=== PATIENT | female | born 1935 | race Caucasian/White ===

== ENCOUNTER → 2020-05-17 13:27 | Outpatient (REF) | payer MEDICARE, SELFPAY ==
--- NOTE | 2020-05-17 14:00 | CA_ITS ---
Transthoracic Echocardiogram Patient (Last, First, Middle): Lsia Fay C Gender: Female Date of : 1935 Age: 85 Procedure Date: 05/17/2020 Procedure Type: Transthoracic Echocardiogram Location: OP Height: 162.56 cm Weight: 73.94 kg BSA: 1.79 m2 Heart Rate: bpm BP: 132 / 58 mmHg Underground Miner: Referring MD: Alexandre Sebastian MD Symptoms: i35.0 as,i48.0 paf,i63.9 cva Conclusions: - Normal left ventricular cavity size. There is mildly increased left ventricular wall thickness. The left ventricular systolic function is hyperdynamic. The visually estimated ejection fraction is >70%. - Normal right ventricular cavity size and systolic function. - The left atrium is mildly dilated. - There is mild to moderate aortic valve stenosis. The peak aortic velocity is 2.53 m/s. The aortic valve area is 1.54 cm2. - There is severe mitral annular calcification. There is mild mitral valve regurgitation. - Mild pulmonary hypertension is present. Findings Left Ventricle Normal left ventricular cavity size. There is mildly increased left ventricular wall thickness. The left ventricular systolic function is hyperdynamic. The visually estimated ejection fraction is >70%. Abnormal diastolic function is noted. Spectral Doppler is indicative of an impaired relaxation filling pattern. E/E prime ratio is >15, consistent with elevated filling pressures. Right Ventricle Normal right ventricular cavity size and systolic function. Atria The left atrium is mildly dilated. The right atrium is normal in size. Aortic Valve There is a normal trileaflet aortic valve. There is mild calcification of the aortic valve. There is mild to moderate aortic valve stenosis. The peak aortic velocity is 2.53 m/s. The aortic valve area is 1.54 cm2. There is no aortic valve regurgitation. Mitral Valve There is severe mitral annular calcification. There is mild mitral valve regurgitation. There is no mitral valve stenosis. Pulmonic Valve Normal pulmonic valve structure and function. There is trace pulmonic valve regurgitation. Tricuspid Valve Normal tricuspid valve structure and function. There is mild tricuspid valve regurgitation. Normal right atrial pressure. Mild pulmonary hypertension is present. Great Vessels All visible segments of the aorta are normal in size. The visualized portions of the pulmonary artery and branches are normal. Venous The inferior vena cava is normal in size and collapses greater than 50% with inspiration. Pericardium/Pleural There is no evidence of pericardial effusion. Prior Study Comparison No significant change compared to prior study dated: 04/20/2019. Measurements 2D Linear Measurements RVIDd: 2.55 RVIDd Index: 1.42 IVSd: 1.06 0.6-0.9/0.6-1.0 cm LVIDd: 4.08 3.9-5.3/4.2-5.9 cm LVIDd Index: 2.28 2.4-3.2/2.2-3.1 cm/m2 LVIDs: 2.54 2.0-3.6 cm LVPWd: 1.17 0.7-1.1 cm Ao Root: 2.60 2.1-3.5 cm LA Diam: 3.60 2.7-3.8/3.0-4.0 cm LAIDs Index: 2.01 1.5-2.3 cm/m2 LV Mass: 190.66 67-162/88-224 g LV Mass Index: 106.51 43-95/49-115 g/m2 LVOT Diam: 2.00 3.0+(-)1.3 cm 2D Systolic Function EF 4C: 71.50 >55% EF 2C: 77.90 >55% EF BiP: 74.40 >55% Mitral Valve MV Pk E: 1.01 MV PK A: 1.22 MV Decel Time: 285.00 E/A: 0.80 E'Lateral: 6.64 E'Medial: 5.55 E/E' Med: 18.20 E/E' Lat: 15.20 Aortic Valve AoV Pk Hunter: 2.53 AoV Mn Hunter: 1.81 AoV VTI: 0.59 AoV Pk Grad: 26.00 Aov Mn Grad: 15.00 EMMA Cont.VTI: 1.54 LVOT LVOT Pk Hunter: 1.21 LVOT Mn Hunter: 0.94 LVOT VTI: 0.29 LVOT Pk Grad: 6.00 LVOT Mn Grad: 4.00 LVOT Diam: 2.00 LVOT Area: 3.14 Diastolic Function MV Pk E: 1.01 MV Pk A: 1.22 E/A: 0.80 E'Medial: 5.55 E/E' Med: 18.20 E' Laterial: 6.64 E/E' Lat: 15.20 Tricuspid Valve TR Pk Hunter: 3.12 TR Pk Grad: 39.00 RA Press: 3.00 RVSP: 42.00 Great Vessels Aorta Ao Root-2D: 2.60 2.0-3.7 cm Ao Asc: 2.30 2.1-3.4 cm Updated in Other Vendor System with Status of Final Anibal Reyes MD electronically signed on 05/18/2020 1:05:36 PM with status of Final
== END ==
LOC: HO.CARD 13:27
PROVIDERS: PCP Internal Medicine; Visit Provider Internal Medicine Cardiovascular Disease
DX: I48.0 Paroxysmal atrial fibrillation (principal); I63.9 Cerebral infarction, unspecified; I35.0 Nonrheumatic aortic (valve) stenosis
CPT/HCPCS: 93306

== ENCOUNTER 2020-05-22 12:43 | Outpatient (REF) | payer MEDICARE, SELFPAY ==
--- NOTE | 2020-05-22 12:53 | XR_ITS ---
EXAMINATION: XR HAND, LEFT XR WRIST, LEFT CLINICAL INFORMATION: Pain left hand and wrist. COMPARISON: None TECHNIQUE: Left hand is imaged in 3 views. The left wrist is imaged in 3 separate views. There are total of 6 views. FINDINGS: There is no fracture or dislocation or healing fracture left hand or left wrist. There is generalized osteopenia hand and wrist. The ulnar variance is neutral. There is small cyst distal ulnar. There is no calcification triangular fibrocartilage. Mild joint narrowing present at the triscaphe joint. There is some focal benign calcification between the triquetrum and hamate. No erosive change. Mild joint narrowing and spurring present at the first MCP joint. The second through fifth MTP joints are unremarkable. There is mild variable joint narrowing PIP and DIP joints without erosive changes. XR/XR hand LT min 3V IMPRESSION: 1. Mild joint narrowing lateral carpus, first MCP, and interphalangeal joints. No erosive changes. 2. Benign calcification between triquetrum and hamate. No calcification triangular fibrocartilage or articular cartilage. 3. No fracture, dislocation, or destructive process.
--- NOTE | 2020-05-22 12:53 | XR_ITS ---
EXAMINATION: XR HAND, LEFT XR WRIST, LEFT CLINICAL INFORMATION: Pain left hand and wrist. COMPARISON: None TECHNIQUE: Left hand is imaged in 3 views. The left wrist is imaged in 3 separate views. There are total of 6 views. FINDINGS: There is no fracture or dislocation or healing fracture left hand or left wrist. There is generalized osteopenia hand and wrist. The ulnar variance is neutral. There is small cyst distal ulnar. There is no calcification triangular fibrocartilage. Mild joint narrowing present at the triscaphe joint. There is some focal benign calcification between the triquetrum and hamate. No erosive change. Mild joint narrowing and spurring present at the first MCP joint. The second through fifth MTP joints are unremarkable. There is mild variable joint narrowing PIP and DIP joints without erosive changes. XR/XR wrist LT min 3V IMPRESSION: 1. Mild joint narrowing lateral carpus, first MCP, and interphalangeal joints. No erosive changes. 2. Benign calcification between triquetrum and hamate. No calcification triangular fibrocartilage or articular cartilage. 3. No fracture, dislocation, or destructive process.
== END 2020-05-22 12:44 | disposition home or self-care (01) ==
LOC: HO.HMGCX 12:43
PROVIDERS: PCP Internal Medicine; Visit Provider Hospitalist
DX: M25.532 Pain in left wrist (principal); M79.642 Pain in left hand
CPT/HCPCS: 73110; 73130

== ENCOUNTER 2020-09-27 08:50 | Outpatient (REF) | payer MEDICARE, SELFPAY | END 2020-09-27 08:51 | disposition home or self-care (01) | LOC: HO.LAB 08:50 | PROVIDERS: Visit Provider Internal Medicine | DX: Z20.822 Contact with and (suspected) exposure to COVID-19 (principal) | CPT/HCPCS: 36415; C9803; U0003; U0005 ==

== ENCOUNTER → 2020-11-09 09:41 | Outpatient (BNVA) | payer MEDICARE, SELFPAY | PROVIDERS: PCP Internal Medicine; Visit Provider Surgery | DX: D49.2 Neoplasm of unspecified behavior of bone, soft tissue, and skin (principal) | CPT/HCPCS: 99212 ==

== ENCOUNTER 2020-11-10 09:01 | Outpatient (REF) | payer MEDICARE, SELFPAY ==
[2020-11-10 12:07] LABS: TSH reflex Free T4 1.47 uIU/mL (0.32-4.0); Vitamin D 25-OH Total 30.5 ng/mL (>30)
[2020-11-10 12:12] LABS: Alanine Aminotransferase 15 U/L (0-31); Albumin Level 4.3 g/dL (3.5-5.0); Alkaline Phosphatase 107 U/L (39-117); Anion Gap 15 (12-20); Aspartate Amino Transferase 18 U/L (5-31); Blood Urea Nitrogen 19 mg/dL (9-16); Carbon Dioxide 29 mmol/L (22-29); Chloride 109 mmol/L (96-108); Cholesterol 170 mg/dL; Estimated Glomerular Filt Rate 49; Glucose Fasting 102 mg/dL (60-99); HDL Cholesterol 67 mg/dL; LDL Cholesterol Calculated 94 mg/dl; Potassium 5.1 mmol/L (3.3-5.1); Sodium 148 mmol/L (135-145); Triglycerides 46 mg/dL
[2020-11-10 12:20] LABS: Bilirubin Total 0.3 mg/dL (0.0-1.0)
== END 2020-11-10 09:02 | disposition home or self-care (01) ==
LOC: HO.HMGCLDS 09:01
PROVIDERS: PCP Internal Medicine; Visit Provider Internal Medicine
DX: E03.9 Hypothyroidism, unspecified (principal); E55.9 Vitamin D deficiency, unspecified; I48.91 Unspecified atrial fibrillation
CPT/HCPCS: 36415; 80053; 80061; 82306; 84443

== ENCOUNTER 2023-05-13 10:23 | Outpatient (AMB) | payer OTHER, MEDICAID, SELFPAY ==
--- NOTE | 2023-05-13 10:24 | MHC.PC.OV ---
Vital Signs 05/13/23 10:26 Height 5 ft 2 in Weight 159 lb 2 oz BMI 29.1 BP 120/60 Blood Pressure Location Lt brachial Position Sitting Pulse 68 Pulse Source Pulse Oximeter Pulse Oximetry (%) 98 Oxygen Delivery Method Room Air Intake Visit Reasons: NPV/ requesting an awv Intake Note: Patient is a new patient here to establish care for HTN, Hyperlipidemia, Hypothyroid, Afib, Vit D deficiency. Transferring care from Dr Tellez [facility] [place]. Medical records have been requested and have received. 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: Yes Did you have a dental problem in the last 6 months where you did not have access to dental care?: No Was dental information given to patient?: Patient has dentist HPI HPI Comments History of Present Illness Details 88-year-old female new patient presents today to establish care. Past medical history significant for hypertension, atrial fibrillation on Eliquis, CVA, hypothyroidism, hyperlipidemia and constipation. Patient reports previous patient Dr. Tellez over 2 years ago, states she moved to a full order for few years and was followed by [facility] while living there, Records available in chart. Patient reports she was a previous patient of Dr. Sebastian and has upcoming appointment to reestablish care with him in the upcoming weeks. Patient reports she has anxiety and cant shut off her brain to sleep. Considered trailing hydroxizine however patient reported she is on amiodarone 100 mg daily and there is an interaction between these medications. Offered referral to counseling however patient declines this time. Patient also reports was previously on medication for anxiety which she did not like way it made her feel so she discarded the medication, review of the notes patient was previously on sertraline. PFSH Medical History Hyperlipidemia Knee pain Vitamin D insufficiency Hypothyroidism CVA (cerebral vascular accident) Osteoporosis of lumbar spine HTN (hypertension) Afib Surgical History History of removal of cyst Family History Father Emphysema, unspecified Mother History of heart attack Brother Cancer of prostate Sister Ovarian cancer Sister Ovarian cancer Son History of heart attack Malignant melanoma Son No problems noted. Son No problems noted. Daughter No problems noted. Other Substance use disorder Social History Housing: Other (mobile home) Alcohol intake: current Alcohol intake frequency: holidays/special occasions only Patient Tobacco Use Status: Never used Tobacco e-Cigarette/Vaping Use: Never Used Second Hand Smoke Exposure: No service: No Current occupational status: retired Cognitive needs: No Hearing needs: No Vision needs: Yes (glasses) Questionnaire PHQ-9 Over the last 2 weeks, how often have you been bothered by any of the following problems? 1. Little interest or pleasure in doing things: not at all 2. Feeling down, depressed, or hopeless: several days 3. Trouble falling or staying asleep, or sleeping too much: not at all 4. Feeling tired or having little energy: not at all 5. Poor appetite or overeating: not at all 6. Feeling bad about yourself - or that you are a failure or have let yourself or your family down: not at all 7. Trouble concentrating on things, such as reading the newspaper or watching television: not at all 8. Moving or speaking so slowly that other people could have noticed. Or the opposite - being so fidgety or restless that you have been moving around a lot more than usual: not at all 9. Thoughts that you would be better off or of hurting yourself in some way: not at all Total score: 1 Depression Screening Interpretation: Negative Depression Screening Done: Yes Source: Developed by Drs. Joel L. Justyn, Maykel Weber and colleagues, with an educational chato from [employer]. Thrive Questionnaire Date Thrive assessed: 05/13/23 I am a: Patient What is your living situation today?: I have a steady place to live Within the past 12 months, did the food you bought not last and you didn't have the money to get more?: Never true Within the past 12 months, did you worry whether your food would run out before you got money to buy more?: Never true Do you have trouble paying for medicines?: No Do you have trouble getting transportation to medical appointments?: No Do you have trouble paying your heating and electricity bill?: No Do you have trouble taking care of your child, family member or friend?: No Do you have trouble with day-to-day activities such as bathing, preparing meals, shopping, managing finances, etc.?: No Are you currently unemployed and looking for a job?: No Are you interested in more education?: No Currently or been in a relationship where the following occur: no concerns reported AUDIT C Alcohol Use Questionnaire (AUDIT-C) 1. How often do you have a drink containing alcohol?: Never Total Score: 0 SANIYA-7 AMB Questionnaire SANIYA-7 Date SANIYA - 7 assessed: 05/13/23 Feeling nervous, anxious, or on edge: 0 = Not at all Not being able to stop or control worryin = Not at all Worrying too much about different things: 0 = Not at all Trouble relaxin = Not at all Being so restless that it is hard to sit still: 0 = Not at all Becoming easily annoyed or irritable: 0 = Not at all Feeling afraid as if something awful might happen: 0 = Not at all Total SANIYA-7 score (0-4 normal; 5-9 mild; 10-14 moderate; 15-21 severe): 0 Source: Developed by Drs. Joel Alejandra, Maykel Weber and colleagues, with an educational chato from [employer]. Review of Systems Const Denies chills, Denies fatigue, Denies fever(s) and Denies poor appetite Eyes Denies no additional complaints ENT Reports Normal hearing present Card Denies chest pain, Denies syncope, Denies rapid heart rate and Denies dyspnea Resp Denies cough and Denies dyspnea GI Denies change in stool character, Denies constipation, Denies diarrhea, Denies nausea and Denies vomiting Denies urinary frequency, Denies dysuria and Denies urinary urgency Neuro Reports Normal hearing present, Denies confusion and Denies syncope Psych Denies confusion Endo Denies fatigue Physical exam (Primary Care) Vital Signs: Last Vital Signs Pulse 68 05/13/23 10:26 BP 120/60 05/13/23 10:26 Pulse Ox 98 05/13/23 10:26 Oxygen Delivery Method Room Air 05/13/23 10:26 BMI result Body Mass Index 29.1 Tobacco/Smoking Status: Tobacco use Status Tobacco use date assessed 05/13/23 05/13/23 10:29 Patient Tobacco Use Status Never used Tobacco 05/13/23 10:29 e-Cigarette/Vaping Use Never Used 05/13/23 10:29 PHQ-9: PHQ-9 Score PHQ-9: Total score 1 05/13/23 11:42 Depression Screening Interpretation: Negative Thrive Assessment: Date of Thrive Assessment Date Thrive assessed 05/13/23 05/13/23 10:29 Currently or been in a relationship where the following occur: no concerns reported Const General: No confusion Orientation/consciousness: No confusion HENMT Head: Yes normocephalic and Yes atraumatic Eyes Conjunctivae: conjunctivae normal Chest Chest palpation & inspection: normal inspection of the chest Resp Effort & Inspection: normal respiratory effort Auscultation: clear to auscultation bilaterally, no crackles, no rhonchi and no wheezes Cardio Rate: regular rate Rhythm: regular rhythm Heart sounds: S1 normal heart sound present and S2 normal heart sound present Peripheral pulses: dorsalis pedis present GI Inspection: Yes normal to inspection General: Yes no CVA tenderness Back/Spine/Pelvis Back: no CVA tenderness Neuro General: No confusion Cranial nerves: Yes Normal hearing present Extrem General: No edema Assessment and Plan Assessment & Plan (1) Constipation: Code(s): K59.00 - Constipation, unspecified Plan: MiraLax sent to patient's pharmacy. Patient advised to increase water intake and follow high-fiber diet keep active to facilitate regular bowel movements. (2) Hyperlipidemia: Code(s): E78.5 - Hyperlipidemia, unspecified Plan: Continue on lovastatin. Follow low-cholesterol diet. Fasting lipid panel ordered. (3) Hypothyroidism: Code(s): E03.9 - Hypothyroidism, unspecified Plan: Continue on levothyroxine. TSH with reflex T4. (4) Afib: Code(s): I48.91 - Unspecified atrial fibrillation Plan: Continue on amiodarone antiarrhythmic and Eliquis for anticoagulation. Continue to reestablish care with Cardiology. (5) Essential hypertension: Code(s): I10 - Essential (primary) hypertension Plan: Continue on amlodipine 10 mg daily. Follow low-salt diet and exercise. Plan Follow up in 3 months for AWV Orders: Orders Comprehensive [place]. Panel Fast Today I10 - Essential (primary) hypertension Complete Blood Count Auto Diff Today Z13.0 - Encounter for screening for diseases of the blood and blood-forming organs and certain disorders involving the immune mechanism Lipid Panel Today Z13.220 - Encounter for screening for lipoid disorders TSH reflex Free T4 Today Z13.29 - Encounter for screening for other suspected endocrine disorder Medications: New polyethylene glycol 3350 (Miralax) 17 grams PO DAILY 119 grams 0RF K59.00 - Constipation, unspecified Changed From hydralazine 50 mg (2 x 25 mg) PO BID 360 tabs 3RF To hydralazine 50 mg PO BID Coding Level of Care Code New Pt Level 4 (85492) Diagnoses Constipation K59.00 Hyperlipidemia E78.5 Hypothyroidism E03.9 Afib I48.91 Essential hypertension I10
[2023-05-13 10:26] VITALS: BP 120/60; PULSE 68; O2SAT 98; BMI 29.1
== END 2023-05-13 11:10 | disposition home or self-care (01) ==
PROVIDERS: Visit Provider Nurse Practitioner Family
DX: K59.00 Constipation, unspecified (principal); E78.5 Hyperlipidemia, unspecified; E03.9 Hypothyroidism, unspecified; I48.91 Unspecified atrial fibrillation; I10 Essential (primary) hypertension
CPT/HCPCS: 99204; 99214

== ENCOUNTER 2023-05-27 10:37 | Outpatient (AMB) | payer OTHER, MEDICAID, SELFPAY ==
--- NOTE | 2023-05-27 10:39 | MHC.OFFVIS ---
Intake Vital Signs 05/27/23 10:40 Height 5 ft 2 in Weight 160 lb 14.999 oz BMI 29.4 BP 136/84 Blood Pressure Location Lt brachial Position Sitting Pulse 63 Intake Visit Reasons: old ns pt/ back from [facility] Intake Note: Follow-up last seen 2019 back from [place] c/o chest pain yesterday Medical Front Desk Coordinator Required: No Supervisor Assembly And Packing: Supervisor Assembly And Packing Present Accompanied by: Daughter Allergies lisinopril Adverse Reaction (Intermediate, Verified 05/13/23 10:47) Unknown Medication List - Last Reconciled 05/27/23 by Alexandre Sebastian MD amiodarone 100 mg PO DAILY amlodipine 10 mg PO DAILY apixaban 5 mg PO BID hydralazine 50 mg PO BID levothyroxine 75 mcg PO DAILY lovastatin 40 mg PO DAILY polyethylene glycol 3350 (Miralax) 17 grams PO DAILY HPI HPI Comments History of Present Illness Details Thank you for referring Lisa in cardiology consultation today for management of atrial fibrillation aortic stenosis. She is known to me with prior history of aortic stenosis and atrial fibrillation had moved to [place] a few years back but has returned back permanently as she could not tolerate living down in [place]. She says she is doing well. She remains very active and functional. Denies any exertional chest pain or shortness of breath. She denies any prolonged palpitations or irregular heartbeat. Denies any lightheadedness, syncope. No bleeding issues or neurologic events. Takes all her medications regularly. [facility] Medical History Paroxysmal atrial fibrillation Aortic stenosis Hyperlipidemia Knee pain Vitamin D insufficiency Hypothyroidism CVA (cerebral vascular accident) Osteoporosis of lumbar spine HTN (hypertension) Surgical History History of removal of cyst Family History Father Emphysema, unspecified Mother History of heart attack Brother Cancer of prostate Sister Ovarian cancer Sister Ovarian cancer Son History of heart attack Malignant melanoma Son No problems noted. Son No problems noted. Daughter No problems noted. Other Substance use disorder Social History Housing: Other (mobile home) Alcohol intake: current Alcohol intake frequency: holidays/special occasions only Patient Tobacco Use Status: Never used Tobacco e-Cigarette/Vaping Use: Never Used Second Hand Smoke Exposure: No service: No Current occupational status: retired Cognitive needs: No Hearing needs: No Vision needs: Yes (glasses) Review of Systems Const Denies chills, Denies fatigue, Denies fever(s), Denies frequent falls, Denies weakness, Denies weight gain and Denies weight loss ENT Denies dizziness Card Denies chest pain, Denies leg edema, Denies lightheadedness, Denies palpitations, Denies dyspnea, Denies dyspnea on exertion, Denies orthopnea and Denies other (loss of consciousness) Resp Denies cough, Denies dyspnea and Denies dyspnea on exertion GI Denies hematochezia and Denies change in stool character Musc Denies abnormal gait, Denies muscle weakness, Denies numbness, Denies radiating pain into limb and Denies tingling Neuro Denies abnormal gait, Denies dizziness, Denies frequent falls, Denies numbness, Denies tingling and Denies weakness Endo Denies fatigue and Denies palpitations Physical Exam Vital Signs: Last Vital Signs Pulse 63 05/27/23 10:40 BP 136/84 05/27/23 10:40 BMI result Body Mass Index 29.4 Const General: cooperative, comfortable, no acute distress, well developed, alert, awake, Physically active and well groomed Nutritional Appearance: overweight Orientation/consciousness: patient oriented x3 Limitations: no limitations HEENT Head: Yes normocephalic and Yes atraumatic Neck Neck: Yes trachea midline, Yes supple and Yes no JVD Resp Effort & Inspection: normal respiratory effort Auscultation: clear to auscultation bilaterally Cardio Jugular venous distension: no JVD Palpation: normal PMI Rate: regular rate Rhythm: regular rhythm Heart sounds: S1 normal heart sound present, S2 normal heart sound present, no click, no gallops and Murmur heart sound present systolic mid, decrescendo and crescendo GI Auscultation: normal bowel sounds Skin General skin exam: no rashes or lesions noted Neuro General: patient oriented x3 and no focal motor deficits Extrem General: Yes no clubbing, cyanosis or edema Office Procedures EKG Details: EKG shows normal sinus rhythm with poor R-wave progression most likely lead placement with nonspecific T-wave changes [place] [id number], Complete Assessment & Plan Assessment & Plan (1) Paroxysmal atrial fibrillation: Code(s): I48.0 - Paroxysmal atrial fibrillation Plan: Paroxysmal atrial fibrillation is highly symptomatic has remained suppressed for many years on low-dose amiodarone therapy. Has done very well with rhythm control approach. Continue monitor for amiodarone toxicity on annual basis. Currently on full oral anticoagulation with Eliquis with CKD. Advised to follow renal function every 3 months. Tolerating this therapy well. Avoidance of stimulants was discussed. (2) Aortic stenosis: Code(s): I35.0 - Nonrheumatic aortic (valve) stenosis Plan: Aortic stenosis which is at least moderate by clinical exam. Follow-up echocardiogram in near future. Continue aggressive vascular risk factor modification. Blood pressure is currently well optimized advised to monitor blood pressure at home maintain a log. Goal blood pressure less than 130/84. Will switch to lovastatin to rosuvastatin 5 mg. Follow-up lipid panel in 6 weeks to target goal LDL less than 100 mg/dL. Cardinal symptoms of aortic stenosis were discussed with her in details. She understands agrees. Follow up in the clinic in 6 months time, sooner p.r.n.. 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
[2023-05-27 10:40] VITALS: BP 136/84; PULSE 63; BMI 29.4
== END 2023-05-27 11:08 | disposition home or self-care (01) ==
PROVIDERS: Visit Provider Internal Medicine Cardiovascular Disease
DX: I48.0 Paroxysmal atrial fibrillation (principal); I35.0 Nonrheumatic aortic (valve) stenosis
CPT/HCPCS: 93010; 99204

== ENCOUNTER → 2023-05-27 10:37 | Outpatient (BNVA) | payer OTHER, SELFPAY | PROVIDERS: Visit Provider Internal Medicine Cardiovascular Disease | DX: I48.0 Paroxysmal atrial fibrillation (principal); I35.0 Nonrheumatic aortic (valve) stenosis; Z79.01 Long term (current) use of anticoagulants; Z79.899 Other long term (current) drug therapy | CPT/HCPCS: 93005 ==

== ENCOUNTER 2023-06-25 08:24 | Outpatient (REF) | payer OTHER, MEDICAID, SELFPAY ==
[2023-06-25 11:28] LABS: MANUAL DIFF FLAG NO
[2023-06-25 11:43] LABS: Basophils Absolute Auto 0.1 X10*3/uL (0.0-0.2); Basophils Percent Auto 0.7 % (0-2); Eosinophils Absolute Auto 0.1 X10*3/uL (0.0-0.4); Eosinophils Percent Auto 1.8 % (0-4); Hematocrit 44.5 % (37.0-47.0); Hemoglobin 14.6 g/dl (12.0-16.0); Imm Gran Abs Auto 0.02 X10*3/uL (0.00-0.03); Imm Gran Pct Auto 0.3 % (0.0-0.4); Lymphocytes Absolute Auto 2.1 X10*3/uL (1.2-4.9); Lymphocytes Percent Auto 27.1 % (20-40); Mean Corpuscular HGB Conc 32.8 g/dl (31.0-35.0); Mean Corpuscular Hemoglobin 29.5 pg (27.0-33.0); Mean Corpuscular Volume 89.9 fL (80.0-98.0); Mean Platelet Volume 12.5 fL (9.4-12.3); Monocytes Absolute Auto 0.8 X10*3/uL (0.1-1.2); Monocytes Percent Auto 10.6 % (2-11); Neutrophils Absolute Auto 4.5 x10*3/uL (2.0-8.3); Neutrophils Percent Auto 59.5 % (45-73); Platelet Count 215 X10*3/uL (160-400); Red Blood Count 4.95 X10*6/uL (4.20-5.50); White Blood Count 7.6 X10*3/uL (4.8-10.8)
[2023-06-25 12:09] LABS: Alanine Aminotransferase 12 U/L (0-31); Albumin Level 4.2 g/dL (3.5-5.0); Alkaline Phosphatase 81 U/L (39-117); Anion Gap 14 (12-20); Aspartate Amino Transferase 16 U/L (5-31); Bilirubin Direct 0.2 mg/dL (0.0-0.5); Bilirubin Total 0.4 mg/dL (0.0-1.0); Blood Urea Nitrogen 22 mg/dL (9-16); Calcium 9.8 mg/dL (8.4-10.2); Carbon Dioxide 28 mmol/L (22-29); Chloride 106 mmol/L (96-108); Cholesterol 173 mg/dL (<200); Estimated Glomerular Filt Rate 45; Glucose Fasting 105 mg/dL (60-99); Glucose Random 105 mg/dL (60-115); HDL Cholesterol 60 mg/dL (>40); LDL Cholesterol Calculated 101 mg/dL (<100); Potassium 4.5 mmol/L (3.3-5.1); Sodium 143 mmol/L (135-145); TSH reflex Free T4 2.06 uIU/mL (0.32-4.0); Total Protein 7.4 g/dL (6.5-8.0); Triglycerides 61 mg/dL (<150)
== END 2023-06-25 08:25 | disposition home or self-care (01) ==
LOC: HO.HMGCLDS 08:24
PROVIDERS: PCP Nurse Practitioner Family; Visit Provider Internal Medicine Cardiovascular Disease
DX: Z13.0 Encounter for screening for diseases of the blood and blood-forming organs and certain disorders involving the immune mechanism (principal); Z13.220 Encounter for screening for lipoid disorders; Z13.29 Encounter for screening for other suspected endocrine disorder; I48.0 Paroxysmal atrial fibrillation; I10 Essential (primary) hypertension
CPT/HCPCS: 36415; 80048; 80053; 80061; 80076; 84443; 85025; 85027

== ENCOUNTER → 2023-06-26 08:49 | Outpatient (REF) | payer OTHER, SELFPAY ==
--- NOTE | 2023-06-26 08:53 | CA_ITS ---
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 Normal LV ejection fraction of 60 65% with mild LVH with grade 2 diastolic dysfunction 2. Mildly dilated left atrium 3. Huev-sp-xzbdzyxj calcific aortic stenosis 4. Severe mitral annular calcification 5. Normal RV systolic pressure 6. Trivial pericardial effusion Findings Left Ventricle Normal left ventricular size and systolic function. There is mildly increased left ventricular wall thickness. The visually estimated ejection fraction is between 60-65%. Spectral Doppler is indicative of a pseudonormal filling pattern. E/E prime ratio is >15, consistent with elevated filling pressures. Evidence suggests grade II (moderate) diastolic dysfunction. There is mild septal asymmetric hypertrophy. Right Ventricle Normal right ventricular cavity size and systolic function. Atria The left atrium is mildly dilated. Interatrial shunt cannot be excluded. The right atrium is normal in size. Aortic Valve The aortic valve was not well visualized. There is moderate calcification of the aortic valve. There is mild to moderate aortic valve stenosis. The peak aortic gradient is 29 mmHg.The mean gradient is 17 mmHg. The aortic valve area is 1.42 cm2. There is no aortic valve regurgitation. Mitral Valve There is mild anterior and severe posterior mitral leaflet thickening. There is severe mitral annular calcification. There is mild mitral valve regurgitation. There is no mitral valve stenosis. Pulmonic Valve The pulmonic valve is likely normal. Tricuspid Valve Normal tricuspid valve structure. There is mild tricuspid valve regurgitation. The right ventricular systolic pressure is normal. The right ventricular systolic pressure is 33 mmHg. Normal right atrial pressure. Mild pulmonary hypertension is present. Great Vessels All visible segments of the aorta are normal in size. The pulmonary artery was not well visualized. Venous The inferior vena cava is normal in size and collapses greater than 50% with inspiration. Pericardium/Pleural There is a trivial loculated pericardial effusion overlying the left ventricle. Prior Study Comparison Changes noted compared to prior study dated: 05/17/2020. RV systolic pressure is measured to be normal on this study Measurements 2D Linear Measurements IVSd: 1.59 0.6-0.9/0.6-1.0 cm LVIDd: 3.77 3.9-5.3/4.2-5.9 cm LVIDd Index: 2.14 2.4-3.2/2.2-3.1 cm/m2 LVIDs: 2.05 2.0-3.6 cm LVPWd: 1.10 0.7-1.1 cm LA Diam: 3.70 2.7-3.8/3.0-4.0 cm LAIDs Index: 2.10 1.5-2.3 cm/m2 LV Mass: 224.64 67-162/88-224 g LV Mass Index: 127.64 43-95/49-115 g/m2 LVOT Diam: 2.00 3.0+(-)1.3 cm 2D Systolic Function EF 4C: 60.40 >55% EF 2C: 63.60 >55% EF BiP: 60.80 >55% Mitral Valve MV VTI: 0.42 MV Pk Hunter: 1.21 MV Mn Hunter: 0.70 MV Pk Grad: 6.00 MV Mn Grad: 2.00 MV Pk E: 1.07 MV PK A: 0.99 MV Decel Time: 253.00 E/A: 1.10 E'Lateral: 5.77 E'Medial: 4.68 E/E' Med: 22.90 E/E' Lat: 18.50 PHT: 74.00 MVA PHT: 2.97 MVA Continuity: 2.32 Decel [place]y: 4.23 Aortic Valve AoV Pk Hunter: 2.68 AoV Mn Hunter: 1.96 AoV VTI: 0.69 AoV Pk Grad: 29.00 Aov Mn Grad: 17.00 EMMA Cont.VTI: 1.42 LVOT LVOT Pk Hunter: 1.06 LVOT Mn Hunter: 0.83 LVOT VTI: 0.31 LVOT Pk Grad: 4.00 LVOT Mn Grad: 3.00 LVOT Diam: 2.00 LVOT Area: 3.14 Diastolic Function MV Pk E: 1.07 MV Pk A: 0.99 E/A: 1.10 E'Medial: 4.68 E/E' Med: 22.90 E' Laterial: 5.77 E/E' Lat: 18.50 Right Ventricle TAPSE (mm): 20.80 TVS' Hunter: 10.40 Tricuspid Valve TR Pk Hunter: 2.73 TR Pk Grad: 30.00 RA Press: 3.00 RVSP: 33.00 Great Vessels Aorta Sinus of Valsalva: 2.82 2.0-3.5 cm Ao Asc: 2.70 2.1-3.4 cm Updated in Other Vendor System with Status of Final Alexandre Sebastian MD electronically signed on 06/26/2023 6:35:23 PM with status of Final
== END ==
LOC: HO.CARD 08:49
PROVIDERS: PCP Nurse Practitioner Family; Visit Provider Internal Medicine Cardiovascular Disease
DX: I35.0 Nonrheumatic aortic (valve) stenosis (principal)
CPT/HCPCS: 93306

== ENCOUNTER → 2023-06-26 08:53 | Outpatient (BNV) | payer OTHER, MEDICAID, SELFPAY | PROVIDERS: PCP Nurse Practitioner Family; Visit Provider Internal Medicine Cardiovascular Disease | DX: I35.0 Nonrheumatic aortic (valve) stenosis (principal); I34.81 Nonrheumatic mitral (valve) annulus calcification | CPT/HCPCS: 93306 ==

== ENCOUNTER 2023-09-02 11:43 | Outpatient (AMB) | payer OTHER, MEDICAID, SELFPAY ==
--- NOTE | 2023-09-02 12:13 | A.OFFPC_ITS ---
Vital Signs 09/02/23 12:14 Height 5 ft 2 in Weight 161 lb 6 oz BMI 29.5 BP 135/82 Blood Pressure Location Lt brachial Position Sitting Pulse 70 Pulse Source Pulse Oximeter Pulse Oximetry (%) 99 Oxygen Delivery Method Room Air Intake Visit Reasons: Re establishing care per [facility] Intake Note: Pt is here to re-est care Allergies lisinopril Adverse Reaction (Intermediate, Verified 09/02/23 12:16) Unknown Medication List - Last Reconciled 09/02/23 by Eusebia Orantes MD amiodarone 100 mg PO DAILY 90 days amlodipine 5 mg PO DAILY apixaban 5 mg PO BID hydralazine 50 mg PO BID levothyroxine 75 mcg PO DAILY rosuvastatin 5 mg PO DAILY triamterene-hydrochlorothiazid 37.5-25 mg 1 tab PO QAM Tobacco use date assessed: 09/02/23 Fall risk assessment: No Falls in past year Last assessed Fall Risk: 09/02/23 Dental Screening Dental Screen Date: 09/02/23 Did you have a dental visit in the last 12 months?: Yes Did you have a dental problem in the last 6 months where you did not have access to dental care?: No Was dental information given to patient?: Patient has dentist HPI Re establishing care per [facility] HPI Details Pt presents for new patient visit. Past medical history includes HTN, A fib, hyperlipid, hypothyroid stable on meds. Pt's son from melanoma 1 and 1/2 years ago in [place]. Pt moved from [place] in February. [facility] Medical History (Updated 09/02/23 @ 14:22 by Eusebia Orantes MD) HTN (hypertension) Paroxysmal atrial fibrillation Aortic stenosis Hyperlipidemia Knee pain Vitamin D insufficiency Hypothyroidism CVA (cerebral vascular accident) Osteoporosis of lumbar spine Surgical History History of removal of cyst Family History Father Emphysema, unspecified Mother History of heart attack Brother Cancer of prostate Sister Ovarian cancer Sister Ovarian cancer Son History of heart attack Malignant melanoma Son No problems noted. Son No problems noted. Daughter No problems noted. Other Substance use disorder Social History Housing: Other (mobile home) Alcohol intake: current Alcohol intake frequency: holidays/special occasions only Patient Tobacco Use Status: Former Tobacco user e-Cigarette/Vaping Use: Never Used Second Hand Smoke Exposure: No service: No Current occupational status: retired Cognitive needs: No Hearing needs: No Vision needs: Yes (glasses) Questionnaire PHQ-9 Over the last 2 weeks, how often have you been bothered by any of the following problems? 1. Little interest or pleasure in doing things: not at all 2. Feeling down, depressed, or hopeless: several days 3. Trouble falling or staying asleep, or sleeping too much: not at all 4. Feeling tired or having little energy: several days 5. Poor appetite or overeating: not at all 6. Feeling bad about yourself - or that you are a failure or have let yourself or your family down: not at all 7. Trouble concentrating on things, such as reading the newspaper or watching television: not at all 8. Moving or speaking so slowly that other people could have noticed. Or the opposite - being so fidgety or restless that you have been moving around a lot more than usual: not at all 9. Thoughts that you would be better off or of hurting yourself in some way: not at all Total score: 2 Depression Screening Interpretation: Negative Depression Screening Done: Yes Source: Developed by Drs. Joel Alejandra, Genie Wilson, Maykel Nam and colleagues, with an educational chato from [employer]. Thrive Questionnaire Date Thrive assessed: 09/02/23 I am a: Patient What is your living situation today?: I have a steady place to live Within the past 12 months, did the food you bought not last and you didn't have the money to get more?: Never true Within the past 12 months, did you worry whether your food would run out before you got money to buy more?: Never true Do you have trouble paying for medicines?: No Do you have trouble getting transportation to medical appointments?: No Do you have trouble paying your heating and electricity bill?: No Do you have trouble taking care of your child, family member or friend?: No Do you have trouble with day-to-day activities such as bathing, preparing meals, shopping, managing finances, etc.?: No Are you currently unemployed and looking for a job?: No Are you interested in more education?: No THRIVE Score: 0 AUDIT C Alcohol Use Questionnaire (AUDIT-C) 1. How often do you have a drink containing alcohol?: Never Total Score: 0 SANIYA-7 AMB Questionnaire SANIYA-7 Date SANIYA - 7 assessed: 09/02/23 Feeling nervous, anxious, or on edge: 0 = Not at all Not being able to stop or control worryin = Several days Worrying too much about different things: 0 = Not at all Trouble relaxin = Several days Being so restless that it is hard to sit still: 0 = Not at all Becoming easily annoyed or irritable: 0 = Not at all Feeling afraid as if something awful might happen: 0 = Not at all Total SANIYA-7 score (0-4 normal; 5-9 mild; 10-14 moderate; 15-21 severe): 2 Source: Developed by Drs. Joel Alejandra, Genie Wilson, Maykel Nam and colleagues, with an educational chato from [employer]. Review of Systems Const All systems reviewed & are unremarkable except as noted in HPI and below Reports no additional complaints Eyes Reports no additional complaints ENT Reports no additional complaints Card Reports no additional complaints Resp Reports no additional complaints GI Reports no additional complaints Reports no additional complaints Physical exam (Primary Care) Vital Signs: Last Vital Signs Pulse 70 09/02/23 12:14 BP 150/82 H 09/02/23 12:14 Pulse Ox 99 09/02/23 12:14 Oxygen Delivery Method Room Air 09/02/23 12:14 BMI result Body Mass Index 29.5 Tobacco/Smoking Status: Tobacco use Status Tobacco use date assessed 09/02/23 09/02/23 12:21 Patient Tobacco Use Status Former Tobacco user 09/02/23 12:21 e-Cigarette/Vaping Use Never Used 09/02/23 12:21 PHQ-9: PHQ-9 Score PHQ-9: Total score 2 09/02/23 12:21 Depression Screening Interpretation: Negative Thrive Assessment: Date of Thrive Assessment Date Thrive assessed 09/02/23 09/02/23 12:21 Const General: no acute distress HENMT Head: Yes normal to inspection Ears: hearing grossly normal bilaterally General nose exam: Normal external nose present Face and sinus: Yes normal facial exam Mouth: Normal oral and palatal mucosa present Eyes General: appearance normal, both eyes and all related structures Neck Neck: Yes no lymphadenopathy and Yes supple Resp Effort & Inspection: normal respiratory effort Auscultation: clear to auscultation bilaterally Extrem Other: 3+ pitting edema bilaterally Assessment and Plan Assessment & Plan (1) HTN (hypertension): Code(s): I10 - Essential (primary) hypertension Plan: For worsening lower extremity edema amlodipine will be decreased from 10 mg to 5 mg and triamterene with hydrochlorothiazide 37.5/25 will be started. BNP will be checked in 2 weeks and patient will follow-up in 1 month (2) Edema: Code(s): R60.9 - Edema, unspecified Plan: As above (3) Aortic stenosis: Comment: Echo 06/19 mild-moderate calcific Code(s): I35.0 - Nonrheumatic aortic (valve) stenosis (4) Hyperlipidemia: Code(s): E78.5 - Hyperlipidemia, unspecified Plan: Continue statin check lipid profile (5) Hypothyroidism: Code(s): E03.9 - Hypothyroidism, unspecified Plan: Continue levothyroxine (6) Paroxysmal atrial fibrillation: Code(s): I48.0 - Paroxysmal atrial fibrillation Plan: Rhythm controlled on amiodarone and anticoagulated on Eliquis, follow-up with Cardiology Orders: Orders Basic Metabolic Panel 2 Weeks I10 - Essential (primary) hypertension, R60.9 - Edema, unspecified Medications: New amlodipine 5 mg PO DAILY 90 tabs 0RF triamterene-hydrochlorothiazid 37.5-25 mg 1 tab PO QAM 30 tabs 2RF Discontinued amlodipine Discontinued Reason: Doctor's Order 10 mg PO DAILY 90 tabs 3RF I10 - Essential (primary) hypertension Coding Level of Care Code Est Pt Level 4 (05814) Diagnoses HTN (hypertension) I10 Edema R60.9 Aortic stenosis I35.0 Hyperlipidemia E78.5 Hypothyroidism E03.9 Paroxysmal atrial fibrillation I48.0
[2023-09-02 12:14] VITALS: BP 135/82; PULSE 70; O2SAT 99; BMI 29.5
== END 2023-09-02 13:16 | disposition home or self-care (01) ==
PROVIDERS: PCP Nurse Practitioner Family; Visit Provider Internal Medicine
DX: I10 Essential (primary) hypertension (principal); R60.9 Edema, unspecified; I48.0 Paroxysmal atrial fibrillation; I35.0 Nonrheumatic aortic (valve) stenosis; E78.5 Hyperlipidemia, unspecified; E03.9 Hypothyroidism, unspecified
CPT/HCPCS: 99214

== ENCOUNTER 2023-09-16 07:28 | Outpatient (REF) | payer OTHER, SELFPAY ==
[2023-09-16 11:44] LABS: Anion Gap 14 (12-20); Blood Urea Nitrogen 29 mg/dL (9-16); Calcium 9.5 mg/dL (8.4-10.2); Carbon Dioxide 30 mmol/L (22-29); Chloride 104 mmol/L (96-108); Estimated Glomerular Filt Rate 37; Glucose Random 109 mg/dL (60-115); Potassium 5.1 mmol/L (3.3-5.1); Sodium 143 mmol/L (135-145)
== END 2023-09-16 07:29 | disposition home or self-care (01) ==
LOC: HO.HMGCLDS 07:28
PROVIDERS: PCP Internal Medicine; Visit Provider Internal Medicine
DX: I10 Essential (primary) hypertension (principal); R60.9 Edema, unspecified
CPT/HCPCS: 36415; 80048

== ENCOUNTER 2023-10-22 11:44 | Outpatient (REF) | payer OTHER, SELFPAY ==
[2023-10-22 13:34] LABS: MANUAL DIFF FLAG NO
[2023-10-22 13:54] LABS: Basophils Absolute Auto 0.1 X10*3/uL (0.0-0.2); Basophils Percent Auto 0.7 % (0-2); Eosinophils Absolute Auto 0.1 X10*3/uL (0.0-0.4); Eosinophils Percent Auto 1.2 % (0-4); Hematocrit 43.8 % (37.0-47.0); Hemoglobin 14.5 g/dl (12.0-16.0); Imm Gran Abs Auto 0.04 X10*3/uL (0.00-0.03); Imm Gran Pct Auto 0.4 % (0.0-0.4); Lymphocytes Absolute Auto 2.3 X10*3/uL (1.2-4.9); Lymphocytes Percent Auto 25.4 % (20-40); Mean Corpuscular HGB Conc 33.1 g/dl (31.0-35.0); Mean Corpuscular Hemoglobin 29.4 pg (27.0-33.0); Mean Corpuscular Volume 88.8 fL (80.0-98.0); Mean Platelet Volume 11.8 fL (9.4-12.3); Monocytes Percent Auto 10.7 % (2-11); Neutrophils Absolute Auto 5.5 x10*3/uL (2.0-8.3); Neutrophils Percent Auto 61.6 % (45-73); Platelet Count 191 X10*3/uL (160-400); Red Blood Count 4.93 X10*6/uL (4.20-5.50)
[2023-10-22 14:16] LABS: Alanine Aminotransferase 15 U/L (0-31); Albumin Level 4.4 g/dL (3.5-5.0); Alkaline Phosphatase 92 U/L (39-117); Anion Gap 14 (12-20); Aspartate Amino Transferase 20 U/L (5-31); Bilirubin Total 0.4 mg/dL (0.0-1.0); Blood Urea Nitrogen 32 mg/dL (9-16); Calcium 9.7 mg/dL (8.4-10.2); Carbon Dioxide 28 mmol/L (22-29); Chloride 101 mmol/L (96-108); Estimated Glomerular Filt Rate 42; Glucose Fasting 94 mg/dL (60-99); Potassium 4.9 mmol/L (3.3-5.1); Sodium 138 mmol/L (135-145); Total Protein 7.5 g/dL (6.5-8.0)
[2023-10-22 14:19] LABS: TSH reflex Free T4 0.41 uIU/mL (0.32-4.0)
== END 2023-10-22 11:45 | disposition home or self-care (01) ==
LOC: HO.HMGCLDS 11:44
PROVIDERS: PCP Internal Medicine; Visit Provider Internal Medicine
DX: I48.0 Paroxysmal atrial fibrillation (principal); I35.0 Nonrheumatic aortic (valve) stenosis; E03.9 Hypothyroidism, unspecified; I12.9 Hypertensive chronic kidney disease with stage 1 through stage 4 chronic kidney disease, or unspecified chronic kidney disease; N18.30 Chronic kidney disease, stage 3 unspecified
CPT/HCPCS: 36415; 80053; 84443; 85025

== ENCOUNTER 2023-10-31 11:52 | Outpatient (AMB) | payer OTHER, MEDICAID, SELFPAY ==
--- NOTE | 2023-10-31 11:55 | MHC.PC.OV ---
Vital Signs 10/31/23 11:57 Height 5 ft 2 in Weight 161 lb BMI 29.4 BP 128/66 Blood Pressure Location Lt brachial Position Sitting Pulse 61 Pulse Source Pulse Oximeter Pulse Oximetry (%) 98 Oxygen Delivery Method Room Air Intake Visit Reasons: 2 month follow up Intake Note: Pt is here today for 2 months follow up visit. Allergies lisinopril Adverse Reaction (Intermediate, Verified 10/31/23 11:58) Unknown Medication List - Last Reconciled 10/31/23 by Eusebia Orantes MD amiodarone 100 mg PO DAILY 90 days amlodipine 5 mg PO DAILY apixaban 5 mg PO BID hydralazine 50 mg PO BID levothyroxine 75 mcg PO DAILY rosuvastatin 5 mg PO DAILY triamterene-hydrochlorothiazid 37.5-25 mg 1 tab PO QAM Tobacco use date assessed: 10/31/23 Dental Screening Dental Screen Date: 09/02/23 HPI 2 month follow up HPI Details Pt presents for HTN and hyperlipid, stable on meds. pt has been under a lot of stress related to her daughter and complains of insomnia and anxiety. Patient denies depression and has a good support system with her friends. [facility] Medical History HTN (hypertension) Paroxysmal atrial fibrillation Aortic stenosis Hyperlipidemia Knee pain Vitamin D insufficiency Hypothyroidism CVA (cerebral vascular accident) Osteoporosis of lumbar spine Surgical History History of removal of cyst Family History Father Emphysema, unspecified Mother History of heart attack Brother Cancer of prostate Sister Ovarian cancer Sister Ovarian cancer Son History of heart attack Malignant melanoma Son No problems noted. Son No problems noted. Daughter No problems noted. Other Substance use disorder Social History Housing: Other (mobile home) Alcohol intake: current Alcohol intake frequency: holidays/special occasions only Patient Tobacco Use Status: Former Tobacco user e-Cigarette/Vaping Use: Never Used Second Hand Smoke Exposure: No service: No Current occupational status: retired Cognitive needs: No Hearing needs: No Vision needs: Yes (glasses) Questionnaire Thrive Questionnaire Date Thrive assessed: 09/02/23 AUDIT C Alcohol Use Questionnaire (AUDIT-C) 1. How often do you have a drink containing alcohol?: Never 3. How often do you have six or more drinks on one occasion?: Never Total Score: 0 SANIYA-7 AMB Questionnaire SANIYA-7 Date SANIYA - 7 assessed: 09/02/23 Source: Developed by Drs. Joel Alejandra, Genie Wilson, Maykel Nam and colleagues, with an educational chato from [employer]. Review of Systems Const All systems reviewed & are unremarkable except as noted in HPI and below Reports no additional complaints Eyes Reports no additional complaints ENT Reports no additional complaints Card Reports no additional complaints Resp Reports no additional complaints GI Reports no additional complaints Reports no additional complaints Physical exam (Primary Care) Vital Signs: Last Vital Signs Pulse 61 10/31/23 11:57 BP 128/66 10/31/23 11:57 Pulse Ox 98 10/31/23 11:57 Oxygen Delivery Method Room Air 10/31/23 11:57 BMI result Body Mass Index 29.4 Tobacco/Smoking Status: Tobacco use Status Tobacco use date assessed 10/31/23 10/31/23 12:01 Patient Tobacco Use Status Former Tobacco user 10/31/23 11:56 e-Cigarette/Vaping Use Never Used 10/31/23 11:56 Thrive Assessment: Date of Thrive Assessment Date Thrive assessed 09/02/23 10/31/23 11:56 Const General: no acute distress HENMT Head: Yes normal to inspection Face and sinus: Yes normal facial exam Throat: Yes posterior oropharynx normal Resp Effort & Inspection: normal respiratory effort Auscultation: clear to auscultation bilaterally Cardio Rhythm: regular rhythm Heart sounds: S1 normal heart sound present and S2 normal heart sound present GI Inspection: Yes normal to inspection Palpation (GI): Soft to palpation Percussion: Yes normal to percussion Auscultation: normal bowel sounds Assessment and Plan Assessment & Plan (1) Chronic kidney disease, stage 3: Code(s): N18.30 - Chronic kidney disease, stage 3 unspecified Plan: Avoid nephrotoxins monitor renal function (2) HTN (hypertension): Code(s): I10 - Essential (primary) hypertension Plan: Continue current medications (3) Paroxysmal atrial fibrillation: Code(s): I48.0 - Paroxysmal atrial fibrillation Plan: Controlled on amiodarone and anticoagulated on Eliquis (4) Aortic stenosis: Comment: Echo 06/19 mild-moderate calcific Code(s): I35.0 - Nonrheumatic aortic (valve) stenosis (5) Insomnia: Code(s): G47.00 - Insomnia, unspecified Plan: Stress management discussed with the patient try 25 mg of trazodone as needed. Follow-up in 2 months Medications: New trazodone 25 mg (1/2 x 50 mg) PO BEDTIME PRN 30 tabs 1RF sleep Coding Level of Care Code Est Pt Level 4 (86544) Diagnoses Chronic kidney disease, stage 3 N18.30 HTN (hypertension) I10 Paroxysmal atrial fibrillation I48.0 Aortic stenosis I35.0 Insomnia G47.00
[2023-10-31 11:57] VITALS: BP 128/66; PULSE 61; O2SAT 98; BMI 29.4
== END 2023-10-31 12:57 | disposition home or self-care (01) ==
PROVIDERS: PCP Nurse Practitioner Family; Visit Provider Internal Medicine
DX: I12.9 Hypertensive chronic kidney disease with stage 1 through stage 4 chronic kidney disease, or unspecified chronic kidney disease (principal); N18.30 Chronic kidney disease, stage 3 unspecified; I48.0 Paroxysmal atrial fibrillation; I35.0 Nonrheumatic aortic (valve) stenosis; G47.00 Insomnia, unspecified
CPT/HCPCS: 99214

== ENCOUNTER 2023-12-01 10:13 | Outpatient (AMB) | payer OTHER, MEDICAID, SELFPAY ==
--- NOTE | 2023-12-01 10:22 | A.OFFVIS_ITS ---
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 Physical if she is able to do a lot of physical activity. She can move her lawn and maintain her day-to-day activities. She however is having lot of emotional issues due to overall lack of social life and support. She has not had any prolonged palpitation irregular heartbeat. No lightheadedness, syncope. No exertional chest pain or shortness of breath. No orthopnea PND, leg edema. No bleeding issues or neurologic events. Says felt a little unbalanced today but overall otherwise feels well. [facility] Medical History HTN (hypertension) Paroxysmal atrial fibrillation Aortic stenosis Hyperlipidemia Knee pain Vitamin D insufficiency Hypothyroidism CVA (cerebral vascular accident) Osteoporosis of lumbar spine Surgical History History of removal of cyst Family History Father Emphysema, unspecified Mother History of heart attack Brother Cancer of prostate Sister Ovarian cancer Sister Ovarian cancer Son History of heart attack Malignant melanoma Son No problems noted. Son No problems noted. Daughter No problems noted. Other Substance use disorder Social History Housing: Other (mobile home) Alcohol intake: current Alcohol intake frequency: holidays/special occasions only Patient Tobacco Use Status: Former Tobacco user e-Cigarette/Vaping Use: Never Used Second Hand Smoke Exposure: No service: No Current occupational status: retired Cognitive needs: No Hearing needs: No Vision needs: Yes (glasses) Review of Systems Const Denies chills, Denies fatigue, Denies fever(s), Denies frequent falls, Denies weakness, Denies weight gain and Denies weight loss ENT Denies dizziness Card Denies chest pain, Denies leg edema, Denies lightheadedness, Denies palpitations, Denies dyspnea, Denies dyspnea on exertion, Denies orthopnea and Denies other (loss of consciousness) Resp Denies cough, Denies dyspnea and Denies dyspnea on exertion GI Denies hematochezia and Denies change in stool character Musc Denies abnormal gait, Denies muscle weakness, Denies numbness, Denies radiating pain into limb and Denies tingling Neuro Denies abnormal gait, Denies dizziness, Denies frequent falls, Denies numbness, Denies tingling and Denies weakness Endo Denies fatigue and Denies palpitations Physical Exam Vital Signs: Last Vital Signs Pulse 61 12/01/23 10:23 BP 140/74 H 12/01/23 10:23 BMI result Body Mass Index 29.0 Const General: cooperative, comfortable, no acute distress, well developed, alert, awake, Physically active and well groomed Nutritional Appearance: overweight Orientation/consciousness: patient oriented x3 Limitations: no limitations HEENT Head: Yes normocephalic and Yes atraumatic Neck Neck: Yes trachea midline, Yes supple and Yes no JVD Resp Effort & Inspection: normal respiratory effort Auscultation: clear to auscultation bilaterally Cardio Jugular venous distension: no JVD Palpation: normal PMI Rate: regular rate Rhythm: regular rhythm Heart sounds: S1 normal heart sound present, S2 normal heart sound present, no click, no gallops and Murmur heart sound present systolic mid, decrescendo and crescendo GI Auscultation: normal bowel sounds Skin General skin exam: no rashes or lesions noted Neuro General: patient oriented x3 and no focal motor deficits Extrem General: Yes no clubbing, cyanosis or edema Office Procedures EKG Details: EKG shows normal sinus rhythm with left bundle-branch block which is new compared to last EKG. [id number], Complete Assessment & Plan Assessment & Plan (1) Paroxysmal atrial fibrillation: Code(s): I48.0 - Paroxysmal atrial fibrillation Category: Medical Plan: Paroxysmal atrial fibrillation without any obvious recurrence at this point time been doing well on amiodarone therapy. Continue amiodarone 100 mg. Annual check for amiodarone toxicity chest x-ray, liver panel TSH needs to be pursued. Orders already in. Avoidance of stimulants was discussed. Advised to call me with any new symptoms. Continue full oral anticoagulation Eliquis 5 mg b.i.d.. Quarterly renal function test should be pursued. Follow-up in 6 months time after echocardiogram. (2) Aortic stenosis: Comment: Echo 06/19 mild-moderate calcific Code(s): I35.0 - Nonrheumatic aortic (valve) stenosis Category: Medical Plan: Aortic stenosis, calcific, appears to be moderate clinically. Follow-up echocardiogram 6 months time. Continue aggressive risk factor modification. Blood pressure is well optimized. Continue current low-dose statin therapy. Target goal LDL less than 100 mg/dL. Blood pressure is well optimized. Advised to monitor blood pressure at home and maintain a log. Goal blood pressure less than 130/84. Low-salt diet was discussed. Stress mitigation strategies were discussed advised adequate hydration. (3) Left bundle branch block: Code(s): I44.7 - Left bundle-branch block, unspecified Category: Medical Plan: Left bundle-branch block which is new. This appears to be most likely due to calcific aortic valve disease and conduction system disease associated with it. Advise to report any new symptoms. No intervention pursue required. Follow-up echocardiogram 6 months time. Will follow up in the clinic in 6 months time, sooner p.r.n.. Thank you for allowing me to partake in her care Orders: Orders CA echo transthoracic complete 6 Months I35.0 - Nonrheumatic aortic (valve) stenosis Coding Level of Care Code Est Pt Level 4 (37465) Diagnoses Paroxysmal atrial fibrillation I48.0 Aortic stenosis I35.0 Left bundle branch block I44.7 CPT Codes EKG - CPT: 05105-[id number], Complete ([id number])
[2023-12-01 10:23] VITALS: BP 140/74; PULSE 61; BMI 29.0
== END 2023-12-01 10:55 | disposition home or self-care (01) ==
PROVIDERS: PCP Internal Medicine; Visit Provider Internal Medicine Cardiovascular Disease
DX: I48.0 Paroxysmal atrial fibrillation (principal); I35.0 Nonrheumatic aortic (valve) stenosis; I44.7 Left bundle-branch block, unspecified
CPT/HCPCS: 93010; 99214

== ENCOUNTER → 2023-12-01 10:13 | Outpatient (BNVA) | payer OTHER, SELFPAY | PROVIDERS: Visit Provider Internal Medicine Cardiovascular Disease | DX: I48.0 Paroxysmal atrial fibrillation (principal); I35.0 Nonrheumatic aortic (valve) stenosis; I44.7 Left bundle-branch block, unspecified; Z79.01 Long term (current) use of anticoagulants; Z79.899 Other long term (current) drug therapy | CPT/HCPCS: 93005 ==

== ENCOUNTER 2024-01-26 10:40 | Outpatient (AMB) | payer OTHER, MEDICAID, SELFPAY ==
--- NOTE | 2024-01-26 10:41 | MHC.PC.OV ---
Vital Signs 01/26/24 10:42 Height 5 ft 2 in Weight 158 lb BMI 28.9 BP 135/80 Blood Pressure Location Rt brachial Position Sitting Pulse 67 Pulse Source Pulse Oximeter Pulse Oximetry (%) 97 Oxygen Delivery Method Room Air Intake Visit Reasons: HTN F/U Intake Note: Pt is here today for a follow up visit on HTN. Allergies lisinopril Adverse Reaction (Intermediate, Verified 01/26/24 10:44) Unknown Medication List - Last Reconciled 01/26/24 by Eusebia Orantes MD amiodarone 100 mg PO DAILY 90 days amlodipine 5 mg PO DAILY apixaban 5 mg PO BID hydralazine 50 mg PO BID levothyroxine 75 mcg PO DAILY rosuvastatin 5 mg PO DAILY trazodone 25 mg (1/2 x 50 mg) PO BEDTIME PRN triamterene-hydrochlorothiazid 37.5-25 mg 1 tab PO QAM Tobacco use date assessed: 10/31/23 Dental Screening Dental Screen Date: 09/02/23 HPI HTN F/U HPI Details Pt presents for f/u HTN, hyperlipid, A fib stable on meds. Patient complains of chronic lower back pain worse after working in her garden but denies weakness or numbness in lower extremities PFSH Medical History HTN (hypertension) Paroxysmal atrial fibrillation Aortic stenosis Hyperlipidemia Knee pain Vitamin D insufficiency Hypothyroidism CVA (cerebral vascular accident) Osteoporosis of lumbar spine Surgical History History of removal of cyst Family History Father Emphysema, unspecified Mother History of heart attack Brother Cancer of prostate Sister Ovarian cancer Sister Ovarian cancer Son History of heart attack Malignant melanoma Son No problems noted. Son No problems noted. Daughter No problems noted. Other Substance use disorder Social History Housing: Other (mobile home) Alcohol intake: current Alcohol intake frequency: holidays/special occasions only Patient Tobacco Use Status: Former Tobacco user e-Cigarette/Vaping Use: Never Used Second Hand Smoke Exposure: No service: No Current occupational status: retired Cognitive needs: No Hearing needs: No Vision needs: Yes (glasses) Questionnaire Thrive Questionnaire Date Thrive assessed: 09/02/23 SANIYA-7 AMB Questionnaire SANIYA-7 Date SANIYA - 7 assessed: 09/02/23 Source: Developed by Drs. Joel Alejandra, Genie Wilson, Maykel Nam and colleagues, with an educational chato from [employer]. Review of Systems Const All systems reviewed & are unremarkable except as noted in HPI and below Eyes Reports no additional complaints ENT Reports no additional complaints Card Reports no additional complaints Resp Reports no additional complaints GI Reports no additional complaints Reports no additional complaints Physical exam (Primary Care) Vital Signs: Last Vital Signs Pulse 67 01/26/24 10:42 Pulse Ox 97 01/26/24 10:42 Oxygen Delivery Method Room Air 01/26/24 10:42 BMI result Body Mass Index 28.9 Tobacco/Smoking Status: Tobacco use Status Tobacco use date assessed 10/31/23 01/26/24 10:47 Patient Tobacco Use Status Former Tobacco user 01/26/24 10:47 e-Cigarette/Vaping Use Never Used 01/26/24 10:47 Thrive Assessment: Date of Thrive Assessment Date Thrive assessed 09/02/23 01/26/24 10:47 Const General: no acute distress HENMT Head: Yes normal to inspection Eyes General: appearance normal, both eyes and all related structures Resp Effort & Inspection: normal respiratory effort Auscultation: clear to auscultation bilaterally Cardio Rhythm: regular rhythm Heart sounds: S1 normal heart sound present and S2 normal heart sound present GI Inspection: Yes normal to inspection Palpation (GI): Soft to palpation Percussion: Yes normal to percussion Auscultation: normal bowel sounds Assessment and Plan Assessment & Plan (1) Hypothyroidism: Code(s): E03.9 - Hypothyroidism, unspecified Plan: Check TSH (2) Hyperlipidemia: Code(s): E78.5 - Hyperlipidemia, unspecified Plan: Continue rosuvastatin (3) Chronic kidney disease, stage 3: Code(s): N18.30 - Chronic kidney disease, stage 3 unspecified Plan: Monitor renal function avoid nephrotoxins check comprehensive panel today (4) HTN (hypertension): Code(s): I10 - Essential (primary) hypertension Plan: Continue current medications (5) Paroxysmal atrial fibrillation: Code(s): I48.0 - Paroxysmal atrial fibrillation Plan: cont Amiodarone and Eliquis Orders: Orders TSH reflex Free T4 Today E03.9 - Hypothyroidism, unspecified, I10 - Essential (primary) hypertension, N18.30 - Chronic kidney disease, stage 3 unspecified Comprehensive [place]. Panel Fast 6 Months E03.9 - Hypothyroidism, unspecified, E78.5 - Hyperlipidemia, unspecified, I10 - Essential (primary) hypertension, N18.30 - Chronic kidney disease, stage 3 unspecified Complete Blood Count Auto Diff 6 Months E03.9 - Hypothyroidism, unspecified, E78.5 - Hyperlipidemia, unspecified, I10 - Essential (primary) hypertension, N18.30 - Chronic kidney disease, stage 3 unspecified Lipid Panel 6 Months E03.9 - Hypothyroidism, unspecified, E78.5 - Hyperlipidemia, unspecified, I10 - Essential (primary) hypertension, N18.30 - Chronic kidney disease, stage 3 unspecified TSH reflex Free T4 6 Months E03.9 - Hypothyroidism, unspecified, E78.5 - Hyperlipidemia, unspecified, I10 - Essential (primary) hypertension, N18.30 - Chronic kidney disease, stage 3 unspecified Comprehensive [place]. Panel Fast Today E03.9 - Hypothyroidism, unspecified, E78.5 - Hyperlipidemia, unspecified, I10 - Essential (primary) hypertension, N18.30 - Chronic kidney disease, stage 3 unspecified Medications: New baclofen 5 mg PO BEDTIME PRN 30 tabs 0RF muscle spasm Discontinued trazodone Discontinued Reason: Doctor's Order 25 mg (1/2 x 50 mg) PO BEDTIME PRN 30 tabs 1RF sleep Coding Level of Care Code Est Pt Level 4 (37607) Diagnoses Hypothyroidism E03.9 Hyperlipidemia E78.5 Chronic kidney disease, stage 3 N18.30 HTN (hypertension) I10 Paroxysmal atrial fibrillation I48.0
[2024-01-26 10:42] VITALS: BP 135/80; PULSE 67; O2SAT 97; BMI 28.9
== END 2024-01-26 11:37 | disposition home or self-care (01) ==
PROVIDERS: PCP Internal Medicine; Visit Provider Internal Medicine
DX: E03.9 Hypothyroidism, unspecified (principal); E78.5 Hyperlipidemia, unspecified; N18.30 Chronic kidney disease, stage 3 unspecified; I48.0 Paroxysmal atrial fibrillation; I10 Essential (primary) hypertension
CPT/HCPCS: 99214

== ENCOUNTER 2024-04-19 09:31 | Outpatient (AMB) | payer OTHER, MEDICAID, SELFPAY ==
[2024-04-19 09:39] VITALS: BP 160/80; PULSE 63; O2SAT 97; BMI 28.9
--- NOTE | 2024-04-19 09:39 | AM.OFFWIN_ITS ---
Intake Vital Signs 04/19/24 09:39 Height 5 ft 2 in Weight 158 lb BMI 28.9 BP 160/80 H Blood Pressure Location Lt brachial Position Sitting Pulse 63 Pulse Source Pulse Oximeter Pulse Oximetry (%) 97 Oxygen Delivery Method Room Air Intake Visit Reasons: EP RT knee pain/can't walk Intake Note: Patient here for right hip, knee and leg pain that has been present for a few weeks and is unable to walk. Patient Tobacco Use Status: Former Tobacco user Allergies lisinopril Adverse Reaction (Intermediate, Verified 04/19/24 09:41) Unknown Do you need a note to return to daycare/school/sports/work: No HPI EP RT knee pain/can't walk HPI Details This note is constructed using voice recognition software. 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 The patient is a 89 year old female who presents to the clinic today with right hip, knee and back pain in setting of history of sciatica. She notes that she was seen by her specialists last week and was prescribed Medrol Dosepak, tramadol, and tizanidine. She has not been taking the tizanidine, feels that the tramadol has not been helpful, and does not know if the Medrol Dosepak has been very helpful either. She denies any trauma or injury to the area. She notes that she has had a surgery in the past due to calcium deposits involving her sciatica, and that is the specialist who she saw initially, who is ordering her an MRI given the previous history of surgery.. She was concerned as the pain is not getting any better, however it is not getting any worse. She reports that her specialists as in the process of ordering imaging. [facility] Medical History HTN (hypertension) Paroxysmal atrial fibrillation Aortic stenosis Hyperlipidemia Knee pain Vitamin D insufficiency Hypothyroidism CVA (cerebral vascular accident) Osteoporosis of lumbar spine Surgical History History of removal of cyst Family History Father Emphysema, unspecified Mother History of heart attack Brother Cancer of prostate Sister Ovarian cancer Sister Ovarian cancer Son History of heart attack Malignant melanoma Son No problems noted. Son No problems noted. Daughter No problems noted. Other Substance use disorder Social History Housing: Other (mobile home) Alcohol intake: current Alcohol intake frequency: holidays/special occasions only Patient Tobacco Use Status: Former Tobacco user e-Cigarette/Vaping Use: Never Used Second Hand Smoke Exposure: No service: No Current occupational status: retired Cognitive needs: No Hearing needs: No Vision needs: Yes (glasses) Review of Systems Const All systems reviewed & are unremarkable except as noted in HPI and below Physical Exam Vital Signs: Last Vital Signs Pulse 63 04/19/24 09:39 BP 160/80 H 04/19/24 09:39 Pulse Ox 97 04/19/24 09:39 Oxygen Delivery Method Room Air 04/19/24 09:39 BMI result Body Mass Index 28.9 Const General: cooperative, healthy appearing, comfortable, no acute distress and alert Orientation/consciousness: patient oriented x3 Limitations: no limitations Resp Effort & Inspection: normal respiratory effort and able to speak in complete sentences Auscultation: clear to auscultation bilaterally Cardio Jugular venous distension: no JVD Palpation: normal PMI Rate: regular rate Heart sounds: S1 normal heart sound present, S2 normal heart sound present, no click, no gallops, no murmurs and no rubs Back/Spine/Pelvis Other: Right sciatic notch and SI joint tenderness. Positive SLR on right, negative well SLR. Intact distal neurovascular exam Skin General skin exam: no rashes or lesions noted, elasticity normal and turgor normal Neuro General: patient oriented x3 Extrem Other: No areas of tenderness to his palpation to knee, ankle, hip. General: Yes normal to inspection, Yes full ROM, Yes capillary refill normal and Yes normal exam except as noted Psych Appearance: grossly normal Mental Status: mental status grossly normal Speech and movement: Normal speech and movement present Affect: normal affect Assessment & Plan Assessment & Plan (1) Piriformis syndrome of right side: Code(s): G57.01 - Lesion of sciatic nerve, right lower limb Plan: Advised patient to take the muscle relaxer that was previously prescribed, she may not benefit from use of tramadol, and may defer that. Advised use of Medrol Dosepak as prescribed. Trial heat/ice, topical muscle relaxers. Patient also plans to try a 10s unit. Advised patient to follow with her specialist. No imaging indicated at this time, and is being worked on with her specialist for management and monitoring of chronic conditions. Plan See above for full details and plan. Coding Level of Care Code Est Pt Level 4 (21660) Diagnoses Piriformis syndrome of right side G57.01 Time Spent (min) 25
== END 2024-04-19 10:44 | disposition home or self-care (01) ==
PROVIDERS: PCP Internal Medicine; Visit Provider Registered Nurse
DX: G57.01 Lesion of sciatic nerve, right lower limb (principal)

== ENCOUNTER → 2024-04-19 09:31 | Outpatient (BNVA) | payer OTHER, MEDICAID, SELFPAY | PROVIDERS: PCP Internal Medicine | DX: G57.01 Lesion of sciatic nerve, right lower limb (principal) ==

== ENCOUNTER 2024-05-12 12:28 | Outpatient (AMB) | payer OTHER, MEDICAID, SELFPAY ==
[2024-05-12 12:41] VITALS: BP 128/72; PULSE 68; O2SAT 98; BMI 29.4
--- NOTE | 2024-05-12 12:41 | MHC.PC.OV ---
Vital Signs 05/12/24 12:41 Height 5 ft 2 in Weight 161 lb BMI 29.4 BP 128/72 Blood Pressure Location Lt brachial Position Sitting Pulse 68 Pulse Source Pulse Oximeter Pulse Oximetry (%) 98 Oxygen Delivery Method Room Air Intake Visit Reasons: Blood Work Intake Note: Pt is here today for sick visit. Pt c/o trouble walking due to pain in her L leg. Allergies lisinopril Adverse Reaction (Intermediate, Verified 05/12/24 12:45) Unknown Medication List - Last Reconciled 05/12/24 by Eusebia Orantes MD amiodarone 100 mg PO DAILY 90 days amlodipine 5 mg PO DAILY apixaban 5 mg PO BID hydralazine 50 mg (2 x 25 mg) PO BID levothyroxine 75 mcg PO DAILY methylprednisolone 0 mg PO rosuvastatin 5 mg PO DAILY 90 days tizanidine 2 mg PO TID triamterene-hydrochlorothiazid 37.5-25 mg 1 tab PO QAM Tobacco use date assessed: 05/12/24 Fall risk assessment: No Falls in past year Last assessed Fall Risk: 05/12/24 Dental Screening Dental Screen Date: 05/12/24 Did you have a dental visit in the last 12 months?: Yes Did you have a dental problem in the last 6 months where you did not have access to dental care?: No Was dental information given to patient?: Patient has dentist HPI Blood Work HPI Details Pt presents for follow-up on hypertension hyperlipidemia hypothyroidism, controlled on current medications. Patient complains of a few weeks of lower back pain radiating to right buttock and right lower extremity worse when starting to walk. Patient denies weakness or numbness in extremities change in bowel bladder function. She had an MRI done by the neurosurgeon without any new acute changes. Patient took a course of Medrol Dosepak, muscle relaxant, tramadol without significant improvement. Patient complains of pain being worse at night and in the morning when getting up. [facility] Medical History HTN (hypertension) Paroxysmal atrial fibrillation Aortic stenosis Hyperlipidemia Knee pain Vitamin D insufficiency Hypothyroidism CVA (cerebral vascular accident) Osteoporosis of lumbar spine Surgical History History of removal of cyst Family History Father Emphysema, unspecified Mother History of heart attack Brother Cancer of prostate Sister Ovarian cancer Sister Ovarian cancer Son History of heart attack Malignant melanoma Son No problems noted. Son No problems noted. Daughter No problems noted. Other Substance use disorder Social History Housing: Other Alcohol intake: current Alcohol intake frequency: holidays/special occasions only Patient Tobacco Use Status: Former Tobacco user e-Cigarette/Vaping Use: Never Used Second Hand Smoke Exposure: No service: No Current occupational status: retired Cognitive needs: No Hearing needs: No Vision needs: Yes (glasses) Questionnaire Thrive Questionnaire Date Thrive assessed: 09/02/23 I am a: Parent/Caregiver What is your living situation today?: I choose not to answer this question Within the past 12 months, did the food you bought not last and you didn't have the money to get more?: I choose not to answer this question Within the past 12 months, did you worry whether your food would run out before you got money to buy more?: I choose not to answer this question Do you have trouble paying for medicines?: I choose not to answer this question Do you have trouble getting transportation to medical appointments?: I choose not to answer this question Do you have trouble paying your heating and electricity bill?: I choose not to answer this question Do you have trouble taking care of your child, family member or friend?: I choose not to answer this question Do you have trouble with day-to-day activities such as bathing, preparing meals, shopping, managing finances, etc.?: I choose not to answer this question Are you interested in more education?: I choose not to answer this question Please select the resources that you would like help with: None Currently or been in a relationship where the following occur: I choose not to answer THRIVE Score: 0 AUDIT C Alcohol Use Questionnaire (AUDIT-C) 1. How often do you have a drink containing alcohol?: Never Total Score: 0 SANIYA-7 AMB Questionnaire SANIYA-7 Date SANIYA - 7 assessed: 09/02/23 Feeling nervous, anxious, or on edge: 0 = Not at all Not being able to stop or control worryin = Not at all Worrying too much about different things: 0 = Not at all Trouble relaxin = Not at all Being so restless that it is hard to sit still: 0 = Not at all Becoming easily annoyed or irritable: 0 = Not at all Feeling afraid as if something awful might happen: 0 = Not at all Total SANIYA-7 score (0-4 normal; 5-9 mild; 10-14 moderate; 15-21 severe): 0 Source: Developed by Drs. Joel Alejandra, Genie Wilson, Maykel Nam and colleagues, with an educational chato from [employer]. Review of Systems Const All systems reviewed & are unremarkable except as noted in HPI and below ENT Reports no additional complaints Card Reports no additional complaints Resp Reports no additional complaints GI Reports no additional complaints Reports no additional complaints Physical exam (Primary Care) Vital Signs: Last Vital Signs Pulse 68 05/12/24 12:41 BP 128/72 05/12/24 12:41 Pulse Ox 98 05/12/24 12:41 Oxygen Delivery Method Room Air 05/12/24 12:41 BMI result Body Mass Index 29.4 Tobacco/Smoking Status: Tobacco use Status Tobacco use date assessed 05/12/24 05/12/24 12:47 Patient Tobacco Use Status Former Tobacco user 05/12/24 12:44 e-Cigarette/Vaping Use Never Used 05/12/24 12:44 Thrive Assessment: Date of Thrive Assessment Date Thrive assessed 09/02/23 05/12/24 12:44 Currently or been in a relationship where the following occur: I choose not to answer Const General: no acute distress Resp Effort & Inspection: normal respiratory effort Auscultation: clear to auscultation bilaterally Cardio Rhythm: regular rhythm Heart sounds: S1 normal heart sound present and S2 normal heart sound present GI Inspection: Yes normal to inspection Palpation (GI): Soft to palpation Percussion: Yes normal to percussion Auscultation: normal bowel sounds Back/Spine/Pelvis Other: Paraspinal tenderness in lower lumbar region right more than left, straight leg rising 45 degrees on the right 90 degrees on the left, right knee with preserved range of motion no joint swelling erythema or warmth. Coding Level of Care Code Est Pt Level 4 (16163) Diagnoses Sciatica M54.30 Hypothyroidism E03.9 Essential hypertension I10 Chronic kidney disease, stage 3 N18.30 Paroxysmal atrial fibrillation I48.0 Assessment & Plan Assessment & Plan (1) Sciatica: Code(s): M54.30 - Sciatica, unspecified side Category: Medical Plan: For worsening sciatica patient will be referred to physical therapy. Gabapentin 100 mg q.h.s. for 1st week then increase to 200 q.h.s. as needed we will be started. (2) Hypothyroidism: Code(s): E03.9 - Hypothyroidism, unspecified Category: Medical Plan: Continue levothyroxine (3) Essential hypertension: Code(s): I10 - Essential (primary) hypertension Category: Medical Plan: Continue current medications (4) Chronic kidney disease, stage 3: Code(s): N18.30 - Chronic kidney disease, stage 3 unspecified Category: Medical Plan: Avoid nephrotoxins monitor renal function (5) Paroxysmal atrial fibrillation: Code(s): I48.0 - Paroxysmal atrial fibrillation Category: Medical Plan: Continue amiodarone and Eliquis follow-up with the Cardiology Orders: Orders PT Evaluation and Treatment Today M54.30 - Sciatica, unspecified side Comprehensive Met. Panel Today E03.9 - Hypothyroidism, unspecified, I10 - Essential (primary) hypertension TSH reflex Free T4 Today E03.9 - Hypothyroidism, unspecified, I10 - Essential (primary) hypertension Medications: New hydralazine 50 mg PO BID 180 tabs 3RF gabapentin 1-2 tabl orally bedtime; 60 caps 0RF Discontinued hydralazine Discontinued Reason: Doctor's Order 50 mg (2 x 25 mg) PO BID 60 tabs 4RF
== END 2024-05-12 14:55 | disposition home or self-care (01) ==
PROVIDERS: PCP Internal Medicine; Visit Provider Internal Medicine
DX: I12.9 Hypertensive chronic kidney disease with stage 1 through stage 4 chronic kidney disease, or unspecified chronic kidney disease (principal); N18.30 Chronic kidney disease, stage 3 unspecified; I48.0 Paroxysmal atrial fibrillation; M54.30 Sciatica, unspecified side; E03.9 Hypothyroidism, unspecified

== ENCOUNTER → 2024-05-12 12:28 | Outpatient (BNVA) | payer OTHER, MEDICAID, SELFPAY | PROVIDERS: PCP Internal Medicine; Visit Provider Internal Medicine ==

== ENCOUNTER 2024-05-12 13:40 | Outpatient (REF) | payer OTHER, MEDICAID, SELFPAY ==
[2024-05-12 17:01] LABS: Alanine Aminotransferase 13 U/L (0-31); Albumin Level 4.3 g/dL (3.5-5.0); Alkaline Phosphatase 77 U/L (39-117); Anion Gap 14 (12-20); Aspartate Amino Transferase 16 U/L (5-31); Bilirubin Total 0.4 mg/dL (0.0-1.0); Blood Urea Nitrogen 24 mg/dL (9-16); Calcium 9.9 mg/dL (8.4-10.2); Carbon Dioxide 27 mmol/L (22-29); Chloride 104 mmol/L (96-108); Estimated Glomerular Filt Rate 36; Glucose Random 92 mg/dL (60-115); Potassium 4.3 mmol/L (3.3-5.1); Sodium 141 mmol/L (135-145); Total Protein 7.2 g/dL (6.5-8.0)
[2024-05-12 17:08] LABS: TSH reflex Free T4 2.41 uIU/mL (0.32-4.0)
== END 2024-05-12 13:41 | disposition home or self-care (01) ==
LOC: HO.HMGCLDS 13:40
PROVIDERS: PCP Internal Medicine; Visit Provider Internal Medicine
DX: M54.30 Sciatica, unspecified side (principal); E03.9 Hypothyroidism, unspecified; I12.9 Hypertensive chronic kidney disease with stage 1 through stage 4 chronic kidney disease, or unspecified chronic kidney disease; N18.30 Chronic kidney disease, stage 3 unspecified; I48.0 Paroxysmal atrial fibrillation; Z79.01 Long term (current) use of anticoagulants; Z79.899 Other long term (current) drug therapy
CPT/HCPCS: 36415; 80053; 84443

== ENCOUNTER 2024-05-18 11:05 | Outpatient (REF) | payer OTHER, SELFPAY ==
--- NOTE | ~2024-05-18 | US_ITS ---
EXAMINATION: US TRIPLEX LOWER EXTREMITY, RIGHT CLINICAL INFORMATION: Right leg swelling COMPARISON: DVT ultrasound May 14, 2019 TECHNIQUE: Color-flow triplex imaging with spectral analysis and compression Doppler were performed on the right lower extremity. FINDINGS: Respiratory variation, normal compression and augmented flow are noted throughout the right lower extremity. The visualized common femoral vein, superficial femoral vein, profunda femoral vein, popliteal vein and midcalf peroneal and posterior tibial venous segments show no evidence of deep venous thrombosis. There is no Kovacs's cyst. US/US venous duplex LE RT IMPRESSION: No evidence of deep venous thrombosis involving the right lower extremity. Electronically signed by: Fidel Beyer MD 05/18/2024 11:50 AM EDT
== END 2024-05-18 11:06 | disposition home or self-care (01) ==
LOC: HO.HMGCX 11:05
PROVIDERS: PCP Internal Medicine; Visit Provider Internal Medicine
DX: R60.0 Localized edema (principal)
CPT/HCPCS: 93971

== ENCOUNTER → 2024-06-02 09:40 | Outpatient (REF) | payer OTHER, SELFPAY ==
--- NOTE | 2024-06-02 09:44 | CA_ITS ---
Transthoracic Echocardiogram Patient (Last, First, Middle): Lisa Fay C Gender: Female Date of : 1935 Age: 89 Procedure Date: 06/02/2024 Procedure Type: Transthoracic Echocardiogram Location: OP Height: 160.02 cm Weight: 71.22 kg BSA: 1.74 m2 Heart Rate: bpm BP: 138 / 60 mmHg [employer]ship: TO Referring MD: Alexandre Sebastian MD Inspector Toys: Alexandre Sebastian MD Symptoms: I35.0 - Nonrheumatic aortic (valve) stenosis Study Quality: Fair ECG Rhythm: Sinus Conclusions: - 1. Normal LV ejection fraction 55-60% with mild LVH with pseudonormal filling pattern 2. Mildly dilated left atrium 3. Heavy mitral annular calcification with possible mild mitral stenosis 4. Dena-[id number] calcific aortic stenosis 5. Normal RV systolic pressure 6. No gross pericardial effusion Findings Procedure Information The study quality is limited by the patients inability to tolerate the test. Left Ventricle Normal left ventricular size and systolic function. There is mildly increased left ventricular wall thickness. The visually estimated ejection fraction is between 55-60%. Spectral Doppler is indicative of a pseudonormal filling pattern. Right Ventricle Normal right ventricular cavity size and systolic function. Atria The left atrium is mildly dilated. There is lipomatous hypertrophy of the interatrial septum. There is no evidence of interatrial shunt. The right atrium is likely dilated. Aortic Valve There is mild calcification of the aortic valve. There is moderate thickening of the aortic valve. There is mild to moderate aortic valve stenosis. There is no aortic valve regurgitation. Mitral Valve There is mild anterior and severe posterior mitral leaflet thickening. There is mild anterior and severe posterior mitral annular calcification. There is severe mitral annular calcification. There is trace mitral valve regurgitation. There is mild mitral valve stenosis. Pulmonic Valve The pulmonic valve is likely normal. Tricuspid Valve Normal tricuspid valve structure. There is mild tricuspid valve regurgitation. The right ventricular systolic pressure is normal. The right ventricular systolic pressure is 33 mmHg. Normal right atrial pressure. There is no evidence of pulmonary hypertension. Great Vessels All visible segments of the aorta are normal in size. The pulmonary artery was not well visualized. There is no dilatation of the ascending aorta measuring 2.50 cm. Small plaque is seen in the sino tubular ridge. Venous The inferior vena cava is normal in size and collapses greater than 50% with inspiration. Pericardium/Pleural There is no evidence of pericardial effusion. Prior Study Comparison No significant change compared to prior study dated: 06/26/2023. Measurements 2D Linear Measurements IVSd: 1.59 0.6-0.9/0.6-1.0 cm LVIDd: 4.15 3.9-5.3/4.2-5.9 cm LVIDd Index: 2.39 2.4-3.2/2.2-3.1 cm/m2 LVIDs: 2.97 2.0-3.6 cm LVPWd: 1.13 0.7-1.1 cm LA Diam: 3.80 2.7-3.8/3.0-4.0 cm LAIDs Index: 2.18 1.5-2.3 cm/m2 LV Mass: 262.88 67-162/88-224 g LV Mass Index: 151.08 43-95/49-115 g/m2 LVOT Diam: 1.90 3.0+(-)1.3 cm 2D Systolic Function EF 4C: 60.80 >55% EF 2C: 56.50 >55% EF BiP: 58.60 >55% Mitral Valve MV VTI: 0.35 MV Pk Hunter: 1.26 MV Mn Hunter: 0.64 MV Pk Grad: 6.00 MV Mn Grad: 2.00 MV Pk E: 0.99 MV PK A: 1.04 MV Decel Time: 303.00 E/A: 0.90 E'Lateral: 5.00 E'Medial: 3.92 E/E' Med: 25.10 E/E' Lat: 19.70 PHT: 89.00 MVA PHT: 2.47 MVA Continuity: 1.89 Decel [place]: 3.25 Aortic Valve AoV Pk Hunter: 2.34 AoV Mn Hunter: 1.75 AoV VTI: 0.60 AoV Pk Grad: 22.00 Aov Mn Grad: 13.00 EMMA Cont.VTI: 1.11 LVOT LVOT Pk Hunter: 0.82 LVOT Mn Hunter: 0.64 LVOT VTI: 0.23 LVOT Pk Grad: 3.00 LVOT Mn Grad: 2.00 LVOT Diam: 1.90 LVOT Area: 2.84 Diastolic Function MV Pk E: 0.99 MV Pk A: 1.04 E/A: 0.90 E'Medial: 3.92 E/E' Med: 25.10 E' Laterial: 5.00 E/E' Lat: 19.70 Right Ventricle TAPSE (mm): 20.40 TVS' Hunter: 10.80 Tricuspid Valve TR Pk Hunter: 2.75 TR Pk Grad: 30.00 RA Press: 3.00 RVSP: 33.00 Great Vessels Aorta Sinus of Valsalva: 2.71 2.0-3.5 cm Ao Asc: 2.50 2.1-3.4 cm Updated in Other Vendor System with Status of Final Alexandre Sebastian MD electronically signed on 06/03/2024 9:14:16 AM with status of Final
== END ==
LOC: HO.CARD 09:40
PROVIDERS: PCP Internal Medicine; Visit Provider Internal Medicine Cardiovascular Disease
DX: I35.0 Nonrheumatic aortic (valve) stenosis (principal)
CPT/HCPCS: 93306

== ENCOUNTER → 2024-06-02 09:44 | Outpatient (BNV) | payer OTHER, SELFPAY | PROVIDERS: PCP Internal Medicine; Visit Provider Internal Medicine Cardiovascular Disease | DX: I35.0 Nonrheumatic aortic (valve) stenosis (principal); I34.2 Nonrheumatic mitral (valve) stenosis; I34.81 Nonrheumatic mitral (valve) annulus calcification; I36.1 Nonrheumatic tricuspid (valve) insufficiency | CPT/HCPCS: 93306 ==

== ENCOUNTER 2024-06-04 11:49 | Outpatient (AMB) | payer OTHER, SELFPAY ==
[2024-06-04 11:58] VITALS: BP 130/70; PULSE 61; O2SAT 99; BMI 29.4
--- NOTE | 2024-06-04 11:58 | A.OFFPC_ITS ---
Vital Signs 06/04/24 11:58 Height 5 ft 2 in Weight 161 lb BMI 29.4 BP 130/70 Blood Pressure Location Lt brachial Position Sitting Pulse 61 Pulse Source Pulse Oximeter Pulse Oximetry (%) 99 Oxygen Delivery Method Room Air Intake Visit Reasons: Labs F/U Allergies lisinopril Adverse Reaction (Intermediate, Verified 06/04/24 12:00) Unknown Medication List - Last Reconciled 06/04/24 by Eusebia Orantes MD amiodarone 100 mg PO DAILY 90 days amlodipine 5 mg PO DAILY apixaban 5 mg PO BID gabapentin 1-2 tabl orally bedtime; hydralazine 50 mg PO BID levothyroxine 75 mcg PO DAILY rosuvastatin 5 mg PO DAILY 90 days triamterene-hydrochlorothiazid 37.5-25 mg 1 tab PO QAM Tobacco use date assessed: 06/04/24 Fall risk assessment: No Falls in past year Dental Screening Dental Screen Date: 06/04/24 Did you have a dental visit in the last 12 months?: No Did you have a dental problem in the last 6 months where you did not have access to dental care?: No Was dental information given to patient?: Patient has dentist HPI Labs F/U HPI Details Patient presents for the follow-up of hypertension hyperlipidemia chronic kidney disease stage 3 chronic AFib controlled on amiodarone and Eliquis. Patient did not try gabapentin for chronic lower back pain. She reports her pain improved and has been more physically active, walking. FORMERLY [facility] Medical History HTN (hypertension) Paroxysmal atrial fibrillation Aortic stenosis Hyperlipidemia Knee pain Vitamin D insufficiency Hypothyroidism CVA (cerebral vascular accident) Osteoporosis of lumbar spine Surgical History History of removal of cyst Family History Father Emphysema, unspecified Mother History of heart attack Brother Cancer of prostate Sister Ovarian cancer Sister Ovarian cancer Son History of heart attack Malignant melanoma Son No problems noted. Son No problems noted. Daughter No problems noted. Other Substance use disorder Social History Housing: Other Alcohol intake: current Alcohol intake frequency: holidays/special occasions only Patient Tobacco Use Status: Former Tobacco user e-Cigarette/Vaping Use: Never Used Second Hand Smoke Exposure: No service: No Current occupational status: retired Cognitive needs: No Hearing needs: No Vision needs: Yes (glasses) Questionnaire Thrive Questionnaire Date Thrive assessed: 05/12/24 I am a: Parent/Caregiver What is your living situation today?: I choose not to answer this question Within the past 12 months, did the food you bought not last and you didn't have the money to get more?: I choose not to answer this question Within the past 12 months, did you worry whether your food would run out before you got money to buy more?: I choose not to answer this question Do you have trouble paying for medicines?: I choose not to answer this question Do you have trouble getting transportation to medical appointments?: I choose not to answer this question Do you have trouble paying your heating and electricity bill?: I choose not to answer this question Do you have trouble taking care of your child, family member or friend?: I choose not to answer this question Do you have trouble with day-to-day activities such as bathing, preparing meals, shopping, managing finances, etc.?: I choose not to answer this question Are you interested in more education?: I choose not to answer this question Please select the resources that you would like help with: None Currently or been in a relationship where the following occur: I choose not to answer THRIVE Score: 0 SANIYA-7 AMB Questionnaire SANIYA-7 Date SANIYA - 7 assessed: 09/02/23 Source: Developed by Drs. Joel Alejandra, Genie Wilson, Maykel Nam and colleagues, with an educational chato from [email or web address]. Review of Systems Const All systems reviewed & are unremarkable except as noted in HPI and below Card Reports no additional complaints Resp Reports no additional complaints GI Reports no additional complaints Reports no additional complaints Physical exam (Primary Care) Vital Signs: Last Vital Signs Pulse 61 06/04/24 11:58 BP 166/70 H 06/04/24 11:58 Pulse Ox 99 06/04/24 11:58 Oxygen Delivery Method Room Air 06/04/24 11:58 BMI result Body Mass Index 29.4 Tobacco/Smoking Status: Tobacco use Status Tobacco use date assessed 06/04/24 06/04/24 12:03 Patient Tobacco Use Status Former Tobacco user 06/04/24 12:03 e-Cigarette/Vaping Use Never Used 06/04/24 12:03 Thrive Assessment: Date of Thrive Assessment Date Thrive assessed 05/12/24 06/04/24 12:03 Currently or been in a relationship where the following occur: I choose not to answer Const General: no acute distress HENMT General nose exam: Normal external nose present Throat: Yes posterior oropharynx normal Neck Neck: Yes supple Resp Effort & Inspection: normal respiratory effort Auscultation: clear to auscultation bilaterally Cardio Rhythm: regular rhythm Heart sounds: S1 normal heart sound present and S2 normal heart sound present Coding Level of Care Code Est Pt Level 4 (75750) Diagnoses Chronic kidney disease, stage 3 N18.30 HTN (hypertension) I10 Paroxysmal atrial fibrillation I48.0 Assessment & Plan Assessment & Plan (1) Chronic kidney disease, stage 3: Code(s): N18.30 - Chronic kidney disease, stage 3 unspecified Category: Medical Plan: Avoid nephrotoxins monitor kidney function (2) HTN (hypertension): Code(s): I10 - Essential (primary) hypertension Category: Medical Plan: Continue current medications, medication compliance discussed with the patient follow-up in 3 months with a fasting labs before (3) Paroxysmal atrial fibrillation: Code(s): I48.0 - Paroxysmal atrial fibrillation Category: Medical Plan: Continue current medications follow-up with Cardiology Orders: Orders TSH reflex Free T4 3 Months I10 - Essential (primary) hypertension, I48.0 - Paroxysmal atrial fibrillation, N18.30 - Chronic kidney disease, stage 3 unspecified Complete Blood Count Auto Diff 3 Months I10 - Essential (primary) hypertension, I48.0 - Paroxysmal atrial fibrillation, N18.30 - Chronic kidney disease, stage 3 unspecified Comprehensive [place]. Panel Fast 3 Months I10 - Essential (primary) hypertension, I48.0 - Paroxysmal atrial fibrillation, N18.30 - Chronic kidney disease, stage 3 unspecified Medications: Refilled triamterene-hydrochlorothiazid 37.5-25 mg 1 tab PO QAM 90 tabs 3RF Discontinued gabapentin Discontinued Reason: Doctor's Order 1-2 tabl orally bedtime; 60 caps 0RF
== END 2024-06-04 13:28 | disposition home or self-care (01) ==
PROVIDERS: PCP Internal Medicine; Visit Provider Internal Medicine
DX: N18.30 Chronic kidney disease, stage 3 unspecified (principal); I10 Essential (primary) hypertension; I48.0 Paroxysmal atrial fibrillation

== ENCOUNTER → 2024-06-04 11:49 | Outpatient (BNVA) | payer OTHER, SELFPAY | PROVIDERS: PCP Internal Medicine; Visit Provider Internal Medicine ==

== ENCOUNTER 2024-06-10 09:43 | Outpatient (AMB) | payer OTHER, MEDICAID, SELFPAY ==
[2024-06-10 09:48] VITALS: BP 170/58; PULSE 70; BMI 29.5
--- NOTE | 2024-06-10 09:48 | MHC.OFFVIS ---
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 She has been doing well from cardiac perspective. She is upset today because of passing of her son as well as having parking issues. Blood pressure is elevated on presentation. She says generally a blood pressure at other physician visits within normal limits. She denies any exertional chest pain or shortness of breath. Denies any prolonged palpitation irregular heartbeat. No orthopnea, PND, leg edema. No bleeding issues or neurologic events. Recent echocardiogram shows [id number] aortic stenosis with preserved LV ejection fraction. [facility] Medical History HTN (hypertension) Paroxysmal atrial fibrillation Aortic stenosis Hyperlipidemia Knee pain Vitamin D insufficiency Hypothyroidism CVA (cerebral vascular accident) Osteoporosis of lumbar spine Surgical History History of removal of cyst Family History Father Emphysema, unspecified Mother History of heart attack Brother Cancer of prostate Sister Ovarian cancer Sister Ovarian cancer Son History of heart attack Malignant melanoma Son No problems noted. Son No problems noted. Daughter No problems noted. Other Substance use disorder Social History Housing: Other Alcohol intake: former Patient Tobacco Use Status: Former Tobacco user e-Cigarette/Vaping Use: Never Used Second Hand Smoke Exposure: No service: No Current occupational status: retired Cognitive needs: No Hearing needs: No Vision needs: Yes (glasses) Review of Systems Const Denies chills, Denies fatigue, Denies fever(s), Denies weight gain and Denies weight loss ENT Denies dizziness Card Denies chest pain, Denies leg edema, Denies lightheadedness, Denies palpitations, Denies dyspnea on exertion, Denies orthopnea and Denies other Resp Denies cough and Denies dyspnea on exertion GI Denies hematochezia and Denies change in stool character Musc Denies abnormal gait, Denies muscle weakness, Denies numbness, Denies radiating pain into limb and Denies tingling Neuro Denies abnormal gait, Denies dizziness, Denies numbness and Denies tingling Endo Denies fatigue and Denies palpitations Physical Exam Vital Signs: Last Vital Signs Pulse 70 06/10/24 09:48 BP 170/58 H 06/10/24 09:48 BMI result Body Mass Index 29.5 Const General: cooperative, comfortable, no acute distress, well developed, alert, awake, Physically active and well groomed Nutritional Appearance: overweight Orientation/consciousness: patient oriented x3 Limitations: no limitations HEENT Head: Yes normocephalic and Yes atraumatic Neck Neck: Yes trachea midline, Yes supple and Yes no JVD Resp Effort & Inspection: normal respiratory effort Auscultation: clear to auscultation bilaterally Cardio Jugular venous distension: no JVD Palpation: normal PMI Rate: regular rate Rhythm: regular rhythm Heart sounds: S1 normal heart sound present, S2 normal heart sound present, no click, no gallops and Murmur heart sound present systolic mid, decrescendo and crescendo GI Auscultation: normal bowel sounds Skin General skin exam: no rashes or lesions noted Neuro General: patient oriented x3 and no focal motor deficits Extrem General: Yes no clubbing, cyanosis or edema Office Procedures EKG Details: EKG shows normal sinus rhythm with left bundle-branch block with left axis deviation [id number], Complete Assessment & Plan Assessment & Plan (1) Paroxysmal atrial fibrillation: Code(s): I48.0 - Paroxysmal atrial fibrillation Category: Medical Plan: Paroxysmal atrial fibrillation has remained suppressed and has done well with rhythm control approach. Continue low-dose amiodarone therapy. Annual check for amiodarone toxicity with chest x-ray and liver panel should be performed. Continue full oral anticoagulation, currently on Eliquis 5 mg b.i.d.. Semi annual renal function test should be performed. High risk for thromboembolic risk given her prior CVA. This was discussed with her. She understands agrees. Avoidance of stimulants was discussed. Stress mitigation strategies were discussed. (2) Aortic stenosis: Comment: Echo 06/19 mild-moderate calcific Code(s): I35.0 - Nonrheumatic aortic (valve) stenosis Category: Medical Plan: Aortic stenosis which remained stable with [id number] aortic stenosis. No clinical progression at this point time. Continue monitor clinically. Continue aggressive risk factor modification. Continue statin therapy, can only tolerate 5 mg rosuvastatin. Target goal LDL less than 100 mg/dL. Continue aggressive blood pressure control, see below. (3) Essential hypertension: Code(s): I10 - Essential (primary) hypertension Category: Medical Plan: Hypertension with uncontrolled blood pressure today most likely due to her personal stress as well as her irritability due to today's personal situation. Advised to monitor blood pressure at home. Target goal blood pressure less than 140 systolic. This was discussed with her. Low-salt diet was discussed. Continue current therapy. If blood pressure remains elevated advised to call my office and will need to uptitrate amlodipine therapy. Will follow up in the clinic in 1 year's time, sooner p.r.n.. Thank you for allowing me to partake in his care Coding Level of Care Code Est Pt Level 4 (43962) Complex EM visit Add On G2211 Diagnoses Paroxysmal atrial fibrillation I48.0 Aortic stenosis I35.0 Essential hypertension I10 CPT Codes EKG - CPT: 89432-[id number], Complete ([id number])
== END 2024-06-10 10:13 | disposition home or self-care (01) ==
PROVIDERS: PCP Internal Medicine; Visit Provider Internal Medicine Cardiovascular Disease
DX: I48.0 Paroxysmal atrial fibrillation (principal); I35.0 Nonrheumatic aortic (valve) stenosis; I10 Essential (primary) hypertension
CPT/HCPCS: 93010; 99214; G2211

== ENCOUNTER → 2024-06-10 09:43 | Outpatient (BNVA) | payer OTHER, MEDICAID, SELFPAY | PROVIDERS: PCP Internal Medicine; Visit Provider Internal Medicine Cardiovascular Disease | DX: I48.0 Paroxysmal atrial fibrillation (principal); I35.0 Nonrheumatic aortic (valve) stenosis; I10 Essential (primary) hypertension; Z79.01 Long term (current) use of anticoagulants; Z79.899 Other long term (current) drug therapy | CPT/HCPCS: 93005 ==

== ENCOUNTER 2024-06-22 08:25 | Outpatient (AMB) | payer OTHER, MEDICAID, SELFPAY ==
--- NOTE | 2024-06-22 08:31 | AM.OFFWIN_ITS ---
Intake Vital Signs 06/22/24 08:37 Weight 157 lb BP 160/90 H Blood Pressure Location Lt brachial Position Sitting Pulse 67 Pulse Source Pulse Oximeter Pulse Oximetry (%) 98 Oxygen Delivery Method Room Air Intake Visit Reasons: EP-unable to fucus, dizziness, Intake Note: Patient here because she has been very dizzy and having issues focusing Patient Tobacco Use Status: Former Tobacco user Allergies lisinopril Adverse Reaction (Intermediate, Verified 06/22/24 08:39) Unknown Do you need a note to return to daycare/school/sports/work: No HPI HPI Comments History of Present Illness Details 89 y/o female patient who presents to [facility] walk in clinic today with c/o weakness, fatigue, dizziness and inability to focus for 1 week now. PMHx significant for HTN, PAF and Aortic Stenosis, which she is being managed by Cardiology. She was last seen 06/10/24 by Cardio and two of her medications were adjusted (Increased Amiodarone and Hydralazine per Patient). Pt reports that her symptoms started right after her medications were adjusted. On the side note; Pt lost her Son recently. Pt has stopped taking all her medications. [facility] Medical History HTN (hypertension) Paroxysmal atrial fibrillation Aortic stenosis Hyperlipidemia Knee pain Vitamin D insufficiency Hypothyroidism CVA (cerebral vascular accident) Osteoporosis of lumbar spine Surgical History History of removal of cyst Family History Father Emphysema, unspecified Mother History of heart attack Brother Cancer of prostate Sister Ovarian cancer Sister Ovarian cancer Son History of heart attack Malignant melanoma Son No problems noted. Son No problems noted. Daughter No problems noted. Other Substance use disorder Social History Housing: Other Alcohol intake: former Patient Tobacco Use Status: Former Tobacco user e-Cigarette/Vaping Use: Never Used Second Hand Smoke Exposure: No service: No Current occupational status: retired Cognitive needs: No Hearing needs: No Vision needs: Yes (glasses) Review of Systems Const All systems reviewed & are unremarkable except as noted in HPI and below Physical Exam Vital Signs: Last Vital Signs Pulse 67 06/22/24 08:37 BP 160/90 H 06/22/24 08:37 Pulse Ox 98 06/22/24 08:37 Oxygen Delivery Method Room Air 06/22/24 08:37 Const General: no acute distress Orientation/consciousness: patient oriented x3 Resp Effort & Inspection: normal respiratory effort Auscultation: clear to auscultation bilaterally Cardio Rate: regular rate Rhythm: regular rhythm Heart sounds: S1 normal heart sound present and S2 normal heart sound present Neuro General: patient oriented x3 Results AMB Random Glucose (hemocue) AMB Random Glucose (hemocue) 136 mg/dL Last Edit by ABHISHEK Francis on 06/22/24 08:52 Results Reviewed Results Reviewed: Laboratory Last Values Random Glu (Clinic) 136 mg/dL 06/22/24 08:52 Assessment & Plan Assessment & Plan (1) Dizziness, nonspecific: Code(s): R42 - Dizziness and giddiness Plan: Advised Pt to go to ED for further evaluation. She will have her daughter drive her to ED today. Highly advised her to call Cardiology. Orders: Orders AMB Random Glucose (hemocue) Today Z13.9 - Encounter for screening, unspecified Coding Level of Care Code Est Pt Level 3 (97432) Diagnoses Dizziness, nonspecific R42 Time Spent (min) 15
[2024-06-22 08:37] VITALS: BP 160/90; PULSE 67; O2SAT 98
== END 2024-06-22 09:04 | disposition home or self-care (01) ==
PROVIDERS: PCP Internal Medicine; Visit Provider Nurse Practitioner Family
DX: Z13.9 Encounter for screening, unspecified (principal); R42 Dizziness and giddiness

== ENCOUNTER → 2024-06-22 08:25 | Outpatient (BNVA) | payer OTHER, MEDICAID, SELFPAY | PROVIDERS: PCP Internal Medicine; Visit Provider Nurse Practitioner Family | DX: R42 Dizziness and giddiness (principal) | CPT/HCPCS: 82948 ==

== ENCOUNTER 2024-06-22 09:18 | Inpatient (IN) | payer MEDICARE, OTHER, SELFPAY ==
[2024-06-22] VITALS (9 sets, daily range): BP systolic 155–216; BP diastolic 44–78; PULSE 58–78; RESP 18–20; TEMP 36.7–37; O2SAT 95–99; BMI 19.4
--- NOTE | 2024-06-22 | ECG_ITS ---
Test Reason : E/TROP Blood Pressure : / mmHG Vent. Rate : 067 BPM Atrial Rate : 067 BPM P-R Int : 172 ms QRS Dur : 136 ms QT Int : 474 ms P-R-T Axes : 075 -34 115 degrees QTc Int : 500 ms Sinus rhythm with Premature atrial complexes Left axis deviation Left bundle branch block Abnormal ECG When compared with ECG of 22-JUN-2024 12:19, Premature atrial complexes are now Present Referred By: Uriel Carranza Electronically Signed By:COCO CABEZAS
--- NOTE | ~2024-06-22 | MR_ITS ---
EXAMINATION: MR BRAIN WITHOUT CONTRAST CLINICAL INFORMATION: Interval resolution. Vertigo. COMPARISON: Brain MRI from 11/03/2015. TECHNIQUE: MRI of the brain was obtained using routine sequences without contrast. FINDINGS: No focal restricted diffusion is demonstrated to suggest acute or subacute cerebral ischemia. No evidence of acute hemorrhagic products on heme-sensitive imaging. Few scattered foci of susceptibility artifact within the right cerebral hemisphere consistent with petechial micrometer hemorrhage. Chronic lacunar infarcts of the right thalamus, posterior limb of the right internal capsule, and left cerebellar hemisphere. Scattered and partially confluent periventricular, deep white matter, and brainstem T2 FLAIR hyperintensities consistent with moderate underlying microangiopathy. Proportional prominence of the ventricles and sulcal spaces without evidence of obstructive hydrocephalus. No abnormal mass effect. No midline shift. Normal appearance of the pituitary gland. Normal positioning of the cerebellar tonsils. Normal arterial and venous vascular flow voids are present. Normal, homogeneous marrow signal. Atelectasis of the right maxillary sinus. Mild mucosal thickening of the paranasal sinuses. Prominent rightward nasal septal deviation. No signal abnormalities within the mastoids. Bilateral lens extractions. MR/MR head/brain wo con IMPRESSION: 1. No acute intracranial abnormalities. 2. 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 Chronic lacunar infarcts of the right thalamus, posterior limb of the right internal capsule, and left cerebellar hemisphere. Electronically signed by: Yuval Mayorga DO 06/23/2024 07:44 PM EST
--- NOTE | ~2024-06-22 | XR_ITS ---
EXAMINATION: XR CHEST CLINICAL INFORMATION: elevated troponin, dizziness COMPARISON: Chest radiograph dated March 11, 2016. TECHNIQUE: Frontal view of the chest was obtained. FINDINGS: The heart is normal in size. There is calcific atherosclerotic disease of the aorta. No consolidation. No pleural effusion or pneumothorax. No acute osseous abnormality. XR/XR chest 1V IMPRESSION: Stable appearance of the heart and lungs. No active disease. Electronically signed by: Pepe William DO 06/22/2024 10:38 PM CATHY
--- NOTE | 2024-06-22 12:12 | ECG_ITS ---
Test Reason : CHEST PAIN Blood Pressure : / mmHG Vent. Rate : 060 BPM Atrial Rate : 060 BPM P-R Int : 174 ms QRS Dur : 142 ms QT Int : 466 ms P-R-T Axes : 083 -33 121 degrees QTc Int : 466 ms Normal sinus rhythm Left axis deviation Left bundle branch block Abnormal ECG When compared with ECG of 14-MAY-2019 22:01, Left bundle branch block is now Present Referred By: Generic ED Physician Electronically Signed By:COCO CABEZAS
[2024-06-22 12:45] LABS: MANUAL DIFF FLAG NO
[2024-06-22 12:47] LABS: Basophils Absolute Auto 0.1 X10*3/uL (0.0-0.2); Basophils Percent Auto 0.8 % (0-2); Eosinophils Absolute Auto 0.1 X10*3/uL (0.0-0.4); Eosinophils Percent Auto 1.3 % (0-4); Hematocrit 39.6 % (37.0-47.0); Hemoglobin 13.6 g/dl (12.0-16.0); Imm Gran Abs Auto 0.04 X10*3/uL (0.00-0.03); Imm Gran Pct Auto 0.5 % (0.0-0.4); Lymphocytes Absolute Auto 1.7 X10*3/uL (1.2-4.9); Lymphocytes Percent Auto 22.4 % (20-40); Mean Corpuscular HGB Conc 34.3 g/dl (31.0-35.0); Mean Corpuscular Hemoglobin 30.2 pg (27.0-33.0); Mean Corpuscular Volume 87.8 fL (80.0-98.0); Mean Platelet Volume 10.8 fL (9.4-12.3); Monocytes Absolute Auto 0.7 X10*3/uL (0.1-1.2); Monocytes Percent Auto 9.3 % (2-11); Neutrophils Absolute Auto 5.1 x10*3/uL (2.0-8.3); Neutrophils Percent Auto 65.7 % (45-73); Platelet Count 203 X10*3/uL (160-400); Red Blood Count 4.51 X10*6/uL (4.20-5.50); White Blood Count 7.8 X10*3/uL (4.8-10.8)
[2024-06-22 13:08] LABS: Alanine Aminotransferase 18 U/L (0-31); Albumin Level 4.3 g/dL (3.5-5.0); Alkaline Phosphatase 70 U/L (39-117); Anion Gap 12 (12-20); Aspartate Amino Transferase 23 U/L (5-31); Bilirubin Total 0.4 mg/dL (0.0-1.0); Blood Urea Nitrogen 18 mg/dL (9-16); Calcium 9.4 mg/dL (8.4-10.2); Carbon Dioxide 28 mmol/L (22-29); Chloride 101 mmol/L (96-108); Creatinine Clr Calc Pharmacy 32.6; Estimated Glomerular Filt Rate 47; Glucose Random 111 mg/dL (60-115); Magnesium 2.3 mg/dL (1.6-2.6); Potassium 4.4 mmol/L (3.3-5.1); Sodium 137 mmol/L (135-145); Total Protein 7.2 g/dL (6.5-8.0)
--- NOTE | 2024-06-22 13:21 | ED_ITS ---
HPI - General Adult General Chief complaint: General Medical Stated complaint: Lightheaded Time Seen by Provider: 06/22/24 12:58 Source: patient Mode of arrival: ambulatory Limitations: no limitations History of Present Illness ED Provider: Dr. Clemencia Abdul HPI narrative: Patient comes to the emergency room complaining of dizziness. Patient states that couple of weeks ago she was seen by Cardiology, patient states that some of her medications were changed and since then she has been feeling lightheaded. Patient states it is a combination during the day of feeling lightheaded, about to pass out. And at night, patient states when she lays down, she has room spinning. Patient denies any chest pain or shortness of breath, no headache. Patient states that she is supposed to be taking amiodarone 100 mg daily, hydralazine 50 mg b.i.d. (which was recently increased from 25 mg b.i.d.), amlodipine 5 mg, triamterene/hctz 37.05/25mg. However, because the medication is making her feel dizzy, she only took this morning amlodipine 5 mg Related Data Previous Rx's ?Medication ?Instructions ?Recorded apixaban 5 mg tablet 5 mg PO BID #180 tabs 08/25/23 levothyroxine 75 mcg tablet 75 mcg PO DAILY #90 tabs 01/27/24 amiodarone 100 mg tablet 100 mg PO DAILY 90 days #90 tabs 02/26/24 rosuvastatin 5 mg tablet 5 mg PO DAILY 90 days #90 tabs 04/19/24 hydralazine 50 mg tablet 50 mg PO BID #180 tabs 05/12/24 amlodipine 5 mg tablet 5 mg PO DAILY #90 tabs 05/21/24 triamterene 37.5 1 tab PO QAM #90 tabs 06/04/24 mg-hydrochlorothiazide 25 mg tablet Allergies Allergy/AdvReac Type Severity Reaction Status Date / Time lisinopril AdvReac Intermediate Unknown Verified 06/22/24 09:25 Review of Systems 2 Review of Systems: Constitutional : No Weight loss, No Fever, No Chills, No Night Sweats, No Fatigue, No Malaise ENT/Mouth : No Hearing loss, No Ear Pain, No Nasal Congestion, No Sinus Pain, No Hoarseness, No sore throat, No Rhinorrhea, No Swallowing Difficulty Eyes: No Eye Pain, No Swelling, No Redness, No Foreign Body, No Discharge, No Vision Changes Cardiovascular : No Chest Pain, No SOB, No Dyspnea on Exertion, No Orthopnea, No Edema, No Palpitations Respiratory : No Cough, No Sputum, No Wheezing, No Smoke Exposure, No Dyspnea Gastrointestinal : No Nausea, No Vomiting, No Diarrhea, No Constipation, No abdominal Pain, No Hematochezia, No Melena Genitourinary : no irregular bleeding, No Dysuria, No Urinary Frequency, No Hematuria, No Urinary Incontinence, No Urgency, No Flank Pain, No Urinary Flow Changes, No Hesitancy Musculoskeletal : No joint pain, No Myalgias, No Joint Swelling Skin : No Skin Lesions, No rash Neuro : No Weakness, No Numbness, No Paresthesias, No Loss of Consciousness, patient complaining of dizziness, states that in the morning is light- headedness, blacking out, at night it is room spinning. Especially with lying down. Psych : No Anxiety/Panic, No Depression, No SI/HI/AH/VH, No Social Issues, Heme/Lymph: No Bruising, No Bleeding,No Lymphadenopathy Endocrine : No Polyuria, No Polydipsia, No Temperature Intolerance PMFSH Past Medical History Medical History HTN (hypertension) Paroxysmal atrial fibrillation Aortic stenosis Hyperlipidemia Knee pain Vitamin D insufficiency Hypothyroidism CVA (cerebral vascular accident) Osteoporosis of lumbar spine Surgical History History of removal of cyst Family History Family History Father Emphysema, unspecified Mother History of heart attack Brother Cancer of prostate Sister Ovarian cancer Sister Ovarian cancer Son History of heart attack Malignant melanoma Son No problems noted. Son No problems noted. Daughter No problems noted. Other Substance use disorder Social History Social History Housing: Other Alcohol intake: former Patient Tobacco Use Status: Former Tobacco user Smoked in Last 30 Days: No e-Cigarette/Vaping Use: Never Used Second Hand Smoke Exposure: No Use of substances other than those prescribed or required for medical reasons: No Advance Directives: Yes Advance Directives Information Provided: Yes Advance Directives on File: No Do you have a plan to hurt others: No Plan service: No Current occupational status: retired Cognitive needs: No Hearing needs: No Vision needs: Yes (glasses) Physical Exam ED Vital Signs: Vital Signs - 24 hr 06/22/24 09:22 06/22/24 13:10 06/22/24 13:11 Temperature 98.6 F 98.0 F Pulse Rate 63 64 72 Respiratory Rate 20 20 Blood Pressure 198/47 H 216/57 H 208/70 H Pulse Oximetry 98 99 Oxygen Delivery Method Room Air Room Air 06/22/24 13:27 06/22/24 13:27 06/22/24 14:57 Temperature Pulse Rate 75 78 Respiratory Rate Blood Pressure 206/78 H 191/58 H 184/48 H Pulse Oximetry Oxygen Delivery Method 06/22/24 15:05 06/22/24 15:29 06/22/24 18:49 Temperature 98.0 F 98.1 F Pulse Rate 66 58 Respiratory Rate 18 18 Blood Pressure 184/48 H 177/53 H 162/61 H Pulse Oximetry 98 95 Oxygen Delivery Method Room Air Room Air BMI result Body Mass Index 19.4 Const Other: Appearance: Alert. Oriented X3. No acute distress. Eyes: Pupils equal, round and reactive to light. ENT: Pharynx normal. Neck: Normal inspection. Neck supple. No lymph nodes noted. No crepitus CVS: Normal heart rate and rhythm. S wound, S2, systolic murmur left sternal border Respiratory: No respiratory distress. Breath sounds normal. No Wheezing. No rales Abdomen: Soft and nontender. No rigidity. No distention. Skin: Skin warm and dry. Normal skin color. Normal skin turgor. Extremities: No lower extremity edema. No Lacerations. No Rash Neuro: Oriented X 3. No motor deficit. No sensory deficit. Moving all extremities. No slurred speech. CN 2 through 12 grossly intact Psych: calm, cooperative, normal affect Medications Administered Discontinued Medications Generic Name Dose Route Start Last Admin Trade Name Freq PRN Reason Stop Dose Admin Amiodarone HCl 100 mg 06/22/24 13:54 06/22/24 14:58 Amiodarone Hcl 200 Mg Tablet PO 06/22/24 13:55 100 mg ONCE ONE Administration Amlodipine Besylate 5 mg 06/22/24 15:00 06/22/24 15:05 Amlodipine Besylate 5 Mg Tablet PO 06/22/24 15:01 5 mg ONCE ONE Administration Protocol Hydralazine HCl 50 mg 06/22/24 13:54 06/22/24 14:57 Hydralazine Hcl 50 Mg Tablet PO 06/22/24 13:55 50 mg ONCE ONE Administration Protocol Medical Decision Making Medical Decision Making [facility] Narrative: My interpretation of labs: Patient's hematology at baseline, chemistry within normal limits, troponin 239 -patient's blood pressure to 8/70. Patient did not take her medications that she is supposed to, only take amlodipine 5 mg. Patient states that the new brand of amiodarone is making her feel sick. States that she does not know if it is the hydralazine that is making her feel sick to. - patient denies any chest pain. My interpretation EKG: Normal sinus rhythm 6, left bundle branch block, QTC 466. Left bundle branch block is new comparison to an EKG of 2019 -after patient received her home medications, blood pressure 162/61. Per Dr. Sebastian's notes, patient needs strict blood pressure control, less than 140 systolic -troponin 1 was 240, troponin to 255. Patient does not have any chest pain. -I discussed the patient EKG findings and labs with Dr. Gould from Cardiology. Since patient is already on Eliquis, we do not need to start heparin. Differential Diagnosis Differential Diagnoses: The differential diagnosis associated with the presentation includes (Hypertensive urgency, hypertensive emergency, ACS) Admission/Observation Consideration of admission/observation: Escalation of care including admission/observation considered Consult Healthcare Provider Management of the patient was discussed with: Hospitalist and Hot Walker Lab Data [facility] Lab Attestation statement: I reviewed the patient's lab results. 06/22/24 12:40 06/22/24 12:40 Labs: Lab Results 06/22/24 06/22/24 Range/Units 12:40 16:18 WBC 7.8 (4.8-10.8) X10*3/uL RBC 4.51 (4.20-5.50) X10*6/uL Hgb 13.6 (12.0-16.0) g/dl Hct 39.6 (37.0-47.0) % MCV 87.8 (80.0-98.0) fL MCH 30.2 (27.0-33.0) pg MCHC 34.3 (31.0-35.0) g/dl RDW 14.0 (11.0-16.0) % Plt Count 203 (160-400) X10*3/uL MPV 10.8 (9.4-12.3) fL Immature Gran % (Auto) 0.5 H (0.0-0.4) % Neut % (Auto) 65.7 (45-73) % Lymph % (Auto) 22.4 (20-40) % [place] % (Auto) 9.3 (2-11) % Eos % (Auto) 1.3 (0-4) % Baso % (Auto) 0.8 (0-2) % Lymph # (Auto) 1.7 (1.2-4.9) X10*3/uL [place] # (Auto) 0.7 (0.1-1.2) X10*3/uL Eos # (Auto) 0.1 (0.0-0.4) X10*3/uL Baso # (Auto) 0.1 (0.0-0.2) X10*3/uL Abs Immat Gran (auto) 0.04 H (0.00-0.03) X10*3/uL Absolute Neuts (auto) 5.1 (2.0-8.3) x10*3/uL Absolute Nucleated RBC 0.000 (0.0-0.012) X10*3/uL Nucleated RBC % (auto) 0.0 (0.0-0.2) /100WBC Sodium 137 (135-145) mmol/L Potassium 4.4 (3.3-5.1) mmol/L Chloride 101 (96-108) mmol/L Carbon Dioxide 28 (22-29) mmol/L Anion Gap 12 (12-20) BUN 18 H (9-16) mg/dL Creatinine 1.09 (0.5-1.4) mg/dL Estim Creat Clear Calc 32.6 Estimated GFR 47 Random Glucose 111 (60-115) mg/dL Calcium 9.4 (8.4-10.2) mg/dL Magnesium 2.3 (1.6-2.6) mg/dL Total Bilirubin 0.4 (0.0-1.0) mg/dL AST 23 (5-31) U/L ALT 18 (0-31) U/L Alkaline Phosphatase 70 (39-117) U/L Troponin I High Sens 239.9 H* 254.8 H* (<3.5-17.0) ng/L B-Natriuretic Peptide 123 H (<100) pg/mL Total Protein 7.2 (6.5-8.0) g/dL Albumin 4.3 (3.5-5.0) g/dL Independent Interpretation I performed an independent interpretation of an: EKG Critical Care Time Critical Care Time Critical Care Time: Yes Total Critical Care Time: 60 Attestation: I have personally provided critical care time. Time includes review of lab data, radiology results, discussion with consultants, and monitoring for potential decompensation. Intervention performed as documented. Discharge Plan Discharge Clinical Impression: Hypertensive urgency Patient Disposition: Admitted As Inpatient Prescriptions: No Action apixaban 5 mg tablet 5 mg PO BID Qty: 180 3RF levothyroxine 75 mcg tablet 75 mcg PO DAILY Qty: 90 3RF amiodarone 100 mg tablet 100 mg PO DAILY 90 Days Qty: 90 2RF rosuvastatin 5 mg tablet 5 mg PO DAILY 90 Days Qty: 90 3RF Rx Instructions: This Rx replaces the lovastatin amlodipine 5 mg tablet 5 mg PO DAILY Qty: 90 0RF hydralazine 50 mg tablet 50 mg PO BID Qty: 180 3RF triamterene-hydrochlorothiazid 37.5-25 mg tablet 1 tab PO QAM Qty: 90 3RF Print Language: Estonian
[2024-06-22 13:27] LABS: Troponin-I High Sensitivity 239.9 ng/L (<3.5-17.0)
[2024-06-22 13:57] LABS: B Type Natriuretic Peptide 123 pg/mL (<100)
[2024-06-22] MEDS: hydrALAZINE HCl 50 MG TABLET PO (14:57)
[2024-06-22] MEDS: Amiodarone HCL 200 MG TABLET 100 MG PO (14:58)
[2024-06-22] MEDS: amLODIPine Besylate 5 MG TABLET PO (15:05)
[2024-06-22 16:47] LABS: Troponin-I High Sensitivity 254.8 ng/L (<3.5-17.0)
--- NOTE | 2024-06-22 19:57 | PC.NURSE ---
continues to complain of dizziness. denies CP, SOB, diaphoresis. LBBB on monitor. no other ectopy. Skin PWD. NAD
--- NOTE | 2024-06-22 20:16 | PHA.MEDREC ---
Pharmacy Consult ? Medication Reconciliation Pharmacy has completed the medication reconciliation.Med rec complete, spoke with patient and compared with outpatient claim history.
--- NOTE | 2024-06-22 20:22 | P.HPHOSP_ITS ---
History of Present Illness Date of Service: 06/22/24 Attending physician on admission: Uriel Carranza Chief Complaint: Dizziness Lisa Fay is a very pleasant 89 years old woman withical history significant for essential hypertension, mild to moderate , hypothyroidism and AFib on Eliquis presents to the emergency department complaining of positional dizziness that started about 3 days ago. The dizziness is reported as a spinning sensation and is trigger with head position changes. She denied any associated headache, acute visual disturbances or focal weakness. Patient also denied any speech difficulty. She mentioned that her hydralazine was recently changed from 25-50 mg and feel this is the cause for her dizziness. She denied chest pain or shortness on breath. She denied cough, ear pain, fever or chills. She did not report any acute gastrointestinal genitourinary symptoms. Denied leg swelling. Denied alcohol abuse, illicit drug use or tobacco smoking. She has a strong family history of strokes and myocardial infarction. In the ED, she was initially found to have BP of 216/57. The most recent one is 162/61. Other vital signs are normal. While workup showed normal CBC. There are no electrolyte imbalances. Creatinine is 1.09 and BUN 18. LFTs are normal. Troponin x2 is elevated 239.9-->254.8. BNP is 123. Her ECG today shows a new left bundle branch block with a heart rate of 67 bpm. Chart review: Echo June 02 EF 55-60%, heavy mitral annular calcification with possible mild mitral stenosis, [id number] calcified nursing stenosis, normal RV systolic pressure and no pericardial effusion. ED tx: Hydralazine 50 mg p.o., amiodarone 100 mg p.o., amlodipine 50 mg p.o. Review of Systems 2 Review of Systems: All 12 systems were reviewed and normal except as noted in HPI. [facility] Medical History HTN (hypertension) Paroxysmal atrial fibrillation Aortic stenosis Hyperlipidemia Knee pain Vitamin D insufficiency Hypothyroidism CVA (cerebral vascular accident) Osteoporosis of lumbar spine Family History Father Emphysema, unspecified Mother History of heart attack Brother Cancer of prostate Sister Ovarian cancer Sister Ovarian cancer Son History of heart attack Malignant melanoma Son No problems noted. Son No problems noted. Daughter No problems noted. Other Substance use disorder Surgical History History of removal of cyst Social History Housing: Other Alcohol intake: former Patient Tobacco Use Status: Former Tobacco user Smoked in Last 30 Days: No e-Cigarette/Vaping Use: Never Used Second Hand Smoke Exposure: No Use of substances other than those prescribed or required for medical reasons: No Advance Directives: Yes Advance Directives Information Provided: Yes Advance Directives on File: No Do you have a plan to hurt others: No Plan service: No Current occupational status: retired Cognitive needs: No Hearing needs: No Vision needs: Yes (glasses) Meds Allergies Allergy/AdvReac Type Severity Reaction Status Date / Time lisinopril AdvReac Intermediate Unknown Verified 06/22/24 09:25 Active Medications: Current Medications Acetaminophen (Acetaminophen 325 Mg Tablet) 975 mg PO Q6H PRN PRN Reason: Pain, Mild (Pain Scale 1-3), fever or headache Melatonin (Melatonin 3 Mg Tablet) 6 mg PO BEDTIME PRN PRN Reason: Insomnia Sodium Chloride (0.9 % Sodium Chloride Flush 3 Ml Syringe) 3 ml IVFLUSH QSHIFT [facility] Home Medications ?Medication ?Instructions ?Recorded ?Confirmed ?Last Taken ?Type latanoprost 0.005 % eye drops 1 drp ophthalmic (eye) BEDTIME 06/22/24 06/22/24 06/21/24 History triamterene 37.5 1 tab PO DAILY 06/22/24 06/22/24 Unknown History mg-hydrochlorothiazide 25 mg tablet Physical Exam 2 Vital Signs and Narrative: Vital Signs: Last Vital Signs Temp 98.1 F 06/22/24 18:49 Pulse 58 06/22/24 18:49 Resp 18 06/22/24 18:49 BP 162/61 H 06/22/24 18:49 Pulse Ox 95 06/22/24 18:49 O2 Del Method Room Air 06/22/24 18:49 BMI result Body Mass Index 19.4 Constitutional - Awake and Alert, No apparent distress. Tearful upon remembering her son. Pleasant. Cooperative. HEENT - PER, EOMI. Normal sclerae. Heart - Irregular rhythm. Normal rate. High pitched holosystolic murmur best heard over right upper sternal border. Lungs - Normal lung expansion, Normal respiratory effort, No respiratory distress, CTA bilaterally Abdomen - NT / ND; +BS; No rebound or guarding Extremities - no calf tenderness bilaterally, no swelling Skin - Warm/Dry. No pallor. No jaundice. Neurological - Alert & oriented x3, CN III-XII in tact, 5/5 strength BUE and BLE. Normal speech. Psychological - Appropriate affect Results Labs 06/22/24 12:40 06/22/24 12:40 Labs: Laboratory Results - last 24 hr 06/22/24 06/22/24 12:40 16:18 MCV 87.8 MCH 30.2 MCHC 34.3 RDW 14.0 Plt Count 203 MPV 10.8 Immature Gran % (Auto) 0.5 H Neut % (Auto) 65.7 Lymph % (Auto) 22.4 [place] % (Auto) 9.3 Eos % (Auto) 1.3 Baso % (Auto) 0.8 Lymph # (Auto) 1.7 [place] # (Auto) 0.7 Eos # (Auto) 0.1 Baso # (Auto) 0.1 Abs Immat Gran (auto) 0.04 H Absolute Neuts (auto) 5.1 Absolute Nucleated RBC 0.000 Nucleated RBC % (auto) 0.0 Anion Gap 12 Estim Creat Clear Calc 32.6 Estimated GFR 47 Random Glucose 111 Calcium 9.4 Magnesium 2.3 Total Bilirubin 0.4 AST 23 ALT 18 Alkaline Phosphatase 70 Troponin I High Sens 239.9 H* 254.8 H* B-Natriuretic Peptide 123 H Total Protein 7.2 Albumin 4.3 Assessment and Plan (1) Vertigo: Status: Acute (2) Hypertensive emergency: Status: Acute (3) New onset left bundle branch block (LBBB): Status: Acute Plan Lisa Fay is a 89 y/o woman admitted with: * Vertigo. Admit to hospitalist service. Telemetry. Fall precautions. Start treatment with Antivert. Check MRI. * New left bundle branch block, intermittent? + elevated troponin. No chest pain or shortness on breath. Recheck ECG now. Check CXR. Continue to monitor troponin. Continue Eliquis. [employer] contacted by ED -no heparin. * AFib, currently rate controlled. Continue amiodarone and Eliquis. * Essential hypertension/s/p hypertensive emergency, BP improving. Continue amlodipine, triamterene/hydrochlorothiazide and hydralazine (decreased dose back to 25 mg as pt reported her symptoms started after dose was increased. Avoid aggressive BP control in the setting of underlying . * Hypothyroidism. Continue levothyroxine. * Hyperlipidemia. Continue statin. DVT prophylaxis: Manaquis Code status: Full Patient dilatation for at least 2 midnights for vertigo, new left bundle branch block and elevated troponin evaluation and management. She will need continuous cardiac monitoring, serial troponin checks, brain MRI to assess for any posterior circulation abnormalities and evaluation by subspecialty. Quality Stroke Does the patient have a stroke diagnosis?: No VTE Prior VTE?: No VTE Risk Level:: Medical - moderate - high VTE Device Contraindication: Treatment Not Indicated VTE Drug Contraindication: N/A - Med Ordered
[2024-06-22] MEDS: Meclizine HCl 25 MG TABLET PO (20:35)
[2024-06-22] MEDS: Apixaban 5 MG TABLET PO (20:35)
[2024-06-23] VITALS (7 sets, daily range): BP systolic 108–177; BP diastolic 46–76; PULSE 66–83; RESP 14–20; TEMP 36.3–37; O2SAT 96–98; BMI 24.2
[2024-06-23 00:17] LABS: Troponin-I High Sensitivity 245.9 ng/L (<3.5-17.0)
[2024-06-23] MEDS: 0.9 % Sodium Chloride Flush 3 ML SYRINGE IVFLUSH ×2 (04:15→23:37)
[2024-06-23 04:47] LABS: MANUAL DIFF FLAG NO
[2024-06-23 04:48] LABS: Basophils Absolute Auto 0.1 X10*3/uL (0.0-0.2); Basophils Percent Auto 0.9 % (0-2); Eosinophils Absolute Auto 0.1 X10*3/uL (0.0-0.4); Eosinophils Percent Auto 1.4 % (0-4); Hematocrit 37.9 % (37.0-47.0); Imm Gran Abs Auto 0.04 X10*3/uL (0.00-0.03); Imm Gran Pct Auto 0.5 % (0.0-0.4); Lymphocytes Percent Auto 25.7 % (20-40); Mean Corpuscular HGB Conc 34.3 g/dl (31.0-35.0); Mean Corpuscular Hemoglobin 29.7 pg (27.0-33.0); Mean Corpuscular Volume 86.5 fL (80.0-98.0); Mean Platelet Volume 11.1 fL (9.4-12.3); Monocytes Absolute Auto 0.9 X10*3/uL (0.1-1.2); Monocytes Percent Auto 11.7 % (2-11); Neutrophils Absolute Auto 4.6 x10*3/uL (2.0-8.3); Neutrophils Percent Auto 59.8 % (45-73); Platelet Count 192 X10*3/uL (160-400); Red Blood Count 4.38 X10*6/uL (4.20-5.50); White Blood Count 7.7 X10*3/uL (4.8-10.8)
[2024-06-23 05:03] LABS: Anion Gap 15 (12-20); Blood Urea Nitrogen 19 mg/dL (9-16); Carbon Dioxide 24 mmol/L (22-29); Chloride 106 mmol/L (96-108); Creatinine Clr Calc Pharmacy 30.6; Estimated Glomerular Filt Rate 44; Glucose Random 95 mg/dL (60-115); Sodium 141 mmol/L (135-145)
[2024-06-23] MEDS: Levothyroxine Sodium 75 MCG TABLET PO (06:24)
--- NOTE | 2024-06-23 06:29 | PC.NURSE ---
Patient is alert and oriented x4, VSS.Patient denies any pain. Patientobserved ambulating to the restroom with a steady gait. She continues to complained of dizziness with position changes, no s/s of distress noted, call marx in reach. Plan of care ongoing.
[2024-06-23] MEDS: hydrALAZINE HCl 25 MG TABLET PO ×2 (09:13→20:14)
[2024-06-23] MEDS: Meclizine HCl 12.5 MG TABLET PO ×3 (09:13→20:14)
[2024-06-23] MEDS: Apixaban 5 MG TABLET PO ×2 (09:13→20:14)
[2024-06-23] MEDS: amLODIPine Besylate 5 MG TABLET PO (09:13)
[2024-06-23] MEDS: Atorvastatin Calcium 20 MG TABLET PO (09:13)
[2024-06-23] MEDS: Amiodarone HCL 200 MG TABLET 100 MG PO (09:13)
[2024-06-23] MEDS: Triamterene/HCTZ 37.5/25 TABLET 1 TAB PO (09:39)
--- NOTE | 2024-06-23 09:40 | MHC.CM.PN ---
Patient lives alone in a trailer, typically refuses VNA, and uses a cane to assist with mobility. Home/self care is the tentative plan and CM has initiated and will follow for dc planning. PCP is Dr. Eusebia Orantes and Daughter/HCP/Mehul will transport to home.
--- NOTE | 2024-06-23 09:47 | PC.NURSE ---
patient sitting up in bed, alert and oriented x3. patient ate her breakfast this mornin, denies any chest pain/sob/dizziness this AM. patient states she has been trying to increased her fluid intake by drinking water, she states she feels as if it is making her better. patient is in normal sinus on the monitor, resp even and unlabored, skin dry and intact. patient takes meds whole with water.
--- NOTE | 2024-06-23 09:55 | PC.NURSE ---
mri screening form completed with patient at bedside
[2024-06-23 13:32] LABS: Troponin-I High Sensitivity 258.8 ng/L (<3.5-17.0)
--- NOTE | 2024-06-23 15:33 | PC.NURSE ---
patient resting quietly in room, denies any chest pain/sob or dizziness. patient states she feels tired. patient remains alert and oriented x3, medicated per MAR, VSS
--- NOTE | 2024-06-23 17:04 | HO.PM.IMPN ---
Subjective Subjective Date of Service: 06/23/24 Interval History: No acute issues overnight. Still intermittent dizziness Review of Systems Denies chest pain Denies shortness of breath Denies nausea vomiting diarrhea Denies fever chills Physical Exam Vital Signs: Vital Signs: Last Vital Signs Temp 97.4 F 06/23/24 16:47 Pulse 69 06/23/24 16:47 Resp 18 06/23/24 16:47 BP 177/76 H 06/23/24 16:47 Pulse Ox 96 06/23/24 16:47 O2 Del Method Room Air 06/23/24 16:47 BMI result Body Mass Index 19.4 Const: Other: Awake alert no acute distress Resp: Other: Clear to auscultation bilaterally no rales rhonchi or wheezes Cardio: Other: No S4; positive S1-S2; no S3 murmurs rubs or gallops GI: Other: Soft nontender nondistended normoactive bowel sounds Neuro: Other: Cranial nerves 2-12 grossly intact as tested. Motor is 5/5 all extremities. Sensation is intact. Gait not observed Extrem: Other: No edema bilaterally Objective Data Active Medications Acetaminophen (Acetaminophen 325 Mg Tablet) 975 mg PO Q6H PRN PRN Reason: Pain, Mild (Pain Scale 1-3), fever or headache Amiodarone HCl (Amiodarone Hcl 200 Mg Tablet) 100 mg PO DAILY REPLACED BY [facility] Last Admin: 06/23/24 09:13 Dose: 100 mg Documented By: NYLA Amlodipine Besylate (Amlodipine Besylate 5 Mg Tablet) 5 mg PO DAILY REPLACED BY [facility]; Protocol Last Admin: 06/23/24 09:13 Dose: 5 mg Documented By: NYLA Apixaban (Apixaban 5 Mg Tablet) 5 mg PO BID REPLACED BY [facility] Last Admin: 06/23/24 09:13 Dose: 5 mg Documented By: NYLA Atorvastatin Calcium (Atorvastatin Calcium 20 Mg Tablet) 20 mg PO DAILY REPLACED BY [facility] Last Admin: 06/23/24 09:13 Dose: 20 mg Documented By: NYLA Hydralazine HCl (Hydralazine Hcl 25 Mg Tablet) 25 mg PO BID REPLACED BY [facility]; Protocol Last Admin: 06/23/24 09:13 Dose: 25 mg Documented By: NYLA Latanoprost (Latanoprost 0.005 % Ophth Shefali 2.5 Ml Drops) 1 drop EYE-BOTH BEDTIME REPLACED BY [facility] Last Admin: 06/22/24 22:45 Dose: Not Given Documented By: AMOR Non-Admin Reason: Patient Asleep Levothyroxine Sodium (Levothyroxine Sodium 75 Mcg Tablet) 75 mcg PO DAILY@0600 REPLACED BY [facility] Last Admin: 06/23/24 06:24 Dose: 75 mcg Documented By: LESLIE Meclizine HCl (Meclizine Hcl 12.5 Mg Tablet) 12.5 mg PO TID REPLACED BY [facility] Last Admin: 06/23/24 15:20 Dose: 12.5 mg Documented By: NYLA Melatonin (Melatonin 3 Mg Tablet) 6 mg PO BEDTIME PRN PRN Reason: Insomnia Sodium Chloride (0.9 % Sodium Chloride Flush 3 Ml Syringe) 3 ml IVFLUSH QSHIFT REPLACED BY [facility] Last Admin: 06/23/24 15:44 Dose: Not Given Documented By: NYLA Non-Admin Reason: See Note Triamterene/Hydrochlorothiazide (Triamterene/Hctz 37.5/25 Tablet) 1 tab PO DAILY REPLACED BY [facility]; Protocol Last Admin: 06/23/24 09:39 Dose: 1 tab Documented By: NYLA Labs 06/23/24 04:25 06/23/24 04:25 Labs: Laboratory Results - last 24 hr 06/22/24 06/23/24 06/23/24 23:28 04:25 13:01 MCV 86.5 MCH 29.7 MCHC 34.3 RDW 14.0 Plt Count 192 MPV 11.1 Immature Gran % (Auto) 0.5 H Neut % (Auto) 59.8 Lymph % (Auto) 25.7 [place] % (Auto) 11.7 H Eos % (Auto) 1.4 Baso % (Auto) 0.9 Lymph # (Auto) 2.0 [place] # (Auto) 0.9 Eos # (Auto) 0.1 Baso # (Auto) 0.1 Abs Immat Gran (auto) 0.04 H Absolute Neuts (auto) 4.6 Absolute Nucleated RBC 0.000 Nucleated RBC % (auto) 0.0 Hold Purple Top SEE NOTE Anion Gap 15 Estim Creat Clear Calc 30.6 Estimated GFR 44 Random Glucose 95 Calcium 9.0 Troponin I High Sens 245.9 H* 258.8 H* Assessment and Plan (1) Vertigo: Status: Acute (2) Hypertensive emergency: Status: Acute (3) New onset left bundle branch block (LBBB): Status: Acute Plan Lisa Fay is a 89 y/o woman admitted with worsening dizziness 1.Vertigo -MRI done/reading pending -continue Antivert 2. New left bundle branch block with elevated troponins -no indication for heparin as per Cardiology -continue Eliquis -await Cardiology input in a.m. 3. Paroxysmal atrial fibrillation -acceptable control on current therapies -adjust as indicated -Eliquis as ordered 4. Hypertension -BP improved since admission -cautious advancement of antihypertensive given Eliquis Full Patient will require ongoing hospitalization to complete workup for vertigo including MRI and new right bundle branch awaiting specialty consultation Quality Stroke Does the patient have a stroke diagnosis?: No VTE Prior VTE?: No VTE Risk Level:: Medical - moderate - high VTE Device Contraindication: Treatment Not Indicated VTE Drug Contraindication: N/A - Med Ordered
[2024-06-23] MEDS: Latanoprost 0.005 % Ophth Sol 2.5 ML DROPS 1 DROP EYE-BOTH (23:36)
[2024-06-24] VITALS (7 sets, daily range): BP systolic 112–144; BP diastolic 51–77; PULSE 58–66; RESP 17–19; TEMP 36.2–36.6; O2SAT 96–98
[2024-06-24] MEDS: Levothyroxine Sodium 75 MCG TABLET PO (06:16)
[2024-06-24 06:41] LABS: Basophils Absolute Auto 0.1 X10*3/uL (0.0-0.2); Basophils Percent Auto 0.8 % (0-2); Eosinophils Absolute Auto 0.2 X10*3/uL (0.0-0.4); Eosinophils Percent Auto 2.1 % (0-4); Hematocrit 38.7 % (37.0-47.0); Hemoglobin 13.1 g/dl (12.0-16.0); Imm Gran Abs Auto 0.03 X10*3/uL (0.00-0.03); Imm Gran Pct Auto 0.4 % (0.0-0.4); Lymphocytes Percent Auto 23.8 % (20-40); Mean Corpuscular HGB Conc 33.9 g/dl (31.0-35.0); Mean Corpuscular Hemoglobin 30.3 pg (27.0-33.0); Mean Corpuscular Volume 89.6 fL (80.0-98.0); Monocytes Absolute Auto 1.1 X10*3/uL (0.1-1.2); Monocytes Percent Auto 12.3 % (2-11); Neutrophils Absolute Auto 5.2 x10*3/uL (2.0-8.3); Neutrophils Percent Auto 60.6 % (45-73); Red Blood Count 4.32 X10*6/uL (4.20-5.50); Red Cell Distribution Width 14.1 % (11.0-16.0); White Blood Count 8.5 X10*3/uL (4.8-10.8)
[2024-06-24 07:04] LABS: Alanine Aminotransferase 13 U/L (0-31); Albumin Level 3.4 g/dL (3.5-5.0); Alkaline Phosphatase 56 U/L (39-117); Anion Gap 16 (12-20); Aspartate Amino Transferase 23 U/L (5-31); Bilirubin Total 0.5 mg/dL (0.0-1.0); Blood Urea Nitrogen 31 mg/dL (9-16); Calcium 8.6 mg/dL (8.4-10.2); Carbon Dioxide 20 mmol/L (22-29); Chloride 106 mmol/L (96-108); Estimated Glomerular Filt Rate 35; Glucose Fasting 84 mg/dL (60-99); Potassium 4.6 mmol/L (3.3-5.1); Sodium 137 mmol/L (135-145); Total Protein 6.2 g/dL (6.5-8.0)
[2024-06-24] MEDS: Atorvastatin Calcium 20 MG TABLET PO (08:17)
[2024-06-24] MEDS: Apixaban 5 MG TABLET PO ×2 (08:17→20:54)
[2024-06-24] MEDS: amLODIPine Besylate 5 MG TABLET PO (08:17)
[2024-06-24] MEDS: 0.9 % Sodium Chloride Flush 3 ML SYRINGE IVFLUSH ×3 (08:17→20:54)
[2024-06-24] MEDS: Meclizine HCl 12.5 MG TABLET PO ×3 (08:17→20:54)
[2024-06-24] MEDS: Triamterene/HCTZ 37.5/25 TABLET 1 TAB PO (08:17)
[2024-06-24] MEDS: hydrALAZINE HCl 25 MG TABLET PO ×2 (08:17→20:54)
[2024-06-24] MEDS: Amiodarone HCL 200 MG TABLET 100 MG PO (08:18)
[2024-06-24] MEDS: Acetaminophen 325 MG TABLET 975 MG PO ×2 (10:07→16:14)
[2024-06-24 11:15] LABS: Troponin-I High Sensitivity 231.4 ng/L (<3.5-17.0)
--- NOTE | 2024-06-24 11:18 | P.CONCA_ITS ---
History of Present Illness History of Present Illness Date of Service: 06/24/24 Chief complaint: Dizziness, elevated troponin Narrative: This is a cardiology consultation regarding question of hypertensive emergency. Per medical history, hypertension, [id number] aortic stenosis, hypothyroidism and atrial fibrillation. Not entirely clear if she is describing dizziness versus vertigo. She states that she feels dizzy but at the same time when she turns her head in a certain direction she feels those symptoms and hence could also be vertigo. In the H and P, there is mention of increase in hydralazine dose but patient denies that part. When she 1st came into the hospital, she was having a blood pressure of 216/57 mm Hg but currently improved. Low-grade troponin leak. There was also apparently a finding of left bundle-branch block on the EKG which was new. Hence she has been admitted for further care. Today, she states she feels good. No new complaints. Review of Systems 2 Review of Systems: Yes all other systems are reviewed and are negative Constitutional: Constitutional: Reports as per HPI and Reports no additional constitutional complaints Eyes: Eyes: Reports as per HPI and Denies no additional eye complaints ENT: Denies system reviewed and no additional complaints, except as documented and Reports as per HPI Cardiovascular: Cardiovascular: Reports as per HPI, Reports no additional cardiovascular complaints, Denies acrocyanosis, Denies cool extremities, Denies chest pain, Denies leg edema, Reports lightheadedness, Denies palpitations and Denies dyspnea Respiratory: Respiratory: Reports as per HPI, Denies no additional respiratory complaints and Denies dyspnea Gastrointestinal: Gastrointestinal: Reports as per HPI and Denies no additional gastrointestinal complaints Genitourinary: Genitourinary: Reports as per HPI Musculoskeletal: Musculoskeletal: Reports no additional musculoskeletal complaints and Reports as per HPI Integumentary/Breasts: Skin/Breast: Reports system reviewed and no additional complaints, except as docu Neurologic: Reports system reviewed and no additional complaints, except as documented and Reports as per HPI Psychiatric: Psychiatric: Reports no additional psychiatric complaints and Reports as per HPI Endocrine: Endocrine: Reports no additional endocrine complaints, Reports as per HPI and Denies palpitations Hematologic/Lymphatic: Hematologic/Lymphatic: Reports no additional hematologic/lymphatic complaints and Reports as per HPI Allergic/Immunologic: Allergic/Immunologic: Reports no additional allergic/immunologic complaints and Reports as per HPI [facility] Past Medical History Medical History HTN (hypertension) Paroxysmal atrial fibrillation Aortic stenosis Hyperlipidemia Knee pain Vitamin D insufficiency Hypothyroidism CVA (cerebral vascular accident) Osteoporosis of lumbar spine Family History Family History Father Emphysema, unspecified Mother History of heart attack Brother Cancer of prostate Sister Ovarian cancer Sister Ovarian cancer Son History of heart attack Malignant melanoma Son No problems noted. Son No problems noted. Daughter No problems noted. Other Substance use disorder Surgical History Surgical History History of removal of cyst Social History Social History Household Members: None Housing: Other Housing Other:: mobile home Do you presently have visiting nurse or other home services: No Alcohol intake: former Comment: refusing alarms Patient Tobacco Use Status: Former Tobacco user e-Cigarette/Vaping Use: Never Used Second Hand Smoke Exposure: No service: No Current occupational status: retired Cognitive needs: No Hearing needs: No Vision needs: Yes (glasses) Meds Allergies Allergy/AdvReac Type Severity Reaction Status Date / Time lisinopril AdvReac Intermediate Unknown Verified 06/22/24 09:25 Active Medications: Current Medications Acetaminophen (Acetaminophen 325 Mg Tablet) 975 mg PO Q6H PRN PRN Reason: Pain, Mild (Pain Scale 1-3), fever or headache Last Admin: 06/24/24 10:07 Dose: 975 mg Amiodarone HCl (Amiodarone Hcl 200 Mg Tablet) 100 mg PO DAILY [facility] Last Admin: 06/24/24 08:18 Dose: 100 mg Amlodipine Besylate (Amlodipine Besylate 5 Mg Tablet) 5 mg PO DAILY [facility]; Protocol Last Admin: 06/24/24 08:17 Dose: 5 mg Apixaban (Apixaban 5 Mg Tablet) 5 mg PO BID [facility] Last Admin: 06/24/24 08:17 Dose: 5 mg Atorvastatin Calcium (Atorvastatin Calcium 20 Mg Tablet) 20 mg PO DAILY [facility] Last Admin: 06/24/24 08:17 Dose: 20 mg Hydralazine HCl (Hydralazine Hcl 25 Mg Tablet) 25 mg PO BID [facility]; Protocol Last Admin: 06/24/24 08:17 Dose: 25 mg Latanoprost (Latanoprost 0.005 % Ophth Shefali 2.5 Ml Drops) 1 drop EYE-BOTH BEDTIME [facility] Last Admin: 06/23/24 23:36 Dose: 1 drop Levothyroxine Sodium (Levothyroxine Sodium 75 Mcg Tablet) 75 mcg PO DAILY@0600 [facility] Last Admin: 06/24/24 06:16 Dose: 75 mcg Meclizine HCl (Meclizine Hcl 12.5 Mg Tablet) 12.5 mg PO TID [facility] Last Admin: 06/24/24 08:17 Dose: 12.5 mg Melatonin (Melatonin 3 Mg Tablet) 6 mg PO BEDTIME PRN PRN Reason: Insomnia Sodium Chloride (0.9 % Sodium Chloride Flush 3 Ml Syringe) 3 ml IVFLUSH QSHIFT [facility] Last Admin: 06/24/24 08:17 Dose: 3 ml Triamterene/Hydrochlorothiazide (Triamterene/Hctz 37.5/25 Tablet) 1 tab PO DAILY [facility]; Protocol Last Admin: 06/24/24 08:17 Dose: 1 tab Home Medications ?Medication ?Instructions ?Recorded ?Confirmed ?Last Taken ?Type latanoprost 0.005 % eye drops 1 drp ophthalmic (eye) BEDTIME 06/22/24 06/22/24 06/21/24 History triamterene 37.5 1 tab PO DAILY 06/22/24 06/22/24 Unknown History mg-hydrochlorothiazide 25 mg tablet Physical Exam 2 Vital Signs: Vital Signs: Last Vital Signs Temp 97.1 F 06/24/24 11:09 Pulse 58 06/24/24 11:09 Resp 18 06/24/24 11:09 BP 121/60 06/24/24 11:09 Pulse Ox 98 06/24/24 11:09 O2 Del Method Room Air 06/24/24 11:09 BMI result Body Mass Index 24.2 Const: General: comfortable and no acute distress O rientation/consciousness: patient oriented x3 HEENT: Other: Unremarkable Head: Yes normal to inspection Neck: Neck: Yes normal visual inspection Chest: Chest palpation & inspection: normal inspection of the chest Resp: Auscultation: clear to auscultation bilaterally Cardio: Palpation: normal PMI Heart sounds: S1 normal heart sound present, S2 normal heart sound present, no gallops, Murmur heart sound present systolic III/ and at the right sternal border and no rubs GI: Palpation (GI): Soft to palpation Back/Spine/Pelvis: Other: unremarkable Skin: General skin exam: no rashes or lesions noted Neuro: General: patient oriented x3 Extrem: General: Yes normal to inspection Psych: Mental Status: mental status grossly normal Objective Labs and Meds 06/24/24 05:35 06/24/24 05:35 Lab results: Laboratory Results - last 24 hr 06/23/24 06/24/24 13:01 05:35 WBC 8.5 RBC 4.32 Hgb 13.1 Hct 38.7 MCV 89.6 MCH 30.3 MCHC 33.9 RDW 14.1 Plt Count TNP MPV TNP Immature Gran % (Auto) 0.4 Neut % (Auto) 60.6 Lymph % (Auto) 23.8 [place] % (Auto) 12.3 H Eos % (Auto) 2.1 Baso % (Auto) 0.8 Lymph # (Auto) 2.0 [place] # (Auto) 1.1 Eos # (Auto) 0.2 Baso # (Auto) 0.1 Abs Immat Gran (auto) 0.03 Absolute Neuts (auto) 5.2 Absolute Nucleated RBC 0.000 Nucleated RBC % (auto) 0.0 Sodium 137 Potassium 4.6 Chloride 106 Carbon Dioxide 20 L Anion Gap 16 BUN 31 H Creatinine 1.40 Estim Creat Clear Calc 28.0 Estimated GFR 35 Fasting Glucose 84 Calcium 8.6 Total Bilirubin 0.5 AST 23 ALT 13 Alkaline Phosphatase 56 Troponin I High Sens 258.8 H* 231.4 H* Total Protein 6.2 L Albumin 3.4 L ECG Interpretation: EKG with underlying sinus rhythm at 60/Min with a left bundle-branch block pattern. Imaging Radiologist's impression: Impressions Brain MRI 06/23/24 12:09 IMPRESSION: 1. No acute intracranial abnormalities. 2. 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 Chronic lacunar infarcts of the right thalamus, posterior limb of the right internal capsule, and left cerebellar hemisphere. Electronically signed by: Yuval Mayorga DO 06/23/2024 07:44 PM [facility] Assessment and Plan (1) Hypertensive urgency: Status: Acute (2) Aortic stenosis: Status: Acute (3) Left bundle branch block: Status: Acute Plan Pertinent data reviewed. Blood pressure has been as much as 216/57 mm Hg, but currently almost normal at 121/60 mm Hg. Troponin levels are almost flat in 200s. Cardiac BNP is 123. In the recent echocardiogram, LVEF 55-60% with moderate diastolic dysfunction. Mitral annular calcification/possible mild stenosis. [id number] aortic stenosis. Brain MRI-no acute abnormalities. Moderate underlying microangiopathy/generalized cerebral volume overload. Chronic lacunar infarcts. For BP meds, home regimen listed as Amlodipine 5 mg daily, Hydralazine 50 mg b.i.d. and Triamterene/HCTZ. Currently, she is on a low dose of hydralazine at 25 mg b.i.d. and similar amlodipine/triamterene/HCTZ. Hence not entirely clear as to how the blood pressure improved. Overall, not clear if what she is describing is rather vertigo and if that triggered the hypertensive crisis. Or if she had a hypertensive crisis first and that regard the dizziness/vertigo. We will hold further changes for now as the blood pressure currently is 121/60 mm Hg. Will need to follow blood pressures an outpatient and also consider a 24 hour blood pressure monitor. With regard to the left bundle-branch block, it was indeed noted in the office EKG from 06/10. Hence not a truly new finding. With regard to the troponin leak, likely all from demand related to the markedly high blood pressures. She has got no chest pain and we will hold off workup in the inpatient setting and also considering her advanced age. Can start discharge planning. Discussed with Dr. Tellez. Procedures Date of Service Date of Service: 06/24/24
--- NOTE | 2024-06-24 14:38 | HO.PM.IMPN ---
Subjective Subjective Date of Service: 06/24/24 Interval History: No acute issues overnight. Extremely fatigued Review of Systems Denies chest pain Denies shortness of breath Denies nausea vomiting diarrhea Denies fever chills Physical Exam Vital Signs: Vital Signs: Last Vital Signs Temp 97.1 F 06/24/24 11:09 Pulse 58 06/24/24 11:09 Resp 18 06/24/24 11:09 BP 121/60 06/24/24 11:09 Pulse Ox 98 06/24/24 11:09 O2 Del Method Room Air 06/24/24 11:09 BMI result Body Mass Index 24.2 Const: Other: Awake alert no acute distress Resp: Other: Clear to auscultation bilaterally no rales rhonchi or wheezes Cardio: Other: No S4; positive S1-S2; no S3 murmurs rubs or gallops GI: Other: Soft nontender nondistended normoactive bowel sounds Neuro: Other: Cranial nerves 2-12 grossly intact as tested. Motor is 5/5 all extremities. Sensation is intact. Gait not observed Extrem: Other: No edema bilaterally Objective Data Active Medications Acetaminophen (Acetaminophen 325 Mg Tablet) 975 mg PO Q6H PRN PRN Reason: Pain, Mild (Pain Scale 1-3), fever or headache Last Admin: 06/24/24 10:07 Dose: 975 mg Documented By: GLENN Amiodarone HCl (Amiodarone Hcl 200 Mg Tablet) 100 mg PO DAILY [facility] Last Admin: 06/24/24 08:18 Dose: 100 mg Documented By: GLENN Amlodipine Besylate (Amlodipine Besylate 5 Mg Tablet) 5 mg PO DAILY [facility]; Protocol Last Admin: 06/24/24 08:17 Dose: 5 mg Documented By: GLENN Apixaban (Apixaban 5 Mg Tablet) 5 mg PO BID [facility] Last Admin: 06/24/24 08:17 Dose: 5 mg Documented By: GLENN Atorvastatin Calcium (Atorvastatin Calcium 20 Mg Tablet) 20 mg PO DAILY [facility] Last Admin: 06/24/24 08:17 Dose: 20 mg Documented By: GLENN Hydralazine HCl (Hydralazine Hcl 25 Mg Tablet) 25 mg PO BID [facility]; Protocol Last Admin: 06/24/24 08:17 Dose: 25 mg Documented By: GLENN Latanoprost (Latanoprost 0.005 % Ophth Shefali 2.5 Ml Drops) 1 drop EYE-BOTH BEDTIME [facility] Last Admin: 06/23/24 23:36 Dose: 1 drop Documented By: TAO Levothyroxine Sodium (Levothyroxine Sodium 75 Mcg Tablet) 75 mcg PO DAILY@0600 [facility] Last Admin: 06/24/24 06:16 Dose: 75 mcg Documented By: TAO Meclizine HCl (Meclizine Hcl 12.5 Mg Tablet) 12.5 mg PO TID [facility] Last Admin: 06/24/24 08:17 Dose: 12.5 mg Documented By: GLENN Melatonin (Melatonin 3 Mg Tablet) 6 mg PO BEDTIME PRN PRN Reason: Insomnia Sodium Chloride (0.9 % Sodium Chloride Flush 3 Ml Syringe) 3 ml IVFLUSH QSHIFT [facility] Last Admin: 06/24/24 08:17 Dose: 3 ml Documented By: GLENN Triamterene/Hydrochlorothiazide (Triamterene/Hctz 37.5/25 Tablet) 1 tab PO DAILY [facility]; Protocol Last Admin: 06/24/24 08:17 Dose: 1 tab Documented By: GLENN Labs 06/24/24 05:35 06/24/24 05:35 Labs: Laboratory Results - last 24 hr 06/24/24 05:35 MCV 89.6 MCH 30.3 MCHC 33.9 RDW 14.1 Plt Count TNP MPV TNP Immature Gran % (Auto) 0.4 Neut % (Auto) 60.6 Lymph % (Auto) 23.8 [place] % (Auto) 12.3 H Eos % (Auto) 2.1 Baso % (Auto) 0.8 Lymph # (Auto) 2.0 [place] # (Auto) 1.1 Eos # (Auto) 0.2 Baso # (Auto) 0.1 Abs Immat Gran (auto) 0.03 Absolute Neuts (auto) 5.2 Absolute Nucleated RBC 0.000 Nucleated RBC % (auto) 0.0 Anion Gap 16 Estim Creat Clear Calc 28.0 Estimated GFR 35 Fasting Glucose 84 Calcium 8.6 Total Bilirubin 0.5 AST 23 ALT 13 Alkaline Phosphatase 56 Troponin I High Sens 231.4 H* Total Protein 6.2 L Albumin 3.4 L Assessment and Plan (1) Vertigo: Status: Acute Plan Lisa Fay is a 89 y/o woman admitted with worsening dizziness 1.Vertigo -MRI done/reading pending -continue Antivert... DC in a.m. 2. New left bundle branch block with elevated troponins -no indication for heparin as per Cardiology -continue Eliquis -LBBB not new; documented in office 3. Paroxysmal atrial fibrillation -acceptable control on current therapies -adjust as indicated -Eliquis as ordered 4. Hypertension -BP improved since admission -cautious advancement of antihypertensive given Eliquis Full Patient will require ongoing hospitalization to complete workup for vertigo including MRI and new right bundle branch awaiting specialty consultation Quality Stroke Does the patient have a stroke diagnosis?: No VTE Prior VTE?: No VTE Risk Level:: Medical - moderate - high VTE Device Contraindication: Treatment Not Indicated VTE Drug Contraindication: N/A - Med Ordered
[2024-06-24] MEDS: Latanoprost 0.005 % Ophth Sol 2.5 ML DROPS 1 DROP EYE-BOTH (20:54)
[2024-06-25] VITALS: BP 137/60; PULSE 62; RESP 16; TEMP 36.2; O2SAT 95
[2024-06-25 04:00] VITALS: BP 144/65; PULSE 59; RESP 18; TEMP 36.2; O2SAT 99
[2024-06-25] MEDS: Levothyroxine Sodium 75 MCG TABLET PO (07:22)
[2024-06-25] MEDS: Acetaminophen 325 MG TABLET 975 MG PO (07:26)
[2024-06-25 08:00] VITALS: BP 154/68; PULSE 63; RESP 20; TEMP 36.4; O2SAT 100
[2024-06-25 08:13] VITALS: BP 154/68
[2024-06-25] MEDS: Triamterene/HCTZ 37.5/25 TABLET 1 TAB PO (08:13)
[2024-06-25] MEDS: Atorvastatin Calcium 20 MG TABLET PO (08:14)
[2024-06-25] MEDS: Apixaban 5 MG TABLET PO (08:14)
[2024-06-25] MEDS: 0.9 % Sodium Chloride Flush 3 ML SYRINGE IVFLUSH (08:14)
[2024-06-25] MEDS: amLODIPine Besylate 5 MG TABLET PO (08:14)
[2024-06-25] MEDS: Meclizine HCl 12.5 MG TABLET PO (08:14)
[2024-06-25] MEDS: hydrALAZINE HCl 25 MG TABLET PO (08:15)
[2024-06-25 11:48] VITALS: BP 162/50; PULSE 58; RESP 16; TEMP 36.4; O2SAT 99
--- NOTE | 2024-06-25 12:33 | PM.DS ---
DS: Providers Provider Date of Service: 06/25/24 Date of admission: 06/22/24 20:13 Date of discharge: 06/25/24 Primary care physician: Eusebia Orantes MD Consults: 06/23/24 17:09 Consult to Cardiology Routine Consulting Provider: [facility] Reason for consultation: New LBBB Has provider been notified: Yes DS: Diagnosis Discharge Diagnosis (1) Vertigo: Status: Acute DS: Summary Hospital Course Hospital Course: 89 years old woman withical history significant for essential hypertension, mild to moderate , hypothyroidism and AFib on Eliquis presents to the emergency department complaining of positional dizziness that started about 3 days ago. The dizziness is reported as a spinning sensation and is trigger with head position changes. She denied any associated headache, acute visual disturbances or focal weakness. Patient also denied any speech difficulty. She mentioned that her hydralazine was recently changed from 25-50 mg and feel this is the cause for her dizziness. She denied chest pain or shortness on breath. She denied cough, ear pain, fever or chills. She did not report any acute gastrointestinal genitourinary symptoms. Denied leg swelling. Denied alcohol abuse, illicit drug use or tobacco smoking. She has a strong family history of strokes and myocardial infarction. In the ED, she was initially found to have BP of 216/57. The most recent one is 162/61. Other vital signs are normal. While workup showed normal CBC. There are no electrolyte imbalances. Creatinine is 1.09 and BUN 18. LFTs are normal. Troponin x2 is elevated 239.9-->254.8. BNP is 123. Her ECG today shows a new left bundle branch block with a heart rate of 67 bpm. Chart review: Echo June 02 EF 55-60%, heavy mitral annular calcification with possible mild mitral stenosis, [id number] calcified nursing stenosis, normal RV systolic pressure and no pericardial effusion. ED tx: Hydralazine 50 mg p.o., amiodarone 100 mg p.o., amlodipine 50 mg p.o. Hospital Course Admitted to telemetry where monitor failed to demonstrate any acute dysrhythmias. Seen in consultation by Cardiology and after review of records left bundle branch is not new and she is followed as an outpatient. She had an MRI to rule out any occult pathology which was essentially unremarkable. Her vertiginous symptoms did not occur in the hospital and is point she is ambulatory without issue. She is medically acceptable for discharge on a short course of meclizine as needed Time Attestation Discharge Coordination Time (in mins): 35 Quality: Safe Use of Opioids Does Pt have an Active Cancer Diagnosis on the Problem List?: No Quality: Stroke Does the patient have a stroke diagnosis?: No Physical Exam Vital Signs: Vital Signs: Last Vital Signs Temp 97.5 F 06/25/24 11:48 Pulse 58 06/25/24 11:48 Resp 16 06/25/24 11:48 BP 162/50 H 06/25/24 11:48 Pulse Ox 99 06/25/24 11:48 O2 Del Method Room Air 06/25/24 11:48 BMI result Body Mass Index 24.2 Const: Other: Awake alert no acute distress Resp: Other: Clear to auscultation bilaterally no rales rhonchi or wheezes Cardio: Other: No S4; positive S1-S2; no S3 murmurs rubs or gallops GI: Other: Soft nontender nondistended normoactive bowel sounds Neuro: Other: Cranial nerves 2-12 grossly intact as tested. Motor is 5/5 all extremities. Sensation is intact. Gait not observed Extrem: Other: No edema bilaterally Discharge Plan Discharge Anticipated Discharge Date/Time: 06/25/24 12:31 Patient Disposition: Home, Self-Care Discharge Diagnosis: Vertigo Referrals: Eusebia Orantes MD [Primary Care Provider] - 1 Week Discharge Medications: New meclizine 12.5 mg Tablet 12.5 mg PO TID Qty: 30 0RF Continued apixaban 5 mg tablet 5 mg PO BID Qty: 180 3RF levothyroxine 75 mcg tablet 75 mcg PO DAILY Qty: 90 3RF amiodarone 100 mg tablet 100 mg PO DAILY 90 Days Qty: 90 2RF rosuvastatin 5 mg tablet 5 mg PO DAILY 90 Days Qty: 90 3RF Rx Instructions: This Rx replaces the lovastatin amlodipine 5 mg tablet 5 mg PO DAILY Qty: 90 0RF latanoprost 0.005 % Drops 1 drp OPHTHALMIC (EYE) BEDTIME triamterene-hydrochlorothiazid 37.5-25 mg tablet 1 tab PO DAILY hydralazine 50 mg tablet 50 mg PO BID Qty: 180 3RF Discharge Orders: Discharge Order (Routine); Ordered 06/25/24 Ordered By: Jacek Tellez Diet: Advance to usual diet Activity on Discharge: As tolerated Stand Alone Forms: Patient Portal Discharge page Print Language: Gu[place]ian Care Plan Goals: Resume all medications as taken prior to hospital Health Concerns: Antivert 12.5 mg 3 times a day as needed for dizziness Plan of Treatment: Follow up with your PCP next available Assessment: See discharge summary
[2024-06-25] MEDS: Amiodarone HCL 200 MG TABLET 100 MG PO (12:40)
--- NOTE | 2024-06-25 14:12 | MHC.CM.PN ---
Pt is medically cleared for discharge home self-care, pts daughter will transport her home.
[2024-06-29 17:13] LABS: Amiodarone, Serum 0.4 mcg/mL (1.5-2.5)
== END 2024-06-25 15:18 | disposition home or self-care (01) | DRG 305 ==
LOC: HO.ED 19:50 → HO.EDOVER 20:27 → HO.IMC 06-23 15:19
PROVIDERS: Admitting Provider Internal Medicine; Emergency Provider Emergency Medicine; PCP Internal Medicine; Visit Provider Hospitalist
DX: I16.1 Hypertensive emergency (principal); I10 Essential (primary) hypertension; I35.0 Nonrheumatic aortic (valve) stenosis; I44.7 Left bundle-branch block, unspecified; R42 Dizziness and giddiness; I48.0 Paroxysmal atrial fibrillation; E78.5 Hyperlipidemia, unspecified; E03.9 Hypothyroidism, unspecified; Z86.73 Personal history of transient ischemic attack (TIA), and cerebral infarction without residual deficits; Z79.01 Long term (current) use of anticoagulants; Z79.890 Hormone replacement therapy; Z79.899 Other long term (current) drug therapy
CPT/HCPCS: 36415; 70551; 71045; 80048; 80053; 80151; 83735; 83880; 84484; 85025; 93005; 99285

== ENCOUNTER → 2024-06-22 12:12 | Outpatient (BNV) | payer OTHER, MEDICAID, SELFPAY | PROVIDERS: Emergency Provider Emergency Medicine; PCP Internal Medicine; Visit Provider Internal Medicine | DX: R07.9 Chest pain, unspecified (principal); I44.7 Left bundle-branch block, unspecified; R94.31 Abnormal electrocardiogram [ECG] [EKG] | CPT/HCPCS: 93010 ==

== ENCOUNTER → 2024-06-22 20:13 | Outpatient (BNV) | payer OTHER, MEDICAID, SELFPAY | PROVIDERS: Admitting Provider Internal Medicine; Emergency Provider Emergency Medicine; PCP Internal Medicine; Visit Provider Internal Medicine | DX: R42 Dizziness and giddiness (principal) | CPT/HCPCS: 99223; 99231; 99232; 99239 ==

== ENCOUNTER → 2024-06-22 20:13 | Outpatient (BNV) | payer MEDICARE, MEDICAID, SELFPAY | PROVIDERS: Admitting Provider Internal Medicine; Emergency Provider Emergency Medicine; PCP Internal Medicine; Visit Provider Internal Medicine | DX: I16.0 Hypertensive urgency (principal); I35.0 Nonrheumatic aortic (valve) stenosis; I44.7 Left bundle-branch block, unspecified | CPT/HCPCS: 99223 ==

== ENCOUNTER 2024-06-30 11:41 | Outpatient (AMB) | payer MEDICARE, MEDICAID, SELFPAY ==
--- NOTE | 2024-06-30 11:54 | A.OFFPC_ITS ---
Vital Signs 06/30/24 12:02 Height 5 ft 3 in Weight 159 lb BMI 28.2 BP 134/62 Blood Pressure Location Lt brachial Position Sitting Pulse 75 Pulse Source Palpation Intake Visit Reasons: HDF/TCM Intake Note: Pt is here today for her HDF/TCM Allergies lisinopril Adverse Reaction (Intermediate, Verified 06/30/24 12:03) Unknown Medication List - Last Reconciled 06/30/24 by Eusebia Orantes MD amiodarone 100 mg PO DAILY 90 days amlodipine 5 mg PO DAILY apixaban 5 mg PO BID hydralazine 50 mg PO BID latanoprost 0.005% 1 drp ophthalmic (eye) BEDTIME levothyroxine 75 mcg PO DAILY meclizine 12.5 mg PO TID rosuvastatin 5 mg PO DAILY 90 days triamterene-hydrochlorothiazid 37.5-25 mg 1 tab PO DAILY Tobacco use date assessed: 06/30/24 Fall risk assessment: No Falls in past year Last assessed Fall Risk: 06/30/24 Dental Screening Dental Screen Date: 06/30/24 Did you have a dental visit in the last 12 months?: No Did you have a dental problem in the last 6 months where you did not have access to dental care?: No Was dental information given to patient?: Patient has dentist HPI HDF/TCM HPI Details Patient presents for the follow-up of hospitalization for positional vertigo. Patient is feeling better but still with the symptoms when waking up in the morning. She denies change in balance. Patient had negative brain MRI. She reports feeling anxious and upset and checking her blood pressure multiple times during a day. She has been compliant taking her medications. Patient remains on amiodarone for AFib and is anticoagulated on Eliquis. [facility] Medical History New onset left bundle branch block (LBBB) Left bundle branch block HTN (hypertension) Paroxysmal atrial fibrillation Aortic stenosis Hyperlipidemia Knee pain Vitamin D insufficiency Hypothyroidism CVA (cerebral vascular accident) Osteoporosis of lumbar spine Surgical History History of removal of cyst Family History Father Emphysema, unspecified Mother History of heart attack Brother Cancer of prostate Sister Ovarian cancer Sister Ovarian cancer Son History of heart attack Malignant melanoma Son No problems noted. Son No problems noted. Daughter No problems noted. Other Substance use disorder Social History Household Members: None Housing: Other Housing Other:: mobile home Do you presently have visiting nurse or other home services: No Alcohol intake: former Comment: refusing alarms Patient Tobacco Use Status: Former Tobacco user e-Cigarette/Vaping Use: Never Used Second Hand Smoke Exposure: No service: No Current occupational status: retired Cognitive needs: No Hearing needs: No Vision needs: Yes (glasses) Questionnaire Thrive Questionnaire Date Thrive assessed: 05/12/24 I am a: Parent/Caregiver What is your living situation today?: I choose not to answer this question Within the past 12 months, did the food you bought not last and you didn't have the money to get more?: I choose not to answer this question Within the past 12 months, did you worry whether your food would run out before you got money to buy more?: I choose not to answer this question Do you have trouble paying for medicines?: I choose not to answer this question Do you have trouble getting transportation to medical appointments?: I choose not to answer this question Do you have trouble paying your heating and electricity bill?: I choose not to answer this question Do you have trouble taking care of your child, family member or friend?: I choose not to answer this question Do you have trouble with day-to-day activities such as bathing, preparing meals, shopping, managing finances, etc.?: I choose not to answer this question Are you interested in more education?: I choose not to answer this question Please select the resources that you would like help with: None Currently or been in a relationship where the following occur: I choose not to answer THRIVE Score: 0 SANIYA-7 AMB Questionnaire SANIYA-7 Date SANIYA - 7 assessed: 09/02/23 Source: Developed by Drs. Joel Alejandra, Genie Wilson, Maykel Nam and colleagues, with an educational chato from [employer] Review of Systems Const All systems reviewed & are unremarkable except as noted in HPI and below Eyes Reports no additional complaints ENT Reports no additional complaints Card Reports no additional complaints Resp Reports no additional complaints GI Reports no additional complaints Reports no additional complaints Physical exam (Primary Care) Vital Signs: Last Vital Signs BP 142/62 H 06/30/24 12:02 BMI result Body Mass Index 28.2 Tobacco/Smoking Status: Tobacco use Status Tobacco use date assessed 06/30/24 06/30/24 12:08 Patient Tobacco Use Status Former Tobacco user 06/30/24 11:56 e-Cigarette/Vaping Use Never Used 06/30/24 11:56 Thrive Assessment: Date of Thrive Assessment Date Thrive assessed 05/12/24 06/30/24 11:56 Currently or been in a relationship where the following occur: I choose not to answer Const General: no acute distress HENMT Head: Yes normal to inspection Ears: hearing grossly normal bilaterally Neck Neck: Yes supple Resp Effort & Inspection: normal respiratory effort Auscultation: clear to auscultation bilaterally Cardio Rhythm: regular rhythm Heart sounds: S1 normal heart sound present and S2 normal heart sound present GI Inspection: Yes normal to inspection Palpation (GI): Soft to palpation Percussion: Yes normal to percussion Auscultation: normal bowel sounds Coding Level of Care Code Est Pt Level 4 (99486) Diagnoses Vertigo R42 Chronic kidney disease, stage 3 N18.30 HTN (hypertension) I10 Paroxysmal atrial fibrillation I48.0 Anxiety F41.9 Assessment & Plan Assessment & Plan (1) Vertigo: Comment: positional Code(s): R42 - Dizziness and giddiness Category: Medical Plan: Continue meclizine referred to physical therapy for vestibular therapy (2) Chronic kidney disease, stage 3: Code(s): N18.30 - Chronic kidney disease, stage 3 unspecified Category: Medical Plan: Avoid nephrotoxins monitor renal function (3) HTN (hypertension): Code(s): I10 - Essential (primary) hypertension Category: Medical Plan: Increase hydralazine to 50 mg 3 times a day continue the rest of the medications. Follow-up in 2 months (4) Paroxysmal atrial fibrillation: Code(s): I48.0 - Paroxysmal atrial fibrillation Category: Medical Plan: Continue amiodarone and Eliquis (5) Anxiety: Code(s): F41.9 - Anxiety disorder, unspecified Category: Medical Plan: Start 25 mg of sertraline, stress management discussed with the patient Orders: Orders PT Evaluation and Treatment Today R42 - Dizziness and giddiness Medications: New sertraline 25 mg PO DAILY 90 tabs 1RF sertraline 25 mg PO DAILY 90 tabs 0RF Changed From hydralazine 50 mg PO BID 180 tabs 3RF To hydralazine 50 mg PO Q8H 270 tabs 3RF
[2024-06-30 12:02] VITALS: BP 134/62; PULSE 75; BMI 28.2
== END 2024-06-30 13:51 | disposition home or self-care (01) ==
PROVIDERS: PCP Internal Medicine; Visit Provider Internal Medicine
DX: R42 Dizziness and giddiness (principal); N18.30 Chronic kidney disease, stage 3 unspecified; I10 Essential (primary) hypertension; I48.0 Paroxysmal atrial fibrillation; F41.9 Anxiety disorder, unspecified

== ENCOUNTER → 2024-06-30 11:41 | Outpatient (BNVA) | payer MEDICARE, OTHER, SELFPAY | PROVIDERS: PCP Internal Medicine; Visit Provider Internal Medicine | DX: R42 Dizziness and giddiness (principal); I12.9 Hypertensive chronic kidney disease with stage 1 through stage 4 chronic kidney disease, or unspecified chronic kidney disease; N18.30 Chronic kidney disease, stage 3 unspecified; I48.0 Paroxysmal atrial fibrillation; F41.9 Anxiety disorder, unspecified | CPT/HCPCS: 99212 ==

== ENCOUNTER 2024-07-04 17:19 | Emergency (ER) | payer MEDICARE, OTHER, SELFPAY ==
--- NOTE | 2024-07-04 | ECG_ITS ---
Test Reason : DIZZINESS/WEAKNESS Blood Pressure : / mmHG Vent. Rate : 058 BPM Atrial Rate : 058 BPM P-R Int : 186 ms QRS Dur : 142 ms QT Int : 492 ms P-R-T Axes : 087 -33 114 degrees QTc Int : 482 ms Sinus bradycardia Left axis deviation Left bundle branch block Abnormal ECG When compared with ECG of 22-JUN-2024 20:21, Premature atrial complexes are no longer Present Referred By: Generic ED Physician Electronically Signed By:ZECHARIAH SMILEY MD
[2024-07-04 17:37] VITALS: BP 154/80; BP 176/53; PULSE 69; PULSE 80; RESP 16; TEMP 36.6; O2SAT 95; O2SAT 98; BMI 28.6
[2024-07-04 17:42] VITALS: BP 176/53; PULSE 69; RESP 16; TEMP 36.6; O2SAT 95
--- NOTE | 2024-07-04 19:08 | ED_ITS ---
HPI - General Adult General Chief complaint: Dizziness Stated complaint: Dizzy, stomach pain x2 days Time Seen by Provider: 07/04/24 19:07 History of Present Illness ED Provider: Benjamin NOVAK narrative: The patient is an 89-year-old woman who was recently in the hospital for positional dizziness and elevated troponins. She had an MRI of her brain to evaluate for her positional dizziness. This was unremarkable. She had a negative cardiac workup. She was discharged with a prescription for meclizine. She has been home for about a week. She followed up with her regular doctor since discharge who adjusted her antihypertensive medications. She has been taking the meclizine at home during the last week and doing fairly well. She ran out of the meclizine yesterday. This afternoon she had a recurrence of positional dizziness associated with nausea. She was worried that she might fall if she tried to walk. She had a neighbor drive her to the hospital. She has had no fever, sweats, chills. She has had nausea but no abdominal pain. No chest pain. No shortness of breath. No headache. She has pain in the back of her neck when she moves her head. She says that she would have taken a meclizine today for her symptoms but she did not have any and so she had a friend drive her to the emergency room. Related Data Home Medications ?Medication ?Instructions ?Recorded ?Confirmed latanoprost 0.005 % eye drops 1 drp ophthalmic (eye) BEDTIME 06/22/24 06/30/24 Previous Rx's ?Medication ?Instructions ?Recorded apixaban 5 mg tablet 5 mg PO BID #180 tabs 08/25/23 levothyroxine 75 mcg tablet 75 mcg PO DAILY #90 tabs 01/27/24 amiodarone 100 mg tablet 100 mg PO DAILY 90 days #90 tabs 02/26/24 rosuvastatin 5 mg tablet 5 mg PO DAILY 90 days #90 tabs 04/19/24 amlodipine 5 mg tablet 5 mg PO DAILY #90 tabs 05/21/24 meclizine 12.5 mg tablet 12.5 mg PO TID #30 tabs 06/25/24 triamterene 37.5 1 tab PO DAILY #90 tabs 06/29/24 mg-hydrochlorothiazide 25 mg tablet hydralazine 50 mg tablet 50 mg PO Q8H #270 tabs 06/30/24 sertraline 25 mg tablet 25 mg PO DAILY #90 tabs 06/30/24 meclizine 12.5 mg tablet 12.5 mg PO TID PRN dizziness #20 07/04/24 tabs Allergies Allergy/AdvReac Type Severity Reaction Status Date / Time lisinopril AdvReac Intermediate Unknown Verified 07/04/24 17:40 Review of Systems 2 Review of Systems: Yes all other systems are reviewed and are negative [facility] Past Medical History Medical History New onset left bundle branch block (LBBB) Left bundle branch block HTN (hypertension) Paroxysmal atrial fibrillation Aortic stenosis Hyperlipidemia Knee pain Vitamin D insufficiency Hypothyroidism CVA (cerebral vascular accident) Osteoporosis of lumbar spine Surgical History History of removal of cyst Family History Family History Father Emphysema, unspecified Mother History of heart attack Brother Cancer of prostate Sister Ovarian cancer Sister Ovarian cancer Son History of heart attack Malignant melanoma Son No problems noted. Son No problems noted. Daughter No problems noted. Other Substance use disorder Social History Social History Household Members: None Housing: Other Housing Other:: mobile home Do you presently have visiting nurse or other home services: No Alcohol intake: former Comment: refusing alarms Patient Tobacco Use Status: Former Tobacco user Smoked in Last 30 Days: No e-Cigarette/Vaping Use: Never Used Second Hand Smoke Exposure: No Use of substances other than those prescribed or required for medical reasons: No Advance Directives: No Advance Directives Information Provided: No Do you have a plan to hurt others: No Plan service: No Current occupational status: retired Cognitive needs: No Hearing needs: No Vision needs: Yes (glasses) Physical Exam ED Vital Signs: Vital Signs - 24 hr 07/04/24 17:37 07/04/24 17:42 07/04/24 21:17 Temperature 97.9 F 97.9 F 98.1 F Pulse Rate 69 69 63 Respiratory Rate 16 16 16 Blood Pressure 176/53 H 176/53 H 140/55 H Pulse Oximetry 95 95 97 Oxygen Delivery Method Room Air Room Air Room Air BMI result Body Mass Index 28.6 Const Other: The patient is an 81-year-old woman who was awake and alert and does not appear in obvious distress. HENMT Other: Face is symmetrical. Mucous membranes moist. Tongue midline. Eyes Other: Pupils are round equal, conjunctivae clear, extraocular movements intact. No nystagmus. Neck Other: There was some posterior paraspinous neck tenderness. She moves her neck well. No JVD. Resp Effort & Inspection: normal respiratory effort Cardio Rate: regular rate Rhythm: regular rhythm Heart sounds: S1 normal heart sound present, S2 normal heart sound present and Murmur heart sound present (Systolic murmur) GI Other: Abdomen is soft and nontender Skin Other: Skin is pale and dry Neuro Other: The patient is awake and alert with a normal mental status. Face is symmetrical. Eye movements intact. Speech is clear. Symmetrical strength in all extremities. Coordination is normal. Extrem Other: No peripheral edema Medications Administered Discontinued Medications Generic Name Dose Route Start Last Admin Trade Name Adrian PRN Reason Stop Dose Admin Acetaminophen 975 mg 07/04/24 19:31 07/04/24 19:52 Acetaminophen 325 Mg Tablet PO 07/04/24 19:32 975 mg ONCE ONE Administration Meclizine HCl 12.5 mg 07/04/24 19:31 07/04/24 19:52 Meclizine Hcl 12.5 Mg Tablet PO 07/04/24 19:32 12.5 mg ONCE ONE Administration Medical Decision Making Medical Decision Making [facility] Narrative: The patient is an 89-year-old woman who says that she has been having problems with dizziness when she changes position for a couple of weeks. She was hospitalized a week ago in part for these symptoms and had a negative MRI. She was prescribed meclizine which she said was helpful over the last several days. She has now run out of the meclizine. She has been scheduled to see a physical therapist in July. The patient was given a 12.5 mg dose of meclizine. She was also given a dose of Tylenol because of some pain in the back of her neck. She felt much better after these medications and requested discharge. I sent a prescription for additional meclizine to her pharmacy. She should follow up with her PCP. Lab Data 07/04/24 19:33 07/04/24 19:32 Labs: Lab Results 07/04/24 07/04/24 Range/Units 19:32 19:33 WBC 8.4 (4.8-10.8) X10*3/uL RBC 4.39 (4.20-5.50) X10*6/uL Hgb 13.1 (12.0-16.0) g/dl Hct 38.4 (37.0-47.0) % MCV 87.5 (80.0-98.0) fL MCH 29.8 (27.0-33.0) pg MCHC 34.1 (31.0-35.0) g/dl RDW 13.5 (11.0-16.0) % Plt Count 221 (160-400) X10*3/uL MPV 10.8 (9.4-12.3) fL Immature Gran % (Auto) 0.2 (0.0-0.4) % Neut % (Auto) 63.2 (45-73) % Lymph % (Auto) 23.8 (20-40) % [place] % (Auto) 11.4 H (2-11) % Eos % (Auto) 0.6 (0-4) % Baso % (Auto) 0.8 (0-2) % Lymph # (Auto) 2.0 (1.2-4.9) X10*3/uL [place] # (Auto) 1.0 (0.1-1.2) X10*3/uL Eos # (Auto) 0.1 (0.0-0.4) X10*3/uL Baso # (Auto) 0.1 (0.0-0.2) X10*3/uL Abs Immat Gran (auto) 0.02 (0.00-0.03) X10*3/uL Absolute Neuts (auto) 5.3 (2.0-8.3) x10*3/uL Absolute Nucleated RBC 0.000 (0.0-0.012) X10*3/uL Nucleated RBC % (auto) 0.0 (0.0-0.2) /100WBC Sodium 134 L (135-145) mmol/L Potassium 4.2 (3.3-5.1) mmol/L Chloride 101 (96-108) mmol/L Carbon Dioxide 25 (22-29) mmol/L Anion Gap 12 (12-20) BUN 18 H (9-16) mg/dL Creatinine 1.05 (0.5-1.4) mg/dL Estim Creat Clear Calc 35.4 Estimated GFR 49 Random Glucose 101 (60-115) mg/dL Calcium 9.1 (8.4-10.2) mg/dL Total Bilirubin 0.4 (0.0-1.0) mg/dL AST 25 (5-31) U/L ALT 14 (0-31) U/L Alkaline Phosphatase 61 (39-117) U/L Total Protein 6.9 (6.5-8.0) g/dL Albumin 4.0 (3.5-5.0) g/dL Lipase 19 (8-78) U/L Discharge Plan Discharge Clinical Impression: Vertigo, Nausea Patient Disposition: Home, Self-Care Additional Instructions: Your symptoms seemed to have improved in response to a dose of meclizine. I have sent a prescription for this medication to your pharmacy to use on an as- needed basis. Please try to use this medication as little as possible. Please stay in touch with your regular doctor and continue your plans to see physical therapy for this ongoing dizziness problem. Return to the emergency room if worse. Prescriptions: New meclizine 12.5 mg tablet 12.5 mg PO TID PRN (Reason: dizziness) Qty: 20 0RF No Action apixaban 5 mg tablet 5 mg PO BID Qty: 180 3RF levothyroxine 75 mcg tablet 75 mcg PO DAILY Qty: 90 3RF amiodarone 100 mg tablet 100 mg PO DAILY 90 Days Qty: 90 2RF rosuvastatin 5 mg tablet 5 mg PO DAILY 90 Days Qty: 90 3RF Rx Instructions: This Rx replaces the lovastatin amlodipine 5 mg tablet 5 mg PO DAILY Qty: 90 0RF triamterene-hydrochlorothiazid 37.5-25 mg tablet 1 tab PO DAILY Qty: 90 0RF latanoprost 0.005 % Drops 1 drp OPHTHALMIC (EYE) BEDTIME meclizine 12.5 mg Tablet 12.5 mg PO TID Qty: 30 0RF hydralazine 50 mg tablet 50 mg PO Q8H Qty: 270 3RF sertraline 25 mg tablet 25 mg PO DAILY Qty: 90 1RF Referrals: Cichon,Eusebia, MD [Physician] - (Dizziness responsive to meclizine) Interventions: ED Discharge Assessment Last Done: 07/04/24 21:17 Discharge Date/Time: 07/04/24 21:41 Print Language: [place]
[2024-07-04 19:37] LABS: Basophils Absolute Auto 0.1 X10*3/uL (0.0-0.2); Basophils Percent Auto 0.8 % (0-2); Eosinophils Absolute Auto 0.1 X10*3/uL (0.0-0.4); Eosinophils Percent Auto 0.6 % (0-4); Hematocrit 38.4 % (37.0-47.0); Hemoglobin 13.1 g/dl (12.0-16.0); Imm Gran Abs Auto 0.02 X10*3/uL (0.00-0.03); Imm Gran Pct Auto 0.2 % (0.0-0.4); Lymphocytes Percent Auto 23.8 % (20-40); MANUAL DIFF FLAG NO; Mean Corpuscular HGB Conc 34.1 g/dl (31.0-35.0); Mean Corpuscular Hemoglobin 29.8 pg (27.0-33.0); Mean Corpuscular Volume 87.5 fL (80.0-98.0); Mean Platelet Volume 10.8 fL (9.4-12.3); Monocytes Percent Auto 11.4 % (2-11); Neutrophils Absolute Auto 5.3 x10*3/uL (2.0-8.3); Neutrophils Percent Auto 63.2 % (45-73); Platelet Count 221 X10*3/uL (160-400); Red Blood Count 4.39 X10*6/uL (4.20-5.50); Red Cell Distribution Width 13.5 % (11.0-16.0); White Blood Count 8.4 X10*3/uL (4.8-10.8)
[2024-07-04] MEDS: Acetaminophen 325 MG TABLET 975 MG PO (19:52)
[2024-07-04] MEDS: Meclizine HCl 12.5 MG TABLET PO (19:52)
[2024-07-04 20:06] LABS: Alanine Aminotransferase 14 U/L (0-31); Alkaline Phosphatase 61 U/L (39-117); Anion Gap 12 (12-20); Aspartate Amino Transferase 25 U/L (5-31); Bilirubin Total 0.4 mg/dL (0.0-1.0); Blood Urea Nitrogen 18 mg/dL (9-16); Calcium 9.1 mg/dL (8.4-10.2); Carbon Dioxide 25 mmol/L (22-29); Chloride 101 mmol/L (96-108); Creatinine Clr Calc Pharmacy 35.4; Estimated Glomerular Filt Rate 49; Glucose Random 101 mg/dL (60-115); Lipase 19 U/L (8-78); Potassium 4.2 mmol/L (3.3-5.1); Sodium 134 mmol/L (135-145); Total Protein 6.9 g/dL (6.5-8.0)
[2024-07-04 21:17] VITALS: BP 140/55; PULSE 63; RESP 16; TEMP 36.7; O2SAT 97
== END 2024-07-04 21:41 | disposition home or self-care (01) ==
PROVIDERS: Emergency Provider Emergency Medicine
DX: R42 Dizziness and giddiness (principal); R10.13 Epigastric pain; M54.2 Cervicalgia; R11.0 Nausea; R00.1 Bradycardia, unspecified; M54.50 Low back pain, unspecified; Z87.891 Personal history of nicotine dependence; Z79.899 Other long term (current) drug therapy
CPT/HCPCS: 36415; 80053; 83690; 85025; 93005; 99284; 99285

== ENCOUNTER → 2024-07-04 19:11 | Outpatient (BNV) | payer MEDICARE, SELFPAY | PROVIDERS: Emergency Provider Emergency Medicine; Visit Provider Internal Medicine Cardiovascular Disease | DX: R42 Dizziness and giddiness (principal); R00.1 Bradycardia, unspecified; I44.7 Left bundle-branch block, unspecified | CPT/HCPCS: 93010 ==

== ENCOUNTER 2024-07-09 09:32 | Outpatient (AMB) | payer MEDICARE, MEDICAID, SELFPAY ==
--- NOTE | 2024-07-09 09:40 | MHC.PC.OV ---
Vital Signs 07/09/24 09:41 Height 5 ft 3 in Weight 157 lb BMI 27.8 BP 136/56 L Blood Pressure Location Lt brachial Position Sitting Pulse 66 Pulse Source Pulse Oximeter Pulse Oximetry (%) 99 Oxygen Delivery Method Room Air Intake Visit Reasons: HDF/ dizziness Intake Note: Pt is here today for a Hospital follow up visit. Allergies lisinopril Adverse Reaction (Intermediate, Verified 07/09/24 09:46) Unknown Medication List - Last Reconciled 07/09/24 by Eusebia Orantes MD amiodarone 100 mg PO DAILY 90 days amlodipine 5 mg PO DAILY apixaban 5 mg PO BID hydralazine 50 mg PO Q8H latanoprost 0.005% 1 drp ophthalmic (eye) BEDTIME levothyroxine 75 mcg PO DAILY meclizine 12.5 mg PO TID PRN meclizine 12.5 mg PO TID rosuvastatin 5 mg PO DAILY 90 days sertraline 25 mg PO DAILY triamterene-hydrochlorothiazid 37.5-25 mg 1 tab PO DAILY Tobacco use date assessed: 06/30/24 Dental Screening Dental Screen Date: 06/30/24 HPI HDF/ dizziness HPI Details Patient presents for the follow-up of ER visit. She complains of persistent symptoms of positional vertigo some nausea decreased appetite feeling shaky and anxious. She has been living with her friend because she is afraid to live alone. She denies any recent falls. Patient tried sertraline only for 2 days but is planning to restarted taking it again. Hypertension has been controlled on current medications. Patient has been taking meclizine for vertigo with some relief and has an appointment scheduled with physical therapy [facility] Medical History New onset left bundle branch block (LBBB) Left bundle branch block HTN (hypertension) Paroxysmal atrial fibrillation Aortic stenosis Hyperlipidemia Knee pain Vitamin D insufficiency Hypothyroidism CVA (cerebral vascular accident) Osteoporosis of lumbar spine Surgical History History of removal of cyst Family History Father Emphysema, unspecified Mother History of heart attack Brother Cancer of prostate Sister Ovarian cancer Sister Ovarian cancer Son History of heart attack Malignant melanoma Son No problems noted. Son No problems noted. Daughter No problems noted. Other Substance use disorder Social History Household Members: None Housing: Other Housing Other:: mobile home Do you presently have visiting nurse or other home services: No Alcohol intake: former Comment: refusing alarms Patient Tobacco Use Status: Former Tobacco user e-Cigarette/Vaping Use: Never Used Second Hand Smoke Exposure: No service: No Current occupational status: retired Cognitive needs: No Hearing needs: No Vision needs: Yes (glasses) Questionnaire Thrive Questionnaire Date Thrive assessed: 05/12/24 I am a: Parent/Caregiver What is your living situation today?: I choose not to answer this question Within the past 12 months, did the food you bought not last and you didn't have the money to get more?: I choose not to answer this question Within the past 12 months, did you worry whether your food would run out before you got money to buy more?: I choose not to answer this question Do you have trouble paying for medicines?: I choose not to answer this question Do you have trouble getting transportation to medical appointments?: I choose not to answer this question Do you have trouble paying your heating and electricity bill?: I choose not to answer this question Do you have trouble taking care of your child, family member or friend?: I choose not to answer this question Do you have trouble with day-to-day activities such as bathing, preparing meals, shopping, managing finances, etc.?: I choose not to answer this question Are you interested in more education?: I choose not to answer this question Please select the resources that you would like help with: None Currently or been in a relationship where the following occur: I choose not to answer THRIVE Score: 0 SANIYA-7 AMB Questionnaire SANIYA-7 Date SANIYA - 7 assessed: 09/02/23 Source: Developed by Drs. Joel Alejandra, Genie Wilson, Maykel Nam and colleagues, with an educational chato from [employer] Review of Systems Const All systems reviewed & are unremarkable except as noted in HPI and below Eyes Reports no additional complaints ENT Reports no additional complaints Card Reports no additional complaints Resp Reports no additional complaints GI Reports no additional complaints Reports no additional complaints Physical exam (Primary Care) Vital Signs: Last Vital Signs Pulse 66 07/09/24 09:41 BP 136/56 L 07/09/24 09:41 Pulse Ox 99 07/09/24 09:41 Oxygen Delivery Method Room Air 07/09/24 09:41 BMI result Body Mass Index 27.8 Tobacco/Smoking Status: Tobacco use Status Tobacco use date assessed 06/30/24 07/09/24 09:40 Patient Tobacco Use Status Former Tobacco user 07/09/24 09:40 e-Cigarette/Vaping Use Never Used 07/09/24 09:40 Thrive Assessment: Date of Thrive Assessment Date Thrive assessed 05/12/24 12 09:40 Currently or been in a relationship where the following occur: I choose not to answer Const General: no acute distress HENMT Head: Yes normal to inspection Mouth: Normal oral and palatal mucosa present Eyes General: appearance normal, both eyes and all related structures Neck Neck: Yes supple Resp Effort & Inspection: normal respiratory effort Auscultation: clear to auscultation bilaterally Cardio Rhythm: regular rhythm Heart sounds: S1 normal heart sound present and S2 normal heart sound present GI Inspection: Yes normal to inspection Palpation (GI): Soft to palpation Percussion: Yes normal to percussion Auscultation: normal bowel sounds Coding Level of Care Code Est Pt Level 4 (84410) Diagnoses Anxiety F41.9 HTN (hypertension) I10 Benign positional vertigo H81.10 Assessment & Plan Assessment & Plan (1) Anxiety: Code(s): F41.9 - Anxiety disorder, unspecified Category: Medical Plan: Patient will restart sertraline the dose will be increased if patient can tolerate medication (2) HTN (hypertension): Code(s): I10 - Essential (primary) hypertension Category: Medical Plan: Continue current medications (3) Benign positional vertigo: Comment: Negative neuro workup, brain MR, will start vestibular therapy Code(s): H81.10 - Benign paroxysmal vertigo, unspecified ear Category: Medical Plan: Continue meclizine and start vestibular therapy
[2024-07-09 09:41] VITALS: BP 136/56; PULSE 66; O2SAT 99; BMI 27.8
== END 2024-07-09 10:14 | disposition home or self-care (01) ==
PROVIDERS: PCP Internal Medicine; Visit Provider Internal Medicine
DX: F41.9 Anxiety disorder, unspecified (principal); I10 Essential (primary) hypertension; H81.10 Benign paroxysmal vertigo, unspecified ear

== ENCOUNTER → 2024-07-09 09:32 | Outpatient (BNVA) | payer MEDICARE, OTHER, SELFPAY | PROVIDERS: PCP Internal Medicine; Visit Provider Internal Medicine | DX: F41.9 Anxiety disorder, unspecified (principal); I10 Essential (primary) hypertension; H81.10 Benign paroxysmal vertigo, unspecified ear | CPT/HCPCS: 99212 ==

== ENCOUNTER 2024-08-10 14:00 | Outpatient (RCR) | payer MEDICARE, OTHER, SELFPAY ==
[2024-07-12 11:06] VITALS: BP 150/68; PULSE 68; O2SAT 97
--- NOTE | 2024-07-12 12:16 | MHC.PT.EP ---
[facility] [place] [facility] [place] [facility] [place] Office [address] Bernadette Chamberlain [address] [phone] F: [phone] F: [phone] F: [phone] F: [phone] Physical Therapy Plan of Care Date of Evaluation: Date of Surgery: Diagnosis: dizziness and giddiness vertigo Assessment: 89 y/o female referred to PT with dizziness and giddiness. Reports 'room spinning' dizziness for 3-4 weeks that occurs with bending head back, getting in/out of bed, turning in bed, and bending. This lasts 30-60 seconds. PMH significant for past CVA, anxiety, HTN and AFIB on ELquis Examination shows negative VBI, decreased L cervical rotation ROM, slightly abnormal oculomotor (however past CVA), functional static balance, and positive for L PC BPPV. Performed Monie x2 (needed assistance from another therapist to help roll in third position). Frequency and Duration: The patient will be seen 3x/week for 4 weeks Short Term Goals: Assess all 6 canals [employer] Goals: Pt will be negative for nystagmus and sx in all test positions Pt will reports no dizziness with getting in/out of bed Treatment Plan: Modalities to reduce pain, spasms and effusion. Manual therapy to restore motion and function. Therapeutic exercise to improve strength and flexibility. Neuromuscular re-education for posture and balance. Therapeutic activities to return to functional activities of daily living. Electronically signed by: Holly Joseph PT Please sign and return to therapist. Thank you for your referral.
--- NOTE | 2024-09-16 13:36 | MHC.PT.DC ---
[facility] [place] Office [place] Office [place] Office [address] Bernadette Chamberlain [address] [phone] F: [phone] F: [phone] F: [phone] F: [phone] Physical Therapy Discharge Report Diagnosis: dizziness and giddiness vertigo Date of Surgery: Date of Evaluation: 07/12/24 Date of Discharge: 09/16/24 Treatments to Date: 4 Cancellations to Date: 0 No Shows to Date: 0 Discharge Status: Achieved Goals Discharge Summary: Pt was negative in all 6 canals for BPPV. D/c at this time Electronically signed by: Umu Joseph PT Please sign and return to therapist. Thank you for your referral.
== END 2024-09-16 13:36 | disposition home or self-care (01) ==
LOC: HO.PTCHIC 14:00
PROVIDERS: PCP Internal Medicine; Visit Provider Internal Medicine
DX: R42 Dizziness and giddiness (principal); I10 Essential (primary) hypertension
CPT/HCPCS: 95992; 97110; 97162

== ENCOUNTER 2024-08-10 14:31 | Outpatient (AMB) | payer MEDICARE, MEDICAID, SELFPAY ==
--- NOTE | 2024-08-10 14:34 | MHC.OFFWIV ---
Intake Vital Signs 08/10/24 14:38 BP 160/74 H Blood Pressure Location Rt brachial Position Sitting Pulse 69 Pulse Source Pulse Oximeter Pulse Oximetry (%) 99 Oxygen Delivery Method Room Air Intake Visit Reasons: EP-h/blood press 186 70/ rt side and lt side 200 Intake Note: Patient here for elevated BP, dizzy/off balanced. Patient Tobacco Use Status: Former Tobacco user Allergies lisinopril Adverse Reaction (Intermediate, Verified 08/10/24 14:39) Unknown Do you need a note to return to daycare/school/sports/work: No PFSH Medical History New onset left bundle branch block (LBBB) Left bundle branch block HTN (hypertension) Paroxysmal atrial fibrillation Aortic stenosis Hyperlipidemia Knee pain Vitamin D insufficiency Hypothyroidism CVA (cerebral vascular accident) Osteoporosis of lumbar spine Surgical History History of removal of cyst Family History Father Emphysema, unspecified Mother History of heart attack Brother Cancer of prostate Sister Ovarian cancer Sister Ovarian cancer Son History of heart attack Malignant melanoma Son No problems noted. Son No problems noted. Daughter No problems noted. Other Substance use disorder Social History Household Members: None Housing: Other Housing Other:: mobile home Do you presently have visiting nurse or other home services: No Alcohol intake: former Comment: refusing alarms Patient Tobacco Use Status: Former Tobacco user e-Cigarette/Vaping Use: Never Used Second Hand Smoke Exposure: No service: No Current occupational status: retired Cognitive needs: No Hearing needs: No Vision needs: Yes (glasses) Physical Exam Vital Signs: Last Vital Signs Pulse 69 08/10/24 14:38 BP 160/74 H 08/10/24 14:38 Pulse Ox 99 08/10/24 14:38 Oxygen Delivery Method Room Air 08/10/24 14:38 Assessment & Plan Assessment & Plan (1) HTN (hypertension): Comment: Patient was asked to come to the walk-in by her physical therapist next door. Patient was not fully evaluated by me and insisted on leaving. Prior to leaving, I rechecked her blood pressure which was 164/58. Patient was invited to stay for formal evaluation and care, which she declined. Patient is neurologically intact, does not appear intoxicated, is readily able to make her own decisions and leaves the clinic against medical advice. Code(s): I10 - Essential (primary) hypertension Qualifiers: Hypertension type: unspecified Qualified Code(s): I10 - Essential (primary) hypertension Plan: PCP for follow-up as related to hypertension. Patient in agreement with this plan of care. Patient not fully assessed by this provider; blood pressure taken only. Coding Level of Care Code Est Pt Level 1 (45164) Diagnoses Hypertension, unspecified type I10 Hypertension type: unspecified
[2024-08-10 14:38] VITALS: BP 160/74; PULSE 69; O2SAT 99
== END 2024-08-10 15:00 | disposition left against medical advice (07) ==
LOC: HO.HMCWIC 14:31
PROVIDERS: PCP Internal Medicine
DX: I10 Essential (primary) hypertension (principal)

== ENCOUNTER → 2024-08-10 14:31 | Outpatient (BNVA) | payer MEDICARE, OTHER, SELFPAY | PROVIDERS: PCP Internal Medicine | DX: I10 Essential (primary) hypertension (principal) | CPT/HCPCS: 99211 ==

== ENCOUNTER 2024-08-20 08:32 | Inpatient (IN) | payer MEDICARE, OTHER, SELFPAY ==
[2024-08-20] VITALS (10 sets, daily range): BP systolic 133–201; BP diastolic 46–85; PULSE 66–104; RESP 16–29; TEMP 36.5–37.6; O2SAT 87–98; BMI 28.3
--- NOTE | 2024-08-20 | ECG_ITS ---
Test Reason : dizziness Blood Pressure : */* mmHG Vent. Rate : 83 BPM Atrial Rate : 83 BPM P-R Int : 162 ms QRS Dur : 138 ms QT Int : 426 ms P-R-T Axes : 86 -34 122 degrees QTcB Int : 500 ms Sinus rhythm with Premature atrial complexes Left axis deviation Left bundle branch block Abnormal ECG When compared with ECG of 04-Jul-2024 19:11, Premature atrial complexes are now Present Referred By: Generic ED Physician Electronically Signed By: ZECHARIAH SMILEY MD
--- NOTE | ~2024-08-20 | XR_ITS ---
EXAMINATION: XR CHEST CLINICAL INFORMATION: cough COMPARISON: 06/22/2024. TECHNIQUE: AP portable view of the chest was obtained. FINDINGS: The cardiac, hilar, and mediastinal contours are normal. The aorta is calcified but normal in contour. Lungs are hyperaerated with flattened hemidiaphragms suggesting COPD. They are otherwise clear. No pneumothorax or effusion. There are degenerative changes in the spine and both shoulder joints. Probable loose body in the left glenohumeral joint recess. No soft tissue abnormalities. XR/XR chest 1V IMPRESSION: Findings suggestive of COPD. No active superimposed disease. Electronically signed by: Cesar Blanco MD 08/20/2024 01:01 PM [facility]
--- NOTE | 2024-08-20 09:28 | ED_ITS ---
HPI - General Adult General Chief complaint: Nausea/Vomiting/Diarrhea Stated complaint: n/v/d, dizzy Time Seen by Provider: 08/20/24 09:25 Source: patient Mode of arrival: ambulatory Limitations: no limitations History of Present Illness ED Provider: Luda Engel PA-C HPI narrative: Patient is an 89 year old assigned female at with a history of HTN, mild- moderate , hypothyroidism, and atrial fib on eliquis presenting to the emergency department today with a cough, nausea, and vomiting. Patient states that she had a tickle in her throat yesterday and today she woke up with a cough and had 1 episode of vomiting. Patient states that she had an episode of dizziness after vomiting that is consistent with an episode of her vertigo. Patient denies any dizziness, lightheadedness, abdominal pain, fever, chills, blurry vision, double vision, loss of vision, chest pain, difficulty breathing, shortness of breath, back pain, night sweats, pain with urination, increased urinary frequency, increased urinary urgency, blood in her urine or stool, syncope or a near syncopal episode, recent trauma or falls, bowel incontinence, bladder incontinence, or any other complaints at this time. Relieving factors: none Exacerbating factors: none Associated symptoms: nausea/vomiting Treatments prior to arrival: none Related Data Home Medications ?Medication ?Instructions ?Recorded ?Confirmed latanoprost 0.005 % eye drops 1 drp ophthalmic (eye) BEDTIME 06/22/24 08/20/24 amiodarone 100 mg tablet (Pacerone) 100 mg PO DAILY 08/20/24 08/20/24 hydralazine 50 mg tablet 50 mg PO BID 08/20/24 08/20/24 Previous Rx's ?Medication ?Instructions ?Recorded levothyroxine 75 mcg tablet 75 mcg PO DAILY #90 tabs 01/27/24 rosuvastatin 5 mg tablet 5 mg PO DAILY 90 days #90 tabs 04/19/24 triamterene 37.5 1 tab PO DAILY #90 tabs 06/29/24 mg-hydrochlorothiazide 25 mg tablet sertraline 25 mg tablet 25 mg PO DAILY #90 tabs 06/30/24 apixaban 5 mg tablet (Eliquis) 5 mg PO BID #180 tabs 08/16/24 amlodipine 5 mg tablet 5 mg PO DAILY #90 tabs 08/17/24 Allergies Allergy/AdvReac Type Severity Reaction Status Date / Time lisinopril AdvReac Intermediate Unknown Verified 08/20/24 09:01 Review of Systems 2 Constitutional: Constitutional: Reports no additional constitutional complaints, Denies chills, Denies fever(s) and Denies night sweats Eyes: Eyes: Reports no additional eye complaints, Denies blurry vision, Denies change in vision, Denies diplopia, Denies eye discharge, Denies loss of vision and Denies eye pain ENT: Reports dizziness Cardiovascular: Cardiovascular: Reports no additional cardiovascular complaints, Denies chest pain, Denies lightheadedness, Denies Loss of Consciousness and Denies dyspnea Respiratory: Respiratory: Reports no additional respiratory complaints, Reports cough and Denies dyspnea Gastrointestinal: Gastrointestinal: Reports no additional gastrointestinal complaints, Denies abdominal pain, Denies melena, Denies hematochezia, Denies change in bowel habits, Denies change in stool character, Reports nausea and Reports vomiting Genitourinary: Genitourinary: Denies hematuria, Denies urinary frequency, Denies dysuria, Denies urinary incontinence, Denies urinary hesitancy and Denies urinary urgency Musculoskeletal: Musculoskeletal: Reports no additional musculoskeletal complaints, Denies numbness and Denies tingling Neurologic: Reports dizziness, Denies loss of vision, Denies numbness and Denies tingling Psychiatric: Psychiatric: Reports no additional psychiatric complaints Endocrine: Endocrine: Reports no additional endocrine complaints Hematologic/Lymphatic: Hematologic/Lymphatic: Reports no additional hematologic/lymphatic complaints Allergic/Immunologic: Allergic/Immunologic: Reports no additional allergic/immunologic complaints [facility] Past Medical History Attestation statement: The following information was validated with the patient. Source: old records reviewed and nursing notes reviewed Medical History New onset left bundle branch block (LBBB) Left bundle branch block HTN (hypertension) Paroxysmal atrial fibrillation Aortic stenosis Hyperlipidemia Knee pain Vitamin D insufficiency Hypothyroidism CVA (cerebral vascular accident) Osteoporosis of lumbar spine Surgical History History of removal of cyst Family History Family History Father Emphysema, unspecified Mother History of heart attack Brother Cancer of prostate Sister Ovarian cancer Sister Ovarian cancer Son History of heart attack Malignant melanoma Son No problems noted. Son No problems noted. Daughter No problems noted. Other Substance use disorder Social History Social History Household Members: None Housing: Other Housing Other:: mobile home Do you presently have visiting nurse or other home services: No Alcohol intake: former Comment: refusing alarms Patient Tobacco Use Status: Former Tobacco user e-Cigarette/Vaping Use: Never Used Second Hand Smoke Exposure: No Advance Directives: Yes Advance Directives Information Provided: Yes Advance Directives on File: No Do you have a plan to hurt others: No Plan service: No Current occupational status: retired Cognitive needs: No Hearing needs: No Vision needs: Yes (glasses) Physical Exam ED Vital Signs: Vital Signs - 24 hr 08/20/24 09:00 08/20/24 09:47 08/20/24 11:42 Temperature 99.2 F 99.7 F Pulse Rate 84 79 81 Respiratory Rate 16 16 22 H Blood Pressure 201/85 H 144/71 H 144/53 H Pulse Oximetry 97 97 92 Oxygen Delivery Method Room Air Room Air Room Air 08/20/24 13:12 Temperature Pulse Rate 104 H Respiratory Rate Blood Pressure Pulse Oximetry 87 L Oxygen Delivery Method Room Air BMI result Body Mass Index 28.3 Const General: cooperative, no acute distress, alert and awake Nutritional Appearance: well nourished Orientation/consciousness: patient oriented x3 Limitations: no limitations HENMT Head: Yes normal to inspection and Yes atraumatic Ears: hearing grossly normal bilaterally and external ears normal General nose exam: Normal external nose present, no nasal discharge noted and no epistaxis Face and sinus: Yes normal facial exam, No abrasion and No laceration Mouth: Normal oral and palatal mucosa present, no drooling and no muffled voice Eyes General: appearance normal, both eyes and all related structures Periorbital: periorbital findings normal Eyelids: Yes eyelids normal Conjunctivae: conjunctivae normal Pupils: Equal, round and reactive pupils present EOM: EOMs intact bilaterally Neck Neck: Yes normal visual inspection, Yes full ROM and Yes no lymphadenopathy Chest Chest palpation & inspection: normal inspection of the chest Resp Effort & Inspection: normal respiratory effort and able to speak in complete sentences GI Inspection: Yes normal to inspection Neuro General: patient oriented x3 and moves all extremities Cranial nerves: Yes Equal, round and reactive pupils present Cognition (Neuro): normal cognition Extrem General: Yes normal to inspection, Yes full ROM and Yes capillary refill normal Psych Appearance: grossly normal Mental Status: mental status grossly normal Affect: normal affect Attitude: cooperative Thought process: Normal thought process present Thought content: Normal thought content present Insight: Good insight present (Psych) Medications Administered Generic Name Dose Route Start Last Admin Trade Name Freq PRN Reason Stop Dose Admin Oseltamivir Phosphate 30 mg 08/20/24 15:00 08/20/24 15:17 Oseltamivir Phosphate 30 Mg Capsule PO 08/25/24 03:01 30 mg Q12H ABBY Administration Discontinued Medications Generic Name Dose Route Start Last Admin Trade Name Freq PRN Reason Stop Dose Admin Sodium Chloride 500 mls @ 200 mls/hr 08/20/24 10:00 08/20/24 11:46 Ns IV 08/20/24 12:29 Infused .Q2H30M ABBY Infusion Acetaminophen 1,000 mg in 100 mls @ 400 mls/hr 08/20/24 12:48 08/20/24 13:44 Ofirmev IV 08/20/24 13:02 Infused ONCE ONE Infusion Methylprednisolone Sodium Succinate 125 mg 08/20/24 15:05 08/20/24 15:18 Methylprednisolone Sod Succ 125 Mg/2 Ml Vial IVPUSH 08/20/24 15:06 125 mg ONCE ONE Administration Ondansetron HCl 4 mg 08/20/24 09:46 08/20/24 10:03 Ondansetron Hcl 4 Mg/2 Ml Vial IVPUSH 08/20/24 09:47 4 mg ONCE ONE Administration Ondansetron HCl 4 mg 08/20/24 12:48 08/20/24 13:19 Ondansetron Hcl 4 Mg/2 Ml Vial IVPUSH 08/20/24 12:49 4 mg ONCE ONE Administration Medical Decision Making Medical Decision Making MDM Narrative: Patient is an 89 year old assigned female at with a history of HTN, mild- moderate , hypothyroidism, and atrial fib on eliquis presenting to the emergency department today with a cough, nausea, and vomiting. Patient's physical exam was unremarkable. Patient's blood work showed an initial troponin of 260.7 with a repeat of 314.7. Patient's blood work was otherwise unremarkable. Patient's influenza test was positive. Patient's EKG showed a known LBBB and was otherwise unremarkable. Patient's chest x-ray showed evidence of COPD. I consulted with the supervisor pipeline who stated the troponin elevation was likely secondary to the patient's current influenza status. Patient did have an episode of desatting down to 88%, put on 1 liter of oxygen via NC. I spoke to the hospitalist team who agreed to admission. Patient's clinical presentation is not consistent with sepsis (@1318). I explained my physical exam findings as well as all test results to the patient. I answered all questions asked by the patient. Patient verbalized agreement and understanding with this treatment plan and admission. Differential Diagnosis Differential Diagnoses: The differential diagnosis associated with the presentation includes Hypoxia Influenza Elevated troponin Admission/Observation Consideration of admission/observation: Escalation of care including admission/observation considered Patient admitted as noted in the MDM Rationale portion of this note. Consult Healthcare Provider Management of the patient was discussed with: Hospitalist (agreed to admission as noted in the MDM Rationale portion of this note.) and [employer] (spoke to Dr. Smiley, the supervisor pipeline, as noted in the MDM Rationale portion of this note.) Lab Data [facility] Lab Attestation statement: I reviewed the patient's lab results. My interpretation of these results are in the MDM Rationale portion of this note. 08/20/24 09:24 08/20/24 09:24 Labs: Lab Results 08/20/24 08/20/24 Range/Units 09:24 11:41 WBC 7.5 (4.8-10.8) X10*3/uL RBC 4.64 (4.20-5.50) X10*6/uL Hgb 13.8 (12.0-16.0) g/dl Hct 41.4 (37.0-47.0) % MCV 89.2 (80.0-98.0) fL MCH 29.7 (27.0-33.0) pg MCHC 33.3 (31.0-35.0) g/dl RDW 14.3 (11.0-16.0) % Plt Count TNP MPV TNP Immature Gran % (Auto) 0.5 H (0.0-0.4) % Neut % (Auto) 78.2 H (45-73) % Lymph % (Auto) 7.0 L (20-40) % [place] % (Auto) 12.7 H (2-11) % Eos % (Auto) 0.8 (0-4) % Baso % (Auto) 0.8 (0-2) % Lymph # (Auto) 0.5 L (1.2-4.9) X10*3/uL [place] # (Auto) 1.0 (0.1-1.2) X10*3/uL Eos # (Auto) 0.1 (0.0-0.4) X10*3/uL Baso # (Auto) 0.1 (0.0-0.2) X10*3/uL Abs Immat Gran (auto) 0.04 H (0.00-0.03) X10*3/uL Absolute Neuts (auto) 5.9 (2.0-8.3) x10*3/uL Absolute Nucleated RBC 0.000 (0.0-0.012) X10*3/uL Nucleated RBC % (auto) 0.0 (0.0-0.2) /100WBC Sodium 139 (135-145) mmol/L Potassium 3.7 (3.3-5.1) mmol/L Chloride 103 (96-108) mmol/L Carbon Dioxide 24 (22-29) mmol/L Anion Gap 16 (12-20) BUN 15 (9-16) mg/dL Creatinine 1.03 (0.5-1.4) mg/dL Estim Creat Clear Calc 36.0 Estimated GFR 51 Random Glucose 112 (60-115) mg/dL Calcium 9.1 (8.4-10.2) mg/dL Magnesium 2.1 (1.6-2.6) mg/dL Total Bilirubin 0.3 (0.0-1.0) mg/dL AST 25 (5-31) U/L ALT 12 (0-31) U/L Alkaline Phosphatase 67 (39-117) U/L Troponin I High Sens 260.7 H* 314.7 H* (<3.5-17.0) ng/L Total Protein 7.6 (6.5-8.0) g/dL Albumin 4.3 (3.5-5.0) g/dL Influenza Type A (PCR) POSITIVE A (Negative) Influenza Type B (PCR) NEGATIVE (Negative) RSV RNA Qual (PCR) NEGATIVE (Negative) SARS-CoV-2 RNA (RT-PCR) NEGATIVE (Negative) Independent Interpretation I performed an independent interpretation of an: EKG and Plain X-Ray Interpretation: My interpretation is in agreement with the radiologist's impression of this imaging study. L EXAMINATION: XR CHEST CLINICAL INFORMATION: cough COMPARISON: 06/22/2024. TECHNIQUE: AP portable view of the chest was obtained. FINDINGS: The cardiac, hilar, and mediastinal contours are normal. The aorta is calcified but normal in contour. Lungs are hyperaerated with flattened hemidiaphragms suggesting COPD. They are otherwise clear. No pneumothorax or effusion. There are degenerative changes in the spine and both shoulder joints. Probable loose body in the left glenohumeral joint recess. No soft tissue abnormalities. XR/XR chest 1V IMPRESSION: Findings suggestive of COPD. No active superimposed disease. Electronically signed by: Cesar Blanco MD 08/20/2024 01:01 PM [facility] Dictated By: Cesar Blanco MD Signed By: Electronically signed by Cesar Blanco MD 08/20/24 1301 I independently interpreted this EKG and am in agreement with the below findings: Vent. Rate: 83 BPM Atrial Rate: 83 BPM P-R Int: 162 ms QRS Dur: 138 ms QT Int: 426 ms P-R-T Axes: 86 -34 122 degrees QTcB Int: 500 ms Sinus rhythm with Premature atrial complexes Left axis deviation Left bundle branch block When compared with ECG of 04-Jul-2024 19:11, Premature atrial complexes are now Present Electronically Signed By: ALEXANDRE SMILEY MD Dictated By: Alexandre Smiley MD Signed By: Electronically signed by Alexandre Smiley MD 08/20/24 1053 Radiology Impression Discussion of test interpretation with radiology: I have reviewed the radiologist's reading. Independent Historian Clinical information obtained from an independent historian. History obtained from or confirmed by: EMS (EMS provided additional history and confirmed the history provided by the patient.) Critical Care Time Critical Care Time Critical Care Time: Yes Total Critical Care Time: 38 Attestation: I spent 38 minutes of Critical Care Time with this patient. This does not include time spent on separately reported billable procedures. Discharge Plan Discharge Clinical Impression: Hypoxia, Influenza, Elevated troponin Patient Disposition: Admitted As Inpatient
[2024-08-20 09:31] LABS: MANUAL DIFF FLAG NO
[2024-08-20 09:33] LABS: Basophils Absolute Auto 0.1 X10*3/uL (0.0-0.2); Basophils Percent Auto 0.8 % (0-2); Eosinophils Absolute Auto 0.1 X10*3/uL (0.0-0.4); Eosinophils Percent Auto 0.8 % (0-4); Hematocrit 41.4 % (37.0-47.0); Hemoglobin 13.8 g/dl (12.0-16.0); Imm Gran Abs Auto 0.04 X10*3/uL (0.00-0.03); Imm Gran Pct Auto 0.5 % (0.0-0.4); Lymphocytes Absolute Auto 0.5 X10*3/uL (1.2-4.9); Mean Corpuscular HGB Conc 33.3 g/dl (31.0-35.0); Mean Corpuscular Hemoglobin 29.7 pg (27.0-33.0); Mean Corpuscular Volume 89.2 fL (80.0-98.0); Monocytes Percent Auto 12.7 % (2-11); Neutrophils Absolute Auto 5.9 x10*3/uL (2.0-8.3); Red Blood Count 4.64 X10*6/uL (4.20-5.50); Red Cell Distribution Width 14.3 % (11.0-16.0); White Blood Count 7.5 X10*3/uL (4.8-10.8)
[2024-08-20 10:01] LABS: Alanine Aminotransferase 12 U/L (0-31); Albumin Level 4.3 g/dL (3.5-5.0); Anion Gap 16 (12-20); Aspartate Amino Transferase 25 U/L (5-31); Bilirubin Total 0.3 mg/dL (0.0-1.0); Blood Urea Nitrogen 15 mg/dL (9-16); Calcium 9.1 mg/dL (8.4-10.2); Carbon Dioxide 24 mmol/L (22-29); Chloride 103 mmol/L (96-108); Estimated Glomerular Filt Rate 51; Glucose Random 112 mg/dL (60-115); Potassium 3.7 mmol/L (3.3-5.1); Sodium 139 mmol/L (135-145); Total Protein 7.6 g/dL (6.5-8.0)
[2024-08-20] MEDS: ondansetron HCL 4 MG/2 ML VIAL IVPUSH ×2 (10:03→13:19)
[2024-08-20] MEDS: 0.9 % Sodium Chloride 500 ML 200 ML IV (10:03)
[2024-08-20 10:04] LABS: Magnesium 2.1 mg/dL (1.6-2.6)
[2024-08-20 10:07] LABS: Troponin-I High Sensitivity 260.7 ng/L (<3.5-17.0)
[2024-08-20 10:13] LABS: Neutrophils Percent Auto 78.2 % (45-73)
[2024-08-20 10:28] LABS: Influenza A PCR POSITIVE (Negative); Influenza B PCR NEGATIVE (Negative); Resp Syncy Virus RNA Qual PCR NEGATIVE (Negative); SARS COV2 PCR INHOUSE NEGATIVE (Negative)
[2024-08-20 12:23] LABS: Troponin-I High Sensitivity 314.7 ng/L (<3.5-17.0)
[2024-08-20] MEDS: Acetaminophen 1,000 MG/100 ML PIGGYBACK 400 MG IV (13:19)
--- NOTE | 2024-08-20 13:44 | PC.NURSE ---
patient failed ambulation trial and at desaturations to 87%. patient denied dizziness or SOB but was slightly tachypneic with speaking. Patient placed on 1 L NC and recovered well once at rest. MD hart
--- NOTE | 2024-08-20 13:44 | PM.IMHP ---
History of Present Illness Date of Service: 08/20/24 Attending physician on admission: Jacek Tellez Chief Complaint: N/V, dizziness Pt is an 89-year-old female with a PMH significant for?paroxysmal AFib on Eliquis, HTN, HLD, [id number] aortic stenosis, and hypothyroidism who presents to the ED with?nonproductive cough, difficulty breathing/SOB, fatigue, and myalgias x2 days. Pt reports she has just felt ?sick?. Symptoms worsened this morning and also experienced headache, nausea, and vomiting without abdominal pain, which prompted her visit to the ED this morning. Denies chest pain/pressure, palpitations. Pt denies PMH of COPD though has a 30+ pack-year smoking hx. Not on home O2 In the ED pt was tachycardic up to 104 tachypneic up to 22, and hypertensive up to 201/85, desatting as low as 87% on RA. Labs were significant for testing positive for flu, and initial troponin 260.7 with repeat 314.7, around baseline. No leukocytosis. Stable H&H. No significant electrolyte abnormalities. Renal function baseline. Hepatic function baseline. CXR showed likely COPD but no active superimposed disease. EKG demonstrated sinus rhythm with PACs and chronic LBBB and chronically lengthened QTc of 500. Pt was treated with acetaminophen, IVF, and ondansetron. Pt will be admitted to the hospital for treatment and further evaluation of acute hypoxic respiratory failure in the setting of influenza infection. Review of Systems Review of Systems: Negative except for that which is stated in the [facility] Medical History New onset left bundle branch block (LBBB) Left bundle branch block HTN (hypertension) Paroxysmal atrial fibrillation Aortic stenosis Hyperlipidemia Knee pain Vitamin D insufficiency Hypothyroidism CVA (cerebral vascular accident) Osteoporosis of lumbar spine Family History Father Emphysema, unspecified Mother History of heart attack Brother Cancer of prostate Sister Ovarian cancer Sister Ovarian cancer Son History of heart attack Malignant melanoma Son No problems noted. Son No problems noted. Daughter No problems noted. Other Substance use disorder Surgical History History of removal of cyst Social History Household Members: None Housing: Other Housing Other:: Mobile Home Do you presently have visiting nurse or other home services: No Alcohol intake: former Comment: refusing alarms Patient Tobacco Use Status: Former Tobacco user Smoked in Last 30 Days: No e-Cigarette/Vaping Use: Never Used Second Hand Smoke Exposure: No Use of substances other than those prescribed or required for medical reasons: No Currently Displaying Signs/Symptoms of Drug Intoxication Withdrawal: No Have you been hit, kicked, punched, or otherwise hurt by someone within the past year? If so, by whom?: No Do you feel safe in your current relationship?: No Current Relationship Is there a partner from a previous relationship who is making you feel unsafe now?: No Are you made to feel afraid or neglected: No Advance Directives: Yes Advance Directives Information Provided: Yes Advance Directives on File: No Advance Directives Date on File: 08/20/24 Do you have a plan to hurt others: No Plan Recently lost weight without trying: No Eating poorly because of decreased appetite: No Nutrition Risks: No Nutritional Risk Patient : No : No Poor oral hygiene: No service: No Current occupational status: retired Cognitive needs: No Hearing needs: No Vision needs: Yes (glasses) Meds Allergies Allergy/AdvReac Type Severity Reaction Status Date / Time lisinopril AdvReac Intermediate Unknown Verified 08/20/24 09:01 Home Medications ?Medication ?Instructions ?Recorded ?Confirmed ?Last Taken ?Type latanoprost 0.005 % eye drops 1 drp ophthalmic (eye) BEDTIME 06/22/24 08/20/24 08/19/24 History amiodarone 100 mg tablet (Pacerone) 100 mg PO DAILY 08/20/24 08/20/24 08/19/24 History hydralazine 50 mg tablet 50 mg PO BID 08/20/24 08/20/24 08/19/24 History Physical Exam Vital Signs and Narrative: Vital Signs: Last Vital Signs Temp 99.7 F 08/20/24 09:47 Pulse 104 H 08/20/24 13:12 Resp 22 H 08/20/24 11:42 BP 144/53 H 08/20/24 11:42 Pulse Ox 87 L 08/20/24 13:12 O2 Del Method Room Air 08/20/24 13:12 BMI result Body Mass Index 28.3 General: AOx3, no acute distress Resp: Diffuse expiratory wheezing bilaterally CVS: S1, S2, RRR. +murmur radiating to left carotid GI: +BS, NT, no distention Skin: Warm, dry Neuro: Cranial nerves II-XII grossly intact bilaterally. Motor grossly intact bilaterally Extremities: No edema Psych: Appropriate affect Results Labs 08/20/24 09:24 08/21/24 07:40 Labs: Laboratory Results - last 24 hr 08/20/24 08/20/24 09:24 11:41 MCV 89.2 MCH 29.7 MCHC 33.3 RDW 14.3 Plt Count TNP MPV TNP Immature Gran % (Auto) 0.5 H Neut % (Auto) 78.2 H Lymph % (Auto) 7.0 L [place] % (Auto) 12.7 H Eos % (Auto) 0.8 Baso % (Auto) 0.8 Lymph # (Auto) 0.5 L [place] # (Auto) 1.0 Eos # (Auto) 0.1 Baso # (Auto) 0.1 Abs Immat Gran (auto) 0.04 H Absolute Neuts (auto) 5.9 Absolute Nucleated RBC 0.000 Nucleated RBC % (auto) 0.0 Anion Gap 16 Estim Creat Clear Calc 36.0 Estimated GFR 51 Random Glucose 112 Calcium 9.1 Magnesium 2.1 Total Bilirubin 0.3 AST 25 ALT 12 Troponin I High Sens 260.7 H* 314.7 H* Total Protein 7.6 Albumin 4.3 Influenza Type A (PCR) POSITIVE A Influenza Type B (PCR) NEGATIVE RSV RNA Qual (PCR) NEGATIVE SARS-CoV-2 RNA (RT-PCR) NEGATIVE Imaging Radiologist's Impressions: Impressions Chest X-Ray 08/20/24 12:34 IMPRESSION: Findings suggestive of COPD. No active superimposed disease. Electronically signed by: Cesar Blanco MD 08/20/2024 01:01 PM [facility] [place] Assessment and Plan (1) Influenza: Status: Acute (2) Hypoxia: Status: Acute Plan Pt is an 89-year-old female with a PMH significant for?paroxysmal AFib on Eliquis, HTN, HLD, [id number] aortic stenosis, and hypothyroidism who presents to the ED with?nonproductive cough, difficulty breathing/SOB, fatigue, and myalgias x2 days. Pt will be admitted to the hospital for treatment and further evaluation of acute hypoxic respiratory failure in the setting of influenza infection. Acute hypoxic respiratory failure in the setting of influenza A infection Pt desatting into 80s on RA, not on home O2, flu+, SOB, myalgias, fatigue, wheezing upon auscultation No sepsis: Tachycardia and tachypnea from viral infection, no indication for antibiotics at this time Will treat with Tamiflu, Solu-Medrol, and breathing treatments Titrate supplemental O2 >92, wean as tolerated Monitor respiratory status Elevated troponins Initial troponin 260.7 with repeat 314.7 Pt asymptomatic, EKG without ischemic changes from prior Pt with chronically elevated troponins Likely type 2 in the setting of increased demand Repeat troponin in the morning Monitor on telemetry HTN Continue amlodipine, hydralazine, and triamterene-hydrochlorothiazide Paroxysmal AFib Continue amiodarone, Eliquis Hypothyroidism Continue levothyroxine DNR/DNI Attending:?Dr. Tellez DVT Prophylaxis: On Eliquis Pt will require a hospitalization of at least two nights for treatment of?acute hypoxic respiratory failure in setting of influenza a infection. Pt does not supplemental O2 at home and will require hospital level care for administration of supplemental oxygen, IV steroids, breathing treatments, and close monitoring of respiratory status. Quality Stroke Does the patient have a stroke diagnosis?: No VTE Prior VTE?: No VTE Risk Level:: Medical - moderate - high VTE Device Contraindication: Treatment Not Indicated VTE Drug Contraindication: N/A - Med Ordered
[2024-08-20 14:09] LABS: Alkaline Phosphatase 67 U/L (39-117)
--- NOTE | 2024-08-20 14:29 | PHA.MEDREC ---
Pharmacy Consult ? Medication Reconciliation Pharmacy has completed the medication reconciliation. Spoke with patient, also confirmed with patients pharmacy. Patient last picked up brand name Amiodarone, Pacerone, spoke to [facility] at [facility] who confirmed patient requested brand name. No allergy. Patient also stated she did not take any of her medications today due to nausea/vomiting
[2024-08-20] MEDS: Oseltamivir Phosphate 30 MG CAPSULE PO (15:17)
[2024-08-20] MEDS: methylPREDNISolone Sod Succ 125 MG/2 ML VIAL IVPUSH (15:18)
[2024-08-20] MEDS: Albuterol/Iprat 2.5/0.5MG 3 ML AMPUL.NEB INHALE (15:57)
[2024-08-20] MEDS: Acetaminophen 325 MG TABLET 650 MG PO (18:07)
[2024-08-20] MEDS: guaiFENesin DM 200/20/10 ML 10 ML SYRUP PO (18:07)
[2024-08-20] MEDS: Apixaban 5 MG TABLET PO (21:44)
[2024-08-20] MEDS: hydrALAZINE HCl 50 MG TABLET PO (21:44)
[2024-08-21] VITALS (10 sets, daily range): BP systolic 157–181; BP diastolic 61–73; PULSE 60–94; RESP 16–18; TEMP 36.4–37.3; O2SAT 93–100
[2024-08-21] MEDS: guaiFENesin DM 200/20/10 ML 10 ML SYRUP PO ×3 (02:44→23:00)
[2024-08-21] MEDS: Acetaminophen 325 MG TABLET 650 MG PO ×4 (02:44→23:05)
[2024-08-21] MEDS: Oseltamivir Phosphate 30 MG CAPSULE PO ×2 (02:44→14:32)
[2024-08-21] MEDS: Levothyroxine Sodium 75 MCG TABLET PO (06:42)
[2024-08-21] MEDS: methylPREDNISolone Sod Succ 125 MG/2 ML VIAL 60 MG IVPUSH ×4 (06:43→23:00)
[2024-08-21] MEDS: Albuterol/Iprat 2.5/0.5MG 3 ML AMPUL.NEB INHALE ×3 (07:23→19:35)
[2024-08-21] MEDS: 0.9 % Sodium Chloride Flush 3 ML SYRINGE IVFLUSH ×3 (08:10→20:49)
[2024-08-21] MEDS: Triamterene/HCTZ 37.5/25 TABLET 1 TAB PO (08:11)
[2024-08-21] MEDS: Apixaban 5 MG TABLET PO ×2 (08:11→20:46)
[2024-08-21] MEDS: Atorvastatin Calcium 20 MG TABLET PO (08:11)
[2024-08-21] MEDS: amLODIPine Besylate 5 MG TABLET PO (08:11)
[2024-08-21] MEDS: Sertraline HCL 25 MG TABLET PO (08:11)
[2024-08-21] MEDS: Amiodarone HCL 200 MG TABLET 100 MG PO (08:12)
[2024-08-21] MEDS: hydrALAZINE HCl 50 MG TABLET PO ×2 (08:12→20:46)
[2024-08-21 08:14] LABS: Anion Gap 15 (12-20); Blood Urea Nitrogen 23 mg/dL (9-16); Calcium 9.1 mg/dL (8.4-10.2); Carbon Dioxide 26 mmol/L (22-29); Chloride 101 mmol/L (96-108); Creatinine Clr Calc Pharmacy 31.5; Estimated Glomerular Filt Rate 43; Glucose Random 130 mg/dL (60-115); Potassium 4.3 mmol/L (3.3-5.1); Sodium 138 mmol/L (135-145)
[2024-08-21 08:40] LABS: Troponin-I High Sensitivity 593.3 ng/L (<3.5-17.0)
--- NOTE | 2024-08-21 09:10 | MHC.CM.PN ---
IMM 08/21. Pt self-care, lives at home alone. Pts friend will transport her home at discharge. Pt states she has a HCP, copy requested. PCP: Dr. Eusebia Orantes
[2024-08-21 13:01] LABS: Troponin-I High Sensitivity 595.4 ng/L (<3.5-17.0)
--- NOTE | 2024-08-21 13:09 | P.PNIM_ITS ---
Subjective Subjective Date of Service: 08/21/24 Interval History: No acute issues overnight however no significant improvement. Still feels ?lousy? Review of Systems Denies chest pain Denies shortness of breath Admits to nausea without vomiting or diarrhea Denies fever chills Physical Exam 2 Vital Signs: Vital Signs: Last Vital Signs Temp 99.1 F 08/21/24 12:00 Pulse 86 08/21/24 12:00 Resp 18 08/21/24 12:00 BP 181/73 H 08/21/24 12:00 Pulse Ox 96 08/21/24 12:00 O2 Del Method Room Air 08/21/24 12:00 O2 Flow Rate 2 08/20/24 15:13 BMI result Body Mass Index 28.3 Const: Other: Awake alert ill-appearing no acute distress Resp: Other: Diminished but clear throughout Cardio: Other: No S4; positive S1-S2; no S3 murmurs rubs or gallops GI: Other: Soft nontender nondistended normoactive bowel sounds Extrem: Other: No edema bilaterally Objective Data Active Medications Acetaminophen (Acetaminophen 325 Mg Tablet) 650 mg PO Q6H PRN PRN Reason: Pain, Mild 1-3,fever,headache Last Admin: 08/21/24 10:56 Dose: 650 mg Documented By: ADALGISA Albuterol/Ipratropium (Albuterol/Iprat 2.5/0.5mg 3 Ml Ampul.Neb) 3 ml INHALE RQ4H WHILE AWAKE [facility] Last Admin: 08/21/24 11:10 Dose: 3 ml Documented By: WILLIAM Albuterol/Ipratropium (Albuterol/Iprat 2.5/0.5mg 3 Ml Ampul.Neb) 3 ml INHALE RQ4H WHILE AWAKE PRN PRN Reason: Shortness of Breath/Wheezing Amiodarone HCl (Amiodarone Hcl 200 Mg Tablet) 100 mg PO DAILY [facility] Last Admin: 08/21/24 08:12 Dose: 100 mg Documented By: ADALGISA Amlodipine Besylate (Amlodipine Besylate 5 Mg Tablet) 5 mg PO DAILY [facility]; Protocol Last Admin: 08/21/24 08:11 Dose: 5 mg Documented By: ADALGISA Apixaban (Apixaban 5 Mg Tablet) 5 mg PO BID [facility] Last Admin: 08/21/24 08:11 Dose: 5 mg Documented By: ADALGISA Atorvastatin Calcium (Atorvastatin Calcium 20 Mg Tablet) 20 mg PO DAILY [facility] Last Admin: 08/21/24 08:11 Dose: 20 mg Documented By: ADALGISA Calcium Carbonate (Calcium Carbonate 750 Mg Tab.Chew) 750 mg PO Q4H PRN PRN Reason: Heartburn Guaifenesin/Dextromethorphan (Guaifenesin Dm 200/20/10 Ml 10 Ml Syrup) 10 ml PO Q4H PRN PRN Reason: Cough Last Admin: 08/21/24 08:07 Dose: 10 ml Documented By: ADALGISA Hydralazine HCl (Hydralazine Hcl 50 Mg Tablet) 50 mg PO BID [facility]; Protocol Last Admin: 08/21/24 08:12 Dose: 50 mg Documented By: ADALGISA Latanoprost (Latanoprost 0.005 % Ophth [place] 2.5 Ml Drops) 1 drop EYE-BOTH BEDTIME [facility] Last Admin: 08/20/24 21:19 Dose: Not Given Documented By: ANGEL Non-Admin Reason: Med Not Available Levothyroxine Sodium (Levothyroxine Sodium 75 Mcg Tablet) 75 mcg PO DAILY@0600 [facility] Last Admin: 08/21/24 06:42 Dose: 75 mcg Documented By: TAWANNA Magnesium Hydroxide (Milk Of Magnesia 30 Ml Oral.Susp) 30 ml PO DAILY PRN PRN Reason: Constipation Melatonin (Melatonin 3 Mg Tablet) 6 mg PO BEDTIME PRN PRN Reason: Insomnia Methylprednisolone Sodium Succinate (Methylprednisolone Sod Succ 125 Mg/2 Ml Vial) 60 mg IVPUSH Q6H [facility] Last Admin: 08/21/24 10:56 Dose: 60 mg Documented By: ADALGISA Ondansetron HCl (Ondansetron Hcl 4 Mg/2 Ml Vial) 4 mg IVPUSH Q8H PRN PRN Reason: Nausea and Vomiting Oseltamivir Phosphate (Oseltamivir Phosphate 30 Mg Capsule) 30 mg PO Q12H [facility] Stop: 08/25/24 03:01 Last Admin: 08/21/24 02:44 Dose: 30 mg Documented By: TAWANNA Sertraline HCl (Sertraline Hcl 25 Mg Tablet) 25 mg PO DAILY [facility] Last Admin: 08/21/24 08:11 Dose: 25 mg Documented By: ADALGISA Sodium Chloride (0.9 % Sodium Chloride Flush 3 Ml Syringe) 3 ml IVFLUSH QSHIFT [facility] Last Admin: 08/21/24 08:10 Dose: 3 ml Documented By: ADALGISA Triamterene/Hydrochlorothiazide (Triamterene/Hctz 37.5/25 Tablet) 1 tab PO DAILY [facility]; Protocol Last Admin: 08/21/24 08:11 Dose: 1 tab Documented By: ADALGISA Labs 08/20/24 09:24 08/21/24 07:40 Labs: Laboratory Results - last 24 hr 08/20/24 08/21/24 08/21/24 09:24 07:40 11:57 Anion Gap 15 Estim Creat Clear Calc 31.5 Estimated GFR 43 Random Glucose 130 H Calcium 9.1 Alkaline Phosphatase 67 Troponin I High Sens 593.3 H* D 595.4 H* Assessment and Plan (1) Acute hypoxic respiratory failure: Status: Acute (2) COPD exacerbation: Status: Acute (3) Influenza A: Status: Acute Plan Pt is an 89-year-old female with a PMH significant for?paroxysmal AFib on Eliquis, HTN, HLD, [id number] aortic stenosis, and hypothyroidism who presents to the ED with?nonproductive cough, difficulty breathing/SOB, fatigue, and myalgias x2 days. Pt will be admitted to the hospital for treatment and further evaluation of acute hypoxic respiratory failure in the setting of influenza infection. 1.Acute hypoxic respiratory failure/COPD exacerbation secondary to influenza A infection -Tamiflu as ordered -pulse dose Solu-Medrol/ DuoNebs as ordered -titrate O2 to maintain sats greater than equal to 92 % 2.Elevated troponins -likely type 2 (discussed with Cardiology) 2nd influenza a -clinically asymptomatic 3.HTN -acceptable control on current therapies -adjust as indicated 4.Paroxysmal AFib -acceptable rate control -continue current therapies continue Eliquis DNR/DNI Eliquis Require ongoing hospitalization for IV steroids to treat COPD exacerbation in backdrop of insulins at [facility] Stroke Does the patient have a stroke diagnosis?: No VTE Prior VTE?: No VTE Risk Level:: Medical - moderate - high VTE Device Contraindication: Treatment Not Indicated VTE Drug Contraindication: N/A - Med Ordered
[2024-08-22] VITALS (8 sets, daily range): BP systolic 118–157; BP diastolic 55–77; PULSE 70–104; RESP 12–18; TEMP 36–37.3; O2SAT 93–99
[2024-08-22] MEDS: Oseltamivir Phosphate 30 MG CAPSULE PO ×2 (03:46→13:56)
[2024-08-22] MEDS: Levothyroxine Sodium 75 MCG TABLET PO (06:29)
[2024-08-22] MEDS: methylPREDNISolone Sod Succ 125 MG/2 ML VIAL 60 MG IVPUSH ×4 (06:30→22:26)
[2024-08-22 07:32] LABS: Hematocrit 37.4 % (37.0-47.0); Hemoglobin 12.7 g/dl (12.0-16.0); Mean Corpuscular Hemoglobin 29.3 pg (27.0-33.0); Mean Corpuscular Volume 86.4 fL (80.0-98.0); Mean Platelet Volume 11.7 fL (9.4-12.3); Platelet Count 191 X10*3/uL (160-400); Red Blood Count 4.33 X10*6/uL (4.20-5.50); Red Cell Distribution Width 13.9 % (11.0-16.0); White Blood Count 20.9 X10*3/uL (4.8-10.8)
[2024-08-22 07:55] LABS: Alanine Aminotransferase 26 U/L (0-31); Albumin Level 3.6 g/dL (3.5-5.0); Alkaline Phosphatase 60 U/L (39-117); Anion Gap 13 (12-20); Aspartate Amino Transferase 40 U/L (5-31); Bilirubin Total 0.3 mg/dL (0.0-1.0); Blood Urea Nitrogen 29 mg/dL (9-16); Calcium 8.2 mg/dL (8.4-10.2); Carbon Dioxide 25 mmol/L (22-29); Chloride 102 mmol/L (96-108); Creatinine Clr Calc Pharmacy 32.8; Estimated Glomerular Filt Rate 45; Glucose Fasting 150 mg/dL (60-99); Sodium 136 mmol/L (135-145); Total Protein 6.6 g/dL (6.5-8.0)
[2024-08-22 08:13] LABS: SLIDE REVIEW MANUAL DIFF
[2024-08-22 08:28] LABS: Band Neutrophils Percent 17 % (3-5); Lymphocytes Absolute Manual 0.4 X10*3/uL (1.2-4.9); Lymphocytes Percent Manual 2 % (20-40); Monocytes Absolute Manual 0.8 X10*3/uL (0.1-1.2); Monocytes Percent Manual 4 % (2-11); Neutrophils Absolute Manual 19.6 X10*3/uL (2.0-8.3); Neutrophils Percent Manual 77 % (45-73)
[2024-08-22 08:29] LABS: RBC Morphology NORMAL; Toxic Vacuolation PRESENT
[2024-08-22 08:30] LABS: Platelet Estimate NORMAL (NORMAL); Platelet Morphology Comment NORMAL
[2024-08-22] MEDS: Atorvastatin Calcium 20 MG TABLET PO (08:36)
[2024-08-22] MEDS: Triamterene/HCTZ 37.5/25 TABLET 1 TAB PO (08:36)
[2024-08-22] MEDS: 0.9 % Sodium Chloride Flush 3 ML SYRINGE IVFLUSH ×3 (08:36→21:49)
[2024-08-22] MEDS: Sertraline HCL 25 MG TABLET PO (08:36)
[2024-08-22] MEDS: amLODIPine Besylate 5 MG TABLET PO (08:36)
[2024-08-22] MEDS: guaiFENesin DM 200/20/10 ML 10 ML SYRUP PO ×3 (08:36→22:26)
[2024-08-22] MEDS: Amiodarone HCL 200 MG TABLET 100 MG PO (08:37)
[2024-08-22] MEDS: Apixaban 5 MG TABLET PO ×2 (08:37→21:43)
--- NOTE | 2024-08-22 14:17 | P.PNIM_ITS ---
Subjective Subjective Date of Service: 08/22/24 Interval History: Continues to improve. Ambulating in room still feels weak Review of Systems Denies chest pain Denies shortness of breath Admits to nausea without vomiting or diarrhea Denies fever chills Physical Exam 2 Vital Signs: Vital Signs: Last Vital Signs Temp 98.0 F 08/22/24 11:53 Pulse 80 08/22/24 11:53 Resp 18 08/22/24 11:53 BP 142/65 H 08/22/24 11:53 Pulse Ox 94 08/22/24 11:53 O2 Del Method Room Air 08/22/24 11:53 O2 Flow Rate 2 08/20/24 15:13 BMI result Body Mass Index 28.3 Const: Other: Awake alert ill-appearing no acute distress Resp: Other: Diminished but clear throughout Cardio: Other: No S4; positive S1-S2; no S3 murmurs rubs or gallops GI: Other: Soft nontender nondistended normoactive bowel sounds Extrem: Other: No edema bilaterally Objective Data Active Medications Acetaminophen (Acetaminophen 325 Mg Tablet) 650 mg PO Q6H PRN PRN Reason: Pain, Mild 1-3,fever,headache Last Admin: 08/21/24 23:05 Dose: 650 mg Documented By: TAWANNA Amiodarone HCl (Amiodarone Hcl 200 Mg Tablet) 100 mg PO DAILY [facility] Last Admin: 08/22/24 08:37 Dose: 100 mg Documented By: ADALGISA Amlodipine Besylate (Amlodipine Besylate 5 Mg Tablet) 5 mg PO DAILY [facility]; Protocol Last Admin: 08/22/24 08:36 Dose: 5 mg Documented By: ADALGISA Apixaban (Apixaban 5 Mg Tablet) 5 mg PO BID [facility] Last Admin: 08/22/24 08:37 Dose: 5 mg Documented By: ADALGISA Atorvastatin Calcium (Atorvastatin Calcium 20 Mg Tablet) 20 mg PO DAILY [facility] Last Admin: 08/22/24 08:36 Dose: 20 mg Documented By: ADALGISA Calcium Carbonate (Calcium Carbonate 750 Mg Tab.Chew) 750 mg PO Q4H PRN PRN Reason: Heartburn Guaifenesin/Dextromethorphan (Guaifenesin Dm 200/20/10 Ml 10 Ml Syrup) 10 ml PO Q4H PRN PRN Reason: Cough Last Admin: 08/22/24 08:36 Dose: 10 ml Documented By: ADALGISA Latanoprost (Latanoprost 0.005 % Ophth Shefali 2.5 Ml Drops) 1 drop EYE-BOTH BEDTIME [facility] Last Admin: 08/21/24 21:51 Dose: Not Given Documented By: TAWANNA Non-Admin Reason: Med Not Available Levalbuterol HCl (Levalbuterol Hcl 1.25 Mg/3 Ml Vial.Neb) 1.25 mg INHALE Q4H PRN PRN Reason: Wheezing Levothyroxine Sodium (Levothyroxine Sodium 75 Mcg Tablet) 75 mcg PO DAILY@0600 [facility] Last Admin: 08/22/24 06:29 Dose: 75 mcg Documented By: TAWANNA Magnesium Hydroxide (Milk Of Magnesia 30 Ml Oral.Susp) 30 ml PO DAILY PRN PRN Reason: Constipation Melatonin (Melatonin 3 Mg Tablet) 6 mg PO BEDTIME PRN PRN Reason: Insomnia Methylprednisolone Sodium Succinate (Methylprednisolone Sod Succ 125 Mg/2 Ml Vial) 60 mg IVPUSH Q6H [facility] Last Admin: 08/22/24 13:56 Dose: 60 mg Documented By: ADALGISA Ondansetron HCl (Ondansetron Hcl 4 Mg/2 Ml Vial) 4 mg IVPUSH Q8H PRN PRN Reason: Nausea and Vomiting Oseltamivir Phosphate (Oseltamivir Phosphate 30 Mg Capsule) 30 mg PO Q12H [facility] Stop: 08/25/24 03:01 Last Admin: 08/22/24 13:56 Dose: 30 mg Documented By: ADALGISA Sertraline HCl (Sertraline Hcl 25 Mg Tablet) 25 mg PO DAILY [facility] Last Admin: 08/22/24 08:36 Dose: 25 mg Documented By: ADALGISA Sodium Chloride (0.9 % Sodium Chloride Flush 3 Ml Syringe) 3 ml IVFLUSH QSHIFT [facility] Last Admin: 08/22/24 08:36 Dose: 3 ml Documented By: ADALGISA Triamterene/Hydrochlorothiazide (Triamterene/Hctz 37.5/25 Tablet) 1 tab PO DAILY [facility]; Protocol Last Admin: 08/22/24 08:36 Dose: 1 tab Documented By: ADALGISA Labs 08/22/24 07:12 08/22/24 07:12 Labs: Laboratory Results - last 24 hr 08/22/24 07:12 MCV 86.4 MCH 29.3 MCHC 34.0 RDW 13.9 Plt Count 191 MPV 11.7 Immature Gran % (Auto) Cancelled Neut % (Auto) Cancelled Lymph % (Auto) Cancelled [place] % (Auto) Cancelled Eos % (Auto) Cancelled Baso % (Auto) Cancelled Lymph # (Auto) Cancelled [place] # (Auto) Cancelled Eos # (Auto) Cancelled Baso # (Auto) Cancelled Abs Immat Gran (auto) Cancelled Absolute Neuts (auto) Cancelled Absolute Nucleated RBC 0.000 Nucleated RBC % (auto) 0.0 Neutrophils % (Manual) 77 H Band Neutrophils % 17 H Lymphocytes % (Manual) 2 L Monocytes % (Manual) 4 Abs Neuts (Manual) 19.6 H Lymphocytes # (Manual) 0.4 L Monocytes # (Manual) 0.8 Toxic Vacuolation PRESENT Platelet Estimate NORMAL Plt Morphology Comment NORMAL RBC Morphology NORMAL Smear Tech's Comments MANUAL DIFF Anion Gap 13 Estim Creat Clear Calc 32.8 Estimated GFR 45 Fasting Glucose 150 H Calcium 8.2 L D Total Bilirubin 0.3 AST 40 H ALT 26 Alkaline Phosphatase 60 Total Protein 6.6 Albumin 3.6 Assessment and Plan (1) COPD exacerbation: Status: Acute (2) Influenza A: Status: Acute Plan Pt is an 89-year-old female with a PMH significant for?paroxysmal AFib on Eliquis, HTN, HLD, [id number] aortic stenosis, and hypothyroidism who presents to the ED with?nonproductive cough, difficulty breathing/SOB, fatigue, and myalgias x2 days. Pt will be admitted to the hospital for treatment and further evaluation of acute hypoxic respiratory failure in the setting of influenza infection. 1.Acute hypoxic respiratory failure/COPD exacerbation secondary to influenza A infection -Tamiflu as ordered -pulse dose Solu-Medrol x 24 hours then switch to p.o. -titrate O2 to maintain sats greater than equal to 92 % 2.Elevated troponins -likely type 2 (discussed with Cardiology) 2nd influenza a -clinically asymptomatic 3.HTN -acceptable control on current therapies -adjust as indicated 4.Paroxysmal AFib -acceptable rate control -continue current therapies continue Eliquis DNR/DNI Eliquis Require ongoing hospitalization for IV steroids to treat COPD exacerbation in backdrop of insulins at [facility] Stroke Does the patient have a stroke diagnosis?: No VTE Prior VTE?: No VTE Risk Level:: Medical - moderate - high VTE Device Contraindication: Treatment Not Indicated VTE Drug Contraindication: N/A - Med Ordered
[2024-08-22] MEDS: hydrALAZINE HCl 50 MG TABLET PO (22:22)
[2024-08-23] VITALS (8 sets, daily range): BP systolic 128–162; BP diastolic 64–78; PULSE 69–93; RESP 16–20; TEMP 36.4–36.9; O2SAT 85–98
[2024-08-23] MEDS: methylPREDNISolone Sod Succ 125 MG/2 ML VIAL 60 MG IVPUSH ×3 (05:02→17:49)
[2024-08-23] MEDS: Oseltamivir Phosphate 30 MG CAPSULE PO ×2 (05:02→14:42)
[2024-08-23] MEDS: Levothyroxine Sodium 75 MCG TABLET PO (05:02)
[2024-08-23 06:57] LABS: Basophils Percent Auto 0.1 % (0-2); Hematocrit 37.9 % (37.0-47.0); Imm Gran Abs Auto 0.17 X10*3/uL (0.00-0.03); Lymphocytes Absolute Auto 0.7 X10*3/uL (1.2-4.9); MANUAL DIFF FLAG SCAN; Mean Corpuscular HGB Conc 34.3 g/dl (31.0-35.0); Mean Corpuscular Hemoglobin 29.7 pg (27.0-33.0); Mean Corpuscular Volume 86.7 fL (80.0-98.0); Mean Platelet Volume 11.8 fL (9.4-12.3); Monocytes Absolute Auto 0.6 X10*3/uL (0.1-1.2); Monocytes Percent Auto 3.4 % (2-11); Neutrophils Absolute Auto 15.7 x10*3/uL (2.0-8.3); Neutrophils Percent Auto 91.5 % (45-73); Platelet Count 188 X10*3/uL (160-400); Red Blood Count 4.37 X10*6/uL (4.20-5.50); SCAN SMEAR FLAG 1; White Blood Count 17.2 X10*3/uL (4.8-10.8)
[2024-08-23 07:18] LABS: Alanine Aminotransferase 31 U/L (0-31); Albumin Level 3.6 g/dL (3.5-5.0); Alkaline Phosphatase 65 U/L (39-117); Anion Gap 12 (12-20); Aspartate Amino Transferase 39 U/L (5-31); Bilirubin Total 0.2 mg/dL (0.0-1.0); Blood Urea Nitrogen 34 mg/dL (9-16); Calcium 8.2 mg/dL (8.4-10.2); Carbon Dioxide 26 mmol/L (22-29); Chloride 100 mmol/L (96-108); Creatinine Clr Calc Pharmacy 32.8; Estimated Glomerular Filt Rate 45; Glucose Fasting 149 mg/dL (60-99); Potassium 4.1 mmol/L (3.3-5.1); Sodium 134 mmol/L (135-145); Total Protein 6.5 g/dL (6.5-8.0)
[2024-08-23] MEDS: Atorvastatin Calcium 20 MG TABLET PO (08:36)
[2024-08-23] MEDS: Sertraline HCL 25 MG TABLET PO (08:36)
[2024-08-23] MEDS: amLODIPine Besylate 5 MG TABLET PO (08:37)
[2024-08-23] MEDS: hydrALAZINE HCl 50 MG TABLET PO ×2 (08:37→21:42)
[2024-08-23] MEDS: 0.9 % Sodium Chloride Flush 3 ML SYRINGE IVFLUSH ×3 (08:37→21:43)
[2024-08-23] MEDS: Triamterene/HCTZ 37.5/25 TABLET 1 TAB PO (08:37)
[2024-08-23] MEDS: Amiodarone HCL 200 MG TABLET 100 MG PO (08:37)
[2024-08-23] MEDS: Apixaban 5 MG TABLET PO ×2 (08:37→21:42)
[2024-08-23 08:38] LABS: SLIDE REVIEW VERIFIED
--- NOTE | 2024-08-23 13:39 | P.PNIM_ITS ---
Subjective Subjective Date of Service: 08/23/24 Interval History: No acute issues overnight. Still remains mildly short of breath Review of Systems Denies chest pain Denies shortness of breath Admits to nausea without vomiting or diarrhea Denies fever chills Physical Exam 2 Vital Signs: Vital Signs: Last Vital Signs Temp 97.8 F 08/23/24 11:19 Pulse 93 08/23/24 11:19 Resp 16 08/23/24 11:19 BP 132/64 08/23/24 11:19 Pulse Ox 94 08/23/24 11:19 O2 Del Method Room Air 08/23/24 11:19 O2 Flow Rate 2 08/20/24 15:13 BMI result Body Mass Index 28.3 Const: Other: Awake alert ill-appearing no acute distress Resp: Other: Diminished but clear throughout Cardio: Other: No S4; positive S1-S2; no S3 murmurs rubs or gallops GI: Other: Soft nontender nondistended normoactive bowel sounds Extrem: Other: No edema bilaterally Objective Data Active Medications Acetaminophen (Acetaminophen 325 Mg Tablet) 650 mg PO Q6H PRN PRN Reason: Pain, Mild 1-3,fever,headache Last Admin: 08/21/24 23:05 Dose: 650 mg Documented By: TAWANNA Amiodarone HCl (Amiodarone Hcl 200 Mg Tablet) 100 mg PO DAILY [facility] Last Admin: 08/23/24 08:37 Dose: 100 mg Documented By: SHEN Amlodipine Besylate (Amlodipine Besylate 5 Mg Tablet) 5 mg PO DAILY [facility]; Protocol Last Admin: 08/23/24 08:37 Dose: 5 mg Documented By: SHEN Apixaban (Apixaban 5 Mg Tablet) 5 mg PO BID [facility] Last Admin: 08/23/24 08:37 Dose: 5 mg Documented By: SHEN Atorvastatin Calcium (Atorvastatin Calcium 20 Mg Tablet) 20 mg PO DAILY [facility] Last Admin: 08/23/24 08:36 Dose: 20 mg Documented By: SHEN Calcium Carbonate (Calcium Carbonate 750 Mg Tab.Chew) 750 mg PO Q4H PRN PRN Reason: Heartburn Guaifenesin/Dextromethorphan (Guaifenesin Dm 200/20/10 Ml 10 Ml Syrup) 10 ml PO Q4H PRN PRN Reason: Cough Last Admin: 08/22/24 22:26 Dose: 10 ml Documented By: JONNY Hydralazine HCl (Hydralazine Hcl 50 Mg Tablet) 50 mg PO BID [facility]; Protocol Last Admin: 08/23/24 08:37 Dose: 50 mg Documented By: SHEN Latanoprost (Latanoprost 0.005 % Ophth Shefali 2.5 Ml Drops) 1 drop EYE-BOTH BEDTIME [facility] Last Admin: 08/22/24 21:49 Dose: Not Given Documented By: JONNY Non-Admin Reason: Med Not Available Levalbuterol HCl (Levalbuterol Hcl 1.25 Mg/3 Ml Vial.Neb) 1.25 mg INHALE Q4H PRN PRN Reason: Wheezing Levothyroxine Sodium (Levothyroxine Sodium 75 Mcg Tablet) 75 mcg PO DAILY@0600 [facility] Last Admin: 08/23/24 05:02 Dose: 75 mcg Documented By: JONNY Magnesium Hydroxide (Milk Of Magnesia 30 Ml Oral.Susp) 30 ml PO DAILY PRN PRN Reason: Constipation Melatonin (Melatonin 3 Mg Tablet) 6 mg PO BEDTIME PRN PRN Reason: Insomnia Methylprednisolone Sodium Succinate (Methylprednisolone Sod Succ 125 Mg/2 Ml Vial) 60 mg IVPUSH Q6H [facility] Last Admin: 08/23/24 11:48 Dose: 60 mg Documented By: SHEN Ondansetron HCl (Ondansetron Hcl 4 Mg/2 Ml Vial) 4 mg IVPUSH Q8H PRN PRN Reason: Nausea and Vomiting Oseltamivir Phosphate (Oseltamivir Phosphate 30 Mg Capsule) 30 mg PO Q12H [facility] Stop: 08/25/24 03:01 Last Admin: 08/23/24 05:02 Dose: 30 mg Documented By: JONNY Sertraline HCl (Sertraline Hcl 25 Mg Tablet) 25 mg PO DAILY [facility] Last Admin: 08/23/24 08:36 Dose: 25 mg Documented By: SHEN Sodium Chloride (0.9 % Sodium Chloride Flush 3 Ml Syringe) 3 ml IVFLUSH QSHIFT [facility] Last Admin: 08/23/24 08:37 Dose: 3 ml Documented By: SHEN Triamterene/Hydrochlorothiazide (Triamterene/Hctz 37.5/25 Tablet) 1 tab PO DAILY [facility]; Protocol Last Admin: 08/23/24 08:37 Dose: 1 tab Documented By: SHEN Labs 08/23/24 06:17 08/23/24 06:17 Labs: Laboratory Results - last 24 hr 08/23/24 06:17 MCV 86.7 MCH 29.7 MCHC 34.3 RDW 14.0 Plt Count 188 MPV 11.8 Immature Gran % (Auto) 1.0 H Neut % (Auto) 91.5 H Lymph % (Auto) 4.0 L [place] % (Auto) 3.4 Eos % (Auto) 0.0 Baso % (Auto) 0.1 Lymph # (Auto) 0.7 L [place] # (Auto) 0.6 Eos # (Auto) 0.0 Baso # (Auto) 0.0 Abs Immat Gran (auto) 0.17 H Absolute Neuts (auto) 15.7 H Absolute Nucleated RBC 0.000 Nucleated RBC % (auto) 0.0 Smear Tech's Comments VERIFIED Anion Gap 12 Estim Creat Clear Calc 32.8 Estimated GFR 45 Fasting Glucose 149 H Calcium 8.2 L Total Bilirubin 0.2 AST 39 H ALT 31 Alkaline Phosphatase 65 Total Protein 6.5 Albumin 3.6 Assessment and Plan (1) COPD exacerbation: Status: Acute (2) Influenza A: Status: Acute Plan Pt is an 89-year-old female with a PMH significant for?paroxysmal AFib on Eliquis, HTN, HLD, [id number]-[id number] aortic stenosis, and hypothyroidism who presents to the ED with?nonproductive cough, difficulty breathing/SOB, fatigue, and myalgias x2 days. Pt will be admitted to the hospital for treatment and further evaluation of acute hypoxic respiratory failure in the setting of influenza infection. 1.Acute hypoxic respiratory failure/COPD exacerbation secondary to influenza A infection -Tamiflu as ordered -pulse dose Solu-Medrol x 24 additional hours then switch to p.o. -titrate O2 to maintain sats greater than equal to 92 % 2.Elevated troponins -likely type 2 (discussed with Cardiology) 2nd influenza a -clinically asymptomatic 3.HTN -acceptable control on current therapies -adjust as indicated 4.Paroxysmal AFib -acceptable rate control -continue current therapies continue Eliquis DNR/DNI Eliquis Require ongoing hospitalization for IV steroids to treat COPD exacerbation in backdrop of insulins at [facility] Stroke Does the patient have a stroke diagnosis?: No VTE Prior VTE?: No VTE Risk Level:: Medical - moderate - high VTE Device Contraindication: Treatment Not Indicated VTE Drug Contraindication: N/A - Med Ordered
--- NOTE | 2024-08-23 14:44 | PC.NURSE ---
Pt refusing bed alarm. Educated on risks and benefits of alarm and high fall precautions - pt continues to refuse alarm. Encouraged to use call [facility] and ask for assisstance.
--- NOTE | 2024-08-23 15:24 | MHC.CM.PN ---
The 2 area VNAs that are in network with Patient's insurance ([facility] and [facility])are following Patient for dc needs.
[2024-08-23] MEDS: guaiFENesin DM 200/20/10 ML 10 ML SYRUP PO (21:42)
[2024-08-24] MEDS: methylPREDNISolone Sod Succ 125 MG/2 ML VIAL 60 MG IVPUSH ×3 (00:53→12:02)
[2024-08-24] MEDS: Oseltamivir Phosphate 30 MG CAPSULE PO (00:58)
[2024-08-24 02:58] VITALS: BP 159/77; PULSE 75; RESP 19; TEMP 36.3; O2SAT 94
[2024-08-24] MEDS: Levothyroxine Sodium 75 MCG TABLET PO (06:15)
[2024-08-24 07:46] VITALS: BP 138/62; PULSE 80; RESP 18; TEMP 36.1; O2SAT 93
[2024-08-24 09:14] VITALS: BP 138/62
[2024-08-24] MEDS: 0.9 % Sodium Chloride Flush 3 ML SYRINGE IVFLUSH (09:14)
[2024-08-24] MEDS: amLODIPine Besylate 5 MG TABLET PO (09:14)
[2024-08-24] MEDS: Sertraline HCL 25 MG TABLET PO (09:14)
[2024-08-24] MEDS: Triamterene/HCTZ 37.5/25 TABLET 1 TAB PO (09:14)
[2024-08-24 09:15] VITALS: BP 138/62
[2024-08-24] MEDS: Atorvastatin Calcium 20 MG TABLET PO (09:15)
[2024-08-24] MEDS: Apixaban 5 MG TABLET PO (09:15)
[2024-08-24] MEDS: Amiodarone HCL 200 MG TABLET 100 MG PO (09:15)
[2024-08-24] MEDS: hydrALAZINE HCl 50 MG TABLET PO (09:15)
[2024-08-24 11:14] VITALS: BP 138/60; PULSE 98; RESP 16; TEMP 36.1; O2SAT 96
--- NOTE | 2024-08-24 11:34 | PM.DS ---
DS: Providers Provider Date of Service: 08/24/24 Date of admission: 08/20/24 15:01 Date of discharge: 08/24/24 Primary care physician: Eusebia Orantes MD DS: Diagnosis Discharge Diagnosis (1) COPD exacerbation: Status: Acute (2) Influenza A: Status: Acute DS: Summary Hospital Course Hospital Course: 89-year-old female with a PMH significant for?paroxysmal AFib on Eliquis, HTN, HLD, [id number] aortic stenosis, and hypothyroidism who presents to the ED with?nonproductive cough, difficulty breathing/SOB, fatigue, and myalgias x2 days. Pt reports she has just felt ?sick?. Symptoms worsened this morning and also experienced headache, nausea, and vomiting without abdominal pain, which prompted her visit to the ED this morning. Denies chest pain/pressure, palpitations. Pt denies PMH of COPD though has a 30+ pack-year smoking hx. Not on home O2 In the ED pt was tachycardic up to 104 tachypneic up to 22, and hypertensive up to 201/85, desatting as low as 87% on RA. Labs were significant for testing positive for flu, and initial troponin 260.7 with repeat 314.7, around baseline. No leukocytosis. Stable H&H. No significant electrolyte abnormalities. Renal function baseline. Hepatic function baseline. CXR showed likely COPD but no active superimposed disease. EKG demonstrated sinus rhythm with PACs and chronic LBBB and chronically lengthened QTc of 500. Pt was treated with acetaminophen, IVF, and ondansetron. Pt will be admitted to the hospital for treatment and further evaluation of acute hypoxic respiratory failure in the setting of influenza infection. Hospital Course Patient admitted to general medical floor. Patient was started on pulse dose methylprednisolone over the course of her hospitalization improved no response to therapy. At this point in time she is medically acceptable for discharge on a prednisone taper and will follow up with the PCP next available Time Attestation Discharge Coordination Time (in mins): 35 Quality: Safe Use of Opioids Does Pt have an Active Cancer Diagnosis on the Problem List?: No Quality: Stroke Does the patient have a stroke diagnosis?: No Physical Exam Vital Signs: Vital Signs: Last Vital Signs Temp 96.9 F 08/24/24 11:14 Pulse 98 08/24/24 11:14 Resp 16 08/24/24 11:14 BP 138/60 08/24/24 11:14 Pulse Ox 96 08/24/24 11:14 O2 Del Method Room Air 08/24/24 11:14 O2 Flow Rate 3 08/23/24 15:47 BMI result Body Mass Index 28.3 Const: Other: Awake alert ill-appearing no acute distress Resp: Other: Diminished but clear throughout Cardio: Other: No S4; positive S1-S2; no S3 murmurs rubs or gallops GI: Other: Soft nontender nondistended normoactive bowel sounds Extrem: Other: No edema bilaterally Discharge Plan Discharge Anticipated Discharge Date/Time: 08/24/24 11:29 Patient Disposition: Home Health Service Discharge Diagnosis: Acute respiratory failure secondary to influenza a Referrals: Eusebia Orantes MD [Primary Care Provider] - 1 Week Discharge Medications: Continued levothyroxine 75 mcg tablet 75 mcg PO DAILY Qty: 90 3RF rosuvastatin 5 mg tablet 5 mg PO DAILY 90 Days Qty: 90 3RF Rx Instructions: This Rx replaces the lovastatin triamterene-hydrochlorothiazid 37.5-25 mg tablet 1 tab PO DAILY Qty: 90 0RF Eliquis 5 mg tablet 5 mg PO BID Qty: 180 3RF amlodipine 5 mg tablet 5 mg PO DAILY Qty: 90 3RF latanoprost 0.005 % Drops 1 drp OPHTHALMIC (EYE) BEDTIME amiodarone [Pacerone] 100 mg tablet 100 mg PO DAILY hydralazine 50 mg tablet 50 mg PO BID sertraline 25 mg tablet 25 mg PO DAILY Qty: 90 1RF Discharge Orders: Discharge Order (Routine); Ordered 08/24/24 Ordered By: Jacek Tellez Diet: Advance to usual diet Activity on Discharge: As tolerated Stand Alone Forms: Patient Portal Discharge page Print Language: Serbian Care Plan Goals: Resume meds as taken previous to hospital Health Concerns: Follow up with your PCP next available Plan of Treatment: VNA will we will follow you as outpatient Assessment: See discharge summary
--- NOTE | 2024-08-24 12:14 | MHC.CM.PN ---
Second IMM 08/24. Pt is medically cleared for discharge home self-care, pt has arranged her own transport home today. Pt is unable to have VNA services as pt unable to pay the $590 insurance deductible.
== END 2024-08-24 12:15 | disposition home or self-care (01) | DRG 189 ==
LOC: HO.ED 13:50 → HO.EDOVER 15:16 → HO.IMC 19:56
PROVIDERS: Physician Assistant Medical; Admitting Provider Student in an Organized Health Care Education/Training Program; Emergency Provider Emergency Medicine; PCP Internal Medicine; Visit Provider Hospitalist
DX: J96.01 Acute respiratory failure with hypoxia (principal); J10.1 Influenza due to other identified influenza virus with other respiratory manifestations; J44.1 Chronic obstructive pulmonary disease with (acute) exacerbation; I10 Essential (primary) hypertension; I48.0 Paroxysmal atrial fibrillation; Z66 Do not resuscitate; E03.9 Hypothyroidism, unspecified; I35.0 Nonrheumatic aortic (valve) stenosis; Z20.822 Contact with and (suspected) exposure to COVID-19; Z79.01 Long term (current) use of anticoagulants; Z79.890 Hormone replacement therapy; Z79.899 Other long term (current) drug therapy
CPT/HCPCS: 0241U; 36415; 71045; 80048; 80053; 83735; 84484; 85007; 85025; 85027; 93005; 99285; J0131; J2405; J2919

== ENCOUNTER → 2024-08-20 09:15 | Outpatient (BNV) | payer MEDICARE, MEDICAID, SELFPAY | PROVIDERS: Emergency Provider Emergency Medicine; PCP Internal Medicine; Visit Provider Internal Medicine Cardiovascular Disease | DX: R42 Dizziness and giddiness (principal); I44.7 Left bundle-branch block, unspecified | CPT/HCPCS: 93010 ==

== ENCOUNTER → 2024-08-20 12:34 | Outpatient (BNV) | payer MEDICARE, MEDICAID, SELFPAY | PROVIDERS: Emergency Provider Emergency Medicine; PCP Internal Medicine; Visit Provider Radiology Diagnostic Radiology | DX: R05.9 Cough, unspecified (principal) | CPT/HCPCS: 71045 ==

== ENCOUNTER → 2024-08-20 15:01 | Outpatient (BNV) | payer MEDICARE, MEDICAID, SELFPAY | PROVIDERS: Admitting Provider Student in an Organized Health Care Education/Training Program; Emergency Provider Emergency Medicine; PCP Internal Medicine; Visit Provider Student in an Organized Health Care Education/Training Program | DX: J44.1 Chronic obstructive pulmonary disease with (acute) exacerbation (principal); J10.1 Influenza due to other identified influenza virus with other respiratory manifestations | CPT/HCPCS: 99223; 99232; 99233; 99239 ==

== ENCOUNTER → 2024-09-03 10:49 | Outpatient (BNVA) | payer OTHER, SELFPAY | PROVIDERS: PCP Internal Medicine; Visit Provider Internal Medicine | DX: I12.9 Hypertensive chronic kidney disease with stage 1 through stage 4 chronic kidney disease, or unspecified chronic kidney disease (principal); N18.30 Chronic kidney disease, stage 3 unspecified; I48.0 Paroxysmal atrial fibrillation; I35.0 Nonrheumatic aortic (valve) stenosis; E03.9 Hypothyroidism, unspecified; Z79.01 Long term (current) use of anticoagulants; Z79.899 Other long term (current) drug therapy | CPT/HCPCS: 96127 ==

== ENCOUNTER → 2024-09-03 10:49 | Outpatient (AMB) | payer OTHER, SELFPAY | END | disposition home or self-care (01) | PROVIDERS: PCP Internal Medicine; Visit Provider Internal Medicine ==

== ENCOUNTER 2024-11-18 10:53 | Outpatient (AMB) | payer OTHER, SELFPAY ==
--- NOTE | 2024-11-18 11:15 | MHC.PC.OV ---
Vital Signs 11/18/24 11:16 Height 5 ft 3 in Weight 157 lb BMI 27.8 BP 134/72 Blood Pressure Location Lt brachial Position Sitting Respiration 18 Pulse 93 Pulse Source Pulse Oximeter Temp 98.0 F Temp Source Oral Pulse Oximetry (%) 97 Oxygen Delivery Method Room Air Intake Visit Reasons: Neck Pain Intake Note: Pt is here today for a sick visit. Pt c/o L side neck pain. Pt also states that she has been loosing her hair a lot. Allergies lisinopril Adverse Reaction (Intermediate, Verified 11/18/24 11:25) Unknown Medication List - Last Reconciled 11/18/24 by Eusebia Orantes MD amiodarone (Pacerone) 100 mg PO DAILY amlodipine 5 mg PO DAILY apixaban (Eliquis) 5 mg PO BID hydralazine 50 mg PO BID latanoprost 0.005% 1 drp ophthalmic (eye) BEDTIME levothyroxine 75 mcg PO DAILY rosuvastatin 5 mg PO DAILY 90 days trazodone 50 mg PO BEDTIME triamterene-hydrochlorothiazid 37.5-25 mg 1 tab PO DAILY Tobacco use date assessed: 11/18/24 Fall risk assessment: No Falls in past year Last assessed Fall Risk: 11/18/24 Dental Screening Dental Screen Date: 09/03/24 HPI Neck Pain HPI Details Pt presents c/o worsening of chronic neck pain, insomnia and worsening anxiety and depression due to difficulty with her daughter who moved out 3 weeks ago. Patient reports decreased appetite. She denies suicide ideation. Hypertension and hyperlipidemia controlled on current medications. Patient remains on amiodarone and Eliquis for AFib and denies palpitations or chest pain. [facility] Medical History Aortic stenosis New onset left bundle branch block (LBBB) Left bundle branch block HTN (hypertension) Paroxysmal atrial fibrillation Hyperlipidemia Knee pain Vitamin D insufficiency Hypothyroidism Osteoporosis of lumbar spine Surgical History History of removal of cyst Family History Father Emphysema, unspecified Mother History of heart attack Brother Cancer of prostate Sister Ovarian cancer Sister Ovarian cancer Son History of heart attack Malignant melanoma Son No problems noted. Son No problems noted. Daughter No problems noted. Other Substance use disorder Social History Household Members: None Housing: Other Housing Other:: Mobile Home Do you presently have visiting nurse or other home services: No Alcohol intake: former Comment: refusing alarms Patient Tobacco Use Status: Former Tobacco user e-Cigarette/Vaping Use: Never Used Second Hand Smoke Exposure: No Advance Directives Date on File: 08/20/24 service: No Current occupational status: retired Cognitive needs: No Hearing needs: No Vision needs: Yes (glasses) Questionnaire PHQ-9 Over the last 2 weeks, how often have you been bothered by any of the following problems? 1. Little interest or pleasure in doing things: not at all 2. Feeling down, depressed, or hopeless: several days 3. Trouble falling or staying asleep, or sleeping too much: nearly every day 4. Feeling tired or having little energy: nearly every day 5. Poor appetite or overeating: nearly every day 6. Feeling bad about yourself - or that you are a failure or have let yourself or your family down: nearly every day 7. Trouble concentrating on things, such as reading the newspaper or watching television: nearly every day 8. Moving or speaking so slowly that other people could have noticed. Or the opposite - being so fidgety or restless that you have been moving around a lot more than usual: nearly every day 9. Thoughts that you would be better off or of hurting yourself in some way: nearly every day Total score: 22 Depression Screening Interpretation: Positive (Patient will be referred to a counselor and trazodone 50 mg q.h.s. will be started.) Depression Screening Follow-up: New Medication prescribed Depression Screening Done: Yes 90906 - PHQ-9 Billing: Yes Source: Developed by Drs. Joel Alejandra, Genie Wilson, Maykel Nam and colleagues, with an educational chato from [employer]. Thrive Questionnaire Date Thrive assessed: 11/18/24 I am a: Patient What is your living situation today?: I have a steady place to live Within the past 12 months, did the food you bought not last and you didn't have the money to get more?: I choose not to answer this question Within the past 12 months, did you worry whether your food would run out before you got money to buy more?: I choose not to answer this question Do you have trouble paying for medicines?: No Do you have trouble getting transportation to medical appointments?: No Do you have trouble paying your heating and electricity bill?: No THRIVE Score: 0 SANIYA-7 AMB Questionnaire SANIYA-7 Date SANIYA - 7 assessed: 09/03/24 Feeling nervous, anxious, or on edge: 0 = Not at all Not being able to stop or control worryin = Not at all Worrying too much about different things: 0 = Not at all Trouble relaxin = Not at all Being so restless that it is hard to sit still: 0 = Not at all Becoming easily annoyed or irritable: 0 = Not at all Feeling afraid as if something awful might happen: 0 = Not at all Total SANIYA-7 score (0-4 normal; 5-9 mild; 10-14 moderate; 15-21 severe): 0 Source: Developed by Drs. Joel Alejandra, Genie Wilson, Maykel Nam and colleagues, with an educational chato from [employer]. SANIYA-7 Assessment Billing SANIYA-7 Assessment Tool: SANIYA-7 Assessment 76980 Review of Systems Const All systems reviewed & are unremarkable except as noted in HPI and below Eyes Reports no additional complaints ENT Reports no additional complaints Card Reports no additional complaints Resp Reports no additional complaints GI Reports no additional complaints Reports no additional complaints Physical exam (Primary Care) Vital Signs: Last Vital Signs Temp 98.0 F 11/18/24 11:16 Pulse 93 11/18/24 11:16 Resp 18 11/18/24 11:16 BP 134/72 11/18/24 11:16 Pulse Ox 97 11/18/24 11:16 Oxygen Delivery Method Room Air 11/18/24 11:16 BMI result Body Mass Index 27.8 Tobacco/Smoking Status: Tobacco use Status Tobacco use date assessed 11/18/24 11/18/24 11:27 Patient Tobacco Use Status Former Tobacco user 11/18/24 11:17 e-Cigarette/Vaping Use Never Used 11/18/24 11:17 PHQ-9: PHQ-9 Score PHQ-9: Total score 22 11/18/24 11:53 Depression Screening Interpretation: Positive (Patient will be referred to a counselor and trazodone 50 mg q.h.s. will be started.) Depression Screening Follow-up: New Medication prescribed Thrive Assessment: Date of Thrive Assessment Date Thrive assessed 11/18/24 11/18/24 11:17 Const General: no acute distress HENMT Head: Yes normal to inspection Eyes General: appearance normal, both eyes and all related structures Resp Effort & Inspection: normal respiratory effort Auscultation: clear to auscultation bilaterally Cardio Rhythm: regular rhythm Heart sounds: S1 normal heart sound present and S2 normal heart sound present GI Inspection: Yes normal to inspection Palpation (GI): Soft to palpation Percussion: Yes normal to percussion Auscultation: normal bowel sounds Coding Level of Care Code Est Pt Level 3 (86215) Diagnoses Anxiety and depression F41.9; F32.A Essential hypertension I10 Neck pain M54.2 Additional Codes SANIYA-7 Assessment Billing - SANIYA-7 Assessment Tool: SANIYA-7 Assessment 18434 ([id number]) PHQ-9 - 87962 - PHQ-9 Billing: Yes ([id number]) Assessment & Plan Assessment & Plan (1) Anxiety and depression: Code(s): F41.9 - Anxiety disorder, unspecified; F32.A - Depression, unspecified Category: Medical Plan: Referred to a counseling start trazodone 50 mg q.h.s. may increase to 100 mg after week, patient will follow-up in 1 month (2) Essential hypertension: Code(s): I10 - Essential (primary) hypertension Category: Medical Plan: Continue current medications (3) Neck pain: Code(s): M54.2 - Cervicalgia Category: Medical Plan: For chronic neck pain patient was advised to take Tylenol and try lidocaine patch. She declined physical therapy Medications: New trazodone 50 mg PO BEDTIME 30 tabs 1RF sleep trazodone One q.h.s. for 1 week may increase to 2 tablets q.h.s. for insomnia 50 mg PO BEDTIME 60 tabs 1RF Discontinued sertraline Discontinued Reason: Doctor's Order 25 mg PO DAILY 90 tabs 1RF
[2024-11-18 11:16] VITALS: BP 134/72; PULSE 93; RESP 18; TEMP 36.7; O2SAT 97; BMI 27.8
--- OUTSIDE RECORDS SUMMARY | 2024-11-18 12:49 | XMS_ITS | Patient Health Record ---
Author Organization [facility] - [address] Address [address] [place] [address] Care Team Providers Care Palliative Care Physician Name Role Phone ROSE COBB Primary Care Provider Allergies No Known Allergies Reason For Referral No Information Medications Medication SIG (Take, Route, Frequency, Duration) Notes Start Date End Date Status Amiodarone HCl 100 MG 1 tablet Orally On ce a day Active Lovastatin 40 MG 1 tablet with the evening meal Orally Once a day Active Levothyroxine Sodium 75 MCG 1 tablet in the morning on an empty stomach Orally Once a day Active Eliquis 5 MG 1 tablet Orally Twice a day for 90 days Active hydrALAZINE HCl 25 MG Two tablets Orally Twice Daily for 90 days Active hydroCHLOROthiazide 25 MG 1 tablet in e morning Orally Twice Daily for 90 days Not-Taking amLODIPine Besylate 10 MG 1 tablet Orall y Once a day for 90 days Active Social History Tobacco Use: Social History Observation Description Date Details (start date - stop date) Former Smoker NA - NA Tobacco Use/Smoking Question Answer Notes Are you a former smoker Problems Problem Type SNOMED Code ICD Code Onset Dates Problem Status W/U Status Risk Notes Problem 917734003 Paroxysmal atria l fibrillation (I48.0) Active confirmed Problem Essential hypertension (13656946) Essential hypertension (I10) Active confirmed Problem Dyslipidemia (372263438) Dyslipidemia (E78.5) Active confirmed Problem Hypothyroidism (20774980) Hypothyroidism (acquired) (E03.9) Active confirmed Problem 04712166 Left bundle branch block (I44.7) Active confirmed Problem Aortic valve disease (2972451) Aortic valve disease (I35.9) Active confirmed Problem Aortic valve stenosis (87185995) Aortic valve stenosis (I35.0) Active confirmed Problem Cerebrovascular disease (59072922) Cerebral vascular disease (I67.9) Active confirmed Plan Of Treatment Pending Test Test Name Order Date Electrocardiogram (ECG) 12/30/2022 Electrocardiogram (EKG) 01/22/2021 Future Test Test Name Order Date Echocardiogram 01/01/2023 Medical (General) History Medical History History ICD Code CVA (cerebral vascular accident) I63.9 Paroxysmal atrial fibrillation I48.0 Essential (primary) hypertension I10 Mixed hyperlipidemia E78.2 Hypothyroidism Coronary artery disease - 1 vessel COVID Vaccine x 2 Pfizer EKG 09/24/2021: LBBB Surgical History Surgery Date(Month/Year) Cardioversion Hospitalization History Reason Date(Month/Year) [facility] 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
--- OUTSIDE RECORDS SUMMARY | 2024-11-18 12:49 | XMS_ITS ---
Author Organization [facility] - [address] Address [address] [place] [address] Care Team Providers Care Printer'[employer] Devil Name Role Phone ROSE COBB Primary Care Provider REASON FOR VISIT 6 Month F/U Encounters Encounter Location Date Provider Diagnosis [facility] [address] [place] [address] 06/30/2023 ROSE COBB Plan Of Treatment No Information Progress Notes * EVELINEnid TuttleanselmoDOB:1935 (89 yo F)Acc No.[id number]:06/30/2023 Progress Notes Patient:?Lisa WATERS Provider:?ROSE COBB DO, FACC :1935???Age:88 Y???Sex:Female D ate:06/30/2023 Address:[address] [place] [address] [id number] Subjective: * Chief Complaints: * ???1. 6 Month F/U. * Medical History:? Objective: * Vitals:? Assessment: Plan: * Treatment: * * Electronic signature of JUNIE COBB DO, FACC,[place], [place] on 11/18/2024 at 12:48 PM EDT Sign off status: Pending * Provider:?ROSE COBB DO, FACC Date: ?06/30/2023 Generated for Printi ng/Faxing/eTransmitting on:?11/18/2024 12:48 PM EDT
== END 2024-11-18 13:10 | disposition home or self-care (01) ==
LOC: HO.HMCC 10:54
PROVIDERS: PCP Internal Medicine; Visit Provider Internal Medicine
DX: F41.9 Anxiety disorder, unspecified (principal); F32.A Depression, unspecified; I10 Essential (primary) hypertension; M54.2 Cervicalgia

== ENCOUNTER → 2024-11-18 10:53 | Outpatient (BNVA) | payer OTHER, SELFPAY | PROVIDERS: PCP Internal Medicine; Visit Provider Internal Medicine | DX: M54.2 Cervicalgia (principal); F41.9 Anxiety disorder, unspecified; F32.A Depression, unspecified; I10 Essential (primary) hypertension; I48.0 Paroxysmal atrial fibrillation; Z79.01 Long term (current) use of anticoagulants; Z79.899 Other long term (current) drug therapy | CPT/HCPCS: 96127 ==

== ENCOUNTER 2024-11-19 07:54 | Outpatient (REF) | payer OTHER, SELFPAY ==
[2024-11-19 10:12] LABS: MANUAL DIFF FLAG NO
[2024-11-19 10:16] LABS: Basophils Absolute Auto 0.1 X10*3/uL (0.0-0.2); Basophils Percent Auto 0.9 % (0-2); Eosinophils Absolute Auto 0.2 X10*3/uL (0.0-0.4); Eosinophils Percent Auto 2.6 % (0-4); Hematocrit 40.5 % (37.0-47.0); Hemoglobin 13.1 g/dl (12.0-16.0); Imm Gran Abs Auto 0.02 X10*3/uL (0.00-0.03); Imm Gran Pct Auto 0.3 % (0.0-0.4); Lymphocytes Absolute Auto 1.9 X10*3/uL (1.2-4.9); Lymphocytes Percent Auto 24.1 % (20-40); Mean Corpuscular HGB Conc 32.3 g/dl (31.0-35.0); Mean Corpuscular Hemoglobin 29.4 pg (27.0-33.0); Mean Platelet Volume 12.1 fL (9.4-12.3); Monocytes Absolute Auto 0.8 X10*3/uL (0.1-1.2); Monocytes Percent Auto 10.2 % (2-11); Neutrophils Absolute Auto 4.9 x10*3/uL (2.0-8.3); Neutrophils Percent Auto 61.9 % (45-73); Platelet Count 187 X10*3/uL (160-400); Red Blood Count 4.45 X10*6/uL (4.20-5.50); Red Cell Distribution Width 14.1 % (11.0-16.0); White Blood Count 7.8 X10*3/uL (4.8-10.8)
[2024-11-19 10:28] LABS: Estimated Average Glucose 108 mg/dL; Hemoglobin A1C 125.3492 umol/L; Hemoglobin A1c % 5.4 % (<6.0); Total Hemoglobin (HGBA1C) 3483.4217 umol/L
[2024-11-19 10:57] LABS: Alanine Aminotransferase 15 U/L (0-31); Albumin Level 4.1 g/dL (3.5-5.0); Alkaline Phosphatase 62 U/L (39-117); Anion Gap 10 (12-20); Aspartate Amino Transferase 22 U/L (5-31); Bilirubin Total 0.5 mg/dL (0.0-1.0); Blood Urea Nitrogen 27 mg/dL (9-16); Calcium 9.1 mg/dL (8.4-10.2); Carbon Dioxide 28 mmol/L (22-29); Chloride 108 mmol/L (96-108); Cholesterol 140 mg/dL (<200); Estimated Glomerular Filt Rate 46; Glucose Fasting 105 mg/dL (60-99); HDL Cholesterol 57 mg/dL (>40); LDL Cholesterol Calculated 71 mg/dL (<100); Potassium 4.1 mmol/L (3.3-5.1); Sodium 142 mmol/L (135-145); TSH reflex Free T4 0.38 uIU/mL (0.32-4.0); Total Protein 6.6 g/dL (6.5-8.0); Triglycerides 60 mg/dL (<150)
== END 2024-11-19 07:55 | disposition home or self-care (01) ==
LOC: HO.HMGCLDS 07:54
PROVIDERS: PCP Internal Medicine; Visit Provider Internal Medicine
DX: I10 Essential (primary) hypertension (principal); L84 Corns and callosities; E78.5 Hyperlipidemia, unspecified; Z13.1 Encounter for screening for diabetes mellitus
CPT/HCPCS: 36415; 80053; 80061; 83036; 84443; 85025

== ENCOUNTER 2024-12-01 10:52 | Outpatient (AMB) | payer OTHER, SELFPAY ==
[2024-12-01 10:53] VITALS: BP 134/66; PULSE 78; RESP 18; TEMP 36.6; O2SAT 97; BMI 26.9
--- NOTE | 2024-12-01 10:53 | A.OFFPC_ITS ---
Vital Signs 12/01/24 10:53 Height 5 ft 3 in Weight 152 lb BMI 26.9 BP 134/66 Blood Pressure Location Lt brachial Position Sitting Respiration 18 Pulse 78 Pulse Source Pulse Oximeter Temp 97.9 F Temp Source Oral Pulse Oximetry (%) 97 Oxygen Delivery Method Room Air Intake Visit Reasons: 3m follow u Intake Note: Pt is here today for 3 months follow up visit. Allergies lisinopril Adverse Reaction (Intermediate, Verified 12/01/24 10:55) Unknown Medication List - Last Reconciled 12/01/24 by Eusebia Orantes MD amiodarone (Pacerone) 100 mg PO DAILY amlodipine 5 mg PO DAILY apixaban (Eliquis) 5 mg PO BID hydralazine 50 mg PO BID latanoprost 0.005% 1 drp ophthalmic (eye) BEDTIME levothyroxine 75 mcg PO DAILY rosuvastatin 5 mg PO DAILY 90 days trazodone 50 mg PO BEDTIME triamterene-hydrochlorothiazid 37.5-25 mg 1 tab PO DAILY Tobacco use date assessed: 11/18/24 Dental Screening Dental Screen Date: 09/03/24 HPI 3m follow u HPI Details patient presents for the follow-up of hypertension paroxysmal AFib hypothyroidism hyperlipidemia. She complains of increased hair loss and her hair getting more dry. [facility] Medical History Aortic stenosis New onset left bundle branch block (LBBB) Left bundle branch block HTN (hypertension) Paroxysmal atrial fibrillation Hyperlipidemia Knee pain Vitamin D insufficiency Hypothyroidism Osteoporosis of lumbar spine Surgical History History of removal of cyst Family History Father Emphysema, unspecified Mother History of heart attack Brother Cancer of prostate Sister Ovarian cancer Sister Ovarian cancer Son History of heart attack Malignant melanoma Son No problems noted. Son No problems noted. Daughter No problems noted. Other Substance use disorder Social History Household Members: None Housing: Other Housing Other:: Mobile Home Do you presently have visiting nurse or other home services: No Alcohol intake: former Comment: refusing alarms Patient Tobacco Use Status: Former Tobacco user e-Cigarette/Vaping Use: Never Used Second Hand Smoke Exposure: No Advance Directives Date on File: 08/20/24 service: No Current occupational status: retired Cognitive needs: No Hearing needs: No Vision needs: Yes (glasses) Questionnaire Thrive Questionnaire Date Thrive assessed: 11/18/24 I am a: Patient What is your living situation today?: I have a steady place to live Within the past 12 months, did the food you bought not last and you didn't have the money to get more?: I choose not to answer this question Within the past 12 months, did you worry whether your food would run out before you got money to buy more?: I choose not to answer this question Do you have trouble paying for medicines?: No Do you have trouble getting transportation to medical appointments?: No Do you have trouble paying your heating and electricity bill?: No Do you have trouble taking care of your child, family member or friend?: I choose not to answer this question Do you have trouble with day-to-day activities such as bathing, preparing meals, shopping, managing finances, etc.?: I choose not to answer this question Are you currently unemployed and looking for a job?: I choose not to answer this question Are you interested in more education?: I choose not to answer this question Please select the resources that you would like help with: None THRIVE Score: 0 SANIYA-7 AMB Questionnaire SANIYA-7 Date SANIYA - 7 assessed: 09/03/24 Source: Developed by Drs. Joel Alejandra, Genie Wilson, Maykel Nam and colleagues, with an educational chato from [employer]. Review of Systems Const All systems reviewed & are unremarkable except as noted in HPI and below Eyes Reports no additional complaints ENT Reports no additional complaints Card Reports no additional complaints Resp Reports no additional complaints GI Reports no additional complaints Reports no additional complaints Physical exam (Primary Care) Vital Signs: Last Vital Signs Temp 97.9 F 12/01/24 10:53 Pulse 78 12/01/24 10:53 Resp 18 12/01/24 10:53 BP 134/66 12/01/24 10:53 Pulse Ox 97 12/01/24 10:53 Oxygen Delivery Method Room Air 12/01/24 10:53 BMI result Body Mass Index 26.9 Tobacco/Smoking Status: Tobacco use Status Tobacco use date assessed 11/18/24 12/01/24 10:58 Patient Tobacco Use Status Former Tobacco user 12/01/24 10:58 e-Cigarette/Vaping Use Never Used 12/01/24 10:58 Thrive Assessment: Date of Thrive Assessment Date Thrive assessed 11/18/24 12/01/24 10:58 Const General: no acute distress HENMT Head: Yes normal to inspection Throat: Yes posterior oropharynx normal Resp Effort & Inspection: normal respiratory effort Auscultation: clear to auscultation bilaterally Cardio Rhythm: regular rhythm Heart sounds: S1 normal heart sound present and S2 normal heart sound present GI Inspection: Yes normal to inspection Palpation (GI): Soft to palpation Percussion: Yes normal to percussion Auscultation: normal bowel sounds Coding Level of Care Code Est Pt Level 4 (96370) Diagnoses Hypertension, unspecified type I10 Hypertension type: unspecified Paroxysmal atrial fibrillation I48.0 Hyperlipidemia E78.5 Vitamin D insufficiency E55.9 Chronic kidney disease, stage 3 N18.30 Neck pain M54.2 Assessment & Plan Assessment & Plan (1) HTN (hypertension): Code(s): I10 - Essential (primary) hypertension Category: Medical Qualifiers: Hypertension type: unspecified Qualified Code(s): I10 - Essential (primary) hypertension Plan: continue current medications (2) Paroxysmal atrial fibrillation: Comment: Established with Cardiology Dr. Sebastian Code(s): I48.0 - Paroxysmal atrial fibrillation Category: Medical Plan: rhythm controlled on amiodarone and anticoagulated on Eliquis (3) Hyperlipidemia: Code(s): E78.5 - Hyperlipidemia, unspecified Category: Medical Plan: continue statin (4) Vitamin D insufficiency: Code(s): E55.9 - Vitamin D deficiency, unspecified Category: Medical Plan: continue vitamin-D (5) Chronic kidney disease, stage 3: Code(s): N18.30 - Chronic kidney disease, stage 3 unspecified Category: Medical Plan: monitor renal function avoid nephrotoxins (6) Neck pain: Code(s): M54.2 - Cervicalgia Category: Medical Plan: for chronic neck pain patient will be referred to PT and baclofen p.r.n. as prescribed Orders: Orders Vitamin B12 and Folate 3 Months E55.9 - Vitamin D deficiency, unspecified, E78.5 - Hyperlipidemia, unspecified, I10 - Essential (primary) hypertension, I48.0 - Paroxysmal atrial fibrillation, N18.30 - Chronic kidney disease, stage 3 unspecified Vitamin D 25-OH Total 3 Months E55.9 - Vitamin D deficiency, unspecified, E78.5 - Hyperlipidemia, unspecified, I10 - Essential (primary) hypertension, I48.0 - Paroxysmal atrial fibrillation, N18.30 - Chronic kidney disease, stage 3 unspecified PT Evaluation and Treatment Today M54.2 - Cervicalgia Comprehensive [place]. Panel Fast 3 Months E55.9 - Vitamin D deficiency, unspecified, E78.5 - Hyperlipidemia, unspecified, I10 - Essential (primary) hypertension, I48.0 - Paroxysmal atrial fibrillation, N18.30 - Chronic kidney disease, stage 3 unspecified IRON PROFILE 3 Months E55.9 - Vitamin D deficiency, unspecified, E78.5 - Hyperlipidemia, unspecified, I10 - Essential (primary) hypertension, I48.0 - Paroxysmal atrial fibrillation, N18.30 - Chronic kidney disease, stage 3 unspecified Complete Blood Count Auto Diff 3 Months E55.9 - Vitamin D deficiency, unspecified, E78.5 - Hyperlipidemia, unspecified, I10 - Essential (primary) hypertension, I48.0 - Paroxysmal atrial fibrillation, N18.30 - Chronic kidney disease, stage 3 unspecified Medications: New baclofen 10 mg PO BEDTIME 20 tabs 0RF
== END 2024-12-01 11:29 | disposition home or self-care (01) ==
LOC: HO.HMCC 10:52
PROVIDERS: PCP Internal Medicine; Visit Provider Internal Medicine
DX: I12.9 Hypertensive chronic kidney disease with stage 1 through stage 4 chronic kidney disease, or unspecified chronic kidney disease (principal); I48.0 Paroxysmal atrial fibrillation; N18.30 Chronic kidney disease, stage 3 unspecified; E78.5 Hyperlipidemia, unspecified; E55.9 Vitamin D deficiency, unspecified; M54.2 Cervicalgia

== ENCOUNTER → 2024-12-01 10:52 | Outpatient (BNVA) | payer OTHER, SELFPAY | PROVIDERS: PCP Internal Medicine; Visit Provider Internal Medicine | DX: Z13.89 Encounter for screening for other disorder (principal) ==

== ENCOUNTER → 2025-03-26 07:58 | Outpatient (BNV) | payer OTHER, SELFPAY | PROVIDERS: Emergency Provider Emergency Medicine; PCP Internal Medicine; Visit Provider Radiology Vascular & Interventional Radiology | DX: M54.50 Low back pain, unspecified (principal) | CPT/HCPCS: 72100 ==

== ENCOUNTER 2025-03-26 08:07 | Emergency (ER) | payer OTHER, SELFPAY ==
--- NOTE | ~2025-03-26 | XR_ITS ---
CLINICAL HISTORY: back pain 3 views lumbar spine Comparison: None provided Findings: Normal vertebral body alignment. Degenerative change and diffuse demineralization. No acute fracture or acute malalignment. Diffuse vascular calcification. IMPRESSION: No acute findings. Chronic changes. This document has been electronically signed by: Espinoza Shelton MD on 03/26/2025 09:15:53
[2025-03-26 08:09] VITALS: BP 146/68; PULSE 92; RESP 16; TEMP 36.2; O2SAT 99; BMI 26.6
[2025-03-26 08:21] VITALS: BP 141/73; PULSE 82; RESP 18; O2SAT 98
--- NOTE | 2025-03-26 08:29 | PC.NURSE ---
Addendum entered by Lucía Pierson RN 03/26/25 08:31: Patient is a 89-year-old female with a PMH significant for?paroxysmal AFib on Eliquis, HTN, HLD, [id number] aortic stenosis, and hypothyroidism who presents to the ED with sudden onset back pain which occurred when lifting on and unable to get oob this morning. Patient alert and oriented. Respirations even and non-labored. Abdomen soft, non-tender with positive bowel sounds. 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 Original Note: Medical History Aortic stenosis New onset left bundle branch block (LBBB) Left bundle branch block HTN (hypertension) Paroxysmal atrial fibrillation Hyperlipidemia Knee pain Vitamin D insufficiency Hypothyroidism Osteoporosis of lumba
--- OUTSIDE RECORDS SUMMARY | 2025-03-26 08:53 | XMS_ITS | Patient Health Record ---
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 Name Role Phone ROSE COBB Primary Care Provider [phone] Allergies No Known Allergies Reason For Referral No Information Medications Medication SIG (Take, Route, Frequency, Duration) Notes Start Date End Date Status Amiodarone HCl 100 MG 1 tablet Orally On a day Active Lovastatin 40 MG 1 tablet with the evening meal Orally Once a day Active Levothyroxine Sodium 75 MCG 1 tablet in the morning on an empty stomach Orally Once a day Active Eliquis 5 MG 1 tablet Orally Twice a day; Duration: 90 days Active hydrALAZINE HCl 25 MG Two tablets Orally Twice Daily; Duration: 90 days Active hydroCHLOROthiazide 25 MG 1 tablet in e morning Orally Twice Daily; Duration: 90 days Not-Taking amLODIPine Besylate 10 MG 1 tablet Orall y Once a day; Duration: 90 days Active Social History Tobacco Use: Social History Observation Description Date Details (start date - stop date) Former Smoker NA - NA Tobacco Use/Smoking Question Answer Notes Are you a former smoker Problems Problem Type SNOMED Code ICD Code Onset Dates Problem Status W/U Status Risk Notes Problem Paroxysmal atrial fibrillation (964581409) Paroxysmal atrial fibrillation (I48.0) Active confirmed Problem Essential hypertension (11859467) Essential hypertension (I10) Active confirmed Problem Dyslipidemia (656140368) Dyslipidemia (E78.5) Active confirmed Problem Hypothyroidism (34551563) Hypothyroidism (acquired) (E03.9) Active confirmed Problem Left bundle branch block (01291285) Left bundle branch block (I44.7) Active confirmed Problem Aortic valve disease (7997178) Aortic valve disease (I35.9) Active confirmed Problem Aortic valve stenosis (65005600) Aortic valve stenosis (I35.0) Active confirmed Problem Cerebrovascular disease (14353292) Cerebral vascular disease (I67.9) Active confirmed Plan [...] Surgery Date(Month/Year) Cardioversion Hospitalization History Reason Date(Month/Year) [facility] 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
--- NOTE | 2025-03-26 09:40 | ECG_ITS ---
Test Reason : BACK PAIN Blood Pressure : */* mmHG Vent. Rate : 78 BPM Atrial Rate : * BPM P-R Int : * ms QRS Dur : 140 ms QT Int : 428 ms P-R-T Axes : * -41 114 degrees QTcB Int : 487 ms Atrial fibrillation Left axis deviation Left bundle branch block Abnormal ECG When compared with ECG of 20-Aug-2024 09:15, Atrial fibrillation has replaced Sinus rhythm Referred By: Delilah Major Electronically Signed By: COCO CABEZAS
[2025-03-26 09:52] VITALS: BP 158/68; PULSE 82; RESP 18; O2SAT 94
--- NOTE | 2025-03-26 09:57 | ED.BACK ---
HPI - Back Pain/Injury General Chief Complaint: Back Pain/Injury Stated Complaint: back pain Time Seen by Provider: 03/26/25 09:08 Source: patient and family (Daughter at bedside corroborating history) Mode of arrival: ambulatory Limitations: no limitations History of Present Illness ED Provider: Moriah Mazariegos PA-C HPI Narrative: 89-year-old female with medical history of HTN, HLD, mild/moderate aortic stenosis, hypothyroidism, stroke approximately 10 years ago, AFib on Eliquis presents to the emergency department today due to lumbar back pain. Patient states 4 days ago on Friday (03/22/25) patient was cutting down trees in her garden when she felt a strain in her mid upper back. Patient states she stopped doing yd work and rested the rest of the day and the pain went away. Patient states 3 days ago on she was making her bed and lifted the corner of her mattress and felt an instant pain of her left lumbar back. Patient states she woke up Friday morning still experiencing some pain of her lumbar back and took 4 Tylenol throughout the day without effect. Patient states pain is worse when walking, however does not radiate down the leg. Patient states she has history of right-sided lumbar radiculopathy, had MRI done in 04/2024 at [facility], she shared those results with me which revealed degenerative changes, with central canal foraminal narrowing. Patient states this pain feels similar except for now was on the left side. Denies saddle paresthesias, bowel/bladder incontinence, chest pain, shortness of breath, abdominal pain, nausea, vomiting, lightheadedness, dizziness, syncope, diarrhea, black/tarry stool Related Data Home Medications ?Medication ?Instructions ?Recorded ?Confirmed latanoprost 0.005 % eye drops 1 drp ophthalmic (eye) BEDTIME 06/22/24 12/01/24 hydralazine 50 mg tablet 50 mg PO BID 08/20/24 12/01/24 Previous Rx's ?Medication ?Instructions ?Recorded rosuvastatin 5 mg tablet 5 mg PO DAILY 90 days #90 tabs 04/19/24 triamterene 37.5 1 tab PO DAILY #90 tabs 06/29/24 mg-hydrochlorothiazide 25 mg tablet amlodipine 5 mg tablet 5 mg PO DAILY #90 tabs 08/17/24 trazodone 50 mg tablet 50 mg PO BEDTIME #60 tabs 11/18/24 baclofen 10 mg tablet 10 mg PO BEDTIME #20 tabs 12/01/24 apixaban 5 mg tablet (Eliquis) 5 mg PO BID #180 tabs 12/03/24 levothyroxine 75 mcg tablet 75 mcg PO DAILY #90 tabs 02/15/25 amiodarone 100 mg tablet 100 mg PO DAILY #90 tabs 02/24/25 cefuroxime axetil 500 mg tablet 500 mg PO BID #10 tabs 03/26/25 cyclobenzaprine 5 mg tablet 5 mg PO BID PRN muscle spasm #10 03/26/25 tabs Allergies Allergy/AdvReac Type Severity Reaction Status Date / Time lisinopril AdvReac Intermediate Unknown Verified 03/26/25 08:18 Review of Systems Review of Systems: CONST: Negative for fever, body aches and chills. HENT: Negative for neck pain/stiffness, headache, congestion, sore throat, swelling. EYES: Negative for discharge/pain or vision changes. RESP: Negative for cough/hemoptysis and shortness of breath. CV: Negative chest pain, difficulty breathing, palpitations. ABD: Negative pain, nausea, vomiting. : Negative increase frequency, dysuria, blood in urine or stool. MUSC: Negative for muscle aches, edema. POS L sided lumbar back pain SKIN: Negative rash, lesions/sores. NEURO: Negative headache, dizziness, weakness. Yes all other systems are reviewed and are negative PMFSH Past Medical History Attestation statement: The following information was validated with the patient. Source: old records reviewed and nursing notes reviewed Medical History Aortic stenosis New onset left bundle branch block (LBBB) Left bundle branch block HTN (hypertension) Paroxysmal atrial fibrillation Hyperlipidemia Knee pain Vitamin D insufficiency Hypothyroidism Osteoporosis of lumbar spine Surgical History History of removal of cyst Family History Family History Father Emphysema, unspecified Mother History of heart attack Brother Cancer of prostate Sister Ovarian cancer Sister Ovarian cancer Son History of heart attack Malignant melanoma Son No problems noted. Son No problems noted. Daughter No problems noted. Other Substance use disorder Social History Social History Household Members: None Housing: Other Housing Other:: Mobile Home Do you presently have visiting nurse or other home services: No Alcohol intake: former Comment: refusing alarms Patient Tobacco Use Status: Former Tobacco user Smoked in Last 30 Days: No e-Cigarette/Vaping Use: Never Used Second Hand Smoke Exposure: No Use of substances other than those prescribed or required for medical reasons: No Advance Directives: Yes Advance Directives on File: Yes Advance Directives Date on File: 08/20/24 service: No Current occupational status: retired Cognitive needs: No Hearing needs: No Vision needs: Yes (glasses) Physical Exam Vital Signs: Vital Signs: Last Vital Signs Temp 98.6 F 03/26/25 14:55 Pulse 95 03/26/25 14:55 Resp 19 03/26/25 14:55 BP 147/54 H 03/26/25 14:55 Pulse Ox 98 03/26/25 14:55 O2 Del Method Room Air 03/26/25 14:55 BMI result Body Mass Index 26.6 GENERAL APPEARANCE: ?AxOx4, generally well-appearing, no acute distress. HEENT: ?NC, AT. MMM. EOMI, clear conjunctiva, oropharynx clear. NECK: ?Supple without lymphadenopathy.? No stiffness or restricted ROM. HEART:? Irregular rate and rhythm, no m/r/g LUNGS:? CTAB, moving air well. No crackles or wheezes are heard. ABDOMEN: ?Soft, nontender, nondistended with good bowel sounds heard. BACK: No CVAT, no obvious deformity. TTP of left-sided lumbar paraspinal muscles/SI joint, no midline spinal tenderness, no bony step-offs or abnormalities observed or palpated EXTREMITIES: ?Without cyanosis, clubbing or edema. NEUROLOGICAL: ?Grossly nonfocal. Alert and oriented, moving all 4 extremities. Observed to ambulate with normal gait. Skin: ?Warm and dry without any rash. Medications Administered Discontinued Medications Generic Name Dose Route Start Last Admin Trade Name Freq PRN Reason Stop Dose Admin Cyclobenzaprine HCl 5 mg 03/26/25 14:30 03/26/25 14:42 Cyclobenzaprine Hcl 5 Mg Tablet PO 03/26/25 14:31 5 mg ONCE ONE Administration Diazepam 2 mg 03/26/25 09:40 03/26/25 09:52 Diazepam 2 Mg Tablet PO 03/26/25 09:41 2 mg ONCE ONE Administration Oxycodone HCl 5 mg 03/26/25 12:08 03/26/25 12:13 Oxycodone Hcl Immed Release 5 Mg Tablet PO 5 mg Q6H PRN Administration Muscle Spasm Medical Decision Making Medical Decision Making [facility] Narrative: 89-year-old female with medical history of HTN, HLD, mild/moderate aortic stenosis, hypothyroidism, stroke approximately 10 years ago, AFib on presents to the emergency department today due to lumbar back pain. Patient states 4 days ago on Friday (03/22/25) patient was cutting down trees in her garden when she felt a strain in her mid upper back. Patient states she stopped doing yard work and rested the rest of the day and the pain went away. Patient states 3 days ago on she was making her bed and lifted the corner of her mattress and felt an instant pain of her left lumbar back. VS on initial observation-BP 158/68, pulse rate of 82, respiratory rate of 18, afebrile with oral temp of 97.1?, O2 saturation 94% on room air. On physical exam patient with tenderness of the left lumbar paraspinal muscles/SI joint, patient with slow and steady gait due to lumbar back pain. XR lumbar spine reveals degenerative changes without fracture or dislocation. Patient being medicated with 2 mg Valium for pain, patient took 2 extra-strength Tylenol around 730 this morning. Course 14:15- Labs without leukocytosis/leukopenia, H&H stable, no electrolyte abnormality. UA with positive urine nitrites, 3+ leukocyte esterase, >50 WBC, with 4+ bacteria, 3-5 squamous epithelial cells. EKG reveals AFib, without RVR, initial troponin elevated at 192.6, 2nd troponin at 164.8, this is not a positive delta. On chart review patient with persistently elevated troponins, no chest pain, patient normotensive. I believe troponins are elevated due to being in AFib. Patient follows Dr. Sebastian at [facility], and has a appointment with him in April. I did speak with tire recapping machine operator Dr. Gould to discuss these findings with him and let him know my plan of discharging patient home with antibiotics for UTI and follow up outpatient with Dr. Sebastian. He agreed with this plan. While in the department patient was medicated with 2 mg Valium, 5 mg oxycodone for pain management with good effect. We will discharge patient home with 5 day course of 500 mg cefuroxime b.i.d., and 5 day course of Flexeril for muscle spasm of the lumbar back. I counseled patient to make sure she follows up with Dr. Castillo for her April appointment. Patient lives with her daughter who is here at bedside and can help her ambulate around the house while she heals from lumbar back strain. I counseled her on strict return precautions. Patient and her daughter is in agreement with the plan and feels comfortable to go home for self-care. Differential Diagnosis Differential Diagnoses: The differential diagnosis associated with the presentation includes Dysrhythmia Lumbar compression fracture Lumbar back strain UTI Admission/Observation Consideration of admission/observation: Escalation of care including admission/observation considered Lab Data [facility] Lab Attestation statement: I reviewed the patient's lab results. 03/26/25 10:32 03/26/25 10:32 Labs: Lab Results 03/26/25 03/26/25 03/26/25 Range/Units 10:32 11:14 13:05 WBC 9.4 (4.8-10.8) X10*3/uL RBC 4.80 (4.20-5.50) X10*6/uL Hgb 14.3 (12.0-16.0) g/dl Hct 42.0 (37.0-47.0) % MCV 87.5 (80.0-98.0) fL MCH 29.8 (27.0-33.0) pg MCHC 34.0 (31.0-35.0) g/dl RDW 14.3 (11.0-16.0) % Plt Count 206 (160-400) X10*3/uL MPV 11.0 (9.4-12.3) fL Immature Gran % (Auto) 0.4 (0.0-0.4) % Neut % (Auto) 72.7 (45-73) % Lymph % (Auto) 16.3 L (20-40) % Caroline % (Auto) 9.2 (2-11) % Eos % (Auto) 0.7 (0-4) % Baso % (Auto) 0.7 (0-2) % Lymph # (Auto) 1.5 (1.2-4.9) X10*3/uL Caroline # (Auto) 0.9 (0.1-1.2) X10*3/uL Eos # (Auto) 0.1 (0.0-0.4) X10*3/uL Baso # (Auto) 0.1 (0.0-0.2) X10*3/uL Abs Immat Gran (auto) 0.04 H (0.00-0.03) X10*3/uL Absolute Neuts (auto) 6.8 (2.0-8.3) x10*3/uL Absolute Nucleated RBC 0.000 (0.0-0.012) X10*3/uL Nucleated RBC % (auto) 0.0 (0.0-0.2) /100WBC Sodium 142 (135-145) mmol/L Potassium 4.7 (3.3-5.1) mmol/L Chloride 104 (96-108) mmol/L Carbon Dioxide 26 (22-29) mmol/L Anion Gap 17 (12-20) BUN 23 H (9-16) mg/dL Creatinine 1.26 (0.5-1.4) mg/dL Estim Creat Clear Calc 28.0 Estimated GFR 40 Random Glucose 127 H (60-115) mg/dL Calcium 9.2 (8.4-10.2) mg/dL Magnesium 2.2 (1.6-2.6) mg/dL Total Bilirubin 0.5 (0.0-1.0) mg/dL AST 21 (5-31) U/L ALT 12 (0-31) U/L Alkaline Phosphatase 65 (39-117) U/L Troponin I High Sens 192.6 H* D 164.8 H* (<3.5-17.0) ng/L Total Protein 6.9 (6.5-8.0) g/dL Albumin 4.4 (3.5-5.0) g/dL Urine Color Yellow Urine Appearance Cloudy Urine pH 6.0 (5.0-9.0) Ur Specific [place] 1.010 (1.005-1.025) Urine Protein Negative (Neg-Trace) mg/dL Urine Glucose (UA) Negative (Negative) mg/dL Urine Ketones Negative (Negative) mg/dL Urine Blood Trace H (Negative) Urine Nitrite Positive H (Negative) Ur Leukocyte Esterase Large (3+) H (Negative) Urine RBC 0-2 (0-2) /HPF Urine WBC >50 H (0-5) /HPF Ur Squamous Epith Cells 3-5 (0-2) /HPF Urine Bacteria 4+ (None Seen) Hyaline Casts 0-2 (0-2) /LPF Independent Interpretation I performed an independent interpretation of an: EKG and Plain X-Ray Interpretation: I personally interpreted the EKG which revealed AFib without RVR Vent. Rate : 78 BPM Atrial Rate : * BPM P-R Int : * ms QRS Dur : 140 ms QT Int : 428 ms P-R-T Axes : * -41 114 degrees QTcB Int : 487 ms Atrial fibrillation Left axis deviation Left bundle branch block Abnormal ECG When compared with ECG of 20-Aug-2024 09:15, Atrial fibrillation has replaced Sinus rhythm I personally interpreted the XR lumbar spine which was negative for fracture, dislocation however did reveal degenerative changes of the spine. I agree with the radiologist's interpretation. Radiology Impression Discussion of test interpretation with radiology: I have reviewed the radiologist's reading. Radiologist Impression: XR lumbar spine Findings: Normal vertebral body alignment. Degenerative change and diffuse demineralization. No acute fracture or acute malalignment. Diffuse vascular calcification. IMPRESSION: No acute findings. Chronic changes. This document has been electronically signed by: Espinoza Shelton MD on 03/26/2025 09:15:53 Dictated By: Espinoza Shelton MD Signed By: <Electronically signed by Espinoza Shelton MD in OV> 03/26/25 0916 Independent Historian Clinical information obtained from an independent historian. History obtained from or confirmed by: Other (Daughter at bedside corroborating history) External Record Review External record reviewed: Inpatient record, Office record and Outpatient record Chronic Conditions Patient?s care impacted by: Hypertension and Other (HLD, mild/moderate aortic stenosis, hypothyroidism, stroke approximately 10 years ago, AFib ) Social Determinants Patient?s care significantly limited by Social Determinants of Health including: Other Social Determinant of Health Discharge Plan Discharge Clinical Impression: Strain of lumbar region, UTI (urinary tract infection) Patient Disposition: Home, Self-Care Instructions: Low Back Strain (ED), Lower Back Exercises (ED), Urinary Tract Infection in Older Adults (ED) Additional Instructions: You were evaluated in the ED today due to lumbar back pain. Your blood work was reassuring that there was no systemic infection, or electrolyte abnormality. Your urinalysis revealed infected urine. Your EKG today showed you were in AFib, your troponins were elevated, but 2nd troponin decreased slightly. I did reach out to the tire recapping machine operator on-call today who reviewed your information and agreed with me that you were safe to discharge home for self-care with follow up with Dr. Sebastian in April. You are being prescribed a 5 day course of cefuroxime which is an antibiotic for UTI. And a 5 day course of Flexeril which is a muscle relaxer for lumbar strain. I do encourage you to follow up with your primary care doctor to ensure improvement of UTI and back pain. Please return to the emergency department if you have worsening back pain, abdominal pain, fevers over 100.4?, chest pain, shortness of breath, palpitations, difficulty ambulating, or any new/worsening/concerning symptoms. Prescriptions: New cefuroxime axetil 500 mg tablet 500 mg PO BID Qty: 10 0RF cyclobenzaprine 5 mg tablet 5 mg PO BID PRN (Reason: muscle spasm) Qty: 10 0RF No Action rosuvastatin 5 mg tablet 5 mg PO DAILY 90 Days Qty: 90 3RF Rx Instructions: This Rx replaces the lovastatin triamterene-hydrochlorothiazid 37.5-25 mg tablet 1 tab PO DAILY Qty: 90 0RF amlodipine 5 mg tablet 5 mg PO DAILY Qty: 90 3RF Eliquis 5 mg tablet 5 mg PO BID Qty: 180 3RF levothyroxine 75 mcg tablet 75 mcg PO DAILY Qty: 90 3RF amiodarone 100 mg tablet 100 mg PO DAILY Qty: 90 0RF latanoprost 0.005 % Drops 1 drp OPHTHALMIC (EYE) BEDTIME hydralazine 50 mg tablet 50 mg PO BID trazodone 50 mg tablet 50 mg PO BEDTIME Qty: 60 1RF Rx Instructions: One q.h.s. for 1 week may increase to 2 tablets q.h.s. for insomnia baclofen 10 mg tablet 10 mg PO BEDTIME Qty: 20 0RF Interventions: ED Discharge Assessment Last Done: 03/26/25 14:55 Discharge Date/Time: 03/26/25 14:55 Print Language: Upper Sorbian
[2025-03-26 10:58] LABS: MANUAL DIFF FLAG NO
[2025-03-26 11:02] LABS: Hematocrit 42.0 % (37.0-47.0); Hemoglobin 14.3 g/dl (12.0-16.0); Imm Gran Abs Auto 0.04 X10*3/uL (0.00-0.03); Imm Gran Pct Auto 0.4 % (0.0-0.4); Lymphocytes Absolute Auto 1.5 X10*3/uL (1.2-4.9); Mean Corpuscular HGB Conc 34.0 g/dl (31.0-35.0); Mean Corpuscular Hemoglobin 29.8 pg (27.0-33.0); Mean Corpuscular Volume 87.5 fL (80.0-98.0); NRBC Abs Auto 0.000 X10*3/uL (0.0-0.012); NRBC Pct Auto 0.0 /100WBC (0.0-0.2); Platelet Count 206 X10*3/uL (160-400); Red Blood Count 4.80 X10*6/uL (4.20-5.50); White Blood Count 9.4 X10*3/uL (4.8-10.8)
[2025-03-26 11:15] LABS: Alanine Aminotransferase 12 U/L (0-31); Albumin Level 4.4 g/dL (3.5-5.0); Alkaline Phosphatase 65 U/L (39-117); Anion Gap 17 (12-20); Aspartate Amino Transferase 21 U/L (5-31); Blood Urea Nitrogen 23 mg/dL (9-16); Calcium 9.2 mg/dL (8.4-10.2); Carbon Dioxide 26 mmol/L (22-29); Chloride 104 mmol/L (96-108); Creatinine Clr Calc Pharmacy 28.0; Estimated Glomerular Filt Rate 40; Magnesium 2.2 mg/dL (1.6-2.6); Potassium 4.7 mmol/L (3.3-5.1); Sodium 142 mmol/L (135-145); Total Protein 6.9 g/dL (6.5-8.0)
[2025-03-26 11:24] LABS: Appearance Urine Cloudy; Glucose Urine UA Negative (Negative); PH 6.0 (5.0-9.0); Specific Gravity - Urine 1.010 (1.005-1.025); UMIC TRIGGER UACC YES
[2025-03-26 11:25] LABS: Troponin-I High Sensitivity 192.6 ng/L (<3.5-17.0)
[2025-03-26 12:01] VITALS: BP 153/62; PULSE 82; RESP 19; TEMP 36.4; O2SAT 98
[2025-03-26] MEDS: oxyCODONE HCl Immed Release 5 MG TABLET PO (12:13)
[2025-03-26 13:03] LABS: UACC Culture Trigger YES
[2025-03-26 13:47] LABS: Troponin-I High Sensitivity 164.8 ng/L (<3.5-17.0)
[2025-03-26 14:36] VITALS: BP 147/54; PULSE 95; RESP 19; TEMP 37; O2SAT 98
[2025-03-26 14:55] VITALS: BP 147/54; PULSE 95; RESP 19; TEMP 37; O2SAT 98
== END 2025-03-26 14:55 | disposition home or self-care (01) ==
PROVIDERS: Emergency Provider Emergency Medicine; PCP Internal Medicine
DX: M54.50 Low back pain, unspecified (principal); I48.91 Unspecified atrial fibrillation; Z79.01 Long term (current) use of anticoagulants; Z87.891 Personal history of nicotine dependence; Z79.899 Other long term (current) drug therapy
CPT/HCPCS: 36415; 72100; 80053; 81001; 83735; 84484; 85025; 87086; 87088; 87186; 93005; 99283; 99285

== ENCOUNTER → 2025-03-26 09:40 | Outpatient (BNV) | payer OTHER, SELFPAY | PROVIDERS: Emergency Provider Emergency Medicine; PCP Internal Medicine; Visit Provider Internal Medicine | DX: I44.7 Left bundle-branch block, unspecified (principal); I48.91 Unspecified atrial fibrillation | CPT/HCPCS: 93010 ==

== ENCOUNTER 2025-03-30 10:29 | Emergency (ER) | payer OTHER, MEDICAID, SELFPAY ==
--- NOTE | ~2025-03-30 | CT_ITS ---
EXAMINATION: CT LUMBAR SPINE WITHOUT CONTRAST TECHNIQUE: Axial imaging was performed from upper T12 through the lower sacrum coccygeal region without IV contrast. Coronal and sagittal reformatted images were generated from the original axial data set. ALARA: The examination used one or more of the following radiation dose reduction techniques: Automated exposure control, iterative reconstruction, and/or adjustment of mA and/or kV. DLP: 524 mGY*cm INDICATION: Severe pain after lifting PRIOR: X-ray on March 26, 2025 and MRI on November 28, 2018 FINDINGS: Severe vascular calcification is present, most pronounced in the abdominal aorta. There is mild convex left curvature of the lumbar spine. There are 5 [id number] lumbar segments. No fracture lines are evident. T12-L1: Unremarkable L1-L2: There is minimal loss disc height, subtle retrolisthesis, and broad-based disc bulge similar to the prior. L2-L3: There is mild broad-based disc bulge and facet arthropathy. There is mild loss of disc height, increased since the prior. L3-L4: There is mild to moderate loss of disc height, slightly increased since prior examination. There is circumferential broad-based disc bulge and moderate facet arthropathy with mild foraminal narrowing, slightly increased. Moderate spinal stenosis is asymmetric toward the right subarticular zone where there is probable disc extrusion and possibly a facet synovial cyst likely encroaching on the right L4 nerve root. L4-L5: Mild loss of disc height with circumferential broad-based disc bulge and moderate facet arthropathy has increased since prior examination. There is mild to moderate spinal stenosis and subarticular zone narrowing, greater on the left. Foraminal narrowing is minimal. L5-S1: There is mild loss disc height and vacuum phenomena with moderate facet arthropathy. There is endplate sclerosis and osteophytes. Moderate bilateral foraminal narrowing is increased. There is no definite spinal stenosis. CT/CT lumbar spine wo IV con IMPRESSION: Multilevel degenerative disc disease and facet arthropathy is increased since the prior examination with possible new disc herniation and/or synovial cyst from the facet extending into the right subarticular zone and medial foraminal region at L3-4 likely with compression of the right L4 nerve root. Consider nonemergent MRI of the lumbar spine for more complete characterization. Electronically signed by: Germán Lang MD 03/30/2025 11:41 AM EDT RP
[2025-03-30 10:36] VITALS: BP 132/86; PULSE 78; O2SAT 95
[2025-03-30 10:47] VITALS: BP 128/52; PULSE 97; RESP 16; TEMP 36.4; O2SAT 98; BMI 29.7
[2025-03-30] MEDS: oxyCODONE HCl Immed Release 5 MG TABLET PO ×2 (11:20→13:36)
--- NOTE | 2025-03-30 12:06 | ED_ITS ---
HPI - Back Pain/Injury General Chief Complaint: Back Pain/Injury Stated Complaint: LOWER BACK PAIN Time Seen by Provider: 03/30/25 11:08 Source: patient, family and EMS Mode of arrival: EMS Limitations: no limitations History of Present Illness ED Provider: HPI Narrative: 89-year-old woman with history of back issues, has a provider that manages her back, last week she was here when she lifted a mattress sustained back pain and presented to the ER, was discharged home on antibiotics for UTI it was confirmed with the culture, and few doses of Flexeril they did not help her, continues to have pain, daughter is with her states she is not safe at home unable to get up from a recliner, no falls no other trauma, no numbness in the lower extremities, no fevers or chills no chest pain. Related Data Home Medications ?Medication ?Instructions ?Recorded ?Confirmed latanoprost 0.005 % eye drops 1 drp ophthalmic (eye) B EDTIME 06/22/24 12/01/24 hydralazine 50 mg tablet 50 mg PO BID 08/20/24 Previous Rx's ?Medication ?Instructions ?Recorded rosuvastatin 5 mg tablet 5 mg PO DAILY 90 days #90 ta bs 04/19/24 triamterene 37.5 1 tab PO DAILY #90 tabs 12/0 10/18 mg-hydrochlorothiazide 25 mg tablet amlodipine 5 mg tablet 5 mg PO DAILY #90 tabs 08/17 trazodone 50 mg tablet 50 mg PO BEDTIME #60 tabs baclofen 10 mg tablet 10 mg PO BEDTIME #20 tabs apixaban 5 mg tablet (Eliquis) 5 mg PO BID #180 tabs 0 12/03/24 levothyroxine 75 mcg tablet 75 mcg PO DAILY #90 tabs 0 02/15/25 amiodarone 100 mg tablet 100 mg PO DAILY #90 tabs cefuroxime axetil 500 mg tablet 500 mg PO BID #10 tabs 03/26/25 cyclobenzaprine 5 mg tablet 5 mg PO BID PRN muscle spa sm #20 03/30/25 tabs lidocaine 5 % topical patch 1 patch topical DAILY #15 ea 03/30/25 oxycodone 5 mg tablet 5 mg PO Q6H PRN pain #10 tab s 03/30/25 walker #1 ea 03/30/25 Allergies Allergy/AdvReac Type Severity Reaction Status Date / Time lisinopril AdvReac Intermediate Unknown Verified 03/30/25 10:50 Review of Systems Constitutional: Constitutional: Reports as per HPI [facility] Past Medical History Medical History Aortic stenosis New onset left bundle branch block (LBBB) Left bundle branch block HTN (hypertension) Paroxysmal atrial fibrillation Hyperlipidemia Knee pain Vitamin D insufficiency Hypothyroidism Osteoporosis of lumbar spine Surgical History History of removal of cyst Family History Family History Father Emphysema, unspecified Mother History of heart attack Brother Cancer of prostate Sister Ovarian cancer Sister Ovarian cancer Son History of heart attack Malignant melanoma Son No problems noted. Son No problems noted. Daughter No problems noted. Other Substance use disorder Social History Social History Household Members: None Housing: Other Housing Other:: Mobile Home Do you presently have visiting nurse or other home services: No Unable to assess alcohol history related to: Unknown Alcohol intake: former Comment: refusing alarms Patient Tobacco Use Status: Former Tobacco user Smoked in Last 30 Days: No e-Cigarette/Vaping Use: Never Used Second Hand Smoke Exposure: No Use of substances other than those prescribed or required for medical reasons: Unknown Advance Directives: Yes Advance Directives on File: Yes Advance Directives Date on File: 08/20/24 service: No Current occupational status: retired Cognitive needs: No Hearing needs: No Vision needs: Yes (glasses) Physical Exam Vital Signs: Vital Signs: Last Vital Signs Temp 97.6 F 03/30/25 10:47 Pulse 97 03/30/25 10:47 Resp 16 03/30/25 10:47 BP 128/52 L 03/30/25 10:47 Pulse Ox 98 03/30/25 10:47 O2 Del Method Room Air 03/30/25 10:47 BMI result Body Mass Index 29.7 Const: Other: * Gen: ?Overall well-appearing patient, no facial trauma * HEENT: PERRLA, * Neck: Supple, no LAD * CV: RRR, no obvious murmurs appreciated * Resp: ?No wheezing rales rhonchi no stridor moving air well * Abd: ?Bowel sounds are present, no tenderness no rebound no rigidity * MSK: FROM, strength 5/5 all extremities, was able to lift up her legs from the gurney, right upper extremities weaker than the left, paraspinal muscle tenderness with mid incisional scar, no rashes no erythema * Skin: Warm, dry, intact, * Neuro: ?Alert and oriented x3, moving upper and lower extremities symmetrically, no obvious facial asymmetry noted Medications Administered Discontinued Medications Generic Name Dose Route Start Last Admin Trade Name Freq PRN Reason Stop Dose Admin Acetaminophen 975 mg 03/30/25 11:35 03/30/25 13:36 Acetaminophen 325 Mg Tablet PO 03/30/25 11:36 975 mg ONCE ONE Administration Lidocaine 1 patch 03/30/25 11:35 03/30/25 13:36 Lidocaine 4 % Patch Adh..Patch TRANSDERMA 03/30/25 11:36 1 patch ONCE ONE Administration Protocol Ondansetron HCl 4 mg 03/30/25 10:55 03/30/25 11:21 Ondansetron Odt 4 Mg Tab.Rapdis TRANSLINGU 03/30/25 10:56 4 mg ONCE ONE Administration Ondansetron HCl 4 mg 03/30/25 11:35 03/30/25 13:56 Ondansetron Odt 4 Mg Tab.Rapdis TRANSLINGU 03/30/25 11:36 Not Given ONCE ONE Oxycodone HCl 5 mg 03/30/25 10:55 03/30/25 11:20 Oxycodone Hcl Immed Release 5 Mg Tablet PO 03/30/25 10:56 5 mg ONCE ONE Administration Oxycodone HCl 5 mg 03/30/25 11:35 03/30/25 13:36 Oxycodone Hcl Immed Release 5 Mg Tablet PO 03/30/25 11:36 5 mg ONCE ONE Administration Medical Decision Making Medical Decision Making MDM Narrative: Patient's CT reveals chronic changes and seems like there is disc extrusion and possibly facet synovial cyst encroaching on the right L4 nerve root but no acute trauma noted, patient is in discomfort, she is on blood thinners unable to take anti-inflammatories, was discharged home with Flexeril and has appointment with her back surgeon on April 07 but at this point is unable to provide care for herself at home she is not able to get up the stretcher, discussed with the patient that ultimately she needs to go to SNF, patient's daughter agrees and patient agrees though she is not happy about this, we will medicate for pain, we will continue antibiotics as she did test positive for E coli pansensitive, patient wishes to be DNR. Patient has had blood work, urinalysis ECG done on 03/26/2025, did not feel that additional blood work or urinalysis going to contribute to her presentation and disposition at this time. 16:00 VNA, PT at home by case management, with a walker prescription Differential Diagnosis Differential Diagnoses: The differential diagnosis associated with the presentation includes (Dehydration, anemia, UTI, back injury, cauda equina, lumbar myelopathy) Admission/Observation Consideration of admission/observation: Escalation of care including admission/observation considered Lab Data MDM Lab Attestation statement: I reviewed the patient's lab results. Labs: Lab Results 03/30/25 Range/Units 11:56 Influenza Type A (PCR) NEGATIVE (Negative) Influenza Type B (PCR) NEGATIVE (Negative) RSV RNA Qual (PCR) NEGATIVE (Negative) SARS-CoV-2 RNA (RT-PCR) NEGATIVE (Negative) Independent Interpretation I performed an independent interpretation of an: EKG (78 beats per minute left bundle-branch block, in AFib this is from 03/26/2023) and CT Scan Radiology Impression Discussion of test interpretation with radiology: I have reviewed the radiologist's reading. (MPRESSION: Multilevel degenerative disc disease and face t arthropathy is increased since the prior examination with possible new disc herniation and/or synovial cyst from the facet extending into the right subarticular zone and medial foraminal region at L3-4 likely with compression of the right) Independent Historian Clinical information obtained from an independent historian. History obtained from or confirmed by: EMS and Other (Daughter) External Record Review External record reviewed: Prior outpatient radiology Tests considered The following testing was considered but not selected: MRI LS spine, no indication for urgent imaging Prescription Management I considered prescription management with: Pain Medication Discharge Plan Discharge Clinical Impression: Low back pain Qualifiers: Chronicity: acute Back pain laterality: midline Sciatica presence: without sciatica Qualified Code(s): M54.50 - Low back pain, unspecified Patient Disposition: Home, Self-Care Instructions: Acute Low Back Pain (ED) Additional Instructions: Case management we will arrange visiting services, walker prescription provided as well as pain medications, lidocaine patches, follow up with the PCP and your back doctor, any other issues or concerns come back to the ER Lidocaine patches and oxycodone as prescribed and as needed, use Tylenol before use oxycodone, CT with lots of chronic changes though need to be addressed likely with some local steroid injections, possibly surgical intervention but this is to be discussed with the your neuro surgical provider Prescriptions: New (DME) walker Misc See Rx Instructions .Route Qty: 1 0RF Rx Instructions: Wheeled walker to be used throughout the day oxycodone 5 mg tablet 5 mg PO Q6H PRN (Reason: pain) Qty: 10 0RF Rx Instructions: Partial Fill upon patient request. lidocaine 5 % adhesive patch,medicated 1 patch topical DAILY Qty: 15 0RF Rx Instructions: leave on most painful area for up to 12 hrs No Action rosuvastatin 5 mg tablet 5 mg PO DAILY 90 Days Qty: 90 3RF Rx Instructions: This Rx replaces the lovastatin triamterene-hydrochlorothiazid 37.5-25 mg tablet 1 tab PO DAILY Qty: 90 0RF amlodipine 5 mg tablet 5 mg PO DAILY Qty: 90 3RF Eliquis 5 mg tablet 5 mg PO BID Qty: 180 3RF levothyroxine 75 mcg tablet 75 mcg PO DAILY Qty: 90 3RF amiodarone 100 mg tablet 100 mg PO DAILY Qty: 90 0RF cyclobenzaprine 5 mg tablet 5 mg PO BID PRN (Reason: muscle spasm) Qty: 20 0RF cefuroxime axetil 500 mg tablet 500 mg PO BID Qty: 10 0RF latanoprost 0.005 % Drops 1 drp OPHTHALMIC (EYE) BEDTIME hydralazine 50 mg tablet 50 mg PO BID trazodone 50 mg tablet 50 mg PO BEDTIME Qty: 60 1RF Rx Instructions: One q.h.s. for 1 week may increase to 2 tablets q.h.s. for insomnia baclofen 10 mg tablet 10 mg PO BEDTIME Qty: 20 0RF Print Language: Emirati
--- NOTE | 2025-03-30 12:20 | PC.NURSE ---
Pt sleeping, will defer giving pain medication until awake.
--- NOTE | 2025-03-30 12:31 | MHC.CM.ED ---
Received case management consult from Dr Arias. Patient came to the ER due to back pain. Work up essentially negative. Physical therapy eval is ordered and pending. Met with patient and daughter, Marti in regards to discharge planning. Patient was living alone until recently when daughter Marti moved in with patient. Patient ambulates independently at baseline and had no services prior to coming to the ER. [facility] was offered in the past but patient declined at that time. Patient was able to clean her house at that time. Marti feels patient may need MOW and a HEAD CORRECTION OFFICER. Referral will be sent to [facility] to reach out to patient or daughter. PCP verified. Patient's son, Wicho has a copy of patient's HCP. Marti will ask her brother to fax a copy of her HCP to CM. Patient has never been to STR. STR vs home with VNA discussed with patient and Marti. Patient has [employer] Medicare, which is not contracted with a lot of facilities. Both are agreeable to referral being broadcasted locally for bed offers in case STR is recommended. Referral will also be broadcasted for VNA in case home with services is recommended. Patient and Marti are aware CM will meet again to discuss PT eval recommendations and d/c plan. Continue to monitor for d/c needs.
[2025-03-30 12:43] LABS: Resp Syncy Virus RNA Qual PCR NEGATIVE (Negative); SARS COV2 PCR INHOUSE NEGATIVE (Negative)
[2025-03-30] MEDS: Lidocaine 4 % Patch ADH..PATCH 1 PATCH TRANSDERMA (13:36)
[2025-03-30 16:19] VITALS: BP 128/52; PULSE 97; RESP 16; TEMP 36.4; O2SAT 98
--- NOTE | 2025-03-30 20:25 | MHC.CM.ED ---
Addendum entered by Tameka Speras 03/31/25 18:03: Initial VNA's (6) all denied services. 24 additional referrals for VNA/PT made. Daughter aware. CM will continue to follow. Original Note: CM met with patient and daughter to discuss discharge planning. PT recommends STR, but also recommends home PY with wheeled walker. Pt adamantly refuses STR. Daughter lives with patient. Daughter does work. Has questions about becoming a paid MOTHER TESTER. Enc daughter to call insurance [employer]. Pt has [employer] PPO, which is a dual product. 7 referrals made to home care agencies. HCP received and uploaded into [facility] and [facility]. F2F will be completed and uploaded to facility that offers care. Pt discharged to home. CM will follow up tomorrow with agency offers.
--- NOTE | 2025-04-01 15:50 | MHC.CM.ED ---
Pt has [employer]. Declined STR. Wanted home PT. 30 referrals made. No acceptances x 2 days. Either staff shortage or they do not accept the insurance. MARQUISE called her daughter, Ayala to explain the situation. Suggested Ayala speak with the PCP to arrange O.P PT. Ayala tells MARQUISE her mother has an appointment on 04/07. Ayala lives with her mother. States her mother is doing well.
== END 2025-03-30 16:33 | disposition home or self-care (01) ==
PROVIDERS: Emergency Provider Emergency Medicine; PCP Internal Medicine
DX: M54.9 Dorsalgia, unspecified (principal); M54.50 Low back pain, unspecified; M81.8 Other osteoporosis without current pathological fracture; I44.7 Left bundle-branch block, unspecified; I48.0 Paroxysmal atrial fibrillation; Z79.899 Other long term (current) drug therapy
CPT/HCPCS: 72131; 87637; 97162; 99284

== ENCOUNTER → 2025-03-30 10:55 | Outpatient (BNV) | payer OTHER, SELFPAY | PROVIDERS: Emergency Provider Emergency Medicine; PCP Internal Medicine; Visit Provider Radiology Diagnostic Radiology | DX: M51.369 Other intervertebral disc degeneration, lumbar region without mention of lumbar back pain or lower extremity pain (principal) | CPT/HCPCS: 72131 ==

== ENCOUNTER 2025-04-07 14:31 | Outpatient (AMB) | payer OTHER, MEDICAID, SELFPAY ==
--- NOTE | 2025-04-07 15:01 | MHC.PC.OV ---
Vital Signs 04/07/25 15:02 Height 5 ft 3 in Weight 163 lb BMI 28.9 BP 148/80 H Blood Pressure Location Rt brachial Position Sitting Respiration 15 Pulse 105 H Pulse Source Pulse Oximeter Temp 97.9 F Temp Source Oral Pulse Oximetry (%) 95 Oxygen Delivery Method Room Air Intake Visit Reasons: transfer from Dr. Orantes/maddie/kimber [facility] Intake Note: Pt is here today, transfer from Dr. Orantes/huma [facility] Allergies lisinopril Adverse Reaction (Intermediate, Verified 04/07/25 15:10) Unknown Tobacco use date assessed: 04/07/25 Fall risk assessment: No Falls in past year Last assessed Fall Risk: 04/07/25 Dental Screening Dental Screen Date: 04/07/25 Did you have a dental visit in the last 12 months?: No Did you have a dental problem in the last 6 months where you did not have access to dental care?: No Was dental information given to patient?: Patient declined [facility] Medical History Aortic stenosis New onset left bundle branch block (LBBB) Left bundle branch block HTN (hypertension) Paroxysmal atrial fibrillation Hyperlipidemia Knee pain Vitamin D insufficiency Hypothyroidism Osteoporosis of lumbar spine Surgical History History of removal of cyst Family History Father Emphysema, unspecified Mother History of heart attack Brother Cancer of prostate Sister Ovarian cancer Sister Ovarian cancer Son History of heart attack Malignant melanoma Son No problems noted. Son No problems noted. Daughter No problems noted. Other Substance use disorder Social History Household Members: None Housing: Other Housing Other:: Mobile Home Do you presently have visiting nurse or other home services: No Unable to assess alcohol history related to: Unknown Alcohol intake: former Comment: refusing alarms Patient Tobacco Use Status: Former Tobacco user e-Cigarette/Vaping Use: Never Used Second Hand Smoke Exposure: No Advance Directives Date on File: 08/20/24 service: No Current occupational status: retired Cognitive needs: No Hearing needs: No Vision needs: Yes (glasses) Questionnaire PHQ-9 Over the last 2 weeks, how often have you been bothered by any of the following problems? 1. Little interest or pleasure in doing things: not at all 2. Feeling down, depressed, or hopeless: several days 3. Trouble falling or staying asleep, or sleeping too much: nearly every day 4. Feeling tired or having little energy: nearly every day 5. Poor appetite or overeating: nearly every day 6. Feeling bad about yourself - or that you are a failure or have let yourself or your family down: nearly every day 7. Trouble concentrating on things, such as reading the newspaper or watching television: nearly every day 8. Moving or speaking so slowly that other people could have noticed. Or the opposite - being so fidgety or restless that you have been moving around a lot more than usual: nearly every day 9. Thoughts that you would be better off or of hurting yourself in some way: nearly every day Total score: 22 Depression Screening Interpretation: Positive (Patient will be referred to a counselor and trazodone 50 mg q.h.s. will be started.) Depression Screening Follow-up: New Medication prescribed Depression Screening Done: Yes Source: Developed by Drs. Joel Alejandra, Genie Wilson, Maykel Nam and colleagues, with an educational chato from [employer]. Thrive Questionnaire Date Thrive assessed: 11/18/24 I am a: Patient What is your living situation today?: I have a steady place to live Within the past 12 months, did the food you bought not last and you didn't have the money to get more?: I choose not to answer this question Within the past 12 months, did you worry whether your food would run out before you got money to buy more?: I choose not to answer this question Do you have trouble paying for medicines?: No Do you have trouble getting transportation to medical appointments?: No Do you have trouble paying your heating and electricity bill?: No Do you have trouble taking care of your child, family member or friend?: I choose not to answer this question Do you have trouble with day-to-day activities such as bathing, preparing meals, shopping, managing finances, etc.?: I choose not to answer this question Are you currently unemployed and looking for a job?: I choose not to answer this question Are you interested in more education?: I choose not to answer this question Please select the resources that you would like help with: None THRIVE Score: 0 AUDIT C Alcohol Use Questionnaire (AUDIT-C) 1. How often do you have a drink containing alcohol?: Never 3. How often do you have six or more drinks on one occasion?: Never Total Score: 0 SANIYA-7 AMB Questionnaire SANIYA-7 Date SANIYA - 7 assessed: 09/03/24 Feeling nervous, anxious, or on edge: 0 = Not at all Not being able to stop or control worryin = Not at all Worrying too much about different things: 0 = Not at all Trouble relaxin = Not at all Being so restless that it is hard to sit still: 0 = Not at all Becoming easily annoyed or irritable: 0 = Not at all Feeling afraid as if something awful might happen: 0 = Not at all Total SANIYA-7 score (0-4 normal; 5-9 mild; 10-14 moderate; 15-21 severe): 0 Source: Developed by Drs. Joel Alejandra, Genie Wilson, Maykel Nam and colleagues, with an educational chato from [employer]. Physical exam (Primary Care) Vital Signs: Last Vital Signs Temp 97.9 F 04/07/25 15:02 Pulse 105 H 04/07/25 15:02 Resp 15 04/07/25 15:02 BP 148/80 H 04/07/25 15:02 Pulse Ox 95 04/07/25 15:02 Oxygen Delivery Method Room Air 04/07/25 15:02 BMI result Body Mass Index 28.9 Tobacco/Smoking Status: Tobacco use Status Tobacco use date assessed 04/07/25 04/07/25 15:17 Patient Tobacco Use Status Former Tobacco user 04/07/25 15:04 e-Cigarette/Vaping Use Never Used 04/07/25 15:04 PHQ-9: PHQ-9 Score PHQ-9: Total score 22 04/07/25 15:28 Depression Screening Interpretation: Positive (Patient will be referred to a counselor and trazodone 50 mg q.h.s. will be started.) Depression Screening Follow-up: New Medication prescribed Thrive Assessment: Date of Thrive Assessment Date Thrive assessed 11/18/24 04/07/25 15:04 Results AMB Urinalysis, Automated UA Leukoctes 125 [place]/uL Last Edit by Juliana Shelton, DIVYA on 04/07/25 15:28 UA Nitrite Negative Last Edit by Juliana Shelton, DIVYA on 04/07/25 15:28 UA Urobilinogen 0.2 mg/dL Last Edit by Juliana Shelton, DIVYA on 04/07/25 15:28 UA Protein 0 mg/dL Last Edit by Juliana Shelton, DIVYA on 04/07/25 15:28 UA pH 7.0 Last Edit by Juliana Shelton, DIVYA on 04/07/25 15: UA Blood 0 Hasmukh/uL Last Edit by Juliana Shelton, DIVYA on 04/07/25 15:28 UA Specific Jackman 1.010 Last Edit by Juliana Shelton, DIVYA on 04/07/25 15:28 UA Ketone Negative Last Edit by Juliana Shelton, DIVYA on 04/07/25 15:28 UA Bilirubin 0 mg/dL Last Edit by Juliana Shelton, DIVYA on 04/07/25 15:28 UA Glucose 0 mg/dL Last Edit by Juliana Shelton, DIVYA on 04/07/25 15:28 Results Reviewed Results Reviewed: Laboratory Last Values Urine pH (Auto) 7.0 04/07/25 15:26 Specific Jackman (Auto) 1.010 04/07/25 15:26 Urine Protein (Auto) 0 mg/dL 04/07/25 15:26 Glucose (UA)(Auto) 0 mg/dL 04/07/25 15:26 Urine Ketones (Auto) Negative 04/07/25 15:26 Urine Blood (Auto) 0 Hasmukh/uL 04/07/25 15:26 Urine Nitrite (Auto) Negative 04/07/25 15:26 Urine Bilirubin (Auto) 0 mg/dL 04/07/25 15:26 Urine Urobilinogen (Auto) 0.2 mg/dL 04/07/25 15:26 Leukocyte Esterase (Auto) 125 [place]/uL 04/07/25 15:26 Coding Level of Care Code Est Pt Level 4 (80933) Diagnoses Low back pain M54.50 Assessment & Plan Assessment & Plan (1) Low back pain: Code(s): M54.50 - Low back pain, unspecified Plan: Seen today by Dr. Carson who placed her on a tapering dose of prednisone and advise her to take Tylenol arthritis 650 mg twice a day. Urinalysis showed only presence of leukocytes, no nitrites no bilirubin and no blood seen. Patient without any urinary symptoms. Continue with treatment as per her neurosurgeon, she is also scheduled to start physical therapy Orders: Orders AMB Urinalysis Automated Today Z13.9 - Encounter for screening, unspecified
[2025-04-07 15:02] VITALS: BP 148/80; PULSE 105; RESP 15; TEMP 36.6; O2SAT 95; BMI 28.9
--- OUTSIDE RECORDS SUMMARY | 2025-04-07 18:14 | XMS_ITS | Patient Health Record ---
Author Organization [facility] Main Address [address] [place] [address] Care Team Providers Care Police Surgeon Name Role Phone ROSE COBB Primary Care [...] Status Risk Notes Problem Paroxysmal atrial fibrillation (223735839) Paroxysmal atrial fibrillation (I48.0) Active confirmed Problem Essential hypertension (99317055) Essential hypertension (I10) Active confirmed Problem Dyslipidemia (508960803) Dyslipidemia (E78.5) Active confirmed Problem Hypothyroidism (20607666) Hypothyroidism (acquired) (E03.9) Active confirmed Problem Left bundle branch block (41626048) Left bundle branch block (I44.7) Active confirmed Problem Aortic valve disease (4617149) Aortic valve disease (I35.9) Active confirmed Problem Aortic valve stenosis (90174316) Aortic valve stenosis (I35.0) Active confirmed Problem Cerebrovascular disease (88979602) Cerebral vascular disease (I67.9) Active confirmed Plan [...] Surgery Date(Month/Year) Cardioversion Hospitalization History Reason Date(Month/Year) [facility]ecostal Adriel 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
== END 2025-04-07 15:50 | disposition home or self-care (01) ==
LOC: HO.HMCC 14:31
PROVIDERS: PCP Internal Medicine; Visit Provider Internal Medicine
DX: Z13.9 Encounter for screening, unspecified (principal)

== ENCOUNTER → 2025-04-07 14:31 | Outpatient (BNVA) | payer OTHER, MEDICAID, SELFPAY | PROVIDERS: PCP Internal Medicine; Visit Provider Internal Medicine | DX: M54.50 Low back pain, unspecified (principal); M51.369 Other intervertebral disc degeneration, lumbar region without mention of lumbar back pain or lower extremity pain; Z87.440 Personal history of urinary (tract) infections | CPT/HCPCS: 81003 ==

== ENCOUNTER 2025-04-11 07:49 | Outpatient (AMB) | payer OTHER, SELFPAY ==
--- OUTSIDE RECORDS SUMMARY | 2025-04-11 07:52 | XMS_ITS | Patient Health Record ---
Author Organization [facility] Main Address [address] [place] [facility] [address] Care Team Providers Care Hand Sewer Shoes Name Role Phone ROSE COBB Primary Care [...] Status Risk Notes Problem Paroxysmal atrial fibrillation (907932266) Paroxysmal atrial fibrillation (I48.0) Active confirmed Problem Essential hypertension (71198207) Essential hypertension (I10) Active confirmed Problem Dyslipidemia (146262004) Dyslipidemia (E78.5) Active confirmed Problem Hypothyroidism (97002736) Hypothyroidism (acquired) (E03.9) Active confirmed Problem Left bundle branch block (63019524) Left bundle branch block (I44.7) Active confirmed Problem Aortic valve disease (9459016) Aortic valve disease (I35.9) Active confirmed Problem Aortic valve stenosis (02426192) Aortic valve stenosis (I35.0) Active confirmed Problem Cerebrovascular disease (30514207) Cerebral vascular disease (I67.9) Active confirmed Plan [...] Surgery Date(Month/Year) Cardioversion Hospitalization History Reason Date(Month/Year) 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
[2025-04-11 08:10] VITALS: BP 140/72; PULSE 89; BMI 28.1
--- NOTE | 2025-04-11 08:10 | MHC.OFFVIS ---
Vital Signs 04/11/25 08:10 Height 5 ft 3 in Weight 158 lb 11.725 oz BMI 28.1 BP 140/72 H Blood Pressure Location Lt brachial Position Sitting Pulse 89 Pulse Source Monitor Intake Visit Reasons: FU/ER 03/26/25 Outsole Beveler Required: No Allergies lisinopril Adverse Reaction (Intermediate, Verified 04/11/25 08:13) Unknown Medication List - Last Reconciled 04/11/25 by Yamila Miles, MACHINE PULLER OVER-C amiodarone 100 mg PO DAILY NS amlodipine 5 mg PO DAILY apixaban (Eliquis) 5 mg PO BID baclofen 10 mg PO BEDTIME hydralazine 50 mg PO BID latanoprost 0.005% 1 drp ophthalmic (eye) BEDTIME levothyroxine 75 mcg PO DAILY rosuvastatin 5 mg PO DAILY 90 days triamterene-hydrochlorothiazid 37.5-25 mg 1 tab PO DAILY walker Wheeled walker to be used throughout the day HPI HPI FU/ER 03/26/25: Details: Lisa is an 89-year-old female with past medical history of hypertension, hyperlipidemia, CVA, left bundle branch block, dfii-of-otjavupc aortic stenosis, paroxysmal atrial fibrillation treated with rhythm control who was recently seen in ED with musculoskeletal back discomfort, UTI. Her EKG did show atrial fibrillation with controlled heart rate. Her troponins were elevated however she has chronically elevated readings whenever they are checked. She now presents for follow-up. Today she reports that her back discomfort has fully resolved. She said it was from lifting the side of her full size mattress when putting the sheets on. She describes being very physically active and recently did all her heart yard work with trimming of branches which she tolerated very well. With the AFib she believes she has some mild anxiety in her chest. She does not feel true heart palpitations. No chest discomfort at rest or during activity. No shortness of breath, PND, orthopnea or edema. No lightheadedness, presyncope, syncope, falls. Compliant with meds. No bleeding issues reported with Eliquis use. [facility] Medical History (Updated 04/11/25 @ 11:40 by Yamila Miles, MACHINE PULLER OVER-C) Left bundle branch block Aortic stenosis New onset left bundle branch block (LBBB) HTN (hypertension) Paroxysmal atrial fibrillation Hyperlipidemia Knee pain Vitamin D insufficiency Hypothyroidism Osteoporosis of lumbar spine Surgical History History of removal of cyst Family History Father Emphysema, unspecified Mother History of heart attack Brother Cancer of prostate Sister Ovarian cancer Sister Ovarian cancer Son History of heart attack Malignant melanoma Son No problems noted. Son No problems noted. Daughter No problems noted. Other Substance use disorder Social History Household Members: None Housing: Other Housing Other:: Mobile Home Do you presently have visiting nurse or other home services: No Unable to assess alcohol history related to: Unknown Alcohol intake: former Comment: refusing alarms Patient Tobacco Use Status: Former Tobacco user e-Cigarette/Vaping Use: Never Used Second Hand Smoke Exposure: No Advance Directives Date on File: 08/20/24 service: No Current occupational status: retired Cognitive needs: No Hearing needs: No Vision needs: Yes (glasses) Review of Systems Const All systems reviewed & are unremarkable except as noted in HPI and below ENT Denies dizziness Card Details: Chest feels anxious Denies chest pain, Denies chest pain at rest, Denies chest pain with activity, Denies rapid heart rate, Denies pedal edema, Denies edema, Denies leg edema, Denies lightheadedness, Denies palpitations, Denies dyspnea, Denies dyspnea on exertion and Denies orthopnea Resp Denies cough, Denies dyspnea and Denies dyspnea on exertion GI Denies hematochezia and Denies change in stool character Musc Denies abnormal gait, Denies limited range of motion, Denies muscle cramps, Denies muscle weakness, Denies numbness, Denies radiating pain into limb, Denies stiffness and Denies tingling Neuro Denies abnormal gait, Denies dizziness, Denies numbness and Denies tingling Endo Denies palpitations Physical Exam Vital Signs: Last Vital Signs Pulse 89 04/11/25 08:10 BP 140/72 H 04/11/25 08:10 BMI result Body Mass Index 28.1 Const General: cooperative, healthy appearing, comfortable and no acute distress Orientation/consciousness: patient oriented x3 Neck Neck: Yes normal visual inspection and Yes no JVD Resp Effort & Inspection: normal respiratory effort Auscultation: clear to auscultation bilaterally, no rales, no rhonchi and no wheezes Cardio Rate: regular rate Rhythm: abnormal rhythm Heart sounds: S1 normal heart sound present, S2 normal heart sound present, no gallops, no murmurs and no rubs Neuro General: patient oriented x3 Extrem General: Yes normal to inspection, No no pedal edema and No calf tenderness Psych Appearance: grossly normal Mental Status: mental status grossly normal Speech and movement: Normal speech and movement present Office Procedures EKG Details: Today, read by me, atrial fibrillation, left axis deviation, left bundle branch block, rate 89, QTC 493 millisecond [id number], Complete Assessment & Plan Assessment & Plan (1) Paroxysmal atrial fibrillation: Comment: Established with Cardiology Dr. Sebastian Code(s): I48.0 - Paroxysmal atrial fibrillation Category: Medical Plan: History of paroxysmal atrial fibrillation treated with rhythm control using amiodarone. Recent finding of recurrent AFib which has been persistent. EKG today showing atrial fibrillation, rate 89. She does have an anxiety feeling in her chest. Reviewed with Dr. Sebastian. Will reload with amiodarone and plan for cardioversion if she does not convert. Will have her increase amiodarone to 200 mg b.i.d. for 1 month. Will check office EKG in 1 week and then again in 1 month. Continue Eliquis for anticoagulation without interruption. At present we will keep her next office visit as scheduled for May. (2) Aortic stenosis: Comment: Echo 06/19 mild-moderate calcific , Echo 05/2024 EF 55-60%, josue MV, mild MS, mild-mod , f/u Dr. Sebastian Code(s): I35.0 - Nonrheumatic aortic (valve) stenosis Category: Medical Plan: History of aortic stenosis with most recent echocardiogram 06/02/2024 showing EF 55-60%, mild LVH, vzha-cm-yheshkni calcific aortic stenosis with mean gradient 13 mmHg. Currently asymptomatic. Will follow with periodic echoes. (3) Essential hypertension: Code(s): I10 - Essential (primary) hypertension Category: Medical Plan: Blood pressure goal less than 140/90. Blood pressure adequately controlled at this time, 140/72. Labs 03/26/2025 showed potassium 4.7, creatinine 1.26. Continue amlodipine, hydralazine, triamterene/hydrochlorothiazide. (4) On amiodarone therapy: Code(s): Z79.899 - Other termite exterminator (current) drug therapy Category: Medical Plan: On amiodarone which had been low-dose however now increasing up to 200 mg b.i.d. for 1 month as reload. Then plan will be to go to 200 mg daily. Last chest x-ray 08/20/2024 showed COPD, no acute findings. Labs 03/26/2025 showed normal AST and ALT, TSH 0.38. (5) Left bundle branch block: Code(s): I44.7 - Left bundle-branch block, unspecified Category: Medical Plan: History of chronic left bundle branch block. Most recent echocardiogram with normal EF. Plan I discussed with the patient the current status of her atrial fibrillation and the importance of continuing Eliquis for anticoagulation. We reviewed increasing her amiodarone dose to reload in her system. After a month's time we will plan for a outpatient cardioversion procedure if she remains in AFib. We reviewed the stability of her heart murmur and the resolution of her urinary tract infection. I advised her to avoid heavy lifting to prevent further back strain. Follow-up with cardiology was recommended to monitor her atrial fibrillation. Medications: New amiodarone 200 mg - take 1 tablet twice a day for 1 month - THEN REDUCE dose to 200mg Once daily 200 mg PO BID 60 tabs 1RF 30 days Discontinued amiodarone Discontinued Reason: Doctor's Order 100 mg PO DAILY 90 tabs 0RF NS Patient Instructions: - Continue taking Eliquis as prescribed. - increase amiodarone as directed - attend follow-up appointments for EKG monitoring. - Avoid heavy lifting to prevent back strain. - Monitor for any new symptoms such as chest pain or shortness of breath and report them immediately. - Follow up with cardiology as advised. Patient was informed and verbally consented to the use of an ambient scribe for clinic note documentation during this visit. Visit time spent on chart review, interview, assessment, orders, documentation. Coding Level of Care Code Est Pt Level 4 (39373) Complex EM visit Add On G2211 Diagnoses Paroxysmal atrial fibrillation I48.0 Aortic stenosis I35.0 Essential hypertension I10 On amiodarone therapy Z79.899 Left bundle branch block I44.7 CPT Codes EKG - CPT: 78715-Cryqterwstnlzfclt, Complete ([id number]) Time Spent (min) 32
== END 2025-04-11 08:42 | disposition home or self-care (01) ==
LOC: HO.HCS 07:49
PROVIDERS: PCP Internal Medicine; Visit Provider Nurse Practitioner Family
DX: I48.0 Paroxysmal atrial fibrillation (principal); I35.0 Nonrheumatic aortic (valve) stenosis; I10 Essential (primary) hypertension; Z79.899 Other long term (current) drug therapy; I44.7 Left bundle-branch block, unspecified
CPT/HCPCS: 93010; 99214; G2211

== ENCOUNTER → 2025-04-11 07:49 | Outpatient (BNVA) | payer OTHER, SELFPAY | PROVIDERS: PCP Internal Medicine; Visit Provider Nurse Practitioner Family | DX: I48.0 Paroxysmal atrial fibrillation (principal) | CPT/HCPCS: 93005 ==

== ENCOUNTER 2025-05-20 11:12 | Day surgery (SDC) | payer OTHER, SELFPAY ==
--- OUTSIDE RECORDS SUMMARY | 2025-05-12 14:58 | XMS_ITS | Patient Health Record ---
Author Organization [facility] Main Address [address] [place] [address] Care Team Providers Care Supervisor Correspondence Section Name Role Phone ROSE COBB Primary Care [...] Status Risk Notes Problem Paroxysmal atrial fibrillation ([id number]) Paroxysmal atrial fibrillation (I48.0) Active confirmed Problem Essential hypertension (22946106) Essential hypertension (I10) Active confirmed Problem Dyslipidemia (598563863) Dyslipidemia (E78.5) Active confirmed Problem Hypothyroidism (24752195) Hypothyroidism (acquired) (E03.9) Active confirmed Problem Left bundle branch block (45643527) Left bundle branch block (I44.7) Active confirmed Problem Aortic valve disease (0408226) Aortic valve disease (I35.9) Active confirmed Problem Aortic valve stenosis (24576098) Aortic valve stenosis (I35.0) Active confirmed Problem Cerebrovascular disease (16826537) Cerebral vascular disease (I67.9) Active confirmed Plan [...] Surgery Date(Month/Year) Cardioversion Hospitalization History Reason Date(Month/Year) Baptism Adriel 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
--- NOTE | 2025-05-18 10:48 | HO.ANESPROP2 ---
HPI - Anesthesia Eval Consult details Narrative: 89 yr old female for cardioversion Atrial fibrillation: EKG from 05/10/25 showing aflutter, AV block, rate 93; on amiodorone, eliquis Aortic stenosis: echo from 05/2024 with mean gradient 13, AV area 1.11 Left bundle branch block: EF 55-60% [facility] Active Problems Active Problems: All Active Problems Left bundle branch block (Acute) On amiodarone therapy (Acute) Neck pain (Acute) Anxiety and depression (Acute) Aortic stenosis (Acute) Benign positional vertigo (Acute) Anxiety (Acute) Right leg swelling (Acute) Sciatica (Acute) Callus of foot (Acute) Chronic kidney disease, stage 3 (Acute) Edema (Acute) HTN (hypertension) (Acute) Paroxysmal atrial fibrillation (Acute) Constipation (Acute) Insomnia (Acute) Hyperlipidemia (Acute) Skin neoplasm (Acute) Essential hypertension (Acute) Knee pain (Acute) Vitamin D insufficiency (Acute) Hypothyroidism (Acute) Acute myofascial strain of lumbar region (Acute) Left hand pain (Acute) Left wrist pain (Acute) Past Medical History Medical History Left bundle branch block Aortic stenosis New onset left bundle branch block (LBBB) HTN (hypertension) Paroxysmal atrial fibrillation Hyperlipidemia Knee pain Vitamin D insufficiency Hypothyroidism Osteoporosis of lumbar spine Family History Family History Father Emphysema, unspecified Mother History of heart attack Brother Cancer of prostate Sister Ovarian cancer Sister Ovarian cancer Son History of heart attack Malignant melanoma Son No problems noted. Son No problems noted. Daughter No problems noted. Other Substance use disorder Surgical History Surgical History History of removal of cyst Social History Social History Household Members: None Housing: Other Housing Other:: Mobile Home Do you presently have visiting nurse or other home services: No Alcohol intake: former Comment: refusing alarms Patient Tobacco Use Status: Former Tobacco user e-Cigarette/Vaping Use: Never Used Second Hand Smoke Exposure: No Advance Directives Date on File: 08/20/24 service: No Current occupational status: retired Cognitive needs: No Hearing needs: No Vision needs: Yes (glasses) Meds Allergies Allergy/AdvReac Type Severity Reaction Status Date / Time lisinopril AdvReac Intermediate Unknown Verified 04/17/25 17:27 Home Medications ?Medication ?Instructions ?Recorded ?Confirmed ?Last Taken ?Type latanoprost 0.005 % eye drops 1 drp ophthalmic (eye) BEDTIME 06/22/24 04/17/25 08/19/24 History hydralazine 50 mg tablet 50 mg PO BID 08/20/24 04/17/25 08/19/24 History Exam Narrative Narrative: ECHO 05/2024 Conclusions: - 1. Normal LV ejection fraction 55-60% with mild LVH with pseudonormal filling pattern 2. Mildly dilated left atrium 3. Heavy mitral annular calcification with possible mild mitral stenosis 4. Yxmc-np-hclpfcfr calcific aortic stenosis 5. Normal RV systolic pressure 6. No gross pericardial effusion
[2025-05-18 13:37] VITALS: BMI 28.2
[2025-05-20 11:56] VITALS: BMI 27.8
[2025-05-20] MEDS: Lactated Ringers 1,000 ML 100 ML IVCONT (12:05)
--- NOTE | 2025-05-20 12:21 | MHC.SHP ---
Pre-Procedural Eval Section A - 24 Hr Update-Section A only Date of Service: 05/20/25 The patient is an INPATIENT: No Changes since office visit: Yes Patient answered all questions; No Cold of Flu in the past 2 weeks, No New Medical Problems and No Changes in Medication The patient has been examined within 24 hours of the surgical procedure. The History & Physical has been completed within 30 days and I have reviewed it.: Yes Section B - Complete if H&P > 30 days Chief Complaint: Paroxysmal atrial fibrillation Allergies: Allergies Allergy/AdvReac Type Severity Reaction Status Date / Time lisinopril AdvReac Intermediate Unknown Verified 05/20/25 11:57 Plan I have reviewed the history and physical and performed a pertinent physical examination on my patient. No changes have occurred unless specified. Time Spent With Patient Time: Total time managing care of this patient today ____ minutes.
[2025-05-20 12:22] VITALS: BP 124/61; PULSE 97; RESP 18; TEMP 36.7; O2SAT 99
--- NOTE | 2025-05-20 13:50 | ECG_ITS ---
Test Reason : POST CARDIOVERSION Blood Pressure : */* mmHG Vent. Rate : 77 BPM Atrial Rate : * BPM P-R Int : * ms QRS Dur : 150 ms QT Int : 480 ms P-R-T Axes : * -47 116 degrees QTcB Int : 543 ms Atrial fibrillation Left axis deviation Left bundle branch block Abnormal ECG When compared with ECG of 26-Mar-2025 09:57, QT has lengthened Referred By: Alexandre Sebastian Electronically Signed By: ALEXANDRE SEBASTIAN MD
--- NOTE | 2025-05-20 13:51 | HO.CARDIVERS ---
Cardioversion Procedure Note Cardioversion Date of Procedure: 05/20/2025 Ordering Provider: Yamila Miles Performing Provider: Prachi Sebastian Indication for Procedure: Persistent atrial fibrillation Pre-Op Diagnosis: Same Post-Op Diagnosis: Normal sinus rhythm Performed with Transesophageal Echo: No History: See office note Consent: Verbal and Written consent was obtained from the patient before starting and after confirming oral anticoagulation use. The patient was made aware of the risk of synchronized cardioversion including benefits and alternatives Procedure: After consent obtained, cardioversion pads were attached in anteroposterior configuration and the patient was sedated by the anesthesia team. Once adequate sedation achieved, patient was delivered 200 joules of biphasic synchronized energy in anteroposterior configuration Impression: Successful conversion to sinus rhythm Recommendations: 1. 12 lead EKG 2. Continue amiodarone and oral anticoagulation therapy 3. Follow up in the office
[2025-05-20 13:54] VITALS: BP 156/49; PULSE 80; RESP 12; TEMP 36.1; O2SAT 99
[2025-05-20 14:09] VITALS: BP 150/50; PULSE 80; RESP 12; O2SAT 99
[2025-05-20 14:24] VITALS: BP 147/68; PULSE 74; RESP 20; TEMP 36.2; O2SAT 99
== END 2025-05-20 14:36 | disposition home or self-care (01) ==
PROVIDERS: PCP Internal Medicine; Visit Provider Internal Medicine Cardiovascular Disease
PROC: 5A2204Z Restoration of Cardiac Rhythm, Single (ICD-10-PCS; principal; 2025-05-20 13:00)
DX: I48.19 Other persistent atrial fibrillation (principal); I48.0 Paroxysmal atrial fibrillation; Z79.01 Long term (current) use of anticoagulants; I35.0 Nonrheumatic aortic (valve) stenosis; I10 Essential (primary) hypertension; I44.7 Left bundle-branch block, unspecified; E78.5 Hyperlipidemia, unspecified; Z79.899 Other long term (current) drug therapy; Z87.891 Personal history of nicotine dependence
CPT/HCPCS: 92960; 93005; J2704

== ENCOUNTER → 2025-05-20 11:12 | Outpatient (BNV) | payer OTHER, SELFPAY | PROVIDERS: PCP Internal Medicine; Visit Provider Internal Medicine Cardiovascular Disease | DX: I48.91 Unspecified atrial fibrillation (principal) | CPT/HCPCS: 92960 ==

== ENCOUNTER 2025-06-06 11:47 | Outpatient (REF) | payer MEDICARE, OTHER, SELFPAY ==
[2025-06-06 14:02] LABS: Appearance Urine Cloudy; Glucose Urine UA Negative (Negative); PH 6.0 (5.0-9.0); Specific Gravity - Urine 1.015 (1.005-1.025); UMIC TRIGGER UACC YES
[2025-06-06 14:08] LABS: UACC Culture Trigger YES
== END 2025-06-06 11:48 | disposition home or self-care (01) ==
LOC: HO.HMGCLDS 11:47
PROVIDERS: PCP Internal Medicine; Visit Provider Internal Medicine
DX: F44.89 Other dissociative and conversion disorders (principal)
CPT/HCPCS: 81001; 81003; 87086; 87088; 87186

== ENCOUNTER 2025-06-08 13:54 | Outpatient (AMB) | payer MEDICARE, MEDICAID, SELFPAY ==
--- NOTE | 2025-06-08 13:58 | AM.OFFVISMDC ---
Intake Vital Signs 06/08/25 14:04 Height 5 ft 3 in Weight 162 lb BMI 28.7 BP 142/80 H Blood Pressure Location Rt brachial Position Sitting Respiration 16 Pulse 77 Pulse Source Pulse Oximeter Temp 97.6 F Temp Source Oral Pulse Oximetry (%) 98 Oxygen Delivery Method Room Air Intake Visit Reasons: AWV G0438 Intake Note: Pt is here today for her AWV Child Life Specialist Required: No Allergies lisinopril Adverse Reaction (Intermediate, Verified 06/08/25 14:06) Unknown Medication List - Last Reconciled 06/08/25 by Jessica العلي MD amiodarone 200 mg PO BID 30 days amlodipine 5 mg PO DAILY apixaban (Eliquis) 5 mg PO BID baclofen 10 mg PO BEDTIME hydralazine 50 mg PO BID latanoprost 0.005% 1 drp ophthalmic (eye) BEDTIME levothyroxine 75 mcg PO DAILY nitrofurantoin monohyd/m-cryst 100 mg (Macrobid) 100 mg PO Q12H 10 days rosuvastatin 5 mg PO DAILY 90 days triamterene-hydrochlorothiazid 37.5-25 mg 1 tab PO DAILY walker Wheeled walker to be used throughout the day HPI AWV G0438 HPI Details IPPE/AWV ? year old presents for her ? Annual Wellness Visit, initial visit.? Medical / Social History Reviewed? Past Medical History ?Yes . ? Kermit of Care / Care Team list updated ?Yes . ? Surgical/Hospitalization History ?Yes . ? Current Medications (including OTC and supplements) ?Yes . ? Family History ?Yes . ? Tobacco Control form ?Yes . ? AUDIT-C (Alcohol use) form ?Yes . ? Illicit drug use in Social History ?Yes . ? Current diagnosis of depression? ?No ? Appropriate PHQ2/PHQ9 completed ?Yes . ? Data entered by ?Hydraulic Press Tender and reviewed by provider ? Fall Risk ? Fall History? Have you had any falls with injury in the past year? ?No . ? Have you had two or more falls in the past year? ?No . ? Fall Risk Assessment: ?No falls in the past year . ? HRA filled out by the patient, reviewed by Provider and scanned. ? IPPE/AWV ? Balance? Romberg ?Yes . ? Tandem walk ?Yes . ? Walk and Turn ?Yes . ? Rise from sit to stand ?Yes . ?Vision? Corrective lens ?Yes ? Vision screen ? Up-to-date, has an appointment Dr. Tinoco 12/05/2020 for her vision screening and glaucoma screening ?Hearing? Whisper test ?pass . ?Written Plan?Completed. See Patient Documents.? [facility] Medical History (Updated 05/20/25 @ 12:50 by Cris Patel RN) CVA (cerebral vascular accident) Anxiety Renal insufficiency Left bundle branch block Aortic stenosis HTN (hypertension) Paroxysmal atrial fibrillation Hyperlipidemia Vitamin D insufficiency Hypothyroidism Osteoporosis of lumbar spine Surgical History History of removal of cyst Family History Father Emphysema, unspecified Mother History of heart attack Brother Cancer of prostate Sister Ovarian cancer Sister Ovarian cancer Son History of heart attack Malignant melanoma Son No problems noted. Son No problems noted. Daughter No problems noted. Other Substance use disorder Social History Household Members: None Housing: Other Housing Other:: Mobile Home Do you presently have visiting nurse or other home services: No Unable to assess alcohol history related to: Unknown Alcohol intake: former Patient Tobacco Use Status: Former Tobacco user e-Cigarette/Vaping Use: Never Used Second Hand Smoke Exposure: No Advance Directives Date on File: 08/20/24 service: No Current occupational status: retired Cognitive needs: No Hearing needs: No Vision needs: Yes (glasses) Physical Exam Vital Signs: BMI result Body Mass Index 28.7 Coding
[2025-06-08 14:04] VITALS: BP 142/80; PULSE 77; RESP 16; TEMP 36.4; O2SAT 98; BMI 28.7
--- NOTE | 2025-06-08 14:15 | A.OFFPC_ITS ---
Vital Signs 06/08/25 14:04 Height 5 ft 3 in Weight 162 lb BMI 28.7 BP 142/80 H Blood Pressure Location Rt brachial Position Sitting Respiration 16 Pulse 77 Pulse Source Pulse Oximeter Temp 97.6 F Temp Source Oral Pulse Oximetry (%) 98 Oxygen Delivery Method Room Air Intake Visit Reasons: Brief episode of confusion Intake Note: Pt is here today for a urine test f/u Allergies lisinopril Adverse Reaction (Intermediate, Verified 06/08/25 14:06) Unknown Medication List - Last Reconciled 06/08/25 by Jessica العلي MD amiodarone 200 mg PO BID 30 days amlodipine 5 mg PO DAILY apixaban (Eliquis) 5 mg PO BID baclofen 10 mg PO BEDTIME hydralazine 50 mg PO BID latanoprost 0.005% 1 drp ophthalmic (eye) BEDTIME levothyroxine 75 mcg PO DAILY nitrofurantoin monohyd/m-cryst 100 mg (Macrobid) 100 mg PO Q12H 10 days rosuvastatin 5 mg PO DAILY 90 days triamterene-hydrochlorothiazid 37.5-25 mg 1 tab PO DAILY walker Wheeled walker to be used throughout the day Tobacco use date assessed: 04/07/25 Dental Screening Dental Screen Date: 04/07/25 HPI HPI Comments History of Present Illness Details 89-year-old lady with past medical histo ry of hypertension, hyperlipidemia, CVA, left bundle branch block, [id number] aortic stenosis, paroxysmal atrial fibrillation status post cardioversion to normal sinus rhythm, here today for evaluation of brief alteration in her mental status... Patient's daughter states that her mother had a brief episode of confusion where in she could not recognize her daughter, this episode lasted only several sec and resolved spontaneously. At present patient states that she is feeling well, is accompanied today by her daughter who states that she is back to her baseline. 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 Has no complaints of chest pain, headache , lightheadedness, dysuria, urinary frequency , abdominal or back pain. [facility] Medical History (Updated 06/16/25 @ 01:24 by Jessica العلي MD) CVA (cerebral vascular accident) Anxiety Renal insufficiency Left bundle branch block Aortic stenosis HTN (hypertension) Paroxysmal atrial fibrillation Hyperlipidemia Vitamin D insufficiency Hypothyroidism Osteoporosis of lumbar spine Surgical History History of removal of cyst Family History Father Emphysema, unspecified Mother History of heart attack Brother Cancer of prostate Sister Ovarian cancer Sister Ovarian cancer Son History of heart attack Malignant melanoma Son No problems noted. Son No problems noted. Daughter No problems noted. Other Substance use disorder Social History Household Members: None Housing: Other Housing Other:: Mobile Home Do you presently have visiting nurse or other home services: No Unable to assess alcohol history related to: Unknown Alcohol intake: former Patient Tobacco Use Status: Former Tobacco user e-Cigarette/Vaping Use: Never Used Second Hand Smoke Exposure: No Advance Directives Date on File: 08/20/24 service: No Current occupational status: retired Cognitive needs: No Hearing needs: No Vision needs: Yes (glasses) Questionnaire Thrive Questionnaire Date Thrive assessed: 11/18/24 I am a: Patient What is your living situation today?: I have a steady place to live Within the past 12 months, did the food you bought not last and you didn't have the money to get more?: I choose not to answer this question Within the past 12 months, did you worry whether your food would run out before you got money to buy more?: I choose not to answer this question Do you have trouble paying for medicines?: No Do you have trouble getting transportation to medical appointments?: No Do you have trouble paying your heating and electricity bill?: No Do you have trouble taking care of your child, family member or friend?: I choose not to answer this question Do you have trouble with day-to-day activities such as bathing, preparing meals, shopping, managing finances, etc.?: I choose not to answer this question Are you currently unemployed and looking for a job?: I choose not to answer this question Are you interested in more education?: I choose not to answer this question Please select the resources that you would like help with: None THRIVE Score: 0 SANIYA-7 AMB Questionnaire SANIYA-7 Date SANIYA - 7 assessed: 09/03/24 Source: Developed by Drs. Joel Alejandra, Genie Wilson, Maykel Nam and colleagues, with an educational chato from [employer]. Review of Systems Const All systems reviewed & are unremarkable except as noted in HPI and below Reports difficulty sleeping Physical exam (Primary Care) Vital Signs: Last Vital Signs Temp 97.6 F 06/08/25 14:04 Pulse 77 06/08/25 14:04 Resp 16 06/08/25 14:04 BP 142/80 H 06/08/25 14:04 Pulse Ox 98 06/08/25 14:04 Oxygen Delivery Method Room Air 06/08/25 14:04 BMI result Body Mass Index 28.7 Tobacco/Smoking Status: Tobacco use Status Tobacco use date assessed 04/07/25 06/08/25 14:40 Patient Tobacco Use Status Former Tobacco user 06/08/25 14:40 e-Cigarette/Vaping Use Never Used 06/08/25 14:40 Thrive Assessment: Date of Thrive Assessment Date Thrive assessed 11/18/24 06/08/25 14:40 Const General: no acute distress Orientation/consciousness: patient oriented x3 HENMT Head: Yes normocephalic Ears: external ears normal General nose exam: Normal external nose present Face and sinus: Yes face symmetric Mouth: moist mucous membranes Eyes General: appearance normal, both eyes and all related structures Neck Neck: Yes full ROM, Yes no lymphadenopathy and Yes supple Resp Effort & Inspection: normal respiratory effort Auscultation: clear to auscultation bilaterally Cardio Rhythm: regular rhythm Heart sounds: S1 normal heart sound present and S2 normal heart sound present GI Inspection: Yes normal to inspection Palpation (GI): Soft to palpation Percussion: Yes normal to percussion Auscultation: normal bowel sounds General: Yes no CVA tenderness Back/Spine/Pelvis Back: no CVA tenderness and No back tenderness Neuro General: patient oriented x3, gait normal, moves all extremities, Normal light touch and pain sensation and no focal motor deficits Extrem General: Yes full ROM, Yes no joint enlargement and Yes no pedal edema Psych Appearance: grossly normal Mental Status: mental status grossly normal Speech and movement: Normal speech and movement present Affect: normal affect Results Reviewed Results Reviewed: Name: Lisa Fay Age/Sex: 89/F : 1935 Unit#: [id number] Attend Dr: Jessica العلي MD Re06/06/25 Status: DEP REF Location: [facility] Disch: Specimen: [id number] Collected: 06/06/25-UNK Status: COMP Req#: [id number] Received: 06/06/25-1600 Source: [facility] Sp Desc: Clean Cat Subm Dr: Jessica العلي MD Ordered: Urine Culture Procedure Result Verified Urine Culture Final 06/08/25 Organism 1 Escherichia coli Quant > 100,000 cfu/mL E coli M.I.C. RX --------- --- Ampicillin 8 S Cefazolin (Urine) <=1 S Cefepime <=0.12 S Ceftriaxone <=0.25 S Ciprofloxacin <=0.06 S Gentamicin <=1 S Nitrofurantoin <=16 S Trimethoprim/Sulfamethoxazole <=20 S Coding Level of Care Code Est Pt Level 4 (76072) Diagnoses UTI (urinary tract infection) N39.0 Insomnia, unspecified type G47.00 Insomnia type: unspecified Confusion associated with infection B99.9; R41.0 Assessment & Plan Assessment & Plan (1) UTI (urinary tract infection): Code(s): N39.0 - Urinary tract infection, site not specified Category: Medical Plan: Prescribed nitrofurantoin monohydrate 100 mg per capsule to take 1 capsule every 12 hours for 10 days. Stay well-hydrated. (2) Insomnia: Code(s): G47.00 - Insomnia, unspecified Category: Medical Qualifiers: Insomnia type: unspecified Qualified Code(s): G47.00 - Insomnia, unspecified Plan: Prescription sent for doxepin 6 mg per tablet to take 1 tablet at bedtime as needed for difficulty with sleeping. (3) Confusion associated with infection: Code(s): B99.9 - Unspecified infectious disease; R41.0 - Disorientation, unspecified Plan: Tested in the mini-mental state exam. Confusion has resolved, patient denies any urinary symptoms. Medications: New doxepin (Silenor) 6 mg PO BEDTIME PRN 30 tabs 0RF sleep
--- OUTSIDE RECORDS SUMMARY | 2025-06-08 17:05 | XMS_ITS | Patient Health Record ---
Author Organization [facility] - [address] Address [address] [place] [address] Care Team Providers Care Access Control Officer Name Role Phone ROSE COBB Primary Care Provider [phone] Allergies No Known Allergies Reason For Referral [...] Status Risk Notes Problem Paroxysmal atrial fibrillation (790518878) Paroxysmal atrial fibrillation (I48.0) Active confirmed Problem Essential hypertension (75792984) Essential hypertension (I10) Active confirmed Problem Dyslipidemia (818219273) Dyslipidemia (E78.5) Active confirmed Problem Hypothyroidism (55599529) Hypothyroidism (acquired) (E03.9) Active confirmed Problem Left bundle branch block (33464420) Left bundle branch block (I44.7) Active confirmed Problem Aortic valve disease (3126127) Aortic valve disease (I35.9) Active confirmed Problem Aortic valve stenosis (30666565) Aortic valve stenosis (I35.0) Active confirmed Problem Cerebrovascular disease (88253818) Cerebral vascular disease (I67.9) Active confirmed Plan [...] Surgery Date(Month/Year) Cardioversion Hospitalization History Reason Date(Month/Year) 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
== END 2025-06-08 15:35 | disposition home or self-care (01) ==
PROVIDERS: PCP Internal Medicine; Visit Provider Internal Medicine
DX: N39.0 Urinary tract infection, site not specified (principal); G47.00 Insomnia, unspecified; B99.9 Unspecified infectious disease; R41.0 Disorientation, unspecified

== ENCOUNTER → 2025-06-08 13:54 | Outpatient (BNVA) | payer MEDICARE, MEDICAID, SELFPAY | PROVIDERS: PCP Internal Medicine; Visit Provider Internal Medicine | DX: I10 Essential (primary) hypertension (principal); N39.0 Urinary tract infection, site not specified; G47.00 Insomnia, unspecified; B99.9 Unspecified infectious disease; R41.0 Disorientation, unspecified; Z86.73 Personal history of transient ischemic attack (TIA), and cerebral infarction without residual deficits | CPT/HCPCS: 99212 ==

== ENCOUNTER 2025-06-16 11:12 | Outpatient (AMB) | payer MEDICARE, OTHER, MEDICAID, SELFPAY ==
[2025-06-16 11:20] VITALS: BP 120/76; PULSE 106; BMI 27.7
--- NOTE | 2025-06-16 11:20 | A.OFFVIS_ITS ---
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 [employer] Consultant: [employer] Consultant Present Accompanied by: Daughter Allergies lisinopril Adverse Reaction (Intermediate, Verified 06/08/25 14:06) Unknown Medication List - Last Reconciled 06/16/25 by Alexandre Sebastian MD amiodarone 200 mg PO ONCE amlodipine 5 mg PO DAILY apixaban (Eliquis) 5 mg PO BID baclofen 10 mg PO BEDTIME eszopiclone 1 mg PO BEDTIME PRN hydralazine 50 mg PO BID latanoprost 0.005% 1 drp ophthalmic (eye) BEDTIME levothyroxine 75 mcg PO DAILY nitrofurantoin monohyd/m-cryst 100 mg (Macrobid) 100 mg PO Q12H 10 days rosuvastatin 5 mg PO DAILY 90 days triamterene-hydrochlorothiazid 37.5-25 mg 1 tab PO DAILY walker Wheeled walker to be used throughout the day HPI Comments Details: Lisa comes for follow-up after recent cardioversion attempt which failed to achieve sinus rhythm. Patient comes for follow-up accompanied by her daughter. She wants to continue to remain active although she does get short of breath with activity. She has a limited herself. She denies any orthopnea, PND. Denies any prolonged palpitation or lightheadedness. No exertional chest pain. [facility] Medical History Paroxysmal atrial fibrillation On amiodarone therapy CVA (cerebral vascular accident) Anxiety Renal insufficiency Left bundle branch block Aortic stenosis HTN (hypertension) Hyperlipidemia Vitamin D insufficiency Hypothyroidism Osteoporosis of lumbar spine Surgical History History of removal of cyst Family History Father Emphysema, unspecified Mother History of heart attack Brother Cancer of prostate Sister Ovarian cancer Sister Ovarian cancer Son History of heart attack Malignant melanoma Son No problems noted. Son No problems noted. Daughter No problems noted. Other Substance use disorder Social History Household Members: None Housing: Other Housing Other:: Mobile Home Do you presently have visiting nurse or other home services: No Alcohol intake: former Patient Tobacco Use Status: Former Tobacco user e-Cigarette/Vaping Use: Never Used Second Hand Smoke Exposure: No Advance Directives Date on File: 08/20/24 service: No Current occupational status: retired Cognitive needs: No Hearing needs: No Vision needs: Yes (glasses) Review of Systems Const Denies chills, Denies fatigue, Denies fever(s), Denies frequent falls, Denies weakness, Denies weight gain and Denies weight loss ENT Denies dizziness Card Denies chest pain, Denies leg edema, Denies lightheadedness, Denies palpitations, Denies dyspnea, Denies dyspnea on exertion, Denies orthopnea and Denies other (loss of consciousness) Resp Denies cough, Denies dyspnea and Denies dyspnea on exertion GI Denies hematochezia and Denies change in stool character Musc Denies abnormal gait, Denies muscle weakness, Denies numbness, Denies radiating pain into limb and Denies tingling Neuro Denies abnormal gait, Denies dizziness, Denies frequent falls, Denies numbness, Denies tingling and Denies weakness Endo Denies fatigue and Denies palpitations Physical Exam Vital Signs: Last Vital Signs Pulse 106 H 06/16/25 11:20 BP 120/76 06/16/25 11:20 BMI result Body Mass Index 27.7 Const General: cooperative, healthy appearing, comfortable and no acute distress Orientation/consciousness: patient oriented x3 Neck Neck: Yes normal visual inspection and Yes no JVD Resp Effort & Inspection: normal respiratory effort Auscultation: clear to auscultation bilaterally, no rales, no rhonchi and no wheezes Cardio Rate: tachycardic Rhythm: abnormal rhythm Heart sounds: S1 normal heart sound present, S2 normal heart sound present, no gallops, Murmur heart sound present systolic mid and no rubs Neuro General: patient oriented x3 Extrem General: Yes normal to inspection, No no pedal edema and No calf tenderness Psych Appearance: grossly normal Mental Status: mental status grossly normal Speech and movement: Normal speech and movement present Office Procedures EKG Details: EKGs shows atrial fibrillation with rapid ventricular response with left bundle- branch block [id number], Complete Assessment & Plan Assessment & Plan (1) Persistent atrial fibrillation: Code(s): I48.19 - Other persistent atrial fibrillation Category: Medical Plan: Symptomatic persistent atrial fibrillation which has failed rhythm control approach despite amiodarone therapy and repeat cardioversion. At this point time unlikely to pursue rhythm control approach. Continue rate control. Will discontinue amiodarone therapy to reduce long-term toxicity. Will start digoxin 0.125 mg 3 times a week as well as Toprol-XL 50 mg at bedtime. Advise EKGs and blood pressure check in 1 week's time. Will adjust medications as tolerated and may need to alter her antihypertensives as well. Digoxin assay in 1 week's time. Follow-up Holter monitor in 1 month's time. We discussed the management limitations and symptoms associated with atrial fibrillation. Encouraged to maintain activity level as tolerated. Potential development of heart failure was discussed as well. She and her daughter understand. Continue full oral anticoagulation, on Eliquis 5 mg b.i.d.. High risk for recurrent thromboembolic events. (2) Aortic stenosis: Comment: Echo 06/19 mild-moderate calcific , Echo 05/2024 EF 55-60%, josue MV, mild MS, mild-mod , f/u Dr. Sebastian Code(s): I35.0 - Nonrheumatic aortic (valve) stenosis Category: Medical Plan: Aortic stenosis which clinically appears to be moderate. Will follow-up echocardiogram in near future in about a month's time. Continue aggressive risk factor modification. Continue aggressive blood pressure control with goal blood pressure less than 130/84. Continue statin therapy with target goal LDL less than 100 mg/dL. Will follow up in the clinic in 3 months time, sooner PRN. Thank you for allowing me to partake in her care Orders: Orders CA echo transthoracic complete 1 Month I35.0 - Nonrheumatic aortic (valve) stenosis Digoxin 1 Week I48.19 - Other persistent atrial fibrillation, I48.20 - Chronic atrial fibrillation, unspecified ECG 3 day holter monitor 1 Month I48.19 - Other persistent atrial fibrillation Basic Metabolic Panel 1 Week I48.19 - Other persistent atrial fibrillation Medications: New digoxin M-W-F 125 mcg PO .three times a week 20 tabs 5RF metoprolol succinate ER (Toprol XL) 50 mg PO BEDTIME 30 tabs 5RF Coding Level of Care Code Est Pt Level 4 (20732) Complex EM visit Add On G2211 Diagnoses Persistent atrial fibrillation I48.19 Aortic stenosis I35.0 CPT Codes EKG - CPT: 09429-Jmtctogttmwnfcxkf, Complete ([id number])
--- OUTSIDE RECORDS SUMMARY | 2025-06-16 17:27 | XMS_ITS | Patient Health Record ---
Author Organization [facility] - [address] Address [address] [place] [address] Care Team Providers Care Final Assembly Inspector Name Role Phone ROSE COBB Primary Care [...] Status Risk Notes Problem Paroxysmal atrial fibrillation (958614529) Paroxysmal atrial fibrillation (I48.0) Active confirmed Problem Essential hypertension (79444616) Essential hypertension (I10) Active confirmed Problem Dyslipidemia (287400485) Dyslipidemia (E78.5) Active confirmed Problem Hypothyroidism (80217840) Hypothyroidism (acquired) (E03.9) Active confirmed Problem Left bundle branch block (42953449) Left bundle branch block (I44.7) Active confirmed Problem Aortic valve disease (5713558) Aortic valve disease (I35.9) Active confirmed Problem Aortic valve stenosis (13547145) Aortic valve stenosis (I35.0) Active confirmed Problem Cerebrovascular disease (08812508) Cerebral vascular disease (I67.9) Active confirmed Plan [...] Surgery Date(Month/Year) Cardioversion Hospitalization History Reason Date(Month/Year) 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
== END 2025-06-16 11:44 | disposition home or self-care (01) ==
PROVIDERS: PCP Internal Medicine; Visit Provider Internal Medicine Cardiovascular Disease
DX: I48.19 Other persistent atrial fibrillation (principal); I35.0 Nonrheumatic aortic (valve) stenosis
CPT/HCPCS: 93010; 99214; G2211

== ENCOUNTER → 2025-06-16 11:12 | Outpatient (BNVA) | payer OTHER, MEDICAID, SELFPAY | PROVIDERS: PCP Internal Medicine; Visit Provider Internal Medicine Cardiovascular Disease | DX: I48.19 Other persistent atrial fibrillation (principal); I35.0 Nonrheumatic aortic (valve) stenosis; I10 Essential (primary) hypertension; Z79.899 Other long term (current) drug therapy; Z87.891 Personal history of nicotine dependence | CPT/HCPCS: 93005; 99212 ==

== ENCOUNTER 2025-06-24 06:55 | Outpatient (REF) | payer OTHER, MEDICAID, SELFPAY ==
--- OUTSIDE RECORDS SUMMARY | 2025-06-24 06:58 | XMS_ITS | Patient Health Record ---
Author Organization [facility] - [address] [place] [address] Care Team Providers Care Pipeline Gang Supervisor Name Role Phone ROSE COBB Primary Care Provider [phone] Allergies No Known Allergies Reason For Referral [...] Status Risk Notes Problem Paroxysmal atrial fibrillation (203931582) Paroxysmal atrial fibrillation (I48.0) Active confirmed Problem Essential hypertension (08383167) Essential hypertension (I10) Active confirmed Problem Dyslipidemia (296419281) Dyslipidemia (E78.5) Active confirmed Problem Hypothyroidism (49173777) Hypothyroidism (acquired) (E03.9) Active confirmed Problem Left bundle branch block (17090989) Left bundle branch block (I44.7) Active confirmed Problem Aortic valve disease (8726176) Aortic valve disease (I35.9) Active confirmed Problem Aortic valve stenosis (30009520) Aortic valve stenosis (I35.0) Active confirmed Problem Cerebrovascular disease (21002446) Cerebral vascular disease (I67.9) Active confirmed Plan [...] Surgery Date(Month/Year) Cardioversion Hospitalization History Reason Date(Month/Year) 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
[2025-06-24 07:43] LABS: Anion Gap 12 (12-20); Blood Urea Nitrogen 36 mg/dL (9-16); Calcium 9.3 mg/dL (8.4-10.2); Carbon Dioxide 30 mmol/L (22-29); Chloride 106 mmol/L (96-108); Estimated Glomerular Filt Rate 31; Potassium 4.3 mmol/L (3.3-5.1); Sodium 144 mmol/L (135-145)
[2025-06-24 07:44] LABS: Digoxin 0.2 ng/mL (0.8-2.0)
== END 2025-06-24 06:56 | disposition home or self-care (01) ==
LOC: HO.LAB 06:55
PROVIDERS: PCP Internal Medicine; Visit Provider Internal Medicine Cardiovascular Disease
DX: I48.19 Other persistent atrial fibrillation (principal)
CPT/HCPCS: 36415; 80048; 80162

== ENCOUNTER 2025-07-01 07:48 | Outpatient (REF) | payer MEDICARE, OTHER, SELFPAY ==
[2025-07-01 11:09] LABS: Anion Gap 13 (12-20); Blood Urea Nitrogen 34 mg/dL (9-16); Calcium 9.1 mg/dL (8.4-10.2); Carbon Dioxide 26 mmol/L (22-29); Chloride 108 mmol/L (96-108); Estimated Glomerular Filt Rate 33; Potassium 4.7 mmol/L (3.3-5.1); Sodium 142 mmol/L (135-145)
== END 2025-07-01 07:49 | disposition home or self-care (01) ==
LOC: HO.HMGCLDS 07:48
PROVIDERS: PCP Internal Medicine; Visit Provider Nurse Practitioner Family
DX: I10 Essential (primary) hypertension (principal)
CPT/HCPCS: 36415; 80048